=== PATIENT | female | born 1990 | race American Indian/Alaskan Native ===

== ENCOUNTER 2016-02-16 16:18 | Emergency (ER) | payer SELFPAY ==
[2016-02-16 16:56] VITALS: BP 182/120
== END 2016-02-16 17:13 | disposition left against medical advice (07) ==
LOC: ED 16:18
DX: R20.2 Paresthesia of skin (principal); Z53.21 Procedure and treatment not carried out due to patient leaving prior to being seen by health care provider
CPT/HCPCS: 82962; 93005; 93010

== ENCOUNTER 2016-06-28 22:43 | Inpatient (IN) | payer OTHER ==
[2016-06-29] MEDS ORDERED: ZESTRIL PO ONE (01:45)
[2016-06-29] MEDS ORDERED: NORVASC PO ONE (01:45)
--- NOTE | 2016-06-29 01:48 | Emergency Department Report ---
ED Headache HPI - General Chief Complaint: High BP Stated Complaint: HIGH BP Time Seen by Provider: 06/29/16 01:38 - History of Present Illness Initial Comments: Patient is a 26-year-old female with a history of hypertension and diabetes who presents to the ER with headache and dizziness. 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 Patient reports she usually feels this way when her blood pressure is elevated. Patient checked her blood pressure and found her BP to be 233/130. Patient reports she takes Norvasc 10 mg by mouth twice a day and lisinopril 40 mg by mouth twice a day. Patient was noncompliant with her medications tonight, last dose was taken this morning. Otherwise no fevers, chills, double vision, hearing changes, shortness of breath , chest pain, abdominal pain, diarrhea, sick contacts, or travel Allergies/Adverse Reactions: Allergies No Known Allergies Allergy (Verified 06/29/16 01:18) ED Review of Systems ROS: Stated complaint: HIGH BP Other details as noted in HPI Comment: All other systems reviewed and negative ED Past Medical Hx - Past Medical History Previous Medical History?: Yes Hx Hypertension: Yes Hx Diabetes: Yes Additional medical history: cholesterol - Surgical History Past Surgical History?: No - Social History Smoking Status: Never Smoker Substance Use Type: None ED Physical Exam - General Limitations: No Limitations General appearance: alert, in no apparent distress - Head Head exam: Present: atraumatic, normocephalic - Eye Eye exam: Present: normal appearance - ENT ENT exam: Present: mucous membranes moist - Neck Neck exam: Present: normal inspection - Respiratory Respiratory exam: Present: normal lung sounds bilaterally. Absent: respiratory distress, wheezes, rales, rhonchi, stridor - Cardiovascular Cardiovascular Exam: Present: regular rate, normal rhythm, normal heart sounds. Absent: irregular rhythm, systolic murmur, diastolic murmur, rubs, gallop - GI/Abdominal GI/Abdominal exam: Present: soft, normal bowel sounds. Absent: distended, tenderness, guarding, rebound, rigid - Extremities Exam Extremities exam: Present: normal inspection - Back Exam Back exam: Present: normal inspection - Neurological Exam Neurological exam: Present: alert, oriented X3, CN II-XII intact, normal gait, reflexes normal, other (Pt ambulating without neurological dysfunction). Absent : motor sensory deficit - Psychiatric Psychiatric exam: Present: normal affect, normal mood - Skin Skin exam: Present: warm, dry, intact, normal color. Absent: rash ED Course Vital Signs 06/29/16 06/29/16 06/29/16 01:18 01:45 01:58 Temperature 98.7 F Pulse Rate 104 H Respiratory 20 20 Rate Blood Pressure 226/154 179/115 O2 Sat by Pulse 100 99 Oximetry 06/29/16 06/29/16 06/29/16 02:00 02:10 02:21 Temperature Pulse Rate 97 H 98 H Respiratory 22 19 Rate Blood Pressure 179/115 176/125 181/125 O2 Sat by Pulse 100 100 Oximetry 06/29/16 06/29/16 06/29/16 02:31 02:41 02:51 Temperature Pulse Rate 90 105 H 105 H Respiratory 20 20 26 H Rate Blood Pressure 181/125 196/121 181/124 O2 Sat by Pulse 100 100 100 Oximetry 06/29/16 06/29/16 06/29/16 03:01 03:11 03:21 Temperature Pulse Rate 110 H 110 H 108 H Respiratory 22 23 18 Rate Blood Pressure 151/83 151/83 151/83 O2 Sat by Pulse 99 100 100 Oximetry 06/29/16 03:30 Temperature Pulse Rate 103 H Respiratory 18 Rate Blood Pressure 104/56 O2 Sat by Pulse 99 Oximetry - Reevaluation(s) Reevaluation #1: 06/29/16 02:50 called to bedside, patient now c/o chest pain. Ordered EKG Reevaluation #2: 06/29/16 03:21 Pt re-examined, patient reports some improvement. BP much improved BP: 151/83 HR: 107 Reevaluation #3: 06/29/16 03:30 BP: 104/56 HR: 72 ED Medical Decision Making - Lab Data Result diagrams: 06/29/16 01:36 06/29/16 01:36 - EKG Data -: EKG Interpreted by Me - EKG Data When compared to previous EKG there are: no significant change 06/29/16 03:00 Time 225, sinus rhythm at 94 bpm, QTC 402 ms, PVCs, normal axis, no LVH, no ST changes, no STEMI - Medical Decision Making Ordered insulin 10units IVP. K: 4.1 Glucose:>700 Ordered 2L NS IVF for HHNK Pt admitted to hospitalist Critical care attestation.: If time is entered above; I have spent that time in minutes in the direct care of this critically ill patient, excluding procedure time. ED Disposition Clinical Impression: HHNC (hyperglycemic hyperosmolar nonketotic coma), HTN (hypertension) Disposition: OP ADMITTED IP TO THIS HOSP Is pt being admited?: Yes Condition: Stable
[2016-06-29 02:15] LABS: Basophils % (Auto) 0.7 % (0.0-1.8); Calcium 9.1 mg/dL (8.4-10.2); Eosinophils % (Auto) 0.8 % (0.0-4.3); Hematocrit 42.7 % (30.3-42.9); Mean Corpuscular HGB Conc 33 % (30-34); Mean Corpuscular Hemoglobin 28 pg (28-32); Mean Corpuscular Volume 85 fl (79-97); Platelet Count 357 K/mm3 (140-440); Potassium 4.1 mmol/L (3.6-5.0); Red Blood Count 5.03 M/mm3 (3.65-5.03); Red Cell Distribution Width 13.7 % (13.2-15.2); White Blood Count 11.2 K/mm3 (4.5-11.0)
[2016-06-29 03:32] LABS: Bilirubin,Urine NEG (Negative); Blood,Urine NEG (Negative); Ketones,Urine NEG (Negative); Leukocyte Esterase,Urine NEG (Negative); Mucus,Urine FEW /HPF; Nitrite,Urine NEG (Negative); Urobilinogen,Urine < 2.0 mg/dL (<2.0)
[2016-06-29] MEDS ORDERED: NACL 0.9% 1000 ML 1,000 ML IV ONE ×2 (04:16)
--- NOTE | 2016-06-29 04:46 | XRay Report ---
FINAL REPORT PROCEDURE: XR CHEST ROUTINE 2V TECHNIQUE: PA and lateral chest radiographs were obtained. CPT 29345 HISTORY: chest pain COMPARISON: No prior studies are available for comparison. FINDINGS: Heart: Normal. Mediastinum/Vessels: Normal. Lungs/Pleural space: Normal. Bony thorax: No acute osseous abnormality. Other: IMPRESSION: Normal examination.
--- NOTE | 2016-06-29 06:00 | History and Physical Report ---
History of Present Illness Chief complaint: I have a bad headache and i feel sick History of present illness: 26 YO Female with HTN, DM, Metabolic Syndrome, HLD, presents to ED for evaluation. Pt states that she has experienced Headache, dizziness, nausea and vomiting for the past 2 days with worsening symptoms over the past 6 hours. Pt denies fever, chills, CP, Palpitations, trauma, syncope, blurred vision, syncope , seizure, vertigo, skin rash, recent ill contacts. Pt acknowledges medication noncompliance. Pt seen and evaluated in ED an found to have hyperglicemic hyperosmolar state, as well as systolic BP of 233. Past History Past Medical History: diabetes, hypertension Past Surgical History: No surgical history, Other (reviewed) Social history: single. denies: smoking, alcohol abuse, prescription drug abuse Family history: diabetes, hypertension Medications and Allergies Allergies Allergy/AdvReac Type Severity Reaction Status Date / Time No Known Allergies Allergy Verified 06/29/16 01:18 Review of Systems All systems: negative Ears, nose, mouth and throat: other (headache) Gastrointestinal: nausea, vomiting Exam - Constitutional Vitals: Temp Pulse Resp BP Pulse Ox 98.7 F 96 H 19 106/83 89 06/29/16 01:18 06/29/16 05:31 06/29/16 05:31 06/29/16 05:31 06/29/16 05:31 General appearance: Present: no acute distress, well-nourished - EENT Eyes: Present: PERRL ENT: hearing intact, clear oral mucosa - Neck Neck: Present: supple, normal ROM - Respiratory Respiratory effort: normal Respiratory: bilateral: CTA - Cardiovascular Heart Sounds: Present: S1 & S2. Absent: rub, click - Extremities Extremities: pulses symmetrical, No edema Peripheral Pulses: within normal limits - Abdominal General gastrointestinal: Present: soft, non-tender, non-distended, normal bowel sounds Female genitourinary: Present: normal - Integumentary Integumentary: Present: clear, warm, dry - Musculoskeletal Musculoskeletal: gait normal, strength equal bilaterally - Psychiatric Psychiatric: appropriate mood/affect, intact judgment & insight - Neurologic Neurologic: CNII-XII intact, moves all extremities Results - Labs CBC & Chem 7: 06/29/16 01:36 06/29/16 01:36 Labs: Abnormal lab results 06/29/16 06/29/1617 Range/Units 01:36 01:36 02:25 WBC 11.2 H (4.5-11.0) K/mm3 [place] % (Auto) 8.9 H (0.0-7.3) % [place] # 1.0 H (0.0-0.8) K/mm3 Seg Neutrophils % 72.5 H (40.0-70.0) % Seg Neutrophils # 8.1 H (1.8-7.7) K/mm3 Sodium 120 L (137-145) mmol/L Chloride 86.0 L (98-107) mmol/L Carbon Dioxide 19 L (22-30) mmol/L BUN 42 H (7-17) mg/dL Creatinine 1.5 H (0.7-1.2) mg/dL Glucose 772 H* (65-100) mg/dL POC Glucose > 500 H (70-105) Lactic Acid (0.7-2.0) mmol/L 06/29/16 06/29/16 06/29/16 Range/Units 02:44 03:28 05:23 WBC (4.5-11.0) K/mm3 [place] % (Auto) (0.0-7.3) % [place] # (0.0-0.8) K/mm3 Seg Neutrophils % (40.0-70.0) % Seg Neutrophils # (1.8-7.7) K/mm3 Sodium (137-145) mmol/L Chloride (98-107) mmol/L Carbon Dioxide (22-30) mmol/L BUN (7-17) mg/dL Creatinine (0.7-1.2) mg/dL Glucose (65-100) mg/dL POC Glucose 410 H 389 H (70-105) Lactic Acid 2.50 H* (0.7-2.0) mmol/L Assessment and Plan - Patient Problems (1) Sepsis Current Visit: Yes Status: Acute Qualifiers: Sepsis type: S Plan to address problem: Sepsis Protocol: IV abx, IVF, supportive care, serial lactate levels, monitor uop q shift, goal uop 30 cc hourly, blood cultures, (2) Hypertensive emergency Current Visit: Yes Status: Acute Plan to address problem: Monitor bp q shift, resume amlodipine, hydralazine prn. Systolic goal 165-180 overnight. (3) ARF (acute renal failure) Current Visit: Yes Status: Acute Qualifiers: Acute renal failure type: A Plan to address problem: IVF, monitor uop q shift, (4) HHNC (hyperglycemic hyperosmolar nonketotic coma) Current Visit: Yes Status: Acute Plan to address problem: DKA Protocol: Insulin drip, serial bmp, monitor anion gap, (5) DVT prophylaxis Current Visit: Yes Status: Acute
[2016-06-29] MEDS ORDERED: VANCOMYCIN VIAL 1,500 MG in NACL 0.9% 500 ML 500 ML IV ONE (06:05)
[2016-06-29] MEDS ORDERED: NACL 0.9% 1000 ML IV ONE (06:05)
[2016-06-29] MEDS ORDERED: D50W (25GM) IV PRN ×3 (06:05→10:54)
--- NOTE | 2016-06-29 06:47 | Cat Scan Report ---
FINAL REPORT PROCEDURE: CT HEAD/BRAIN WO CON TECHNIQUE: Computerized tomography of the head was performed without contrast material. HISTORY: headache COMPARISON: No prior studies are available for comparison. FINDINGS: Skull and scalp: Normal. Paranasal sinuses: Normal. Ventricles and subarachnoid spaces: Normal. Cerebrum: No evidence of hemorrhage, acute infarction or mass . Cerebellum and brainstem: No evidence of hemorrhage, acute infarction or mass. Vasculature: Normal. Comments: None. IMPRESSION: Normal Examination
[2016-06-29] MEDS ORDERED: APRESOLINE IV PRN (06:49)
[2016-06-29] MEDS ORDERED: NovoLIN R 100 UNITS in NACL 0.9% 99 ML IV SCH (07:00)
[2016-06-29] MEDS ORDERED: VANCOMYCIN PHARMACY TO DOSE IV SCH (07:00)
[2016-06-29 07:07] LABS: BUN/Creatinine Ratio 27.14; Calcium 8.2 mg/dL (8.4-10.2); Chloride 96.9 mmol/L (98-107); Potassium 4.2 mmol/L (3.6-5.0)
--- NOTE | 2016-06-29 07:13 | Admit Criteria Form ---
Admission Criteria Documentation: DIABETES Clinical Indications for Admission to Inpatient Care (Place 'X' for any and all applicable criteria): Admission is indicated by presence of ALL (if I & II) or ANY ONE (if III or IV) of the following (1)(2)(3)(4): [X]I. Diabetes is uncontrolled as indicated by ANY ONE of the following: [ ]a) Diabetic ketoacidosis as indicated by ALL of the following (8): [ ]i) Hyperglycemia (eg, plasma glucose greater than 200 mg/ dL (11.1 mmol/L)) [ ]ii) Acidosis (eg, arterial pH less than 7.30, serum bicarbonate level less than 15 mEq/L (mmol/L)) [ ]iii) Moderate ketonuria or ketonemia [X]b) Hyperglycemic hyperosmolar state as indicated by ALL of the following(9)(10): [ ]i) Neurologic dysfunction (eg, stupor, coma, hemiparesis , seizure)(13) [X]ii) Plasma glucose greater than 600 mg/dL (33.3 mmol/L) [ ]iii) Serum osmolality greater than 320 mOsm/kg (mmol/kg) [X]c) Severe signs or symptoms secondary to hyperglycemia indicated by ANY ONE of the following: [ ]i) Altered mental status(10) [X]ii) Significant hypovolemia or dehydration [ ]iii) Intractable nausea or vomiting [ ]iv) Unexplained fever or severe infection [X]v) Severe electrolyte abnormality (eg, hypokalemia, hyperkalemia, hypernatremia) [ ]II. Management at other levels of care (Also use Diabetes: Observation Care as appropriate) is not feasible because of ANY ONE of the following: [ ]a) Condition was not adequately corrected with treatment at other levels of care. [ ]b) Treatment at other levels of care is not appropriate because of condition severity (eg, hyperosmolar coma). [ ]III. Contraindications and/or Inappropriate clinical situations for Observational Care in patients with Diabetes, when ANY ONE of the following is required: [ ]a) Patient require specific diagnostic workup or therapeutic intervention 22 [ ]b) Patient with abnormal vital signs or altered mental status 23 [ ]IV. General contraindications and/or Inappropriate clinical situations for Observational Care in patients with Diabetes, when ANY ONE of the following is required: [ ]a) Prediction of prolongation of LOS based on ANY ONE of the following may be considered as a contraindication for observational care 2, 3, 4, 5, 6, 7, 8, 9, 10, 11 [ ]i) Age > 65 yrs. [ ]ii) Patient arriving by ambulance [ ]iii) Patient with high acuity [ ]iv) Patient requiring vital sign monitoring [ ]v) Patient on IV medication [ ]b) Systolic blood pressures 180mmHg 3,12 [ ]c) Patient with altered mental status including delirium and other alteration of consciousness, (3) [ ]d) Patient whose discharge disposition will be to a halfway home or rehabilitation home should not be managed in Emergency Department Observation Unit. CMS rule requires 3 days hospital stay before such placement.3,13 [ ]e) Patient with failure to thrive due to broad array of etiologies 3,16,17 [ ]f) Inability to ambulate 3,14 Extended stay beyond goal length of stay may be needed for(3)(20): [ ]a) Treatment of precipitating causes [ ]b) Development of hypoglycemia [ ]c) Complications of treatment [ ]d) Complications of decompensated diabetes (eg, acute gastric dilatation, persistent metabolic or neurologic derangement) [ ]e) Active Comorbidities [ ]f) Older patients( 65 years or older) The original [employer] content created by [employer] has been revised. The portions of the content which have been revised are identified through the use of italic text or in bold,and [facility] has neither reviewed nor approved the modified material. All other unmodified content is copyright [employer]. Please see references footnoted in the original [facility] 2016 Admission Criteria Met: Yes
[2016-06-29 07:16] LABS: Magnesium 2.1 mg/dL (1.7-2.3); Phosphorous 3.5 mg/dL (2.5-4.5)
[2016-06-29] MEDS ORDERED: LEVAQUIN 750MG/150ML 750 MG/150 ML BAG IV SCH ×2 (10:00)
[2016-06-29 10:34] LABS: Anion Gap 17 mmol/L; BUN/Creatinine Ratio 26.66; Blood Urea Nitrogen 32 mg/dL (7-17); Calcium 7.5 mg/dL (8.4-10.2); Carbon Dioxide 18 mmol/L (22-30); Chloride 103.2 mmol/L (98-107); Glucose 258 mg/dL (65-100); Potassium 3.6 mmol/L (3.6-5.0); Sodium 135 mmol/L (137-145)
[2016-06-29 10:41] LABS: Magnesium 1.9 mg/dL (1.7-2.3); Phosphorous 2.6 mg/dL (2.5-4.5)
[2016-06-29 10:43] LABS: Anion Gap 20 mmol/L; Blood Urea Nitrogen 33 mg/dL (7-17); Calcium 7.5 mg/dL (8.4-10.2); Carbon Dioxide 17 mmol/L (22-30); Glucose 255 mg/dL (65-100); Potassium 3.5 mmol/L (3.6-5.0); Sodium 136 mmol/L (137-145)
[2016-06-29] MEDS ORDERED: D5W/0.45% NACL/KCL 20 MEQ 20 MEQ/1,000 ML BAG IV SCH (11:00)
[2016-06-29] MEDS: NOVOLOG SUB-Q SCH ×5 (11:32→22:26)
[2016-06-29 14:15] LABS: Anion Gap 18 mmol/L; BUN/Creatinine Ratio 24.54; Blood Urea Nitrogen 27 mg/dL (7-17); Calcium 7.9 mg/dL (8.4-10.2); Carbon Dioxide 18 mmol/L (22-30); Chloride 104.3 mmol/L (98-107); Glucose 191 mg/dL (65-100); Potassium 3.9 mmol/L (3.6-5.0); Sodium 136 mmol/L (137-145)
[2016-06-29] MEDS: NEURONTIN PO SCH ×2 (15:08→22:27)
[2016-06-29] MEDS ORDERED: LEVEMIR SUB-Q SCH (22:00)
[2016-06-29] MEDS: PROCARDIA XL PO SCH (22:27)
[2016-06-30] MEDS: NEURONTIN PO SCH ×2 (05:07→14:54)
[2016-06-30] MEDS ORDERED: TYLENOL PO PRN (05:58)
[2016-06-30] MEDS: NOVOLOG SUB-Q SCH ×2 (07:30→12:52)
[2016-06-30 08:05] VITALS: BP 165/93
[2016-06-30] MEDS: PROCARDIA XL PO SCH (09:16)
--- NOTE | 2016-06-30 09:20 | Progress Note ---
Assessment and Plan Assessment and plan: 26 YO Female with HTN, DM, Metabolic Syndrome, HLD, presents to ED for evaluation. Pt states that she has experienced Headache, dizziness, nausea and vomiting for the past 2 days 1. Hyperglycemic hyperosmolar nonketotic states Continue insulin drip, as she improves we'll try to transition her to subcutaneous insulin to optimize the dose 2. Accelerated hypertension/hypertensive emergency Blood pressure medications also optimized 3. Sepsis was ruled out, patient had new evidence of sepsis, had abnormal vital signs with due to hyperglycemic hyperosmolar state and accelerated hypertension, chest x-ray and urinalysis were negative 4. Acute renal failure/vasomotor nephropathy Patient received IV fluids, and it resolves Critical care time 32 minutes History Interval history: Nausea is improved, she states that she is now having an appetite. Hospitalist Physical - Physical exam Narrative exam: General: Patient appears well in no distress HEENT: MMM, EOMI cardiac: S1-S2 heard lungs: clear to auscultation, abdomen: soft, nontender, nondistended bowel sounds positive extremities: no edema clubbing or cyanosis Skin: no rash or lesion Neuro: no focal deficit Psych: appropriate behavior and mood, cognition intact - Constitutional Vitals: Temp Pulse Resp BP Pulse Ox 97.1 F L 98 H 18 165/93 98 06/30/16 08:04 06/30/16 08:04 06/30/16 08:04 06/30/16 08:04 06/30/16 08:04 General appearance: Present: no acute distress, well-nourished Results - Labs CBC & Chem 7: 06/29/16 01:36 06/29/16 13:33 Labs: Laboratory Last Values WBC 11.2 K/mm3 (4.5-11.0) H 06/29/16 01:36 RBC 5.03 M/mm3 (3.65-5.03) 06/29/16 01:36 Hgb 14.0 gm/dl (10.1-14.3) 06/29/16 01:36 Hct 42.7 % (30.3-42.9) 06/29/16 01:36 MCV 85 fl (79-97) 06/29/16 01:36 MCH 28 pg (28-32) 06/29/16 01:36 MCHC 33 % (30-34) 06/29/16 01:36 RDW 13.7 % (13.2-15.2) 06/29/16 01:36 Plt Count 357 K/mm3 (140-440) 06/29/16 01:36 Lymph % (Auto) 17.1 % (13.4-35.0) 06/29/16 01:36 [place] % (Auto) 8.9 % (0.0-7.3) H 06/29/16 01:36 Eos % (Auto) 0.8 % (0.0-4.3) 06/29/16 01:36 Baso % (Auto) 0.7 % (0.0-1.8) 06/29/16 01:36 Lymph # 1.9 K/mm3 (1.2-5.4) 06/29/16 01:36 [place] # 1.0 K/mm3 (0.0-0.8) H 06/29/16 01:36 Eos # 0.1 K/mm3 (0.0-0.4) 06/29/16 01:36 Baso # 0.1 K/mm3 (0.0-0.1) 06/29/16 01:36 Seg Neutrophils % 72.5 % (40.0-70.0) H 06/29/16 01:36 Seg Neutrophils # 8.1 K/mm3 (1.8-7.7) H 06/29/16 01:36 VBG pO2 131.1 (25.0-47.0) H 06/29/16 06:00 Sodium 136 mmol/L (137-145) L 06/29/16 13:33 Potassium 3.9 mmol/L (3.6-5.0) 06/29/16 13:33 Chloride 104.3 mmol/L (98-107) 06/29/16 13:33 Carbon Dioxide 18 mmol/L (22-30) L 06/29/16 13:33 Anion Gap 18 mmol/L 06/29/16 13:33 BUN 27 mg/dL (7-17) H 06/29/16 13:33 Creatinine 1.1 mg/dL (0.7-1.2) 06/29/16 13:33 Estimated GFR > 60 ml/min 06/29/16 13:33 BUN/Creatinine Ratio 24.54 % 06/29/16 13:33 Glucose 191 mg/dL (65-100) H 06/29/16 13:33 POC Glucose 124 (70-105) H 06/30/16 05:45 Hemoglobin A1c 17.5 % (4-6) H 06/29/16 06:40 Lactic Acid 1.80 mmol/L (0.7-2.0) 06/29/16 09:41 Calcium 7.9 mg/dL (8.4-10.2) L 06/29/16 13:33 Phosphorus 2.60 mg/dL (2.5-4.5) D 06/29/16 09:41 Magnesium 1.90 mg/dL (1.7-2.3) 06/29/16 09:41 Urine Color Colorless (Yellow) 06/29/16 02:15 Urine Turbidity Clear (Clear) 06/29/16 02:15 Urine pH 6.0 (5.0-7.0) 06/29/16 02:15 Ur Specific [place] 1.014 (1.003-1.030) 06/29/16 02:15 Urine Protein 100 mg/dl mg/dL (Negative) 06/29/16 02:15 Urine Glucose (UA) >=500 mg/dL (Negative) 06/29/16 02:15 Urine Ketones Neg mg/dL (Negative) 06/29/16 02:15 Urine Blood Neg (Negative) 06/29/16 02:15 Urine Nitrite Neg (Negative) 06/29/16 02:15 Urine Bilirubin Neg (Negative) 06/29/16 02:15 Urine Urobilinogen < 2.0 mg/dL (<2.0) 06/29/16 02:15 Ur Leukocyte Esterase Neg (Negative) 06/29/16 02:15 Urine WBC (Auto) 1.0 /HPF (0.0-6.0) 06/29/16 02:15 Urine RBC (Auto) 3.0 /HPF (0.0-6.0) 06/29/16 02:15 U Epithel Cells (Auto) 1.0 /HPF (0-13.0) 06/29/16 02:15 Urine Mucus Few /HPF 06/29/16 02:15 Urine HCG, Qual Negative (Negative) 06/29/16 02:15
--- NOTE | 2016-06-30 09:30 | Discharge Summary ---
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 Pt states that she has experienced Headache, dizziness, nausea and vomiting for the past 2 days 1. Hyperglycemic hyperosmolar nonketotic states She was initially treated with insulin drip, she was then transitioned to subcutaneous insulin and the doses were optimized, advised on lifestyle modification. 2. Accelerated hypertension/hypertensive emergency Blood pressure medications also optimized 3. Sepsis was ruled out, patient had new evidence of sepsis, had abnormal vital signs with due to hyperglycemic hyperosmolar state and accelerated hypertension, chest x-ray and urinalysis were negative 4. Acute renal failure/vasomotor nephropathy Patient received IV fluids, and it resolved Disposition: DISCHARGED TO HOME OR SELFCARE Time spent for discharge: 35 minutes Core Measure Documentation - Palliative Care Palliative Care/ Comfort Measures: Not Applicable - Core Measures Any of the following diagnoses?: none Exam - Constitutional Vitals: Temp Pulse Resp BP Pulse Ox 97.1 F L 98 H 18 165/93 98 06/30/16 08:04 06/30/16 08:04 06/30/16 08:04 06/30/16 08:04 06/30/16 08:04 General appearance: Present: no acute distress, well-nourished - EENT Eyes: Present: PERRL ENT: hearing intact, clear oral mucosa - Neck Neck: Present: supple, normal ROM - Respiratory Respiratory effort: normal Respiratory: bilateral: CTA - Cardiovascular Heart Sounds: Present: S1 & S2. Absent: rub, click - Extremities Extremities: pulses symmetrical, No edema Peripheral Pulses: within normal limits - Abdominal General gastrointestinal: Present: soft, non-tender, non-distended, normal bowel sounds Female genitourinary: Present: normal - Integumentary Integumentary: Present: clear, warm, dry - Musculoskeletal Musculoskeletal: gait normal, strength equal bilaterally - Psychiatric Psychiatric: appropriate mood/affect, intact judgment & insight - Neurologic Neurologic: CNII-XII intact, moves all extremities Plan Follow up with: PRIMARY CARE, [Primary Care Provider] - 7 Days Forms: Work/School Release Form Prescriptions: amLODIPine [Norvasc] 10 mg PO DAILY #30 tablet Insulin NPH/Regular [NovoLIN 70/30] 25 unit SUB-Q BIDDIAB #1 vial Lisinopril [Zestril] 40 mg PO QDAY #30 tablet NIFEdipine XL [Procardia Xl] 30 mg PO Q12HR #60 tablet
[2016-06-30] MEDS ORDERED: THERAGRAN-M Tab PO SCH (10:00)
[2016-06-30] MEDS ORDERED: LUTEIN PO SCH (10:00)
[2016-06-30] MEDS ORDERED: FOLIC ACID PO SCH (10:00)
[2016-06-30] MEDS ORDERED: ZESTRIL PO SCH (10:00)
[2016-06-30] MEDS ORDERED: FEOSOL PO SCH (10:00)
[2016-06-30] MEDS ORDERED: NORVASC PO SCH (10:00)
[2016-06-30] MEDS ORDERED: IRON PO SCH (10:00)
[2016-06-30] MEDS ORDERED: MULTIVIT MIN PO SCH (10:00)
[2016-06-30] MEDS ORDERED: FLUARIX QUAD 2016-2017(36 MOS+) IM ONE (12:00)
[2016-06-30] MEDS ORDERED: PNEUMOVAX 23 IM ONE (12:00)
[2016-06-30] MEDS ORDERED: NOVOLOG SUB-Q ONE (14:47)
[2016-07-01] MEDS ORDERED: LEVAQUIN 500MG/100ML 500 MG/100 ML BAG IV SCH (10:00)
== END 2016-06-30 15:27 | disposition home or self-care (01) | DRG 637 ==
LOC: ED 22:43 → CC1 06-29 06:05 → 3A 06-29 11:22
PROVIDERS: ADMIT Internal Medicine; ATTEND Internal Medicine
DX: E11.01 Type 2 diabetes mellitus with hyperosmolarity with coma (principal); N17.0 Acute kidney failure with tubular necrosis; I16.1 Hypertensive emergency; I10 Essential (primary) hypertension; E88.81 Metabolic syndrome and other insulin resistance; E78.5 Hyperlipidemia, unspecified; Z82.49 Family history of ischemic heart disease and other diseases of the circulatory system; Z83.3 Family history of diabetes mellitus; Z91.19 Patient's noncompliance with other medical treatment and regimen
CPT/HCPCS: 36415; 70450; 71020; 80048; 81001; 81025; 82140; 82805; 82962; 83036; 83735; 84100; 85025; 90686; 90732; 93005; 93010; 96365; 96366; 96367; 96375; J1815; J1818; J1956; J3370; J7030; J7040

== ENCOUNTER 2017-01-26 13:49 | Emergency (ER) | payer OTHER ==
[2017-01-26 14:43] LABS: Bacteria,Urine 1+ /HPF (Negative); Bilirubin,Urine NEG (Negative); Blood,Urine SM (Negative); Ketones,Urine NEG (Negative); Leukocyte Esterase,Urine TR (Negative); Mucus,Urine FEW /HPF; Nitrite,Urine NEG (Negative); Urobilinogen,Urine < 2.0 mg/dL (<2.0)
[2017-01-26 14:55] LABS: Eosinophils % (Auto) 1.4 % (0.0-4.3); Hematocrit 38.6 % (30.3-42.9); Mean Corpuscular HGB Conc 34 % (30-34); Mean Corpuscular Hemoglobin 31 pg (28-32); Mean Corpuscular Volume 90 fl (79-97); Platelet Count 288 K/mm3 (140-440); Red Blood Count 4.27 M/mm3 (3.65-5.03); Red Cell Distribution Width 12.9 % (13.2-15.2); White Blood Count 8.7 K/mm3 (4.5-11.0)
[2017-01-26] MEDS ORDERED: APRESOLINE IV ONE ×2 (15:49→18:29)
[2017-01-26] MEDS ORDERED: SUBLIMAZE IV ONE (15:49)
[2017-01-26] MEDS ORDERED: NACL 0.9% 500 ML 500 ML IV ONE (15:49)
--- NOTE | 2017-01-26 15:51 | Emergency Department Report ---
ED General Adult HPI - General Chief complaint: Hyperglycemia Stated complaint: DIZZY Time Seen by Provider: 01/26/17 15:33 Source: patient, EMS (ems notes not available at time of chart dictation), RN notes reviewed, old records reviewed Mode of arrival: Stretcher Limitations: No Limitations - History of Present Illness Initial comments: This is a 27-year-old female, previously unknown to this provider. Past medical history includes hypertension, diabetes, metabolic syndrome, high cholesterol. Patient is brought to the hospital today by EMS with multiple complaints. To me, the patient's primary complaint is right lower quadrant and right flank pain. The pain is present for 1 day. It increases with palpation and decreases with rest. No vaginal discharge, no urinary symptoms, no recent sexual intercourse. Patient incidentally on review of systems also describes weakness, dizziness, reports chest pain and passing out yesterday. There is no leg pain, there is no leg swelling, the chest pain has been resolved for over 24 hours, patient denies DVT and pulmonary embolus. -: Gradual Location: chest, abdomen Severity scale (0 -10): 0 Quality: aching Consistency: intermittent Improves with: rest Worsens with: movement Associated Symptoms: chest pain, loss of appetite, nausea/vomiting (patient initially denied nausea, then admitted to nausea.), syncope, weakness - Related Data Home Medications Medication Instructions Recorded Confirmed Last Taken Gabapentin [Neurontin] 300 mg PO BID 06/29/16 01/26/17 01/26/17 Previous Rx's Medication Instructions Recorded Last Taken Type Insulin NPH/Regular [NovoLIN 70/30] 25 unit SUB-Q BIDDIAB #1 vial 06/30/1601/23 Rx Lisinopril [Zestril] 40 mg PO QDAY #30 tablet 06/30/16 01/26/17 Rx amLODIPine [Norvasc] 10 mg PO DAILY #30 tablet 06/30/16 01/26/17 Rx Allergies Allergy/AdvReac Type Severity Reaction Status Date / Time No Known Allergies Allergy Verified 06/29/16 01:18 ED Review of Systems ROS: Stated complaint: DIZZY Other details as noted in HPI Constitutional: malaise. denies: fever ENT: denies: dental pain, epistaxis Respiratory: denies: cough Cardiovascular: chest pain, syncope Gastrointestinal: abdominal pain, nausea Genitourinary: denies: dysuria Musculoskeletal: back pain Skin: denies: lesions Neurological: weakness Psychiatric: anxiety ED Past Medical Hx - Past Medical History Hx Hypertension: Yes Hx Diabetes: Yes Additional medical history: hyperlipidemia, Neuropathy - Surgical History Past Surgical History?: No - Social History Smoking Status: Never Smoker Substance Use Type: None - Medications Home Medications: Home Medications Medication Instructions Recorded Confirmed Last Taken Type Gabapentin [Neurontin] 300 mg PO BID 06/29/16 01/26/17 01/26/17 History Insulin NPH/Regular [NovoLIN 70/30] 25 unit SUB-Q BIDDIAB #1 vial 06/30/1601/2601/23/17 Rx Lisinopril [Zestril] 40 mg PO QDAY #30 tablet 06/30/16 01/26/17 01/26/17 Rx amLODIPine [Norvasc] 10 mg PO DAILY #30 tablet 06/30/16 01/26/17 01/26/17 Rx ED Physical Exam - General Limitations: No Limitations General appearance: alert, in no apparent distress - Head Head exam: Present: atraumatic, normocephalic - Eye Eye exam: Present: normal appearance, PERRL, EOMI, other (visual acuity intact to finger counting, color perception, reading at a close distance). Absent: nystagmus - ENT ENT exam: Present: normal exam, normal orophraynx, mucous membranes moist, normal external ear exam - Neck Neck exam: Present: normal inspection - Respiratory Respiratory exam: Present: normal lung sounds bilaterally. Absent: respiratory distress - Cardiovascular Cardiovascular Exam: Present: regular rate, normal rhythm, normal heart sounds. Absent: systolic murmur, diastolic murmur, rubs, gallop - GI/Abdominal GI/Abdominal exam: Present: soft, tenderness, normal bowel sounds. Absent: distended, guarding, rebound, rigid, pulsatile mass - Extremities Exam Extremities exam: Present: normal inspection, full ROM, normal capillary refill. Absent: pedal edema, joint swelling, calf tenderness - Back Exam Back exam: Present: normal inspection, full ROM. Absent: tenderness, CVA tenderness (R), paraspinal tenderness, vertebral tenderness - Neurological Exam Neurological exam: Present: alert, oriented X3, CN II-XII intact, normal gait, other (Extraocular movements intact. Tongue midline. No facial droop. Facial sensation intact to light touch in the V1, V2, V3 distribution bilaterally. 5 and 5 strength in 4 extremities.. Sensation is intact to light touch in 4 extremities.). Absent: motor sensory deficit - Psychiatric Psychiatric exam: Present: normal affect, normal mood - Skin Skin exam: Present: warm, dry, intact, normal color. Absent: rash ED Course Vital Signs 01/26/17 01/26/17 01/26/17 13:55 14:00 14:06 Temperature 98.7 F Pulse Rate 95 H 92 H 87 Respiratory 20 18 20 Rate Blood Pressure 199/128 197/130 O2 Sat by Pulse 98 Oximetry 01/26/17 01/26/17 01/26/17 14:31 15:05 17:26 Temperature Pulse Rate 90 97 H Respiratory 26 H 12 Rate Blood Pressure 199/128 199/128 180/120 O2 Sat by Pulse Oximetry 01/26/17 18:51 Temperature Pulse Rate 98 H Respiratory Rate Blood Pressure 142/75 O2 Sat by Pulse Oximetry ED Medical Decision Making - Lab Data Result diagrams: 01/26/17 14:27 01/26/17 14:27 Vital Signs 01/26/17 01/26/17 01/26/17 13:55 14:00 14:06 Temperature 98.7 F Pulse Rate 95 H 92 H 87 Respiratory 20 18 20 Rate Blood Pressure 199/128 197/130 O2 Sat by Pulse 98 Oximetry 01/26/17 01/26/17 01/26/17 14:31 15:05 17:26 Temperature Pulse Rate 90 97 H Respiratory 26 H 12 Rate Blood Pressure 199/128 199/128 180/120 O2 Sat by Pulse Oximetry Lab Results 01/26/17 01/26/17 01/26/17 Range/Units 14:14 14:14 14:14 WBC (4.5-11.0) K/mm3 RBC (3.65-5.03) M/mm3 Hgb (10.1-14.3) gm/dl Hct (30.3-42.9) % MCV (79-97) fl MCH (28-32) pg MCHC (30-34) % RDW (13.2-15.2) % Plt Count (140-440) K/mm3 Lymph % (Auto) (13.4-35.0) % [place] % (Auto) (0.0-7.3) % Eos % (Auto) (0.0-4.3) % Baso % (Auto) (0.0-1.8) % Lymph # (1.2-5.4) K/mm3 [place] # (0.0-0.8) K/mm3 Eos # (0.0-0.4) K/mm3 Baso # (0.0-0.1) K/mm3 Seg Neutrophils % (40.0-70.0) % Seg Neutrophils # (1.8-7.7) K/mm3 PT (12.2-14.9) Sec. INR (0.87-1.13) APTT (24.2-36.6) Sec. D-Dimer (0-234) ng/mlDDU VBG pH (7.320-7.420) Sodium (137-145) mmol/L Potassium (3.6-5.0) mmol/L Chloride (98-107) mmol/L Carbon Dioxide (22-30) mmol/L Anion Gap mmol/L BUN (7-17) mg/dL Creatinine (0.7-1.2) mg/dL Estimated GFR ml/min BUN/Creatinine Ratio % Glucose (65-100) mg/dL POC Glucose (70-105) Calcium (8.4-10.2) mg/dL Troponin T (0.00-0.029) ng/mL HCG, Quant (0-4) mIU/mL Urine Color Straw (Yellow) Urine Turbidity Clear (Clear) Urine pH 6.0 (5.0-7.0) Ur Specific [place] 1.014 (1.003-1.030) Urine Protein 100 mg/dl (Negative) mg/dL Urine Glucose (UA) >=500 (Negative) mg/dL Urine Ketones Neg (Negative) mg/dL Urine Blood Sm (Negative) Urine Nitrite Neg (Negative) Urine Bilirubin Neg (Negative) Urine Urobilinogen < 2.0 (<2.0) mg/dL Ur Leukocyte Esterase Tr (Negative) Urine WBC (Auto) 3.0 (0.0-6.0) /HPF Urine RBC (Auto) 4.0 (0.0-6.0) /HPF U Epithel Cells (Auto) 7.0 (0-13.0) /HPF Urine Bacteria (Auto) 1+ (Negative) /HPF Urine Mucus Few /HPF Urine HCG, Qual Negative (Negative) Urine Opiates Screen Presumptive negative Urine Methadone Screen Presumptive negative Ur Barbiturates Screen Presumptive negative Ur Phencyclidine Scrn Presumptive negative Ur Amphetamines Screen Presumptive negative U Benzodiazepines Scrn Presumptive negative Urine Cocaine Screen Presumptive negative U Marijuana (THC) Screen Presumptive negative Drugs of Abuse Note Disclamer 01/26/17 01/26/17 01/26/17 Range/Units 14:27 14:27 14:27 WBC 8.7 (4.5-11.0) K/mm3 RBC 4.27 (3.65-5.03) M/mm3 Hgb 13.0 (10.1-14.3) gm/dl Hct 38.6 (30.3-42.9) % MCV 90 (79-97) fl MCH 31 (28-32) pg MCHC 34 (30-34) % RDW 12.9 L (13.2-15.2) % Plt Count 288 (140-440) K/mm3 Lymph % (Auto) 18.0 (13.4-35.0) % [place] % (Auto) 8.8 H (0.0-7.3) % Eos % (Auto) 1.4 (0.0-4.3) % Baso % (Auto) 1.0 (0.0-1.8) % Lymph # 1.6 (1.2-5.4) K/mm3 [place] # 0.8 (0.0-0.8) K/mm3 Eos # 0.1 (0.0-0.4) K/mm3 Baso # 0.1 (0.0-0.1) K/mm3 Seg Neutrophils % 70.8 H (40.0-70.0) % Seg Neutrophils # 6.2 (1.8-7.7) K/mm3 PT (12.2-14.9) Sec. INR (0.87-1.13) APTT (24.2-36.6) Sec. D-Dimer (0-234) ng/mlDDU VBG pH 7.366 (7.320-7.420) Sodium 126 L (137-145) mmol/L Potassium 4.6 (3.6-5.0) mmol/L Chloride 85.7 L (98-107) mmol/L Carbon Dioxide 21 L (22-30) mmol/L Anion Gap 24 mmol/L BUN 21 H (7-17) mg/dL Creatinine 1.5 H (0.7-1.2) mg/dL Estimated GFR 50 ml/min BUN/Creatinine Ratio 14 % Glucose 727 H* (65-100) mg/dL POC Glucose (70-105) Calcium 9.1 (8.4-10.2) mg/dL Troponin T < 0.010 (0.00-0.029) ng/mL HCG, Quant (0-4) mIU/mL Urine Color (Yellow) Urine Turbidity (Clear) Urine pH (5.0-7.0) Ur Specific [place] (1.003-1.030) Urine Protein (Negative) mg/dL Urine Glucose (UA) (Negative) mg/dL Urine Ketones (Negative) mg/dL Urine Blood (Negative) Urine Nitrite (Negative) Urine Bilirubin (Negative) Urine Urobilinogen (<2.0) mg/dL Ur Leukocyte Esterase (Negative) Urine WBC (Auto) (0.0-6.0) /HPF Urine RBC (Auto) (0.0-6.0) /HPF U Epithel Cells (Auto) (0-13.0) /HPF Urine Bacteria (Auto) (Negative) /HPF Urine Mucus /HPF Urine HCG, Qual (Negative) Urine Opiates Screen Urine Methadone Screen Ur Barbiturates Screen Ur Phencyclidine Scrn Ur Amphetamines Screen U Benzodiazepines Scrn Urine Cocaine Screen U Marijuana (THC) Screen Drugs of Abuse Note 01/26/17 01/26/17 01/26/17 Range/Units 14:27 16:17 16:17 WBC (4.5-11.0) K/mm3 RBC (3.65-5.03) M/mm3 Hgb (10.1-14.3) gm/dl Hct (30.3-42.9) % MCV (79-97) fl MCH (28-32) pg MCHC (30-34) % RDW (13.2-15.2) % Plt Count (140-440) K/mm3 Lymph % (Auto) (13.4-35.0) % [place] % (Auto) (0.0-7.3) % Eos % (Auto) (0.0-4.3) % Baso % (Auto) (0.0-1.8) % Lymph # (1.2-5.4) K/mm3 [place] # (0.0-0.8) K/mm3 Eos # (0.0-0.4) K/mm3 Baso # (0.0-0.1) K/mm3 Seg Neutrophils % (40.0-70.0) % Seg Neutrophils # (1.8-7.7) K/mm3 PT 12.3 (12.2-14.9) Sec. INR 0.87 (0.87-1.13) APTT 31.0 (24.2-36.6) Sec. D-Dimer 205.3 (0-234) ng/mlDDU VBG pH (7.320-7.420) Sodium (137-145) mmol/L Potassium (3.6-5.0) mmol/L Chloride (98-107) mmol/L Carbon Dioxide (22-30) mmol/L Anion Gap mmol/L BUN (7-17) mg/dL Creatinine (0.7-1.2) mg/dL Estimated GFR ml/min BUN/Creatinine Ratio % Glucose (65-100) mg/dL POC Glucose (70-105) Calcium (8.4-10.2) mg/dL Troponin T (0.00-0.029) ng/mL HCG, Quant < 2 (0-4) mIU/mL Urine Color (Yellow) Urine Turbidity (Clear) Urine pH (5.0-7.0) Ur Specific [place] (1.003-1.030) Urine Protein (Negative) mg/dL Urine Glucose (UA) (Negative) mg/dL Urine Ketones (Negative) mg/dL Urine Blood (Negative) Urine Nitrite (Negative) Urine Bilirubin (Negative) Urine Urobilinogen (<2.0) mg/dL Ur Leukocyte Esterase (Negative) Urine WBC (Auto) (0.0-6.0) /HPF Urine RBC (Auto) (0.0-6.0) /HPF U Epithel Cells (Auto) (0-13.0) /HPF Urine Bacteria (Auto) (Negative) /HPF Urine Mucus /HPF Urine HCG, Qual (Negative) Urine Opiates Screen Urine Methadone Screen Ur Barbiturates Screen Ur Phencyclidine Scrn Ur Amphetamines Screen U Benzodiazepines Scrn Urine Cocaine Screen U Marijuana (THC) Screen Drugs of Abuse Note 01/26/17 01/26/17 Range/Units 17:14 18:17 WBC (4.5-11.0) K/mm3 RBC (3.65-5.03) M/mm3 Hgb (10.1-14.3) gm/dl Hct (30.3-42.9) % MCV (79-97) fl MCH (28-32) pg MCHC (30-34) % RDW (13.2-15.2) % Plt Count (140-440) K/mm3 Lymph % (Auto) (13.4-35.0) % [place] % (Auto) (0.0-7.3) % Eos % (Auto) (0.0-4.3) % Baso % (Auto) (0.0-1.8) % Lymph # (1.2-5.4) K/mm3 [place] # (0.0-0.8) K/mm3 Eos # (0.0-0.4) K/mm3 Baso # (0.0-0.1) K/mm3 Seg Neutrophils % (40.0-70.0) % Seg Neutrophils # (1.8-7.7) K/mm3 PT (12.2-14.9) Sec. INR (0.87-1.13) APTT (24.2-36.6) Sec. D-Dimer (0-234) ng/mlDDU VBG pH (7.320-7.420) Sodium (137-145) mmol/L Potassium (3.6-5.0) mmol/L Chloride (98-107) mmol/L Carbon Dioxide (22-30) mmol/L Anion Gap mmol/L BUN (7-17) mg/dL Creatinine (0.7-1.2) mg/dL Estimated GFR ml/min BUN/Creatinine Ratio % Glucose (65-100) mg/dL POC Glucose > 500 H (70-105) Calcium (8.4-10.2) mg/dL Troponin T < 0.010 (0.00-0.029) ng/mL HCG, Quant (0-4) mIU/mL Urine Color (Yellow) Urine Turbidity (Clear) Urine pH (5.0-7.0) Ur Specific [place] (1.003-1.030) Urine Protein (Negative) mg/dL Urine Glucose (UA) (Negative) mg/dL Urine Ketones (Negative) mg/dL Urine Blood (Negative) Urine Nitrite (Negative) Urine Bilirubin (Negative) Urine Urobilinogen (<2.0) mg/dL Ur Leukocyte Esterase (Negative) Urine WBC (Auto) (0.0-6.0) /HPF Urine RBC (Auto) (0.0-6.0) /HPF U Epithel Cells (Auto) (0-13.0) /HPF Urine Bacteria (Auto) (Negative) /HPF Urine Mucus /HPF Urine HCG, Qual (Negative) Urine Opiates Screen Urine Methadone Screen Ur Barbiturates Screen Ur Phencyclidine Scrn Ur Amphetamines Screen U Benzodiazepines Scrn Urine Cocaine Screen U Marijuana (THC) Screen Drugs of Abuse Note - EKG Data -: EKG Interpreted by Me - EKG Data 01/26/17 18:26 Sinus, 85 bpm, normal axis, QTC within normal limits, high left ventricular voltage, abnormal EKG, not morphologically consistent with ST elevation myocardial infarction - Radiology Data Radiology results: report reviewed, image reviewed interpreted by me: X-ray of the chest, interpreted by me: No acute disease. Noncontrast CT scan of the brain, interpreted by radiology, no acute disease Noncontrast CT scan of the abdomen and pelvis, interpreted by radiology: eport Referring Physician: AKANKSHA BOWEN Patient Name: STEPHANY ARREOLA Date of : 1990 Sex: Female Report Date: 2017-01-26 Report Status: [place] [address] Cat Scan Report Signed Patient: STEPHANY ARREOLA MR#: [id number] : 1990 Acct:[id number] Age/Sex: 27 / F ADM Date: 01/26/17 Loc: ED Attending Dr: Ordering Physician: AKANKSHA BOWEN MD Date of Service: 01/26/17 Procedure(s): CT abdomen pelvis wo con Accession Number(s): [id number] cc: AKANKSHA BOWEN MD FINAL REPORT EXAM: CT ABDOMEN PELVIS WO CON HISTORY: abd pain TECHNIQUE: CT examination of the ABDOMEN without IV contrast CT examination of the PELVIS without IV contrast PRIORS: None. FINDINGS: Nonspecific pneumatoceles in right lung base. These may reflect developmental variation. Slight linear scar versus atelectasis in left lung base posteriorly. No acute fracture. Normal-appearing gallbladder, adrenals, pancreas, and spleen. Normal caliber abdominal aorta and IVC. No renal calculus or hydronephrosis. No calculus or distention in the visible ureteral segments. Slight hepatomegaly with sagittal dimension of 18.5 cm. No focal liver lesion Very small fat containing umbilical hernia. No retroperitoneal adenopathy. No definite mesenteric mass. Normal-appearing stomach and duodenum. No small bowel distention in the abdomen and pelvis. No pelvic free fluid. Normal-appearing urinary bladder and rectum. Normal-appearing uterus and right adnexa. 2.9 cm nonspecific simple appearing cyst in left adnexa may be ovarian. Normal-appearing sigmoid colon. No gross ascites, free air, or colonic distention. Normal-appearing cecum and terminal ileum. Normal appendix. IMPRESSION: 2.9 cm simple appearing cyst in left adnexa may be ovarian. It may be a dominant follicle or early follicular cyst Slight hepatomegaly without focal liver lesion Transcribed By: BAL Dictated By: YANIRA STARKS MD Electronically Authenticated By: YANIRA STARKS MD Signed Date/Time: 01/26/17 7266 - Medical Decision Making Differential diagnosis, including but not limited to: Intracranial hemorrhage, diabetic ketoacidosis, hyperosmolar state, acute coronary syndrome, intra- abdominal infection, pulmonary embolus Assessment and plan: 27-year-old female with multiple complaints, including lower abdominal pain, and admission of chest pain and syncope yesterday. Afebrile with reassuring vital signs with the exception of hypertension, low risk by well's criteria, no from umbilicus fractures, d-dimer negative, perc negative. Troponin negative 1, pseudohyponatremia as noted, anion gap acidosis is noted, venous pH within normal limits, IV fluids ordered, hydralazine ordered, insulin ordered, noncontrast CT scan of the abdomen and pelvis is pending at this time. Also found to have renal insufficiency. Case presented to Hospital physician, Dr. Chakraborty, patient accepted to the medical service for hypertensive urgency, hyperosmolar state, renal insufficiency, chest pain and syncopal. Critical care attestation.: If time is entered above; I have spent that time in minutes in the direct care of this critically ill patient, excluding procedure time. ED Disposition Clinical Impression: Hypertensive emergency, ARF (acute renal failure), Hyperosmolar syndrome Disposition: DC-09 OP ADMIT IP TO THIS HOSP Is pt being admited?: Yes Does the pt Need Aspirin: Yes Condition: Stable Instructions: Hypertension (ED) Referrals: PRIMARY CARE, [Primary Care Provider] - 3-5 Days
[2017-01-26 15:59] LABS: Urine Drugs of Abuse Note Disclamer
[2017-01-26 16:59] LABS: INR 0.87 (0.87-1.13)
[2017-01-26 17:06] LABS: Anion Gap 24 mmol/L; BUN/Creatinine Ratio 14; Blood Urea Nitrogen 21 mg/dL (7-17); Calcium 9.1 mg/dL (8.4-10.2); Carbon Dioxide 21 mmol/L (22-30); Chloride 85.7 mmol/L (98-107); Potassium 4.6 mmol/L (3.6-5.0); Sodium 126 mmol/L (137-145)
[2017-01-26 17:12] LABS: Glucose 727 mg/dL (65-100)
[2017-01-26] MEDS ORDERED: NACL 0.9% 1000 ML 2,000 ML IV ONE (17:16)
--- NOTE | 2017-01-26 18:15 | Cat Scan Report ---
FINAL REPORT EXAM: CT HEAD/BRAIN WO CON HISTORY: htn syncope TECHNIQUE: CT examination of the head without IV contrast PRIORS: 06/29/2016 FINDINGS: No acute air-fluid level visualized in the included air-filled sinuses. Bone windows demonstrate no acute fracture. The brain is without mass, mass effect, hemorrhage, or acute infarct. There is no extra-axial intracranial bleed, brain bleed, or midline shift. The ventricles and sulci are age-appropriate. IMPRESSION: No acute CVA, intracranial bleed, or brain mass
--- NOTE | 2017-01-26 18:26 | History and Physical Report ---
History of Present Illness Chief complaint: I feel dizzy, and my blood sugar is high History of present illness: 27 YO Female with HTN, DM, Metabolic Syndrome, HLD, presents to ED for evaluation. Patient is brought to the hospital today by EMS with multiple complaints. To me, the patient's primary complaint is right lower quadrant and right flank pain. The pain is present for 1 day. It increases with palpation and decreases with rest. No vaginal discharge, no urinary symptoms, no recent sexual intercourse. Patient incidentally on review of systems also describes weakness, dizziness, reports chest pain and passing out yesterday. There is no leg pain, there is no leg swelling, the chest pain has been resolved for over 24 hours, patient denies DVT and pulmonary embolus. Pt seen and evaluated in ED and found to have hyperglycemia. Pt treated with insulin therapy with normalization of serum glucose. Pt medically optimized and back to usual state of health. Pt discharged home and instructed to f/u pcp 1wk, for f/u care. Past History Past Medical History: diabetes, hypertension, hyperlipidemia Past Surgical History: No surgical history, Other (reviewed) Social history: single Family history: diabetes, hypertension Medications and Allergies Allergies Allergy/AdvReac Type Severity Reaction Status Date / Time No Known Allergies Allergy Verified 06/29/16 01:18 Home Medications Medication Instructions Recorded Confirmed Last Taken Type Gabapentin [Neurontin] 300 mg PO BID 06/29/16 01/26/17 01/26/17 History amLODIPine [Norvasc] 10 mg PO DAILY #30 tablet 06/30/16 01/26/17 01/26/17 Rx Insulin NPH/Regular [NovoLIN 70/30] 25 unit SUB-Q BIDDIAB #1 vial 01/26/17 Unknown Rx Lisinopril [Zestril] 40 mg PO QDAY #30 tablet 01/26/17 Unknown Rx Review of Systems Constitutional: no weight loss, no weight gain, no fever, no chills Ears, nose, mouth and throat: no ear pain, no ear discharge, no tinnitis Breasts: no change in shape, no swelling, no mass Cardiovascular: no chest pain, no orthopnea, no palpitations Respiratory: no cough with sputum, no excessive sputum, no hemoptysis Gastrointestinal: no abdominal pain, no nausea, no vomiting, no diarrhea Genitourinary Female: no pelvic pain, no flank pain, no urinary frequency, no stress incontinence Rectal: no pain, no incontinence, no bleeding Musculoskeletal: no neck stiffness, no neck pain, no shooting arm pain Integumentary: no rash, no pruritis, no redness, no sores Neurological: no head injury, no transient paralysis, no paralysis, no weakness Psychiatric: no anxiety, no memory loss, no change in sleep habits, no sleep disturbances Endocrine: no cold intolerance, no heat intolerance, no polyphagia, no excessive thirst Hematologic/Lymphatic: no easy bruising, no easy bleeding Allergic/Immunologic: no urticaria, no allergic rhinitis, no wheezing Exam - Constitutional Vitals: Temp Pulse Resp BP Pulse Ox 98.7 F 97 H 12 180/120 98 01/26/17 14:06 01/26/17 17:26 01/26/17 15:05 01/26/17 17:26 01/26/17 14:06 General appearance: Present: no acute distress, well-nourished - EENT Eyes: Present: PERRL ENT: hearing intact, clear oral mucosa - Neck Neck: Present: supple, normal ROM - Respiratory Respiratory effort: normal Respiratory: bilateral: CTA - Cardiovascular Heart Sounds: Present: S1 & S2. Absent: rub, click - Extremities Extremities: pulses symmetrical, No edema Peripheral Pulses: within normal limits - Abdominal General gastrointestinal: Present: soft, non-tender, non-distended, normal bowel sounds Female genitourinary: Present: normal - Integumentary Integumentary: Present: clear, warm, dry - Musculoskeletal Musculoskeletal: gait normal, strength equal bilaterally - Psychiatric Psychiatric: appropriate mood/affect, intact judgment & insight - Neurologic Neurologic: CNII-XII intact, moves all extremities Results - Labs CBC & Chem 7: 01/26/17 14:27 01/26/17 19:29 Labs: Abnormal lab results 01/26/17 01/26/17 01/26/17 Range/Units 14:27 14:27 18:17 RDW 12.9 L (13.2-15.2) % [place] % (Auto) 8.8 H (0.0-7.3) % Seg Neutrophils % 70.8 H (40.0-70.0) % Sodium 126 L (137-145) mmol/L Chloride 85.7 L (98-107) mmol/L Carbon Dioxide 21 L (22-30) mmol/L BUN 21 H (7-17) mg/dL Creatinine 1.5 H (0.7-1.2) mg/dL Glucose 727 H* (65-100) mg/dL POC Glucose > 500 H (70-105) Assessment and Plan - Patient Problems (1) Diabetes Status: Acute Plan to address problem: Pt restarted on insulin therapy, Pt instructed to f/u pcp 1wk, with blood glucose log bid, low cabohydrate diet, (2) HTN (hypertension) Status: Acute Plan to address problem: Pt restarted on antihypertensive therapy, and instructed to f/u pcp with blood pressure log 3x daily as directed.
[2017-01-26] MEDS ORDERED: NOVOLOG SUB-Q ONE ×2 (18:27→19:30)
[2017-01-26] MEDS ORDERED: NACL 0.9% 1000 ML 1,000 ML IV ONE (18:27)
[2017-01-26] MEDS ORDERED: SODIUM BICARBONATE IV ONE ×2 (18:27→19:00)
[2017-01-26] MEDS ORDERED: BABY ASPIRIN PO ONE (18:29)
[2017-01-26] MEDS ORDERED: ZOFRAN IV ONE (18:33)
[2017-01-26] MEDS ORDERED: ZESTRIL PO ONE (18:45)
--- NOTE | 2017-01-26 18:48 | Cat Scan Report ---
FINAL REPORT EXAM: CT ABDOMEN PELVIS WO CON HISTORY: abd pain TECHNIQUE: CT examination of the ABDOMEN without IV contrast CT examination of the PELVIS without IV contrast PRIORS: None. FINDINGS: Nonspecific pneumatoceles in right lung base. These may reflect developmental variation. Slight linear scar versus atelectasis in left lung base posteriorly. No acute fracture. Normal-appearing gallbladder, adrenals, pancreas, and spleen. Normal caliber abdominal aorta and IVC. No renal calculus or hydronephrosis. No calculus or distention in the visible ureteral segments. Slight hepatomegaly with sagittal dimension of 18.5 cm. No focal liver lesion Very small fat containing umbilical hernia. No retroperitoneal adenopathy. No definite mesenteric mass. Normal-appearing stomach and duodenum. No small bowel distention in the abdomen and pelvis. No pelvic free fluid. Normal-appearing urinary bladder and rectum. Normal-appearing uterus and right adnexa. 2.9 cm nonspecific simple appearing cyst in left adnexa may be ovarian. Normal-appearing sigmoid colon. No gross ascites, free air, or colonic distention. Normal-appearing cecum and terminal ileum. Normal appendix. IMPRESSION: 2.9 cm simple appearing cyst in left adnexa may be ovarian. It may be a dominant follicle or early follicular cyst Slight hepatomegaly without focal liver lesion
--- NOTE | 2017-01-26 19:55 | XRay Report ---
FINAL REPORT PROCEDURE: XR CHEST 1V AP TECHNIQUE: Chest radiograph anteroposterior view. CPT 12463 HISTORY: cp COMPARISON: No prior studies are available for comparison. FINDINGS: Heart: Normal. Mediastinum/Vessels: Normal. Lungs/Pleural space: Shallow inspiration Bony thorax: No acute osseous abnormality. Life support devices: None. IMPRESSION: No acute cardiopulmonary abnormality for shallow inspiration study..
[2017-01-26 20:03] LABS: Albumin 3.1 g/dL (3.9-5); Albumin/Globulin Ratio 1.1 %; Bilirubin,Total 0.2 mg/dL (0.1-1.2); Calcium 8.7 mg/dL (8.4-10.2); Chloride 98.5 mmol/L (98-107); Potassium 3.3 mmol/L (3.6-5.0); Total Protein 5.9 g/dL (6.3-8.2)
[2017-01-26] MEDS ORDERED: NORVASC PO ONE (20:18)
[2017-01-26 22:06] VITALS: BP 166/99
== END 2017-01-26 22:32 | disposition admitted as inpatient to this hospital (09) ==
LOC: ED 13:49
DX: N17.9 Acute kidney failure, unspecified (principal); I16.1 Hypertensive emergency; E87.0 Hyperosmolality and hypernatremia; E11.9 Type 2 diabetes mellitus without complications
CPT/HCPCS: 36415; 70450; 71010; 74176; 80048; 80053; 80307; 81001; 81025; 82805; 82962; 84484; 84702; 85025; 85379; 85610; 85730; 93005; 93010; 96361; 96372; 96374; 96375; 99285; J0360; J2405; J3010; J7030; J7040; J1815

== ENCOUNTER 2017-05-07 18:02 | Emergency (ER) | payer OTHER ==
[2017-05-07 21:15] LABS: Basophils % (Auto) 0.6 % (0.0-1.8); Eosinophils # (Auto) 0.1 K/mm3 (0.0-0.4); Eosinophils % (Auto) 0.7 % (0.0-4.3); Hematocrit 43.2 % (30.3-42.9); Hemoglobin 14.2 gm/dl (10.1-14.3); Lymphocytes # (Auto) 1.5 K/mm3 (1.2-5.4); Lymphocytes % (Auto) 18.8 % (13.4-35.0); Mean Corpuscular HGB Conc 33 % (30-34); Mean Corpuscular Hemoglobin 30 pg (28-32); Mean Corpuscular Volume 90 fl (79-97); Monocytes # (Auto) 0.8 K/mm3 (0.0-0.8); Platelet Count 366 K/mm3 (140-440); Red Cell Distribution Width 13.2 % (13.2-15.2)
[2017-05-07 21:36] LABS: Calcium 9.4 mg/dL (8.4-10.2)
[2017-05-07 22:27] LABS: Bacteria,Urine 1+ /HPF (Negative); Bilirubin,Urine NEG (Negative); Blood,Urine LG (Negative); Color,Urine Yellow (Yellow); Mucus,Urine FEW /HPF; Urobilinogen,Urine < 2.0 mg/dL (<2.0)
[2017-05-08 01:45] LABS: HCG Qualitative,Urine Negative (Negative)
[2017-05-08] MEDS ORDERED: APRESOLINE PO ONE (01:50)
--- NOTE | 2017-05-08 05:21 | Cat Scan Report ---
FINAL REPORT EXAM: CT HEAD/BRAIN WO CON HISTORY: High BP and Headache TECHNIQUE: CT imaging acquired through the head without intravenous contrast. Transaxial reformations are provided. PRIORS: 01/26/2017 FINDINGS: The ventricles, cisterns and sulci are normal. No intraparenchymal or extra-axial mass, hemorrhage, or mass effect. Davila and white-matter differentiation is normal. Normal spherical shape of the globes. Imaged portions of the paranasal sinuses and mastoid air cells are without significant abnormality. No skull or facial fracture visualized. IMPRESSION: No acute intracranial abnormality.
[2017-05-08] MEDS ORDERED: HumuLIN R IV ONE ×2 (06:34→12:31)
[2017-05-08] MEDS ORDERED: NORMODYNE IV ONE ×2 (06:34→12:38)
--- NOTE | 2017-05-08 06:46 | Emergency Department Report ---
HPI - General Chief Complaint: High BP Time Seen by Provider: 05/08/17 06:13 - HPI HPI: 27-year-old female presents to the emergency department with complaint of some recent dizziness, nausea with vomiting, headache and lightheadedness. She also currently complains that her legs are cramping and/ or in pain. She has a history of insulin-dependent diabetes, hypertension and neuropathy and says she has been compliant with all of her medications. She takes Novolin 70/30 for her diabetes, Neurontin 300 mg by mouth 3 times a day for her neuropathy and is on Norvasc, lisinopril and carvedilol for her blood pressure. Her primary care physician is Dr. Casey Moss. Patient thought that it might be secondary to her diabetes and therefore checked her blood sugar at home and found it to be greater than 500. No recent travel or sick contacts at home. She denies any fever, chest pain, shortness of breath, dysuria, vaginal bleeding or discharge. Other than her normal home medications , she has not taken anything for her symptoms but presentation. ED Past Medical Hx - Past Medical History Hx Hypertension: Yes Hx Diabetes: Yes Additional medical history: hyperlipidemia, Neuropathy - Social History Smoking Status: Never Smoker Substance Use Type: None - Medications Home Medications: Home Medications Medication Instructions Recorded Confirmed Last Taken Type Gabapentin [Neurontin] 300 mg PO TID 06/29/16 05/08/17 01/26/17 History amLODIPine [Norvasc] 10 mg PO DAILY #30 tablet 06/30/16 05/08/17 01/26/17 Rx Insulin NPH/Regular [NovoLIN 70/30] 25 unit SUB-Q BIDDIAB #1 vial 01/26/1705/08 Unknown Rx Lisinopril [Zestril] 40 mg PO QDAY #30 tablet 01/26/17 05/08/17 Unknown Rx Carvedilol 12.5 mg PO DAILY 05/08/17 05/08/17 Unknown History ED Review of Systems ROS: Stated complaint: DM/HIGH BP/ABD/LEG PAIN Other details as noted in HPI Constitutional: denies: chills, fever Eyes: denies: eye pain, eye discharge, vision change ENT: denies: ear pain, throat pain Respiratory: denies: cough, shortness of breath, wheezing Cardiovascular: denies: chest pain, palpitations Gastrointestinal: nausea, vomiting Genitourinary: denies: urgency, dysuria, discharge Musculoskeletal: myalgia. denies: back pain, joint swelling Skin: denies: rash, lesions Neurological: headache, other (dizziness). denies: numbness Physical Exam - Physical Exam Vital Signs: Vital Signs 05/07/17 05/08/17 05/08/17 20:51 01:58 05:44 Temperature 98.5 F Pulse Rate 99 H 98 H 94 H Respiratory 18 18 Rate Blood Pressure 212/131 238/154 Blood Pressure 218/109 [Left] O2 Sat by Pulse 100 100 Oximetry Physical Exam: GENERAL: The patient is well-developed well-nourished. HENT: Normocephalic. Atraumatic. Patient has moist mucous membranes. EYES: Extraocular motions are intact. Pupils equal reactive to light bilaterally. No nystagmus. NECK: Supple. Trachea is midline. CHEST/LUNGS: Clear to auscultation. There is no respiratory distress noted. HEART/CARDIOVASCULAR: Regular. There is mild tachycardia. There is no murmur. ABDOMEN: Abdomen is soft, nontender. Patient has normal bowel sounds. There is no abdominal distention. SKIN: Skin is warm and dry. NEURO: The patient is awake, alert, and oriented. The patient is cooperative. The patient has no focal neurologic deficits. The patient has normal speech. Cranial nerves II through XII grossly intact. No gait abnormalities. MUSCULOSKELETAL: There is no tenderness or deformity. There is no limitation range of motion. There is no evidence of acute injury. ED Course Vital Signs 05/07/17 05/08/17 05/08/17 20:51 01:58 05:44 Temperature 98.5 F Pulse Rate 99 H 98 H 94 H Respiratory 18 18 Rate Blood Pressure 212/131 238/154 Blood Pressure 218/109 [Left] O2 Sat by Pulse 100 100 Oximetry ED Medical Decision Making - Lab Data Result diagrams: 05/07/17 20:59 05/08/17 11:48 - EKG Data -: EKG Interpreted by Me EKG shows normal: sinus rhythm (PVC), axis, intervals, QRS complexes, ST-T waves (T-wave inversions to the lateral leads) Rate: normal - EKG Data When compared to previous EKG there are: no significant change Interpretation: unchanged when compared t (01/26/17) - Radiology Data Radiology results: report reviewed, image reviewed interpreted by me: Chest x-ray does not show any acute process. There are no pleural effusions, obvious pneumonia and there is no pneumothorax. EXAM: CT HEAD/BRAIN WO CON HISTORY: High BP and Headache TECHNIQUE: CT imaging acquired through the head without intravenous contrast. Transaxial reformations are provided. PRIORS: 01/26/2017 FINDINGS: The ventricles, cisterns and sulci are normal. No intraparenchymal or extra-axial mass, hemorrhage, or mass effect. Davila and white-matter differentiation is normal. Normal spherical shape of the globes. Imaged portions of the paranasal sinuses and mastoid air cells are without significant abnormality. No skull or facial fracture visualized. IMPRESSION: No acute intracranial abnormality. Transcribed By: MB Dictated By: AKANKSHA ECHEVERRIA MD Electronically Authenticated By: AKANKSHA ECHEVERRIA MD Signed Date/Time: 05/08/17 0516 - Medical Decision Making Presented with a headache, nausea, vomiting and elevated blood sugar. She also presented with very elevated blood pressure. All this was happening despite a ledge compliance with her medications. CT scan of the head was done that did not show any bleed, shift, mass or any acute process. She does not have any focal, motor or sensory deficits in her cranial nerves are intact. The patient was given a few different doses of antihypertensive medications and eventually her blood pressure came down to a reasonable level. Because of the patient's hypertension, did not want to give too much IV fluid as that would be counterintuitive to treat her blood pressure. She was given some IV insulin and her blood sugar came down to about 280. It was closer to about 300 with the recheck of her serum metabolic panel and the patient has not had anything to eat in about 20 hours and therefore she was given another small dose of IV insulin and eventually was given some food to eat. The patient does not appear to be in diabetic ketoacidosis as there is no significant venous acidosis and her anion gap is down to 19. Once the blood sugar and blood pressure became better controlled, the patient felt improved. She has been seen ambulatory in the emergency department without any instability. She says that she has good follow-up with her primary care physician and will try to get in there in the next 1-2 days without fail. We discussed staying away from foods that are high in sugar, carbohydrates, starches, salt and caffeinated products. She will return to the emergency department immediately with any worsening of her symptoms or any acute distress. - Differential Diagnosis DKA, HHNK, Brain Bleed, migraine Critical Care Time: No Critical care attestation.: If time is entered above; I have spent that time in minutes in the direct care of this critically ill patient, excluding procedure time. ED Disposition Clinical Impression: Hypertensive urgency, Hyperglycemia due to type 1 diabetes mellitus, Neuropathy Disposition: DC- TO HOME OR SELFCARE Is pt being admited?: No Condition: Stable Instructions: Peripheral Neuropathy (ED), Hypertension (ED), Diabetic Hyperglycemia (ED) Additional Instructions: Please follow-up with your primary care physician in the next 1-2 days without fail to discuss your elevated blood sugar and hypertension. Continue with your blood pressure medications and your insulin regiment. Try and stay away from foods that are high in salt, caffeinated products to assist with your blood pressure. Try and stay away from foods and drinks that are high in sugar, carbohydrates and starches to help with your blood sugar. Keep both a blood sugar and blood pressure log to show your primary care physician. Return to the emergency department immediately with any worsening of your symptoms or any acute distress. Referrals: PRIMARY CARE, [Primary Care Provider] - [facility] Forms: Work/School Release Form(ED) Time of Disposition: 14:21
--- NOTE | 2017-05-08 07:35 | XRay Report ---
ROUTINE CHEST, TWO VIEWS: HISTORY: chest pain. The trachea, heart, mediastinal contour, lung escobedo and bony thorax are unremarkable. IMPRESSION: Unremarkable chest x-ray.
[2017-05-08] MEDS ORDERED: NEURONTIN PO ONE (07:44)
[2017-05-08] MEDS ORDERED: APRESOLINE IV ONE (08:48)
[2017-05-08] MEDS ORDERED: HumuLIN R IV NR (09:00)
[2017-05-08 11:33] LABS: Calcium 9.8 mg/dL (8.4-10.2)
[2017-05-08 12:30] LABS: Calcium 8.8 mg/dL (8.4-10.2)
[2017-05-08 16:50] VITALS: BP 132/74
== END 2017-05-08 16:50 | disposition home or self-care (01) ==
LOC: ED 18:02
DX: I16.0 Hypertensive urgency (principal); E10.65 Type 1 diabetes mellitus with hyperglycemia; I10 Essential (primary) hypertension; E78.5 Hyperlipidemia, unspecified; G62.9 Polyneuropathy, unspecified; Z79.4 Long term (current) use of insulin
CPT/HCPCS: 36415; 70450; 71046; 80048; 81001; 81025; 82805; 82962; 84484; 85025; 93005; 93010; 96374; 96375; 96376; J1815

== ENCOUNTER 2017-07-08 00:01 | Emergency (ER) | payer SELFPAY ==
[2017-07-08] MEDS ORDERED: CATAPRES ONE (00:33)
[2017-07-08] MEDS ORDERED: CATAPRES PO ONE ×2 (00:54→02:19)
--- NOTE | 2017-07-08 01:28 | Emergency Department Report ---
ED General Adult HPI - General Chief complaint: High BP Stated complaint: HEADACHE Time Seen by Provider: 07/08/17 01:20 Source: patient Mode of arrival: Ambulatory Limitations: No Limitations - History of Present Illness Initial comments: Patient complains of headache of 2-3 day duration. Patient is an insulin- dependent diabetic, with hypertension, and she has had several emergency department visits for similar complaints, including headache, dizziness, and chest pain. Multiple prior evaluations have included head CT scans, which have been normal, and patient has been previously hypertensive on visits, but successfully treated while in the emergency department with antihypertensives and pain medication. Patient is hypertensive at time of evaluation, but has no acute focal neurologic complaints. She also has no systemic complaints, no fever chills or diaphoresis, but she does have complaint of bilateral flank pain. She has been told before that she has had acute kidney damage, but has never followed up on it, and has no current history of dysuria. - Related Data Home Medications Medication Instructions Recorded Confirmed Last Taken Gabapentin [Neurontin] 300 mg PO TID 06/29/16 07/08/17 01/26/17 Carvedilol 12.5 mg PO DAILY 05/08/17 07/08/17 Unknown Previous Rx's Medication Instructions Recorded Last Taken Type amLODIPine [Norvasc] 10 mg PO DAILY #30 tablet 06/30/16 01/26/17 Rx Insulin NPH/Regular [NovoLIN 70/30] 25 unit SUB-Q BIDDIAB #1 vial 01/26/17 Unknown Rx Lisinopril [Zestril] 40 mg PO QDAY #30 tablet 01/26/17 Unknown Rx HYDROcodone/APAP 7.5-325 [Cuney 1 each PO Q6HR PRN #10 tablet 07/08/17 Unknown Rx 7.5/325] Allergies Allergy/AdvReac Type Severity Reaction Status Date / Time No Known Allergies Allergy Verified 06/29/16 01:18 ED Review of Systems ROS: Stated complaint: HEADACHE Other details as noted in HPI Constitutional: denies: chills, diaphoresis, fever, malaise Eyes: denies: eye pain, eye discharge, vision change ENT: denies: ear pain, throat pain Respiratory: denies: cough, shortness of breath, wheezing Cardiovascular: denies: chest pain, palpitations Endocrine: no symptoms reported Gastrointestinal: nausea Genitourinary: denies: urgency, dysuria, discharge Musculoskeletal: denies: back pain, joint swelling, arthralgia Skin: denies: rash, lesions Neurological: headache. denies: numbness, paresthesias, vertigo Psychiatric: denies: anxiety, depression Hematological/Lymphatic: denies: easy bleeding, easy bruising ED Past Medical Hx - Past Medical History Hx Hypertension: Yes Hx Diabetes: Yes Hx Renal Disease: Yes (Acute Renal Failure) Additional medical history: hyperlipidemia, Neuropathy - Surgical History Past Surgical History?: No - Social History Smoking Status: Never Smoker Substance Use Type: None - Medications Home Medications: Home Medications Medication Instructions Recorded Confirmed Last Taken Type Gabapentin [Neurontin] 300 mg PO TID 06/29/16 07/08/17 01/26/17 History amLODIPine [Norvasc] 10 mg PO DAILY #30 tablet 06/30/16 07/08/17 01/26/17 Rx Insulin NPH/Regular [NovoLIN 70/30] 25 unit SUB-Q BIDDIAB #1 vial 01/26/1707/08 Unknown Rx Lisinopril [Zestril] 40 mg PO QDAY #30 tablet 01/26/17 07/08/17 Unknown Rx Carvedilol 12.5 mg PO DAILY 05/08/17 07/08/17 Unknown History HYDROcodone/APAP 7.5-325 [Cuney 1 each PO Q6HR PRN #10 tablet 07/08/17 Unknown Rx 7.5/325] ED Physical Exam - General Limitations: No Limitations General appearance: in distress (moderate discomfort, but awake and oriented, cooperative) - Head Head exam: Present: atraumatic, normocephalic, other (moderate generalized soft tissue myofascial tenderness to scalp) - Eye Eye exam: Present: PERRL, EOMI - ENT ENT exam: Present: normal exam - Neck Neck exam: Present: normal inspection. Absent: tenderness - Respiratory Respiratory exam: Present: normal lung sounds bilaterally - Cardiovascular Cardiovascular Exam: Present: regular rate - GI/Abdominal GI/Abdominal exam: Present: soft, tenderness (bilateral flanks, mild, soft tissue extending posteriorly). Absent: guarding - Extremities Exam Extremities exam: Present: normal inspection - Back Exam Back exam: Present: CVA tenderness (R), CVA tenderness (L) ED Course Vital Signs 07/08/17 07/08/17 07/08/17 00:37 00:54 01:32 Temperature 98.8 F 98.6 F Pulse Rate 104 H 104 H 103 H Respiratory 18 20 Rate Blood Pressure 262/165 262/165 Blood Pressure 212/138 [Right] O2 Sat by Pulse 100 98 Oximetry 07/08/17 07/08/17 07/08/17 01:48 02:36 03:36 Temperature Pulse Rate 103 H Respiratory 20 20 20 Rate Blood Pressure 212/138 Blood Pressure [Right] O2 Sat by Pulse 98 Oximetry 07/08/17 07/08/17 03:42 05:15 Temperature Pulse Rate 88 81 Respiratory 20 20 Rate Blood Pressure Blood Pressure 167/106 143/101 [Right] O2 Sat by Pulse 97 99 Oximetry - Reevaluation(s) Reevaluation #1: 07/08/17 07:03 Patient is feeling improved after medication for headache with hydrocodone, she was rehydrated with normal saline, and recheck of glucose was 428, and blood pressure has decreased nicely to 168/106. ED Medical Decision Making - Lab Data Result diagrams: 07/08/17 01:10 07/08/17 01:10 - EKG Data -: EKG Interpreted by Sd EKG shows normal: sinus rhythm, axis, intervals (normal QRS interval, normal QT interval of 453 ms corrected.), QRS complexes (LVH by voltage criteria and anterior limb leads as well as precordial leads.), ST-T waves (typical repolarization changes associated with LVH.) Rate: tachycardia - Medical Decision Making Patient has poorly controlled diabetes mellitus, but she is not acidotic, and shows no signs of underlying infection that could be causing her poor control. She's had previous visits with poorly controlled diabetes, as well as poorly controlled hypertension, but improves with treatment for discomfort. She is stable for discharge home, will be recommended to follow with a primary care physician at local [facility], given that she does not have a physician in this community, and need for source of care. We will treat her discomfort with a short supply of analgesics, and she will be given work release and instructed to rest today. Critical Care Time: No Critical care attestation.: If time is entered above; I have spent that time in minutes in the direct care of this critically ill patient, excluding procedure time. 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 Because he do not have a doctor locally, we do not feel that you should change your insulin dosing at this time but she may decrease the amount of carbohydrates that usually eat normally, and this will decrease the burden of insulin, make it easier to control your blood glucose levels. Continue to drink plenty of fluids, and eat a healthy diet otherwise. We are prescribing hydrocodone for any residual headache that she may have, and have given a work excuse for today. We recommended to follow with [facility] to establish with a local primary care physician. Prescriptions: HYDROcodone/APAP 7.5-325 [Cuney 7.5/325] 1 each PO Q6HR PRN #10 tablet PRN Reason: Headache Forms: Work/School Release Form(ED) Time of Disposition: 07:08
[2017-07-08 01:44] LABS: Basophils # (Auto) 0.1 K/mm3 (0.0-0.1); Basophils % (Auto) 1.3 % (0.0-1.8); Eosinophils # (Auto) 0.1 K/mm3 (0.0-0.4); Eosinophils % (Auto) 1.1 % (0.0-4.3); Hemoglobin 14.5 gm/dl (10.1-14.3); Lymphocytes % (Auto) 17.6 % (13.4-35.0); Mean Corpuscular HGB Conc 35 % (30-34); Mean Corpuscular Hemoglobin 30 pg (28-32); Mean Corpuscular Volume 88 fl (79-97); Monocytes # (Auto) 0.9 K/mm3 (0.0-0.8); Monocytes % (Auto) 7.6 % (0.0-7.3); Platelet Count 377 K/mm3 (140-440); Red Blood Count 4.79 M/mm3 (3.65-5.03); Red Cell Distribution Width 13.1 % (13.2-15.2)
[2017-07-08 01:48] LABS: Bilirubin,Urine NEG (Negative); Blood,Urine NEG (Negative); Color,Urine Straw (Yellow); Urobilinogen,Urine < 2.0 mg/dL (<2.0); WBC,Urine < 1.0 /HPF (0.0-6.0)
[2017-07-08 01:52] LABS: Alanine Aminotransferase 10 units/L (7-56); Albumin 3.8 g/dL (3.9-5); BUN/Creatinine Ratio 16; Blood Urea Nitrogen 30 mg/dL (7-17); Calcium 9.4 mg/dL (8.4-10.2); Hemolysis Index 2
[2017-07-08] MEDS ORDERED: NORCO 10/325 PO ONE (02:19)
[2017-07-08] MEDS ORDERED: ZOFRAN ODT PO ONE (02:21)
[2017-07-08] MEDS ORDERED: NACL 0.9% 1000 ML 1,000 ML ONE (03:30)
[2017-07-08] MEDS ORDERED: NACL 0.9% 1000 ML 1,000 ML IV ONE (06:12)
[2017-07-08 10:16] VITALS: BP 186/126
--- NOTE | 2017-07-09 14:29 | Cat Scan Report ---
FINAL REPORT PROCEDURE: CT HEAD/BRAIN WO CON TECHNIQUE: Computerized tomography of the head was performed without contrast material. HISTORY: severe Headache COMPARISON: No prior studies are available for comparison. FINDINGS: Skull and scalp: Normal. Paranasal sinuses: Normal. Ventricles and subarachnoid spaces: Normal. Cerebrum: No evidence of hemorrhage, acute infarction or mass . Cerebellum and brainstem: No evidence of hemorrhage, acute infarction or mass. Vasculature: Normal. Comments: None. IMPRESSION: Normal Examination
== END 2017-07-08 07:50 | disposition home or self-care (01) ==
LOC: ED 00:01
DX: I10 Essential (primary) hypertension (principal); E11.65 Type 2 diabetes mellitus with hyperglycemia; R51 Headache; E78.5 Hyperlipidemia, unspecified; Z79.4 Long term (current) use of insulin
CPT/HCPCS: 36415; 70450; 80053; 81001; 82805; 82962; 84703; 85025; 93005; 93010; 96372; 99284; J7030; J1815; Q0162

== ENCOUNTER 2017-07-12 11:25 | Inpatient (IN) | payer OTHER ==
[2017-07-12] MEDS ORDERED: NORMODYNE IV ONE ×2 (13:18→16:51)
--- NOTE | 2017-07-12 13:46 | Emergency Department Report ---
ED General Adult HPI - General Chief complaint: High BP Stated complaint: BODY PAIN Time Seen by Provider: 07/12/17 13:17 Source: patient, EMS Mode of arrival: Stretcher Limitations: No Limitations - History of Present Illness Initial comments: This is a patient that was seen here on the third and now returns with persistent complaints. From her past emergency department record: Patient complains of headache of 2-3 day duration. Patient is an insulin- dependent diabetic, with hypertension, and she has had several emergency department visits for similar complaints, including headache, dizziness, and chest pain. Multiple prior evaluations have included head CT scans, which have been normal, and patient has been previously hypertensive on visits, but successfully treated while in the emergency department with antihypertensives and pain medication. Patient is hypertensive at time of evaluation, but has no acute focal neurologic complaints. She also has no systemic complaints, no fever chills or diaphoresis, but she does have complaint of bilateral flank pain. She has been told before that she has had acute kidney damage, but has never followed up on it, and has no current history of dysuria. I do note that the patient was discharged with severe hypertension that date. In addition in 2017 the patient was admitted for accelerated hypertension. From her discharge summary: 26 YO Female with HTN, DM, Metabolic Syndrome, HLD, presents to ED for evaluation. Pt states that she has experienced Headache, dizziness, nausea and vomiting for the past 2 days 1. Hyperglycemic hyperosmolar nonketotic states She was initially treated with insulin drip, she was then transitioned to subcutaneous insulin and the doses were optimized, advised on lifestyle modification. 2. Accelerated hypertension/hypertensive emergency Blood pressure medications also optimized 3. Sepsis was ruled out, patient had new evidence of sepsis, had abnormal vital signs with due to hyperglycemic hyperosmolar state and accelerated hypertension, chest x-ray and urinalysis were negative 4. Acute renal failure/vasomotor nephropathy Patient received IV fluids, and it resolved The patient tells me that she ran out of her carvedilol which is 12.5 mg twice a day. She still states that she is taking her lisinopril 40 mg a day. She did not mention her amlodipine. She states that she was not given an additional prescription on the third. In addition to uncontrolled hypertension and she has a history of chronic pain on gabapentin. She also has frequent headaches as above indicated. She presents today complaining of essentially allodynia. She mention tingling to bilateral upper extremities. She tells me that she has a neuropathy which causes pain of her extremities. She states that that's what she was complaining of when she arrived. In any case she presents again with severely uncontrolled hypertension and a blood pressure 189/ 130. She was treated with antihypertensive medication. -: days(s), week(s) Location: head, upper extremity, lower extremity Radiation: non-radiation Quality: aching Consistency: intermittent Associated Symptoms: denies other symptoms Treatments Prior to Arrival: none - Related Data Home Medications Medication Instructions Recorded Confirmed Last Taken Gabapentin [Neurontin] 300 mg PO TID 06/29/16 07/08/17 01/26/17 Carvedilol 12.5 mg PO DAILY 05/08/17 07/08/17 Unknown Previous Rx's Medication Instructions Recorded Last Taken Type amLODIPine [Norvasc] 10 mg PO DAILY #30 tablet 06/30/16 01/26/17 Rx Insulin NPH/Regular [NovoLIN 70/30] 25 unit SUB-Q BIDDIAB #1 vial 01/26/17 Unknown Rx Lisinopril [Zestril] 40 mg PO QDAY #30 tablet 01/26/17 Unknown Rx HYDROcodone/APAP 7.5-325 [[place] 1 each PO Q6HR PRN #10 tablet 07/08/17 Unknown Rx 7.5/325] Carvedilol [Coreg] 12.5 mg PO BID #60 tablet 07/12/17 Unknown Rx Losartan/Hydrochlorothiazide 1 each PO QDAY #30 tablet 07/12/17 Unknown Rx [Losartan-Hctz 100-25 mg Tab] amLODIPine [Norvasc] 10 mg PO DAILY #30 tab 07/12/17 Unknown Rx Allergies Allergy/AdvReac Type Severity Reaction Status Date / Time No Known Allergies Allergy Verified 06/29/16 01:18 ED Review of Systems ROS: Stated complaint: BODY PAIN Other details as noted in HPI Constitutional: denies: chills, fever Eyes: denies: eye pain, eye discharge, vision change ENT: denies: ear pain, throat pain Respiratory: denies: cough, shortness of breath, wheezing Cardiovascular: denies: chest pain, palpitations Endocrine: no symptoms reported Gastrointestinal: denies: abdominal pain, nausea, diarrhea Genitourinary: denies: urgency, dysuria, discharge Musculoskeletal: denies: back pain, joint swelling, arthralgia Skin: denies: rash, lesions Neurological: headache, paresthesias (chronic). denies: weakness, numbness, confusion, abnormal gait, vertigo Psychiatric: denies: anxiety, depression Hematological/Lymphatic: denies: easy bleeding, easy bruising ED Past Medical Hx - Past Medical History Hx Hypertension: Yes Hx Diabetes: Yes Hx Renal Disease: Yes (Acute Renal Failure) Additional medical history: hyperlipidemia, Neuropathy - Social History Smoking Status: Never Smoker Substance Use Type: None - Medications Home Medications: Home Medications Medication Instructions Recorded Confirmed Last Taken Type Gabapentin [Neurontin] 300 mg PO TID 06/29/16 07/08/17 01/26/17 History amLODIPine [Norvasc] 10 mg PO DAILY #30 tablet 06/30/16 07/08/17 01/26/17 Rx Insulin NPH/Regular [NovoLIN 70/30] 25 unit SUB-Q BIDDIAB #1 vial 01/26/1707/08 Unknown Rx Lisinopril [Zestril] 40 mg PO QDAY #30 tablet 01/26/17 07/08/17 Unknown Rx Carvedilol 12.5 mg PO DAILY 05/08/17 07/08/17 Unknown History HYDROcodone/APAP 7.5-325 [[place] 1 each PO Q6HR PRN #10 tablet 07/08/17 Unknown Rx 7.5/325] Carvedilol [Coreg] 12.5 mg PO BID #60 tablet 07/12/17 Unknown Rx Losartan/Hydrochlorothiazide 1 each PO QDAY #30 tablet 07/12/17 Unknown Rx [Losartan-Hctz 100-25 mg Tab] amLODIPine [Norvasc] 10 mg PO DAILY #30 tab 07/12/17 Unknown Rx ED Physical Exam - General Limitations: No Limitations General appearance: alert, in no apparent distress - Head Head exam: Present: atraumatic, normocephalic - Eye Eye exam: Present: normal appearance, PERRL, EOMI. Absent: scleral icterus - ENT ENT exam: Present: mucous membranes moist - Neck Neck exam: Present: normal inspection. Absent: tenderness, meningismus - Respiratory Respiratory exam: Present: normal lung sounds bilaterally. Absent: respiratory distress - Cardiovascular Cardiovascular Exam: Present: regular rate, normal rhythm. Absent: systolic murmur, diastolic murmur, rubs, gallop - GI/Abdominal GI/Abdominal exam: Present: soft, normal bowel sounds. Absent: distended, tenderness, guarding, rebound, rigid - Extremities Exam Extremities exam: Present: normal inspection - Back Exam Back exam: Present: normal inspection - Neurological Exam Neurological exam: Present: alert, oriented X3, CN II-XII intact, normal gait, other (cerebellar testing was normal). Absent: motor sensory deficit - Psychiatric Psychiatric exam: Present: normal mood, flat affect - Skin Skin exam: Present: warm, dry, intact, normal color. Absent: rash ED Course Vital Signs 07/12/17 07/12/17 07/12/17 11:35 12:31 13:38 Temperature 98.6 F Pulse Rate 103 H 92 H 87 Respiratory 18 18 Rate Blood Pressure 189/130 184/121 Blood Pressure 173/114 [Left] O2 Sat by Pulse 95 99 Oximetry 07/12/17 07/12/17 14:01 15:51 Temperature Pulse Rate 86 87 Respiratory 17 18 Rate Blood Pressure Blood Pressure 151/102 147/92 [Left] O2 Sat by Pulse 99 99 Oximetry - Reevaluation(s) Reevaluation #1: The patient was given antihypertensive medication. The patient has had multiple prior CTs. She has no evidence of acute intracranial of that. She is not a stroke syndrome. Her NIH stroke score is 0. I discussed reimaging with Dr. Blount. I will defer this to his discretion. To me re-CT imaging as very low yield. I have recommended the patient be admitted to the hospital for control of her hypertension. She has previously had acute renal injury from accelerated hypertension, etc. 07/12/17 16:14 ED Medical Decision Making - Lab Data Result diagrams: 07/12/17 14:11 07/12/17 14:11 Laboratory Results - last 24 hr 07/12/17 07/12/17 07/12/17 14:11 14:11 14:11 WBC 11.3 H RBC 4.43 Hgb 13.3 Hct 39.4 MCV 89 MCH 30 MCHC 34 RDW 13.4 Plt Count 358 Lymph % (Auto) 23.2 [place] % (Auto) 9.0 H Eos % (Auto) 1.4 Baso % (Auto) 0.7 Lymph # 2.6 [place] # 1.0 H Eos # 0.2 Baso # 0.1 Seg Neutrophils % 65.7 Seg Neutrophils # 7.4 PT 12.0 L INR 0.85 L APTT 33.2 Magnesium 1.80 Urine Color Urine Turbidity Urine pH Ur Specific [place] Urine Protein Urine Glucose (UA) Urine Ketones Urine Blood Urine Nitrite Urine Bilirubin Urine Urobilinogen Ur Leukocyte Esterase Urine WBC (Auto) Urine RBC (Auto) U Epithel Cells (Auto) Urine HCG, Qual Urine Opiates Screen Urine Methadone Screen Ur Barbiturates Screen Ur Phencyclidine Scrn Ur Amphetamines Screen U Benzodiazepines Scrn Urine Cocaine Screen U Marijuana (THC) Screen Drugs of Abuse Note 07/12/17 07/12/17 14:14 14:14 WBC RBC Hgb Hct MCV MCH MCHC RDW Plt Count Lymph % (Auto) [place] % (Auto) Eos % (Auto) Baso % (Auto) Lymph # [place] # Eos # Baso # Seg Neutrophils % Seg Neutrophils # PT INR APTT Magnesium Urine Color Yellow Urine Turbidity Clear Urine pH 5.0 Ur Specific [place] 1.008 Urine Protein 100 mg/dl Urine Glucose (UA) >=500 Urine Ketones Neg Urine Blood Sm Urine Nitrite Neg Urine Bilirubin Neg Urine Urobilinogen < 2.0 Ur Leukocyte Esterase Neg Urine WBC (Auto) 2.0 Urine RBC (Auto) 2.0 U Epithel Cells (Auto) 6.0 Urine HCG, Qual Negative Urine Opiates Screen Presumptive negative Urine Methadone Screen Presumptive negative Ur Barbiturates Screen Presumptive negative Ur Phencyclidine Scrn Presumptive negative Ur Amphetamines Screen Presumptive negative U Benzodiazepines Scrn Presumptive negative Urine Cocaine Screen Presumptive negative U Marijuana (THC) Screen Presumptive negative Drugs of Abuse Note Disclamer Critical care attestation.: If time is entered above; I have spent that time in minutes in the direct care of this critically ill patient, excluding procedure time. ED Disposition Clinical Impression: Accelerated hypertension Hyperglycemia due to type 2 diabetes mellitus Qualifiers: Diabetes mellitus manager long term care insulin use: with manager long term care use Qualified Code(s): E11.65 - Type 2 diabetes mellitus with hyperglycemia; Z79.4 - emt intermediate (current ) use of insulin Disposition: OP ADMIT IP TO THIS HOSP Is pt being admited?: Yes Does the pt Need Aspirin: Yes Condition: Stable Instructions: Hypertension (ED), Diabetes Mellitus Type 2 in Adults (ED) Prescriptions: amLODIPine [Norvasc] 10 mg PO DAILY #30 tab Carvedilol [Coreg] 12.5 mg PO BID #60 tablet Losartan/Hydrochlorothiazide [Losartan-Hctz 100-25 mg Tab] 1 each PO QDAY #30 tablet Referrals: PRIMARY CARE, [Primary Care Provider] - 3-5 Days Time of Disposition: 16:32
[2017-07-12 14:33] LABS: Basophils # (Auto) 0.1 K/mm3 (0.0-0.1); Basophils % (Auto) 0.7 % (0.0-1.8); Eosinophils # (Auto) 0.2 K/mm3 (0.0-0.4); Eosinophils % (Auto) 1.4 % (0.0-4.3); Hematocrit 39.4 % (30.3-42.9); Hemoglobin 13.3 gm/dl (10.1-14.3); Lymphocytes # (Auto) 2.6 K/mm3 (1.2-5.4); Lymphocytes % (Auto) 23.2 % (13.4-35.0); Mean Corpuscular HGB Conc 34 % (30-34); Mean Corpuscular Hemoglobin 30 pg (28-32); Mean Corpuscular Volume 89 fl (79-97); Platelet Count 358 K/mm3 (140-440); Red Blood Count 4.43 M/mm3 (3.65-5.03); Red Cell Distribution Width 13.4 % (13.2-15.2)
[2017-07-12 14:35] LABS: INR 0.85 (0.87-1.13)
[2017-07-12 14:36] LABS: Partial Thromboplastin Time 33.2 Sec. (24.2-36.6)
[2017-07-12 14:36] LABS: Bilirubin,Urine NEG (Negative); Blood,Urine SM (Negative); Color,Urine Yellow (Yellow); Urobilinogen,Urine < 2.0 mg/dL (<2.0)
[2017-07-12 14:42] LABS: HCG Qualitative,Urine Negative (Negative)
[2017-07-12 14:45] LABS: Amphetamine Screen,Urine PRESUMPTIVE NEGATIVE; Benzodiazepines Screen,Urine PRESUMPTIVE NEGATIVE; Cannabinoid Screen,Urine PRESUMPTIVE NEGATIVE; Cocaine Screen,Urine PRESUMPTIVE NEGATIVE; Methadone Screen,Urine PRESUMPTIVE NEGATIVE; Opiate Screen,Urine PRESUMPTIVE NEGATIVE
--- NOTE | 2017-07-12 15:02 | XRay Report ---
AP CHEST: HISTORY: Hypertension AP view of the chest demonstrates a normal mediastinal and cardiac contour with clear lungs and normal bony and soft tissue structures. IMPRESSION: Unremarkable AP chest.
[2017-07-12 15:46] LABS: Creatine Kinase MB 2.6 ng/mL (0.0-4.0)
[2017-07-12 15:48] LABS: Alanine Aminotransferase 10 units/L (7-56); Albumin 3.4 g/dL (3.9-5); BUN/Creatinine Ratio 19; Blood Urea Nitrogen 27 mg/dL (7-17); Calcium 9.2 mg/dL (8.4-10.2); Hemolysis Index 3
[2017-07-12 15:53] LABS: Bilirubin,Direct < 0.2 mg/dL (0-0.2)
[2017-07-12] MEDS ORDERED: TORADOL IV ONE (16:11)
--- NOTE | 2017-07-12 16:11 | Event Note ---
Date: 07/12/17
[2017-07-12] MEDS ORDERED: SODIUM CHLORIDE FLUSH SYRINGE 10 ML IV PRN ×2 (18:14→23:28)
[2017-07-12] MEDS ORDERED: TYLENOL PO PRN ×2 (18:14→23:28)
[2017-07-12] MEDS ORDERED: ZOFRAN IV PRN ×2 (18:14→23:28)
[2017-07-12] MEDS ORDERED: MORPHINE IV PRN (18:14)
[2017-07-12] MEDS ORDERED: HumaLOG SUB-Q ONE (18:16)
[2017-07-12] MEDS: COZAAR PO SCH (18:55)
[2017-07-12] MEDS: NORVASC PO SCH (18:57)
--- NOTE | 2017-07-12 23:12 | Event Note ---
Date: 07/12/17 Please see dictated history and physical in the reports.
[2017-07-12] MEDS: AMBIEN PO PRN (23:13)
[2017-07-12] MEDS: COREG PO SCH (23:13)
[2017-07-12] MEDS: SODIUM CHLORIDE FLUSH SYRINGE 10 ML IV SCH (23:13)
[2017-07-12] MEDS ORDERED: NORCO 7.5/325 PO PRN (23:25)
[2017-07-12] MEDS ORDERED: NACL 0.9% 1000 ML 1,000 ML IV SCH (23:45)
--- NOTE | 2017-07-12 23:49 | History and Physical Report ---
CHIEF COMPLAINT: Uncontrolled blood pressure. HISTORY OF PRESENT ILLNESS: A 27-year-old female with history of hypertension, insulin-dependent diabetes, noncompliance, who comes to the Emergency Room a couple of times. The patient had multiple evaluations including CAT scans, which have been normal. At the time of evaluation in the Emergency Room, the patient's blood pressure was very high in the range of 200/110. The first blood pressure was 189/130. The patient also has headache. No shortness of breath, no palpitations, no chest pain. The patient also has been having vomiting for the last 2 days. The patient is not taking carvedilol. PAST MEDICAL HISTORY: As mentioned, significant for diabetes, hypertension, chronic kidney disease, hyperlipidemia, peripheral neuropathy. SOCIAL HISTORY: Does not smoke. No alcohol, no recreational drugs. PAST SURGICAL HISTORY: None. FAMILY HISTORY: Significant for hypertension. CURRENT MEDICATIONS: Novolin 70/30, 25 units twice a day, Zestril 40 mg once a day, carvedilol 12.5 twice a day, gabapentin 300 mg 3 times a day. REVIEW OF SYSTEMS: Significant for high blood pressure, headache and some nausea present. No chest pain. No shortness of breath. No palpitations. PHYSICAL EXAMINATION: GENERAL: Young female, cooperative during examination. VITAL SIGNS: Blood pressure was 189/130. Temperature was 98.6, pulse is 103, respirations are 18. HEENT: Unremarkable. Pupils are equal and reactive. NECK: Supple, no lymphadenopathy, no thyromegaly. LUNGS: Clear to auscultation and percussion. CARDIOVASCULAR: S1, S2 heard. No gallop, no murmur, no rub. Apical impulse in the left fifth intercostal space and midclavicular line. ABDOMEN: Soft and benign. No hepatosplenomegaly. No guarding, no rigidity. Hernial orifices are normal. EXTREMITIES: Good pedal pulses. No pedal edema. CENTRAL NERVOUS SYSTEM: Alert and oriented x 4. Nonfocal. SKIN: Normal. LABORATORY DATA: Significant for ____ 11.3, H and H is 13.3 and 39.3, platelet count is 358,000. Protime is 12.0, INR is 0.85. Sodium is 139, potassium is 4.9, bicarbonate is 21. BUN and creatinine is 27 and 1.4. Glucose is 222, 309 and 384. Hemoglobin A1c is 11.3. AST is 52. BNP is 454. Drug screen is negative. EKG consistent with LVH. ASSESSMENT AND PLAN: 1. Hypertensive emergency. The patient was given multiple labetalol and IV hydralazine. The blood pressure was brought down to near 151/102. Cardene drip was not started. The patient to be admitted to telemetry. The patient initiated on losartan 100 mg/25 mg daily, carvedilol 12.5 q. 12 h. and amlodipine 10 mg daily. Also, hydralazine 10 mg every q. 2 hours p.r.n. Insulin-dependent diabetes, uncontrolled. We will adjust insulin to 40 units twice a day. 2. Peripheral neuropathy. Continue gabapentin. 3. Acute kidney injury. IV fluids for the time being. Reevaluate. DVT prophylaxis and GI prophylaxis. The patient on heparin 5000 q. 12 hours and famotidine 20 mg b.i.d. JOB# [id number] VSM/NTS
[2017-07-13 08:01] LABS: Basophils # (Auto) 0.1 K/mm3 (0.0-0.1); Basophils % (Auto) 0.6 % (0.0-1.8); Eosinophils # (Auto) 0.2 K/mm3 (0.0-0.4); Eosinophils % (Auto) 1.5 % (0.0-4.3); Hematocrit 36.7 % (30.3-42.9); Hemoglobin 11.9 gm/dl (10.1-14.3); Lymphocytes # (Auto) 2.7 K/mm3 (1.2-5.4); Lymphocytes % (Auto) 24.2 % (13.4-35.0); Mean Corpuscular HGB Conc 32 % (30-34); Mean Corpuscular Hemoglobin 29 pg (28-32); Mean Corpuscular Volume 89 fl (79-97); Monocytes # (Auto) 0.9 K/mm3 (0.0-0.8); Monocytes % (Auto) 8.1 % (0.0-7.3); Platelet Count 333 K/mm3 (140-440); Red Blood Count 4.12 M/mm3 (3.65-5.03); Red Cell Distribution Width 13.5 % (13.2-15.2)
[2017-07-13 08:56] LABS: Albumin 3.1 g/dL (3.9-5); Calcium 8.7 mg/dL (8.4-10.2)
[2017-07-13] MEDS: NORVASC PO SCH (09:19)
[2017-07-13] MEDS: NEURONTIN PO SCH ×3 (09:19→20:00)
[2017-07-13] MEDS: PEPCID PO SCH ×2 (09:19→21:55)
[2017-07-13] MEDS: COZAAR PO SCH (09:20)
[2017-07-13] MEDS: COREG PO SCH ×2 (09:20→21:54)
[2017-07-13] MEDS ORDERED: SODIUM CHLORIDE FLUSH SYRINGE 10 ML IV SCH (10:00)
--- NOTE | 2017-07-13 10:19 | Consultation ---
History of Present Illness Consult date: 07/13/17 Consult reason: hypertension History of present illness: This is a 27yr old woman with a history of hypertension, diabetes who is admitted for accelerated hypertension thought secondary to noncompliance with her medications. A cardiac consultation was requested for management of hypertension. Patient denies chest pain, shortness of breath and palpitations. She denies dizziness and headaches. She has a current blood pressure is 134/ 103. Laboratory studies shows a creatinine of 1.8 and uncontrolled diabetes with a glucose of 329. Medications and Allergies Allergies Allergy/AdvReac Type Severity Reaction Status Date / Time No Known Allergies Allergy Verified 06/29/16 01:18 Home Medications Medication Instructions Recorded Confirmed Last Taken Type Gabapentin [Neurontin] 300 mg PO TID 06/29/16 07/12/17 01/26/17 History Insulin NPH/Regular [NovoLIN 70/30] 25 unit SUB-Q BIDDIAB #1 vial 01/26/1707/12 Unknown Rx Carvedilol 12.5 mg PO BID 05/08/17 07/12/17 Unknown History HYDROcodone/APAP 7.5-325 [[place] 1 each PO Q6HR PRN #10 tablet 07/08/17 07/12/17 Unknown Rx 7.5/325] Carvedilol [Coreg] 12.5 mg PO BID #60 tablet 07/12/17 Unknown Rx Lisinopril [Zestril] 40 mg PO DAILY 07/12/17 07/12/17 Unknown History Losartan/Hydrochlorothiazide 1 each PO QDAY #30 tablet 07/12/17 Unknown Rx [Losartan-Hctz 100-25 mg Tab] amLODIPine [Norvasc] 10 mg PO DAILY #30 tab 07/12/17 Unknown Rx Active Meds: Active Medications Acetaminophen (Tylenol) 650 mg PO Q4H PRN PRN Reason: Pain MILD(1-3)/Fever >100.5/CORREIA Acetaminophen/Hydrocodone Bitart ([place] 7.5/325) 1 each PO Q6HR PRN PRN Reason: Headache Amlodipine Besylate (Norvasc) 10 mg PO QDAY [facility] Last Admin: 07/13/17 09:19 Dose: 10 mg Carvedilol (Coreg) 12.5 mg PO BID [place] Last Admin: 07/13/17 09:20 Dose: 12.5 mg Famotidine (Pepcid) 20 mg PO BID [facility] Last Admin: 07/13/17 09:19 Dose: 20 mg Gabapentin (Neurontin) 300 mg PO TID [facility] Last Admin: 07/13/17 09:19 Dose: 300 mg Insulin Human Isoph/Insulin Regular (Humulin 70/30) 40 unit SUB-Q BIDDIAB [facility] Last Admin: 07/13/17 09:15 Dose: 40 unit Losartan Potassium (Cozaar) 100 mg PO QDAY [facility] Last Admin: 07/13/17 09:20 Dose: 100 mg Morphine Sulfate (Morphine) 2 mg IV Q4H PRN PRN Reason: Pain, Moderate (4-6) Last Admin: 07/13/17 03:28 Dose: 2 mg Ondansetron HCl (Zofran) 4 mg IV Q8H PRN PRN Reason: Nausea And Vomiting Oxycodone/Acetaminophen (Percocet 5/325) 1 tab PO Q6H PRN PRN Reason: Pain, Moderate (4-6) Sodium Chloride (Sodium Chloride Flush Syringe 10 Ml) 10 ml IV BID [facility] Last Admin: 07/12/17 23:13 Dose: 10 ml Sodium Chloride (Sodium Chloride Flush Syringe 10 Ml) 10 ml IV PRN PRN PRN Reason: LINE FLUSH Zolpidem Tartrate (Ambien) 5 mg PO QHS PRN PRN Reason: Insomnia Last Admin: 07/12/17 23:13 Dose: 5 mg Physical Examination Vital Signs Temp Pulse Resp BP Pulse Ox 98.6 F 103 H 18 189/130 95 07/12/17 11:35 07/12/17 11:35 07/12/17 11:35 07/12/17 11:35 07/12/17 11:35 General appearance: no acute distress Neck: Positive: trachea midline Cardiac: Positive: Reg Rate and Rhythm Lungs: Positive: Decreased Breath Sounds Neuro: Positive: Grossly Intact Extremities: Absent: edema Results 07/13/17 07:13 07/13/17 07:13 Cardiac Enzymes 07/12/17 07/13/17 Range/Units 14:11 07:13 AST 52 H 108 H (5-40) units/L CK-MB (CK-2) 2.6 (0.0-4.0) ng/mL Coagulation 07/12/17 Range/Units 14:11 PT 12.0 L (12.2-14.9) Sec. INR 0.85 L (0.87-1.13) APTT 33.2 (24.2-36.6) Sec. CBC 07/12/17 07/13/17 Range/Units 14:11 07:13 WBC 11.3 H 11.0 (4.5-11.0) K/mm3 RBC 4.43 4.12 (3.65-5.03) M/mm3 Hgb 13.3 11.9 (10.1-14.3) gm/dl Hct 39.4 36.7 (30.3-42.9) % Plt Count 358 333 (140-440) K/mm3 Lymph # 2.6 2.7 (1.2-5.4) K/mm3 [place] # 1.0 H 0.9 H (0.0-0.8) K/mm3 Eos # 0.2 0.2 (0.0-0.4) K/mm3 Baso # 0.1 0.1 (0.0-0.1) K/mm3 Comprehensive Metabolic Panel 07/12/17 07/13/17 Range/Units 14:11 07:13 Sodium 139 136 L (137-145) mmol/L Potassium 4.1 4.7 (3.6-5.0) mmol/L Chloride 101.5 100.1 (98-107) mmol/L Carbon Dioxide 21 L 19 L (22-30) mmol/L BUN 27 H 27 H (7-17) mg/dL Creatinine 1.4 H 1.8 H (0.7-1.2) mg/dL Glucose 222 H 377 H (65-100) mg/dL Calcium 9.2 8.7 (8.4-10.2) mg/dL Direct Bilirubin < 0.2 (0-0.2) mg/dL Indirect Bilirubin 0.0 mg/dL AST 52 H 108 H (5-40) units/L ALT 10 8 (7-56) units/L Alkaline Phosphatase 118 98 (35-129) units/L Total Protein 7.0 6.0 L (6.3-8.2) g/dL Albumin 3.4 L 3.1 L (3.9-5) g/dL Assessment and Plan Accelerated Hypertension Diabetes -uncontrolled Acute renal failure
[2017-07-13] MEDS: SODIUM CHLORIDE FLUSH SYRINGE 10 ML IV SCH ×2 (14:39→21:57)
[2017-07-13] MEDS ORDERED: APRESOLINE IV PRN (17:58)
--- NOTE | 2017-07-13 19:13 | Progress Note ---
Assessment and Plan Assessment and plan: --Hypertensive urgency; peak blood pressure 190/130 upon admission Significantly improved to 134/103 Continue current antihypertensives and when necessary medications Cardiology evaluation noted and appreciated --Type 2 diabetes mellitus; uncontrolled Accu-Chek sliding scale coverage ADA diet and long-acting insulin A1c 11.3, diabetic education, nutrition consult Possible home health nurse for disease monitoring at discharge --Acute kidney injury; secondary to ATN Gentle hydration, closely monitor renal function, avoid nephrotoxins Nephrology evaluation if needed --Moderate malnutrition/hypoalbuminemia; supportive care Nutrition supplements --Diabetic neuropathy; continue gabapentin --Obesity; BMI 37.7; counseling done advised diet modification Exercise as tolerated and weight reduction when medically stable --DVT prophylaxis; Lovenox Closely monitor the patient and adjust management as needed History Interval history: Patient seen and examined medical records reviewed Admitted with hypertensive emergency and acute kidney injury Patient feels slightly better complaints of generalized weakness Vital signs reviewed Blood pressures are reasonable control 134/103 Alert awake Oriented 3 not in acute distress Hospitalist Physical - Constitutional Vitals: Temp Pulse Resp BP Pulse Ox 98.5 F 93 H 22 162/102 100 07/13/17 16:11 07/13/17 16:11 07/13/17 16:11 07/13/17 16:11 07/13/17 16:11 General appearance: Present: no acute distress, well-nourished, obese - EENT Eyes: Present: PERRL, EOM intact - Neck Neck: Present: supple, normal ROM - Respiratory Respiratory effort: normal Respiratory: bilateral: diminished, negative: rales, rhonchi, wheezing - Cardiovascular Rhythm: regular Heart Sounds: Present: S1 & S2 - Extremities Extremities: no ischemia, No edema - Abdominal General gastrointestinal: soft, non-tender, non-distended, normal bowel sounds - Integumentary Integumentary: Present: clear, warm - Psychiatric Psychiatric: appropriate mood/affect, cooperative - Neurologic Neurologic: CNII-XII intact, moves all extremities Results - Labs CBC & Chem 7: 07/13/17 07:13 07/13/17 07:13 Labs: Laboratory Last Values WBC 11.0 K/mm3 (4.5-11.0) 07/13/17 07:13 RBC 4.12 M/mm3 (3.65-5.03) 07/13/17 07:13 Hgb 11.9 gm/dl (10.1-14.3) 07/13/17 07:13 Hct 36.7 % (30.3-42.9) 07/13/17 07:13 MCV 89 fl (79-97) 07/13/17 07:13 MCH 29 pg (28-32) 07/13/17 07:13 MCHC 32 % (30-34) 07/13/17 07:13 RDW 13.5 % (13.2-15.2) 07/13/17 07:13 Plt Count 333 K/mm3 (140-440) 07/13/17 07:13 Lymph % (Auto) 24.2 % (13.4-35.0) 07/13/17 07:13 [place] % (Auto) 8.1 % (0.0-7.3) H 07/13/17 07:13 Eos % (Auto) 1.5 % (0.0-4.3) 07/13/17 07:13 Baso % (Auto) 0.6 % (0.0-1.8) 07/13/17 07:13 Lymph # 2.7 K/mm3 (1.2-5.4) 07/13/17 07:13 [place] # 0.9 K/mm3 (0.0-0.8) H 07/13/17 07:13 Eos # 0.2 K/mm3 (0.0-0.4) 07/13/17 07:13 Baso # 0.1 K/mm3 (0.0-0.1) 07/13/17 07:13 Seg Neutrophils % 65.6 % (40.0-70.0) 07/13/17 07:13 Seg Neutrophils # 7.2 K/mm3 (1.8-7.7) 07/13/17 07:13 PT 12.0 Sec. (12.2-14.9) L 07/12/17 14:11 INR 0.85 (0.87-1.13) L 07/12/17 14:11 APTT 33.2 Sec. (24.2-36.6) 07/12/17 14:11 Sodium 136 mmol/L (137-145) L 07/13/17 07:13 Potassium 4.7 mmol/L (3.6-5.0) 07/13/17 07:13 Chloride 100.1 mmol/L (98-107) 07/13/17 07:13 Carbon Dioxide 19 mmol/L (22-30) L 07/13/17 07:13 Anion Gap 22 mmol/L 07/13/17 07:13 BUN 27 mg/dL (7-17) H 07/13/17 07:13 Creatinine 1.8 mg/dL (0.7-1.2) H 07/13/17 07:13 Estimated GFR 41 ml/min 07/13/17 07:13 BUN/Creatinine Ratio 15 % 07/13/17 07:13 Glucose 377 mg/dL (65-100) H 07/13/17 07:13 POC Glucose 329 (70-105) H 07/13/17 06:12 Hemoglobin A1c 11.3 % (4-6) H 07/12/17 14:11 Calcium 8.7 mg/dL (8.4-10.2) 07/13/17 07:13 Magnesium 1.80 mg/dL (1.7-2.3) 07/12/17 14:11 Total Bilirubin 0.30 mg/dL (0.1-1.2) 07/13/17 07:13 Direct Bilirubin < 0.2 mg/dL (0-0.2) 07/12/17 14:11 Indirect Bilirubin 0.0 mg/dL 07/12/17 14:11 AST 108 units/L (5-40) H 07/13/17 07:13 ALT 8 units/L (7-56) 07/13/17 07:13 Alkaline Phosphatase 98 units/L (35-129) 07/13/17 07:13 Total Creatine Kinase 113 units/L (30-135) 07/12/17 14:11 CK-MB (CK-2) 2.6 ng/mL (0.0-4.0) 07/12/17 14:11 CK-MB (CK-2) Rel Index 2.3 (0-4) 07/12/17 14:11 Troponin T < 0.010 ng/mL (0.00-0.029) 07/12/17 14:11 NT-Pro-B Natriuret Pep 454.1 pg/mL (0-450) H 07/12/17 14:11 Total Protein 6.0 g/dL (6.3-8.2) L 07/13/17 07:13 Albumin 3.1 g/dL (3.9-5) L 07/13/17 07:13 Albumin/Globulin Ratio 1.1 % 07/13/17 07:13 HCG, Qual Negative (Negative) 07/12/17 14:11 Urine Color Yellow (Yellow) 07/12/17 14:14 Urine Turbidity Clear (Clear) 07/12/17 14:14 Urine pH 5.0 (5.0-7.0) 07/12/17 14:14 Ur Specific [place] 1.008 (1.003-1.030) 07/12/17 14:14 Urine Protein 100 mg/dl mg/dL (Negative) 07/12/17 14:14 Urine Glucose (UA) >=500 mg/dL (Negative) 07/12/17 14:14 Urine Ketones Neg mg/dL (Negative) 07/12/17 14:14 Urine Blood Sm (Negative) 07/12/17 14:14 Urine Nitrite Neg (Negative) 07/12/17 14:14 Urine Bilirubin Neg (Negative) 07/12/17 14:14 Urine Urobilinogen < 2.0 mg/dL (<2.0) 07/12/17 14:14 Ur Leukocyte Esterase Neg (Negative) 07/12/17 14:14 Urine WBC (Auto) 2.0 /HPF (0.0-6.0) 07/12/17 14:14 Urine RBC (Auto) 2.0 /HPF (0.0-6.0) 07/12/17 14:14 U Epithel Cells (Auto) 6.0 /HPF (0-13.0) 07/12/17 14:14 Urine HCG, Qual Negative (Negative) 07/12/17 14:14 Urine Opiates Screen Presumptive negative 07/12/17 14:14 Urine Methadone Screen Presumptive negative 07/12/17 14:14 Ur Barbiturates Screen Presumptive negative 07/12/17 14:14 Ur Phencyclidine Scrn Presumptive negative 07/12/17 14:14 Ur Amphetamines Screen Presumptive negative 07/12/17 14:14 U Benzodiazepines Scrn Presumptive negative 07/12/17 14:14 Urine Cocaine Screen Presumptive negative 07/12/17 14:14 U Marijuana (THC) Screen Presumptive negative 07/12/17 14:14 Drugs of Abuse Note Disclamer 07/12/17 14:14
[2017-07-13] MEDS: AMBIEN PO PRN (21:56)
[2017-07-14] MEDS: NEURONTIN PO SCH ×3 (08:46→21:10)
--- NOTE | 2017-07-14 10:13 | Progress Note ---
Assessment and Plan Systemic Hypertension - improving Type II DM - being managed by primary non-compliance Chronic renal failure Abnormal ECG - LVH Recommendations: Continue same HTN regiment Blood glucose control Echocardiogram to evaluate LVEF Further cardiac testing will depend on hospital course Subjective Date of service: 07/14/17 Principal diagnosis: no acute events overnight Objective Vital Signs Temp Pulse Resp BP Pulse Ox 07/14/17 07:57 98.9 F 94 H 20 142/80 97 07/14/17 03:43 98.7 F 94 H 18 147/99 97 07/13/17 23:40 99.1 F 110 H 18 150/91 96 07/13/17 21:54 93 H 162/102 07/13/17 19:47 98.9 F 104 H 18 137/81 97 07/13/17 16:11 98.5 F 93 H 22 162/102 100 07/13/17 11:43 98.5 F 96 H 20 136/88 97 - Physical Examination Neck: Positive: trachea midline Neuro: Positive: Grossly Intact Extremities: Absent: edema
[2017-07-14] MEDS: COZAAR PO SCH (11:11)
[2017-07-14] MEDS: COREG PO SCH ×2 (11:12→22:27)
[2017-07-14] MEDS: PEPCID PO SCH ×2 (11:12→22:27)
[2017-07-14] MEDS: NORVASC PO SCH (11:12)
[2017-07-14] MEDS: SODIUM CHLORIDE FLUSH SYRINGE 10 ML IV SCH ×2 (11:15→22:28)
--- NOTE | 2017-07-14 12:26 | Progress Note ---
Assessment and Plan Assessment and plan: --Acute kidney injury; secondary to ATN Gentle hydration, closely monitor renal function, avoid nephrotoxins Nephrology evaluation if needed --Hypertensive urgency; peak blood pressure 190/130 upon admission Significantly improved to 134/103 Continue current antihypertensives and when necessary medications Cardiology evaluation noted and appreciated --Type 2 diabetes mellitus; uncontrolled Accu-Chek sliding scale coverage ADA diet and long-acting insulin A1c 11.3, diabetic education, nutrition consult Possible home health nurse for disease monitoring at discharge --Moderate malnutrition/hypoalbuminemia; supportive care Nutrition supplements --Diabetic neuropathy; continue gabapentin --Obesity; BMI 37.7; counseling done advised diet modification Exercise as tolerated and weight reduction when medically stable --DVT prophylaxis; Lovenox Closely monitor the patient and adjust management as needed History Interval history: Patient seen and examined medical records reviewed Patient feels better no new complaints As chest pain or shortness of breath Hospitalist Physical - Constitutional Vitals: Temp Pulse Resp BP Pulse Ox 98.9 F 94 H 20 142/80 97 07/14/17 07:57 07/14/17 07:57 07/14/17 07:57 07/14/17 11:12 07/14/17 07:57 General appearance: Present: no acute distress, well-nourished, obese - EENT Eyes: Present: PERRL, EOM intact - Neck Neck: Present: supple, normal ROM - Respiratory Respiratory effort: normal Respiratory: bilateral: diminished, negative: rales, rhonchi, wheezing - Cardiovascular Rhythm: regular Heart Sounds: Present: S1 & S2 - Extremities Extremities: no ischemia, No edema - Abdominal General gastrointestinal: soft, non-tender, non-distended, normal bowel sounds - Integumentary Integumentary: Present: clear, warm - Psychiatric Psychiatric: appropriate mood/affect, cooperative - Neurologic Neurologic: CNII-XII intact, moves all extremities Results - Labs CBC & Chem 7: 07/15/17 08:31 07/15/17 08:31 Labs: Laboratory Last Values WBC 11.0 K/mm3 (4.5-11.0) 07/13/17 07:13 RBC 4.12 M/mm3 (3.65-5.03) 07/13/17 07:13 Hgb 11.9 gm/dl (10.1-14.3) 07/13/17 07:13 Hct 36.7 % (30.3-42.9) 07/13/17 07:13 MCV 89 fl (79-97) 07/13/17 07:13 MCH 29 pg (28-32) 07/13/17 07:13 MCHC 32 % (30-34) 07/13/17 07:13 RDW 13.5 % (13.2-15.2) 07/13/17 07:13 Plt Count 333 K/mm3 (140-440) 07/13/17 07:13 Lymph % (Auto) 24.2 % (13.4-35.0) 07/13/17 07:13 [place] % (Auto) 8.1 % (0.0-7.3) H 07/13/17 07:13 Eos % (Auto) 1.5 % (0.0-4.3) 07/13/17 07:13 Baso % (Auto) 0.6 % (0.0-1.8) 07/13/17 07:13 Lymph # 2.7 K/mm3 (1.2-5.4) 07/13/17 07:13 [place] # 0.9 K/mm3 (0.0-0.8) H 07/13/17 07:13 Eos # 0.2 K/mm3 (0.0-0.4) 07/13/17 07:13 Baso # 0.1 K/mm3 (0.0-0.1) 07/13/17 07:13 Seg Neutrophils % 65.6 % (40.0-70.0) 07/13/17 07:13 Seg Neutrophils # 7.2 K/mm3 (1.8-7.7) 07/13/17 07:13 PT 12.0 Sec. (12.2-14.9) L 07/12/17 14:11 INR 0.85 (0.87-1.13) L 07/12/17 14:11 APTT 33.2 Sec. (24.2-36.6) 07/12/17 14:11 Sodium 136 mmol/L (137-145) L 07/13/17 07:13 Potassium 4.7 mmol/L (3.6-5.0) 07/13/17 07:13 Chloride 100.1 mmol/L (98-107) 07/13/17 07:13 Carbon Dioxide 19 mmol/L (22-30) L 07/13/17 07:13 Anion Gap 22 mmol/L 07/13/17 07:13 BUN 27 mg/dL (7-17) H 07/13/17 07:13 Creatinine 1.8 mg/dL (0.7-1.2) H 07/13/17 07:13 Estimated GFR 41 ml/min 07/13/17 07:13 BUN/Creatinine Ratio 15 % 07/13/17 07:13 Glucose 377 mg/dL (65-100) H 07/13/17 07:13 POC Glucose 68 (70-105) L 07/14/17 11:37 Hemoglobin A1c 11.3 % (4-6) H 07/12/17 14:11 Calcium 8.7 mg/dL (8.4-10.2) 07/13/17 07:13 Magnesium 1.80 mg/dL (1.7-2.3) 07/12/17 14:11 Total Bilirubin 0.30 mg/dL (0.1-1.2) 07/13/17 07:13 Direct Bilirubin < 0.2 mg/dL (0-0.2) 07/12/17 14:11 Indirect Bilirubin 0.0 mg/dL 07/12/17 14:11 AST 108 units/L (5-40) H 07/13/17 07:13 ALT 8 units/L (7-56) 07/13/17 07:13 Alkaline Phosphatase 98 units/L (35-129) 07/13/17 07:13 Total Creatine Kinase 113 units/L (30-135) 07/12/17 14:11 CK-MB (CK-2) 2.6 ng/mL (0.0-4.0) 07/12/17 14:11 CK-MB (CK-2) Rel Index 2.3 (0-4) 07/12/17 14:11 Troponin T < 0.010 ng/mL (0.00-0.029) 07/12/17 14:11 NT-Pro-B Natriuret Pep 454.1 pg/mL (0-450) H 07/12/17 14:11 Total Protein 6.0 g/dL (6.3-8.2) L 07/13/17 07:13 Albumin 3.1 g/dL (3.9-5) L 07/13/17 07:13 Albumin/Globulin Ratio 1.1 % 07/13/17 07:13 HCG, Qual Negative (Negative) 07/12/17 14:11 Urine Color Yellow (Yellow) 07/12/17 14:14 Urine Turbidity Clear (Clear) 07/12/17 14:14 Urine pH 5.0 (5.0-7.0) 07/12/17 14:14 Ur Specific [place] 1.008 (1.003-1.030) 07/12/17 14:14 Urine Protein 100 mg/dl mg/dL (Negative) 07/12/17 14:14 Urine Glucose (UA) >=500 mg/dL (Negative) 07/12/17 14:14 Urine Ketones Neg mg/dL (Negative) 07/12/17 14:14 Urine Blood Sm (Negative) 07/12/17 14:14 Urine Nitrite Neg (Negative) 07/12/17 14:14 Urine Bilirubin Neg (Negative) 07/12/17 14:14 Urine Urobilinogen < 2.0 mg/dL (<2.0) 07/12/17 14:14 Ur Leukocyte Esterase Neg (Negative) 07/12/17 14:14 Urine WBC (Auto) 2.0 /HPF (0.0-6.0) 07/12/17 14:14 Urine RBC (Auto) 2.0 /HPF (0.0-6.0) 07/12/17 14:14 U Epithel Cells (Auto) 6.0 /HPF (0-13.0) 07/12/17 14:14 Urine HCG, Qual Negative (Negative) 07/12/17 14:14 Urine Opiates Screen Presumptive negative 07/12/17 14:14 Urine Methadone Screen Presumptive negative 07/12/17 14:14 Ur Barbiturates Screen Presumptive negative 07/12/17 14:14 Ur Phencyclidine Scrn Presumptive negative 07/12/17 14:14 Ur Amphetamines Screen Presumptive negative 07/12/17 14:14 U Benzodiazepines Scrn Presumptive negative 07/12/17 14:14 Urine Cocaine Screen Presumptive negative 07/12/17 14:14 U Marijuana (THC) Screen Presumptive negative 07/12/17 14:14 Drugs of Abuse Note Disclamer 07/12/17 14:14
[2017-07-14] MEDS: PERCOCET 5/325 PO PRN (15:33)
[2017-07-14] MEDS: NACL 0.9% 1000 ML 1,000 ML IV SCH (21:10)
[2017-07-15] MEDS: HumaLOG SUB-Q SCH ×4 (07:18→22:26)
[2017-07-15] MEDS: NEURONTIN PO SCH ×3 (08:22→20:41)
[2017-07-15 09:17] LABS: Basophils # (Auto) 0.1 K/mm3 (0.0-0.1); Eosinophils # (Auto) 0.1 K/mm3 (0.0-0.4); Eosinophils % (Auto) 1.2 % (0.0-4.3); Hematocrit 37.5 % (30.3-42.9); Hemoglobin 12.8 gm/dl (10.1-14.3); Lymphocytes # (Auto) 1.8 K/mm3 (1.2-5.4); Lymphocytes % (Auto) 20.2 % (13.4-35.0); Mean Corpuscular HGB Conc 34 % (30-34); Mean Corpuscular Hemoglobin 31 pg (28-32); Mean Corpuscular Volume 90 fl (79-97); Monocytes # (Auto) 0.9 K/mm3 (0.0-0.8); Monocytes % (Auto) 10.7 % (0.0-7.3); Platelet Count 344 K/mm3 (140-440); Red Blood Count 4.18 M/mm3 (3.65-5.03); Red Cell Distribution Width 13.6 % (13.2-15.2)
[2017-07-15] MEDS: PEPCID PO SCH ×2 (09:23→21:51)
[2017-07-15] MEDS: NORVASC PO SCH (09:24)
[2017-07-15] MEDS: COZAAR PO SCH (09:24)
[2017-07-15] MEDS: COREG PO SCH ×2 (09:24→21:51)
[2017-07-15] MEDS: SODIUM CHLORIDE FLUSH SYRINGE 10 ML IV SCH ×2 (09:25→21:53)
[2017-07-15] MEDS: NACL 0.9% 1000 ML 1,000 ML IV SCH ×2 (09:28→21:58)
[2017-07-15 09:40] LABS: Alanine Aminotransferase 10 units/L (7-56); Albumin 3.1 g/dL (3.9-5); BUN/Creatinine Ratio 26; Blood Urea Nitrogen 44 mg/dL (7-17); Calcium 8.9 mg/dL (8.4-10.2); Hemolysis Index 23
[2017-07-15 09:41] LABS: Bilirubin,Direct < 0.2 mg/dL (0-0.2)
--- NOTE | 2017-07-15 10:54 | Progress Note ---
Assessment and Plan Assessment and plan: --Type 2 diabetes mellitus; uncontrolled Accu-Chek sliding scale coverage ADA diet and long-acting insulin A1c 11.3, diabetic education, nutrition consult Possible home health nurse for disease monitoring at discharge --Acute kidney injury; secondary to ATN Gentle hydration, closely monitor renal function, avoid nephrotoxins Nephrology evaluation if needed --Hypertensive urgency; peak blood pressure 190/130 upon admission Significantly improved to 134/103 Continue current antihypertensives and when necessary medications Cardiology evaluation noted and appreciated --Moderate malnutrition/hypoalbuminemia; supportive care Nutrition supplements --Diabetic neuropathy; continue gabapentin --Obesity; BMI 37.7; counseling done advised diet modification Exercise as tolerated and weight reduction when medically stable --DVT prophylaxis; Lovenox Closely monitor the patient and adjust management as needed History Interval history: Patient seen and examined medical records reviewed Patient feels better no new complaints Blood sugars are uncontrolled Blood pressures reasonable level Denies headache dizziness Denies nausea or vomiting Vital signs reviewed Hospitalist Physical - Constitutional Vitals: Temp Pulse Resp BP Pulse Ox 98.2 F 87 20 134/81 96 07/15/17 08:22 07/15/17 09:24 07/15/17 08:22 07/15/17 09:24 07/15/17 08:22 General appearance: Present: no acute distress, well-nourished, obese - EENT Eyes: Present: PERRL, EOM intact - Respiratory Respiratory effort: normal Respiratory: bilateral: diminished, negative: rales, rhonchi, wheezing - Cardiovascular Rhythm: regular Heart Sounds: Present: S1 & S2 - Extremities Extremities: no ischemia, No edema - Abdominal General gastrointestinal: soft, non-tender, non-distended - Integumentary Integumentary: Present: clear, warm - Psychiatric Psychiatric: appropriate mood/affect, cooperative - Neurologic Neurologic: CNII-XII intact, moves all extremities Results - Labs CBC & Chem 7: 07/15/17 08:31 07/15/17 08:31 Labs: Laboratory Last Values WBC 8.8 K/mm3 (4.5-11.0) 07/15/17 08:31 RBC 4.18 M/mm3 (3.65-5.03) 07/15/17 08:31 Hgb 12.8 gm/dl (10.1-14.3) 07/15/17 08:31 Hct 37.5 % (30.3-42.9) 07/15/17 08:31 MCV 90 fl (79-97) 07/15/17 08:31 MCH 31 pg (28-32) 07/15/17 08:31 MCHC 34 % (30-34) 07/15/17 08:31 RDW 13.6 % (13.2-15.2) 07/15/17 08:31 Plt Count 344 K/mm3 (140-440) 07/15/17 08:31 Lymph % (Auto) 20.2 % (13.4-35.0) 07/15/17 08:31 [place] % (Auto) 10.7 % (0.0-7.3) H 07/15/17 08:31 Eos % (Auto) 1.2 % (0.0-4.3) 07/15/17 08:31 Baso % (Auto) 1.0 % (0.0-1.8) 07/15/17 08:31 Lymph # 1.8 K/mm3 (1.2-5.4) 07/15/17 08:31 [place] # 0.9 K/mm3 (0.0-0.8) H 07/15/17 08:31 Eos # 0.1 K/mm3 (0.0-0.4) 07/15/17 08:31 Baso # 0.1 K/mm3 (0.0-0.1) 07/15/17 08:31 Seg Neutrophils % 66.9 % (40.0-70.0) 07/15/17 08:31 Seg Neutrophils # 5.9 K/mm3 (1.8-7.7) 07/15/17 08:31 PT 12.0 Sec. (12.2-14.9) L 07/12/17 14:11 INR 0.85 (0.87-1.13) L 07/12/17 14:11 APTT 33.2 Sec. (24.2-36.6) 07/12/17 14:11 Sodium 136 mmol/L (137-145) L 07/15/17 08:31 Potassium 4.5 mmol/L (3.6-5.0) 07/15/17 08:31 Chloride 102.3 mmol/L (98-107) 07/15/17 08:31 Carbon Dioxide 19 mmol/L (22-30) L 07/15/17 08:31 Anion Gap 19 mmol/L 07/15/17 08:31 BUN 44 mg/dL (7-17) H 07/15/17 08:31 Creatinine 1.7 mg/dL (0.7-1.2) H 07/15/17 08:31 Estimated GFR 43 ml/min 07/15/17 08:31 BUN/Creatinine Ratio 26 % 07/15/17 08:31 Glucose 299 mg/dL (65-100) H 07/15/17 08:31 POC Glucose 325 (70-105) H 07/14/17 16:39 Hemoglobin A1c 11.3 % (4-6) H 07/12/17 14:11 Calcium 8.9 mg/dL (8.4-10.2) 07/15/17 08:31 Magnesium 2.10 mg/dL (1.7-2.3) 07/15/17 08:31 Total Bilirubin 0.20 mg/dL (0.1-1.2) 07/15/17 08:31 Direct Bilirubin < 0.2 mg/dL (0-0.2) 07/15/17 08:31 Indirect Bilirubin 0.0 mg/dL 07/15/17 08:31 AST 13 units/L (5-40) 07/15/17 08:31 ALT 10 units/L (7-56) 07/15/17 08:31 Alkaline Phosphatase 104 units/L (35-129) 07/15/17 08:31 Total Creatine Kinase 113 units/L (30-135) 07/12/17 14:11 CK-MB (CK-2) 2.6 ng/mL (0.0-4.0) 07/12/17 14:11 CK-MB (CK-2) Rel Index 2.3 (0-4) 07/12/17 14:11 Troponin T < 0.010 ng/mL (0.00-0.029) 07/12/17 14:11 NT-Pro-B Natriuret Pep 454.1 pg/mL (0-450) H 07/12/17 14:11 Total Protein 6.7 g/dL (6.3-8.2) 07/15/17 08:31 Albumin 3.1 g/dL (3.9-5) L 07/15/17 08:31 Albumin/Globulin Ratio 0.9 % 07/15/17 08:31 HCG, Qual Negative (Negative) 07/12/17 14:11 Urine Color Yellow (Yellow) 07/12/17 14:14 Urine Turbidity Clear (Clear) 07/12/17 14:14 Urine pH 5.0 (5.0-7.0) 07/12/17 14:14 Ur Specific [place] 1.008 (1.003-1.030) 07/12/17 14:14 Urine Protein 100 mg/dl mg/dL (Negative) 07/12/17 14:14 Urine Glucose (UA) >=500 mg/dL (Negative) 07/12/17 14:14 Urine Ketones Neg mg/dL (Negative) 07/12/17 14:14 Urine Blood Sm (Negative) 07/12/17 14:14 Urine Nitrite Neg (Negative) 07/12/17 14:14 Urine Bilirubin Neg (Negative) 07/12/17 14:14 Urine Urobilinogen < 2.0 mg/dL (<2.0) 07/12/17 14:14 Ur Leukocyte Esterase Neg (Negative) 07/12/17 14:14 Urine WBC (Auto) 2.0 /HPF (0.0-6.0) 07/12/17 14:14 Urine RBC (Auto) 2.0 /HPF (0.0-6.0) 07/12/17 14:14 U Epithel Cells (Auto) 6.0 /HPF (0-13.0) 07/12/17 14:14 Urine HCG, Qual Negative (Negative) 07/12/17 14:14 Urine Opiates Screen Presumptive negative 07/12/17 14:14 Urine Methadone Screen Presumptive negative 07/12/17 14:14 Ur Barbiturates Screen Presumptive negative 07/12/17 14:14 Ur Phencyclidine Scrn Presumptive negative 07/12/17 14:14 Ur Amphetamines Screen Presumptive negative 07/12/17 14:14 U Benzodiazepines Scrn Presumptive negative 07/12/17 14:14 Urine Cocaine Screen Presumptive negative 07/12/17 14:14 U Marijuana (THC) Screen Presumptive negative 07/12/17 14:14 Drugs of Abuse Note Disclamer 07/12/17 14:14
--- NOTE | 2017-07-15 11:23 | Progress Note ---
Assessment and Plan Systemic Hypertension - improving Type II DM - being managed by primary non-compliance Chronic renal failure Abnormal ECG - LVH Recommendations: Continue same HTN regiment Blood glucose control Echocardiogram to evaluate LVEF Further cardiac testing will depend on hospital course Subjective Date of service: 07/15/17 Principal diagnosis: no acute events overnight Interval history: No events overnight Objective Vital Signs Temp Pulse Resp BP BP Pulse Ox 07/15/17 09:24 87 134/81 07/15/17 08:22 98.2 F 87 20 134/81 96 07/15/17 07:49 98.2 F 87 20 134/81 96 07/15/17 01:07 98.5 F 94 H 134/77 98 07/14/17 22:27 101 H 130/80 07/14/17 21:13 98.0 F 93 H 18 146/95 97 07/14/17 19:25 99.1 F 101 H 18 130/80 98 07/14/17 16:28 98.2 F 100 H 20 140/79 98 07/14/17 12:21 97.9 F 95 H 20 115/70 97 - Physical Examination Narrative exam: Vitals reviewed GEN: No acute distress noted, moderately obese HEENT: Carotids 2+ NECK: Supple CVS: S1 and S2 heard no significant murmur or gallop noted LUNGS/CHEST: Normal auscultation ABD: Soft nontender Extremities: No edema noted normal color NEURO: Alert moves all all 4 extremities PSY: Stable Neck: Positive: trachea midline Neuro: Positive: Grossly Intact Extremities: Absent: edema - Labs and Meds Cardiac Enzymes 07/15/17 Range/Units 08:31 AST 13 (5-40) units/L CBC 07/15/17 Range/Units 08:31 WBC 8.8 (4.5-11.0) K/mm3 RBC 4.18 (3.65-5.03) M/mm3 Hgb 12.8 (10.1-14.3) gm/dl Hct 37.5 (30.3-42.9) % Plt Count 344 (140-440) K/mm3 Lymph # 1.8 (1.2-5.4) K/mm3 [place] # 0.9 H (0.0-0.8) K/mm3 Eos # 0.1 (0.0-0.4) K/mm3 Baso # 0.1 (0.0-0.1) K/mm3 Comprehensive Metabolic Panel 07/15/17 Range/Units 08:31 Sodium 136 L (137-145) mmol/L Potassium 4.5 (3.6-5.0) mmol/L Chloride 102.3 (98-107) mmol/L Carbon Dioxide 19 L (22-30) mmol/L BUN 44 H (7-17) mg/dL Creatinine 1.7 H (0.7-1.2) mg/dL Glucose 299 H (65-100) mg/dL Calcium 8.9 (8.4-10.2) mg/dL Direct Bilirubin < 0.2 (0-0.2) mg/dL Indirect Bilirubin 0.0 mg/dL AST 13 (5-40) units/L ALT 10 (7-56) units/L Alkaline Phosphatase 104 (35-129) units/L Total Protein 6.7 (6.3-8.2) g/dL Albumin 3.1 L (3.9-5) g/dL
[2017-07-15] MEDS: PERCOCET 5/325 PO PRN (18:01)
--- NOTE | 2017-07-16 09:22 | Progress Note ---
Assessment and Plan Accelerated Hypertension -improving Diabetes Acute on chronic renal failure Non-compliance with medical therapy as an outpatient Subjective Date of service: 07/16/17 Interval history: No cardiac complaints. Objective Vital Signs Temp Pulse Resp BP Pulse Ox 07/16/17 07:24 98.8 F 89 18 127/75 97 07/15/17 21:51 97 H 156/101 07/15/17 19:48 98.9 F 108 H 24 168/90 98 07/15/17 18:01 16 07/15/17 16:32 98.3 F 99 H 20 152/103 100 07/15/17 09:24 87 134/81 - Physical Examination General: No Apparent Distress Cardiac: Positive: Reg Rate and Rhythm Lungs: Positive: Decreased Breath Sounds Neuro: Positive: Grossly Intact Extremities: Absent: edema - Labs and Meds Cardiac Enzymes 07/15/17 Range/Units 08:31 AST 13 (5-40) units/L Comprehensive Metabolic Panel 07/15/17 Range/Units 08:31 Sodium 136 L (137-145) mmol/L Potassium 4.5 (3.6-5.0) mmol/L Chloride 102.3 (98-107) mmol/L Carbon Dioxide 19 L (22-30) mmol/L BUN 44 H (7-17) mg/dL Creatinine 1.7 H (0.7-1.2) mg/dL Glucose 299 H (65-100) mg/dL Calcium 8.9 (8.4-10.2) mg/dL Direct Bilirubin < 0.2 (0-0.2) mg/dL Indirect Bilirubin 0.0 mg/dL AST 13 (5-40) units/L ALT 10 (7-56) units/L Alkaline Phosphatase 104 (35-129) units/L Total Protein 6.7 (6.3-8.2) g/dL Albumin 3.1 L (3.9-5) g/dL
[2017-07-16] MEDS: NEURONTIN PO SCH (10:46)
[2017-07-16] MEDS: COZAAR PO SCH (11:45)
[2017-07-16] MEDS: PEPCID PO SCH (11:46)
[2017-07-16] MEDS: NORVASC PO SCH (11:46)
[2017-07-16] MEDS: COREG PO SCH (11:47)
[2017-07-16] MEDS: HumaLOG SUB-Q SCH ×2 (12:47→12:48)
[2017-07-16] MEDS: SODIUM CHLORIDE FLUSH SYRINGE 10 ML IV SCH (12:49)
--- NOTE | 2017-07-16 13:50 | Discharge Summary ---
Providers - Providers Date of Admission: 07/12/17 16:35 Date of discharge: 07/16/17 Attending physician: DESIRE BUTCHER 07/12/17 18:14 Consult to Physician [CONS] Routine Comment: Consulting Provider: LYDIA GARCES Physician Instructions: Reason For Exam: htn Primary care physician: ANTIQUE CLOCK REPAIRER Hospitalization Reason for admission: uncontrolled blood pressures and blood sugars Condition: Stable Pertinent studies: Chest x-ray; no acute abnormality Hospital course: History pleasant 27-year-old obese female patient with significant history of chronic kidney disease hypertension diabetes mellitus noncompliant with medications secondary to social issues was admitted through emergency room with uncontrolled blood pressures.The peak blood pressure in the emergency room was 200/110 with mild headache.,And also had uncontrolled diabetes mellitus and acute on chronic kidney disease with creatinine of 1.8 Patient was admitted to the hospital symptomatically managed. Underwent echocardiogram. Report is pending which will be reviewed by information security systems instructor upon follow-up visit, patient was managed with multiple antihypertensives with significant improvement of blood pressures Patient's insulin was increased to 40 units 7030 twice a day, with significant improvement. Sugars Patient's A1c is 11.3, Patient received diabetic education, counseling the importance of adhering to the treatment plan, patient was also advised to seek private chief hydroelectric station operator for better management of her diabetes Today she is comfortable in bed no new complaints, Vital signs are stable Blood pressures are well controlled, Denies chest pain or shortness of breath Physical examination prior to discharge is unremarkable Cardiology cleared for discharge and follow Him in the office in one week Also counseled diet modification and exercise as tolerated and weight reduction when medically stable Discharge diagnosis; Malignant hypertension Uncontrolled diabetes mellitus2 Diabetic neuropathy Acute on chronic kidney disease stage III Obesity with BMI 39.1 medical noncompliance Disposition: DC-01 TO HOME OR SELFCARE Time spent for discharge: 32 min Core Measure Documentation - Palliative Care Palliative Care/ Comfort Measures: Not Applicable - Core Measures Any of the following diagnoses?: none Exam - Constitutional Vitals: Temp Pulse Resp BP Pulse Ox 98.8 F 89 18 127/75 97 07/16/17 07:24 07/16/17 07:24 07/16/17 07:24 07/16/17 07:24 07/16/17 07:24 General appearance: Present: no acute distress, well-nourished - EENT Eyes: Present: PERRL, EOM intact - Neck Neck: Present: supple, normal ROM - Respiratory Respiratory effort: normal Respiratory: negative: rales, rhonchi, wheezing - Cardiovascular Rhythm: regular Heart Sounds: Present: S1 & S2 - Extremities Extremities: no ischemia, No edema - Abdominal General gastrointestinal: Present: soft, non-tender, non-distended, normal bowel sounds - Integumentary Integumentary: Present: clear, warm - Musculoskeletal Musculoskeletal: strength equal bilaterally - Psychiatric Psychiatric: appropriate mood/affect, cooperative - Neurologic Neurologic: CNII-XII intact, moves all extremities Plan Activity: no restrictions Diet: low salt, diabetic Additional Instructions: Strongly advised to comply with medications, diet and follow-up visits. Advised to check with cardiology to follow up visit, pending echo report Follow up with: PRIMARY CARE, [Primary Care Provider] - 3-5 Days LEXY DRAPER MD [Staff Physician] - 7 Days Prescriptions: amLODIPine [Norvasc] 10 mg PO DAILY #30 tab Carvedilol [Coreg] 12.5 mg PO BID #60 tablet Insulin NPH/Regular [NovoLIN 70/30] 40 unit SUB-Q BIDDIAB 30 Days units Losartan/Hydrochlorothiazide [Losartan-Hctz 100-25 mg Tab] 1 each PO QDAY #30 tablet
[2017-07-16 16:24] VITALS: BP 176/96
== END 2017-07-16 17:30 | disposition home or self-care (01) | DRG 682 ==
LOC: ED 11:25 → 3A 16:35
PROVIDERS: ADMIT Internal Medicine; ATTEND Internal Medicine
DX: I12.9 Hypertensive chronic kidney disease with stage 1 through stage 4 chronic kidney disease, or unspecified chronic kidney disease (principal); N17.0 Acute kidney failure with tubular necrosis; I16.1 Hypertensive emergency; E44.0 Moderate protein-calorie malnutrition; E11.40 Type 2 diabetes mellitus with diabetic neuropathy, unspecified; R51 Headache; E88.81 Metabolic syndrome and other insulin resistance; E78.5 Hyperlipidemia, unspecified; I16.0 Hypertensive urgency; E11.42 Type 2 diabetes mellitus with diabetic polyneuropathy; E11.65 Type 2 diabetes mellitus with hyperglycemia; N18.3 Chronic kidney disease, stage 3 (moderate); E11.22 Type 2 diabetes mellitus with diabetic chronic kidney disease; E66.9 Obesity, unspecified; Z68.39 Body mass index [BMI] 39.0-39.9, adult; Z79.4 Long term (current) use of insulin; Z91.19 Patient's noncompliance with other medical treatment and regimen; Z71.89 Other specified counseling
CPT/HCPCS: 36415; 71045; 80048; 80053; 80074; 80307; 81001; 81025; 82550; 82553; 82962; 83036; 83735; 83880; 84484; 84703; 85025; 85610; 85730; 93005; 93010; 93306; 96372; 96375; 96376; J0360; J1815; J1885; J2270; J7030

== ENCOUNTER 2018-06-18 12:18 | Emergency (ER) | payer SELFPAY ==
--- NOTE | 2018-06-18 12:39 | Emergency Department Report ---
Chief Complaint: Headache Stated Complaint: CHEST PAIN/HEADACHE/NAUSEA Time Seen by Provider: 06/18/18 12:33 - HPI History of Present Illness: This is a 28 y.o. female that presents to the ER with headache since yesterday. Patient taking cough and cold medication with no improvement of symptoms. Reports cough, headache, dizziness, n/v, SOB, and chest discomfort. PMH DM2, HTN Patient states she ran out of amlodipine, losartan-HCTZ, and cardevilol for 2-3 months. - Exam Vital Signs: Vital Signs 06/18/18 12:29 Temperature 98.9 F Pulse Rate 105 H Respiratory 20 Rate Blood Pressure 207/144 O2 Sat by Pulse 100 Oximetry MSE screening note: Focused history and physical exam performed. Due to findings the following was ordered: labs, ekg, and cxr acc for further evaluation. ED Disposition for MSE Condition: Stable
[2018-06-18 13:12] LABS: Hematocrit 37.5 % (30.3-42.9); Hemoglobin 12.4 gm/dl (10.1-14.3); Mean Corpuscular HGB Conc 33 % (30-34); Mean Corpuscular Volume 88 fl (79-97); Platelet Count 483 K/mm3 (140-440); Red Blood Count 4.25 M/mm3 (3.65-5.03); Red Cell Distribution Width 15.1 % (13.2-15.2)
[2018-06-18 13:25] LABS: Calcium 8.7 mg/dL (8.4-10.2)
--- NOTE | 2018-06-18 13:32 | XRay Report ---
XRAY CHEST TWO VIEWS: 06/18/18 12:18:00 CLINICAL: Cough and chest pain. COMPARISON: 07/12/17 FINDINGS: Normal heart and pulmonary vasculature. The lungs are normally expanded and clear.The bones and soft tissues are unremarkable. IMPRESSION: Normal chest.
[2018-06-18] MEDS ORDERED: HumuLIN R SUB-Q ONE (14:15)
[2018-06-18] MEDS ORDERED: CATAPRES PO ONE (14:15)
[2018-06-18] MEDS ORDERED: TYLENOL PO ONE (14:15)
--- NOTE | 2018-06-18 14:19 | Emergency Department Report ---
ED General Adult HPI - General Chief complaint: Headache Stated complaint: CHEST PAIN/HEADACHE/NAUSEA Time Seen by Provider: 06/18/18 12:33 Source: patient Mode of arrival: Ambulatory Limitations: No Limitations - History of Present Illness Initial comments: Patient is 28 years old female with history of hypertension and diabetes, noncompliant with her medication. Patient presented to the ER complaining of headache for the last 4 days associated with generalized body ache. Patient denied any chest pain, shortness of breath, fever or chills. No nausea or vomiting. - Related Data Home Medications Medication Instructions Recorded Confirmed Last Taken Gabapentin [Neurontin] 300 mg PO TID 06/29/16 07/12/17 01/26/17 Previous Rx's Medication Instructions Recorded Last Taken Type HYDROcodone/APAP 7.5-325 [[place] 1 each PO Q6HR PRN #10 tablet 07/08/17 Unknown Rx 7.5-325 mg TAB] Carvedilol [Coreg] 12.5 mg PO BID #60 tablet 07/12/17 Unknown Rx Losartan/Hydrochlorothiazide 1 each PO QDAY #30 tablet 07/12/17 Unknown Rx [Losartan-Hctz 100-25 mg Tab] amLODIPine [Norvasc] 10 mg PO DAILY #30 tab 07/12/17 Unknown Rx Insulin NPH/Regular [NovoLIN 70/30] 40 unit SUB-Q BIDDIAB 30 Days 07/16/17 Unknown Rx units Allergies Allergy/AdvReac Type Severity Reaction Status Date / Time No Known Allergies Allergy Verified 06/29/16 01:18 ED Review of Systems ROS: Stated complaint: CHEST PAIN/HEADACHE/NAUSEA Other details as noted in HPI Comment: All other systems reviewed and negative Constitutional: denies: chills, fever Respiratory: denies: cough Cardiovascular: denies: chest pain, palpitations Gastrointestinal: denies: abdominal pain, nausea, vomiting, diarrhea, constipation Musculoskeletal: denies: back pain ED Past Medical Hx - Past Medical History Previous Medical History?: Yes Hx Hypertension: Yes Hx Diabetes: Yes Hx Renal Disease: Yes Additional medical history: hyperlipidemia, Neuropathy - Surgical History Past Surgical History?: No - Social History Smoking Status: Never Smoker Substance Use Type: None - Medications Home Medications: Home Medications Medication Instructions Recorded Confirmed Last Taken Type Gabapentin [Neurontin] 300 mg PO TID 05/25/17 06/07/18 12/22/17 History HYDROcodone/APAP 7.5-325 [[place] 1 each PO Q6HR PRN #10 tablet 18 07/12/17 Unknown Rx 7.5-325 mg TAB] Carvedilol [Coreg] 12.5 mg PO BID #60 tablet 07/12/17 Unknown Rx Losartan/Hydrochlorothiazide 1 each PO QDAY #30 tablet 07/12/17 Unknown Rx [Losartan-Hctz 100-25 mg Tab] amLODIPine [Norvasc] 10 mg PO DAILY #30 tab 07/12/17 Unknown Rx Insulin NPH/Regular [NovoLIN 70/30] 40 unit SUB-Q BIDDIAB 30 Days 07/16/17 Unknown Rx units ED Physical Exam - General Limitations: No Limitations General appearance: alert, in no apparent distress - Head Head exam: Present: atraumatic, normocephalic, normal inspection - Eye Eye exam: Present: normal appearance, PERRL - ENT ENT exam: Present: normal exam, normal orophraynx, mucous membranes moist - Neck Neck exam: Present: normal inspection, full ROM. Absent: tenderness, meningismus, lymphadenopathy, thyromegaly - Respiratory Respiratory exam: Present: normal lung sounds bilaterally - Cardiovascular Cardiovascular Exam: Present: regular rate, normal rhythm, normal heart sounds - GI/Abdominal GI/Abdominal exam: Present: soft, normal bowel sounds. Absent: distended, tenderness, guarding, rebound, rigid, organomegaly, mass, bruit, pulsatile mass, hernia - Extremities Exam Extremities exam: Present: normal inspection, full ROM, normal capillary refill. Absent: tenderness, pedal edema, joint swelling, calf tenderness - Back Exam Back exam: Present: normal inspection, full ROM. Absent: tenderness, CVA tenderness (R), CVA tenderness (L), muscle spasm, paraspinal tenderness, leonardo tebral tenderness - Neurological Exam Neurological exam: Present: alert, oriented X3, CN II-XII intact, normal gait, reflexes normal - Psychiatric Psychiatric exam: Present: normal mood - Skin Skin exam: Present: warm, intact, normal color ED Course Vital Signs 06/18/18 06/18/18 12:29 16:29 Temperature 98.9 F Pulse Rate 105 H 100 H Respiratory 20 18 Rate Blood Pressure 207/144 Blood Pressure 146/83 [Left] O2 Sat by Pulse 100 99 Oximetry ED Medical Decision Making - Lab Data Result diagrams: 06/18/18 12:43 06/18/18 12:43 - Radiology Data Radiology results: report reviewed CT scan is negative for acute finding. - Medical Decision Making Patient is 28 years old female with history of hypertension and diabetes, noncompliant with her medication. Patient presented to the ER complaining of headache for the last 4 days associated with generalized body ache. Patient denied any chest pain, shortness of breath, fever or chills. No nausea or vomiting. Patient received clonidine 0.2 mg and Tylenol. Patient stated that she is feeling much better. Patient informed about her abnormal labs which include a creatinine of 2.2 which is increased from 1.7 from the last time she was here. Patient advised to follow-up with her primary care physician. I will refill her amlodipine and I will starts on hydrochlorothiazide. Critical care attestation.: If time is entered above; I have spent that time in minutes in the direct care of this critically ill patient, excluding procedure time. ED Disposition Clinical Impression: Headache, Malignant hypertension, Hyperglycemia due to type 2 diabetes mellitus Disposition: - TO HOME OR SELFCARE Is pt being admited?: No Condition: Stable Instructions: Chronic Kidney Disease (ED), Diabetes Mellitus Type 2 in Adults (ED), Hypertension (ED) Referrals: RA TORRES MD [Primary Care Provider] - 3-5 Days Forms: Work/School Release Form(ED)
--- NOTE | 2018-06-18 16:01 | Cat Scan Report ---
PROCEDURE: CT HEAD/BRAIN WO CON TECHNIQUE: Computerized tomography of the head was performed without contrast material. CT DOSE LENGTH PRODUCT: mGycm HISTORY: headache, elevated BP COMPARISONS: Prior CT scan of brain 07/08/2017 . FINDINGS: Brain: Brain density appears normal. No evidence of intracranial hemorrhage. No parenchymal hemorr radha, mass lesions or mass effect are seen. No abnormal extra-axial fluid collects or masses are see n. Ventricles: Ventricles are normal size and are midline. Bone Windows: No evidence of skull fracture. Paranasal sinuses: There is mild mucosal thickening visualized in the right left maxillary sinuses. V isualized portions of the paranasal sinuses otherwise appear clear. Mastoid air cells: There is stable opacification of a few of the mastoid air cells on the right infer iorly. Left mastoid air cells are clear. IMPRESSION: Negative unenhanced CT of the brain. Mild paranasal sinus disease as described. Stable mild mastoid air cell disease on the right inferiorly. . This document is electronically signed by Bj Kee MD., Jun 18 2018 03:58:55 PM ET
[2018-06-18 16:08] LABS: Bacteria,Urine 2+ /HPF (Negative); Bilirubin,Urine NEG (Negative); Blood,Urine MOD (Negative); Color,Urine Yellow (Yellow); Urobilinogen,Urine < 2.0 mg/dL (<2.0)
[2018-06-18 16:09] LABS: Protein,Urine >500 mg/dL (Negative)
[2018-06-18 16:30] VITALS: BP 146/83
== END 2018-06-18 17:32 | disposition home or self-care (01) ==
LOC: ED 12:18
DX: E11.65 Type 2 diabetes mellitus with hyperglycemia (principal); I10 Essential (primary) hypertension; Z79.899 Other long term (current) drug therapy
CPT/HCPCS: 36415; 70450; 71046; 80048; 81001; 82962; 84703; 85027; 93005; 93010; 96372; J1815

== ENCOUNTER 2018-08-23 00:28 | Inpatient (IN) | payer OTHER ==
[2018-08-23] MEDS ORDERED: SUBLIMAZE IV ONE (01:19)
[2018-08-23] MEDS ORDERED: ZOFRAN IV ONE (01:19)
[2018-08-23] MEDS ORDERED: NACL 0.9% 1000 ML 1,000 ML IV ONE ×3 (01:19→09:00)
[2018-08-23 01:22] LABS: Hematocrit 31.9 % (30.3-42.9); Hemoglobin 10.2 gm/dl (10.1-14.3); Mean Corpuscular HGB Conc 32 % (30-34); Mean Corpuscular Volume 88 fl (79-97); Platelet Count 329 K/mm3 (140-440); Red Blood Count 3.64 M/mm3 (3.65-5.03); Red Cell Distribution Width 15.1 % (13.2-15.2)
[2018-08-23] MEDS ORDERED: TYLENOL PO ONE (01:22)
--- NOTE | 2018-08-23 01:27 | Emergency Department Report ---
HPI - General Chief Complaint: Hyperglycemia Time Seen by Provider: 08/23/18 01:12 - HPI HPI: Room 24 The pt is a 28 yo F p/w a cc of dizziness. The pt states she's felt dizzy for the past 2-3 days and it is unrelated to body position. The pt states today while in the shower she again felt lightheaded and fell. Pt states she's uncertain if she lost conciousness. Pt c/o nausea s vomiting, and a frontal/L sided CORREIA. Pt denies fever but admits to chills. Pt states she has been compliant with her insulin. Pt denies dysuria or hematuria ED Past Medical Hx - Past Medical History Hx Hypertension: Yes Hx Diabetes: Yes Hx Renal Disease: Yes Additional medical history: hyperlipidemia, Neuropathy - Surgical History Past Surgical History?: No - Family History Family history: no significant - Social History Smoking Status: Never Smoker Substance Use Type: None - Medications Home Medications: Home Medications Medication Instructions Recorded Confirmed Last Taken Type Gabapentin [Neurontin] 300 mg PO TID 06/29/16 07/12/17 01/26/17 History HYDROcodone/APAP 7.5-325 [[place] 1 each PO Q6HR PRN #10 tablet 07/08/17 07/12/17 Unknown Rx 7.5-325 mg TAB] Carvedilol [Coreg] 12.5 mg PO BID #60 tablet 07/12/17 Unknown Rx Losartan/Hydrochlorothiazide 1 each PO QDAY #30 tablet 07/12/17 Unknown Rx [Losartan-Hctz 100-25 mg Tab] amLODIPine [Norvasc] 10 mg PO DAILY #30 tab 07/12/17 Unknown Rx Insulin NPH/Regular [NovoLIN 70/30] 40 unit SUB-Q BIDDIAB 30 Days 07/16/17 Unknown Rx units amLODIPine [Norvasc] 10 mg PO DAILY #30 tab 06/18/18 Unknown Rx hydroCHLOROthiazide [HCTZ] 25 mg PO QDAY #30 tablet 06/18/18 Unknown Rx ED Review of Systems ROS: Stated complaint: HIGH BLOOD SUGAR Other details as noted in HPI Constitutional: chills. denies: fever Eyes: denies: eye pain ENT: denies: throat pain Respiratory: no symptoms reported Cardiovascular: denies: chest pain Endocrine: no symptoms reported Gastrointestinal: nausea. denies: vomiting Genitourinary: denies: dysuria, hematuria Musculoskeletal: denies: back pain Neurological: headache Physical Exam - Physical Exam Vital Signs: Vital Signs 08/23/18 00:54 Temperature 100.8 F H Pulse Rate 102 H Respiratory 18 Rate Blood Pressure 150/89 O2 Sat by Pulse 95 Oximetry Physical Exam: GEN: WD WN F lying on stretcher with decreased energy HEENT: EOMI NECK: Trachea midline LUNGS: No resp Distress CV: tachycardia no m/r/g ABD: S/NT/ND SKIN: No Diaphoresis NEURO: CN 2-12 GI. GCS 15 MS: no evidence of acute injury ED Course Vital Signs 08/23/18 00:54 Temperature 100.8 F H Pulse Rate 102 H Respiratory 18 Rate Blood Pressure 150/89 O2 Sat by Pulse 95 Oximetry ED Medical Decision Making - Lab Data Result diagrams: 08/23/18 01:08 08/23/18 01:08 Laboratory Tests 08/23/18 08/23/18 08/23/18 01:08 01:08 01:30 WBC 29.2 H RBC 3.64 L Hgb 10.2 Hct 31.9 MCV 88 MCH 28 MCHC 32 RDW 15.1 Plt Count 329 Add Manual Diff Complete Total Counted 100 Seg Neuts % (Manual) 90.0 H Band Neutrophils % 0 Lymphocytes % (Manual) 2.0 L Reactive Lymphs % (Man) 0 Monocytes % (Manual) 8.0 H Eosinophils % (Manual) 0 Basophils % (Manual) 0 Metamyelocytes % 0 Myelocytes % 0 Promyelocytes % 0 Blast Cells % 0 Nucleated RBC % Not Reportable Seg Neutrophils # Man 26.3 H Band Neutrophils # 0.0 Lymphocytes # (Manual) 0.6 L Abs React Lymphs (Man) 0.0 Monocytes # (Manual) 2.3 H Eosinophils # (Manual) 0.0 Basophils # (Manual) 0.0 Metamyelocytes # 0.0 Myelocytes # 0.0 Promyelocytes # 0.0 Blast Cells # 0.0 WBC Morphology Not Reportable Hypersegmented Neuts Not Reportable Hyposegmented Neuts Not Reportable Hypogranular Neuts Not Reportable Smudge Cells Not Reportable Toxic Granulation Not Reportable Toxic Vacuolation Not Reportable Dohle Bodies Not Reportable Pelger-Huet Anomaly Not Reportable Pascual Rods Not Reportable Platelet Estimate Consistent w auto Clumped Platelets Not Reportable Plt Clumps, EDTA Not Reportable Large Platelets 1+ Giant Platelets Not Reportable Platelet Satelliting Not Reportable Plt Morphology Comment Not Reportable RBC Morphology Normal Dimorphic RBCs Not Reportable Polychromasia Not Reportable Hypochromasia Not Reportable Poikilocytosis Not Reportable Anisocytosis Not Reportable Microcytosis Not Reportable Macrocytosis Not Reportable Spherocytes Not Reportable Pappenheimer Bodies Not Reportable Sickle Cells Not Reportable Target Cells Not Reportable Tear Drop Cells Not Reportable Ovalocytes Not Reportable Helmet Cells Not Reportable Rowan-Stanford Bodies Not Reportable Isabella Rings Not Reportable [place] Cells Not Reportable Bite Cells Not Reportable Crenated Cell Not Reportable Elliptocytes Not Reportable Acanthocytes (Spur) Not Reportable Rouleaux Not Reportable Hemoglobin C Crystals Not Reportable Schistocytes Not Reportable Malaria parasites Not Reportable Reggie Bodies Not Reportable Hem Pathologist Commnt No VBG pH Sodium 125 L Potassium 5.0 Chloride 92.0 L Carbon Dioxide 19 L Anion Gap 19 BUN 28 H Creatinine 2.2 H Estimated GFR 32 BUN/Creatinine Ratio 13 Glucose 675 H* Lactic Acid Calcium 8.2 L Total Bilirubin 0.30 AST 26 ALT 10 Alkaline Phosphatase 127 Total Protein 6.9 Albumin 2.6 L Albumin/Globulin Ratio 0.6 Lipase 21 HCG, Qual Negative Urine Color Urine Turbidity Urine pH Ur Specific [place] Urine Protein Urine Glucose (UA) Urine Ketones Urine Blood Urine Nitrite Urine Bilirubin Urine Urobilinogen Ur Leukocyte Esterase Urine WBC (Auto) Urine RBC (Auto) U Epithel Cells (Auto) 08/23/18 08/23/18 08/23/18 01:30 02:27 02:53 WBC RBC Hgb Hct MCV MCH MCHC RDW Plt Count Add Manual Diff Total Counted Seg Neuts % (Manual) Band Neutrophils % Lymphocytes % (Manual) Reactive Lymphs % (Man) Monocytes % (Manual) Eosinophils % (Manual) Basophils % (Manual) Metamyelocytes % Myelocytes % Promyelocytes % Blast Cells % Nucleated RBC % Seg Neutrophils # Man Band Neutrophils # Lymphocytes # (Manual) Abs React Lymphs (Man) Monocytes # (Manual) Eosinophils # (Manual) Basophils # (Manual) Metamyelocytes # Myelocytes # Promyelocytes # Blast Cells # WBC Morphology Hypersegmented Neuts Hyposegmented Neuts Hypogranular Neuts Smudge Cells Toxic Granulation Toxic Vacuolation Dohle Bodies Pelger-Huet Anomaly Pascual Rods Platelet Estimate Clumped Platelets Plt Clumps, EDTA Large Platelets Giant Platelets Platelet Satelliting Plt Morphology Comment RBC Morphology Dimorphic RBCs Polychromasia Hypochromasia Poikilocytosis Anisocytosis Microcytosis Macrocytosis Spherocytes Pappenheimer Bodies Sickle Cells Target Cells Tear Drop Cells Ovalocytes Helmet Cells Rowan-Stanford Bodies Isabella Rings Daphney Cells Bite Cells Crenated Cell Elliptocytes Acanthocytes (Spur) Rouleaux Hemoglobin C Crystals Schistocytes Malaria parasites Reggei Bodies Hem Pathologist Commnt VBG pH 7.382 Sodium Potassium Chloride Carbon Dioxide Anion Gap BUN Creatinine Estimated GFR BUN/Creatinine Ratio Glucose Lactic Acid 1.10 Calcium Total Bilirubin AST ALT Alkaline Phosphatase Total Protein Albumin Albumin/Globulin Ratio Lipase HCG, Qual Urine Color Straw Urine Turbidity Slightly-cloudy Urine pH 6.0 Ur Specific [place] 1.012 Urine Protein 100 mg/dl Urine Glucose (UA) >=500 Urine Ketones Neg Urine Blood Neg Urine Nitrite Neg Urine Bilirubin Neg Urine Urobilinogen < 2.0 Ur Leukocyte Esterase Lg Urine WBC (Auto) 66.0 H Urine RBC (Auto) 23.0 U Epithel Cells (Auto) 9.0 - EKG Data -: EKG Interpreted by Me EKG shows normal: sinus rhythm Rate: tachycardia (101 bpm) - EKG Data When compared to previous EKG there are: previous EKG unavailable Interpretation: nonspecific ST-T wave asia (biphasic T waves in leads V5, V6) - Radiology Data Radiology results: report reviewed (chest x-ray, CT head), image reviewed (chest x-ray, CT head) interpreted by me: Chest x-ray-no focal infiltrates, no pneumothorax - Differential Diagnosis DKA, UTI, dehydration, ICH Critical care attestation.: If time is entered above; I have spent that time in minutes in the direct care of this critically ill patient, excluding procedure time. ED Disposition Clinical Impression: Diabetic hyperosmolar non-ketotic state, UTI (urinary tract infection), Leukocytosis, Fever Disposition: OP ADMIT IP TO THIS HOSP Is pt being admited?: Yes Does the pt Need Aspirin: No Condition: Fair Instructions: Diabetes Mellitus Type 2 in Adults (ED) Referrals: PRIMARY CARE, [Referring] - 3-5 Days Time of Disposition: 03:40 (hospitalist paged (Dr Grant))
[2018-08-23 01:43] LABS: Albumin 2.6 g/dL (3.9-5); Calcium 8.2 mg/dL (8.4-10.2)
[2018-08-23] MEDS ORDERED: ROCEPHIN/NS 2 GM/100 ML 2 GM/100 ML BAG IV ONE (01:46)
[2018-08-23 02:10] LABS: Basophils % (Manual) 0 % (0.0-1.8); Total Cells Counted 100
[2018-08-23 02:11] LABS: Eosinophils % (Manual) 0 % (0.0-4.3); Large Platelets 1+; Platelet Estimate Consistent w Auto; RBC Morphology Normal
[2018-08-23] MEDS ORDERED: ROCEPHIN IM ONE (02:19)
--- NOTE | 2018-08-23 02:54 | XRay Report ---
CHEST 1 VIEW INDICATION / CLINICAL INFORMATION: fever. COMPARISON: None available. FINDINGS: SUPPORT DEVICES: None. HEART / MEDIASTINUM: No significant abnormality. LUNGS / PLEURA: No significant pulmonary or pleural abnormality. No pneumothorax. ADDITIONAL FINDINGS: No significant additional findings. IMPRESSION: 1. No acute findings. Signer Name: Nehemiah Quintero MD Signed: 08/23/2018 2:49 AM Workstation Name: [id number]
--- NOTE | 2018-08-23 03:01 | Cat Scan Report ---
CT head/brain wo con INDICATION / CLINICAL INFORMATION: CORREIA after possible syncope. TECHNIQUE: All CT scans at this location are performed using CT dose reduction for ALARA by means of automated e xposure control. COMPARISON: 06/18/2018 FINDINGS: No intracranial hemorrhage or abnormal extra-axial Ventricular system with some mass effect. No acute paranasal sinus disease. Mild right mastoid air cell opacification is similar to the compari son study. No skeletal abnormality. IMPRESSION: 1. No acute intracranial abnormality or interval change. Signer Name: Nehemiah Quintero MD Signed: 08/23/2018 2:57 AM Workstation Name: [id number]
[2018-08-23 03:02] LABS: Bilirubin,Urine NEG (Negative); Blood,Urine NEG (Negative); Color,Urine Straw (Yellow); Urobilinogen,Urine < 2.0 mg/dL (<2.0)
[2018-08-23] MEDS ORDERED: HumuLIN R IV ONE (03:38)
[2018-08-23] MEDS ORDERED: D50W (25GM) Syringe IV PRN (04:30)
[2018-08-23] MEDS ORDERED: SODIUM CHLORIDE FLUSH SYRINGE 10 ML IV PRN (04:32)
--- NOTE | 2018-08-23 04:42 | Event Note ---
28-year-old woman with past medical history of type 2 diabetes and CkD stage II who presents to the hospital with 2 days of dizziness, states that she fell in her shower but does not think she passed out she is also complaining of chills. Patient reports nausea but no vomiting. CT head; no acute findings Chest x-ray; no acute findings Sepsis/UTI; sepsis protocol, IV antibiotics, follow-up urine cultures Hyper was smaller hyperglycemic nonketotic states; IV fluids, insulin drip X Critical care time 35 minutes
[2018-08-23] MEDS ORDERED: D5W/0.45% NACL/KCL 20 MEQ 20 MEQ/1,000 ML BAG IV SCH (05:00)
[2018-08-23] MEDS ORDERED: HumuLIN R 100 UNITS in NACL 0.9% 99 ML IV SCH (05:00)
--- NOTE | 2018-08-23 05:02 | History and Physical Report ---
History of Present Illness Date of examination: 08/23/18 Date of admission: 08/23/2018 Chief complaint: hyperglycemia History of present illness: 28-year-old -Turk[place] female with history of hypertension, uncontrolled diabetes, CKD2 sats [facility] with complaints of dizziness and lightheadedness. States that she has been feeling dizzy/lightheaded for the past 2-3 days, and that she fell in the shower earlier today. She is not certain if she loss consciousness. Additionally she complains of nausea, vomiting and frontal lobe headache. States that she has been compliant with monitoring her blood sugar and insulin usage. Admits: chills,n/v, ache, lightheadedness Denies: Fair, cough, visual disturbances, gait dysfunction, dysuria, or hematuria Past History Past Medical History: diabetes (dependent, neuropathy), hypertension (4 independent), hyperlipidemia, renal failure Past Surgical History: No surgical history Social history: no significant social history Family history: no significant family history Medications and Allergies Allergies Allergy/AdvReac Type Severity Reaction Status Date / Time No Known Allergies Allergy Verified 06/29/16 01:18 Home Medications Medication Instructions Recorded Confirmed Last Taken Type Gabapentin [Neurontin] 300 mg PO TID 06/29/16 08/23/18 01/26/17 History Carvedilol [Coreg] 12.5 mg PO BID #60 tablet 07/12/17 08/23/18 Unknown Rx amLODIPine [Norvasc] 10 mg PO DAILY #30 tab 06/18/18 08/23/18 Unknown Rx hydroCHLOROthiazide [HCTZ] 25 mg PO QDAY #30 tablet 06/18/18 08/23/18 Unknown Rx Insulin Detemir [Levemir VIAL] 10 unit SQ BID 08/23/18 08/23/18 08/22/18 21:00 History Active Meds: Active Medications Acetaminophen (Tylenol) 650 mg PO Q4H PRN PRN Reason: Pain MILD(1-3)/Fever >100.5/CORREIA Amlodipine Besylate (Norvasc) 10 mg PO DAILY [facility] Carvedilol (Coreg) 12.5 mg PO BID [facility] Dextrose (D50w (25gm) Syringe) 0 ml IV PRN PRN PRN Reason: Hypoglycemia Docusate Sodium (Colace) 100 mg PO BID [facility] Enoxaparin Sodium (Lovenox) 30 mg SUB-Q QDAY [facility] Gabapentin (Neurontin) 300 mg PO TID [facility] Insulin Human Regular 100 (units/ Sodium Chloride) 100 mls @ 1 mls/hr IV TITR [facility]; Protocol Sodium Chloride (Nacl 0.9% 1000 Ml) 1,000 mls @ 150 mls/hr IV BOLUS ONE Stop: 08/23/18 11:09 Potassium Chloride/Dextrose/Sod Cl (D5w/0.45% Nacl/Kcl 20 Meq) 20 meq in 1,000 mls @ 125 mls/hr IV DIRECT [facility] Ceftriaxone Sodium (Rocephin/Ns 1 Gm/50 Ml) 1 gm in 50 mls @ 100 mls/hr IV Q24HR [facility]; Protocol Ondansetron HCl (Zofran) 4 mg IV Q8H PRN PRN Reason: Nausea And Vomiting Sodium Chloride (Sodium Chloride Flush Syringe 10 Ml) 10 ml IV BID [facility] Sodium Chloride (Sodium Chloride Flush Syringe 10 Ml) 10 ml IV PRN PRN PRN Reason: LINE FLUSH Review of Systems All systems: negative (reviewed and no additional unremarkable complaints except as noted below) Constitutional: weakness, other (dizziness) Integumentary: sores (surgical right buttocks) Neurological: other (headedness,) Exam - Physical Exam Narrative exam: Physical exam General appearance: Present: No acute distress, alert and oriented 3, well- developed, -Turkmen adult female - EENT Eyes: Present: PERRL, EOM intact ENT: hearing intact, normal dentition - Neck Neck: Present: supple, normal ROM - Respiratory Respiratory effort: Non-labored Respiratory: Clear throughout - Cardiovascular Heart rate: 102 (bpm) Rhythm: regular Heart Sounds: Present: S1 & S2. Absent: rub, click - Extremities Extremities: no ischemia, pulses intact, abnormal () - Peripheral Assessment Peripheral Pulses: within normal limits - Abdominal General gastrointestinal: soft, non-tender, normal bowel sounds - Integumentary Integumentary: Present: warm, dry, 1cm wound/sore to right buttock with large area of warmth erythema - Musculoskeletal Musculoskeletal: generalized weakness -Neurological Neurological: CN II-XII intact - Psychiatric Psychiatric: cooperative - Constitutional Vitals: Temp Pulse Resp BP Pulse Ox 100.8 F H 99 H 22 142/70 93 08/23/18 00:54 08/23/18 03:00 08/23/18 03:00 08/23/18 03:00 08/23/18 03:00 Results - Labs CBC & Chem 7: 08/23/18 01:08 08/23/18 04:48 Labs: Laboratory Last Values WBC 29.2 K/mm3 (4.5-11.0) H 08/23/18 01:08 RBC 3.64 M/mm3 (3.65-5.03) L 08/23/18 01:08 Hgb 10.2 gm/dl (10.1-14.3) 08/23/18 01:08 Hct 31.9 % (30.3-42.9) 08/23/18 01:08 MCV 88 fl (79-97) 08/23/18 01:08 MCH 28 pg (28-32) 08/23/18 01:08 MCHC 32 % (30-34) 08/23/18 01:08 RDW 15.1 % (13.2-15.2) 08/23/18 01:08 Plt Count 329 K/mm3 (140-440) 08/23/18 01:08 Add Manual Diff Complete 08/23/18 01:08 Total Counted 100 08/23/18 01:08 Seg Neuts % (Manual) 90.0 % (40.0-70.0) H 08/23/18 01:08 0 % 08/23/18 01:08 2.0 % (13.4-35.0) L 08/23/18 01:08 Reactive Lymphs % (Man) 0 % 08/23/18 01:08 8.0 % (0.0-7.3) H 08/23/18 01:08 0 % (0.0-4.3) 08/23/18 01:08 0 % (0.0-1.8) 08/23/18 01:08 0 % 08/23/18 01:08 0 % 08/23/18 01:08 0 % 08/23/18 01:08 0 % 08/23/18 01:08 Nucleated RBC % Not Reportable 08/23/18 01:08 Seg Neutrophils # Man 26.3 K/mm3 (1.8-7.7) H 08/23/18 01:08 Band Neutrophils # 0.0 K/mm3 08/23/18 01:08 0.6 K/mm3 (1.2-5.4) L 08/23/18 01:08 Abs React Lymphs (Man) 0.0 K/mm3 08/23/18 01:08 2.3 K/mm3 (0.0-0.8) H 08/23/18 01:08 0.0 K/mm3 (0.0-0.4) 08/23/18 01:08 0.0 K/mm3 (0.0-0.1) 08/23/18 01:08 0.0 K/mm3 08/23/18 01:08 0.0 K/mm3 08/23/18 01:08 0.0 K/mm3 08/23/18 01:08 Blast Cells # 0.0 K/mm3 08/23/18 01:08 WBC Morphology Not Reportable 08/23/18 01:08 Hypersegmented Neuts Not Reportable 08/23/18 01:08 Hyposegmented Neuts Not Reportable 08/23/18 01:08 Hypogranular Neuts Not Reportable 08/23/18 01:08 Not Reportable 08/23/18 01:08 Not Reportable 08/23/18 01:08 Not Reportable 08/23/18 01:08 Not Reportable 08/23/18 01:08 Not Reportable 08/23/18 01:08 Not Reportable 08/23/18 01:08 Consistent w auto 08/23/18 01:08 Not Reportable 08/23/18 01:08 Plt Clumps, EDTA Not Reportable 08/23/18 01:08 1+ 08/23/18 01:08 Not Reportable 08/23/18 01:08 Not Reportable 08/23/18 01:08 Plt Morphology Comment Not Reportable 08/23/18 01:08 RBC Morphology Normal 08/23/18 01:08 Dimorphic RBCs Not Reportable 08/23/18 01:08 Not Reportable 08/23/18 01:08 Not Reportable 08/23/18 01:08 Not Reportable 08/23/18 01:08 Not Reportable 08/23/18 01:08 Not Reportable 08/23/18 01:08 Not Reportable 08/23/18 01:08 Not Reportable 08/23/18 01:08 Not Reportable 08/23/18 01:08 Not Reportable 08/23/18 01:08 Not Reportable 08/23/18 01:08 Not Reportable 08/23/18 01:08 Not Reportable 08/23/18 01:08 Not Reportable 08/23/18 01:08 Not Reportable 08/23/18 01:08 Not Reportable 08/23/18 01:08 Not Reportable 08/23/18 01:08 Not Reportable 08/23/18 01:08 Not Reportable 08/23/18 01:08 Not Reportable 08/23/18 01:08 Acanthocytes (Spur) Not Reportable 08/23/18 01:08 Rouleaux Not Reportable 08/23/18 01:08 Not Reportable 08/23/18 01:08 Not Reportable 08/23/18 01:08 Not Reportable 08/23/18 01:08 Not Reportable 08/23/18 01:08 Hem Pathologist Commnt No 08/23/18 01:08 VBG pH 7.382 (7.320-7.420) 08/23/18 01:30 Sodium 125 mmol/L (137-145) L 08/23/18 01:08 Potassium 5.0 mmol/L (3.6-5.0) 08/23/18 01:08 Chloride 92.0 mmol/L (98-107) L 08/23/18 01:08 Carbon Dioxide 19 mmol/L (22-30) L 08/23/18 01:08 19 mmol/L 08/23/18 01:08 BUN 28 mg/dL (7-17) H 08/23/18 01:08 2.2 mg/dL (0.7-1.2) H 08/23/18 01:08 Estimated GFR 32 ml/min 08/23/18 01:08 13 % 08/23/18 01:08 Glucose 675 mg/dL (65-100) H* 08/23/18 01:08 POC Glucose > 500 (70-105) H 08/23/18 04:35 Lactic Acid 1.10 mmol/L (0.7-2.0) 08/23/18 02:53 Calcium 8.2 mg/dL (8.4-10.2) L 08/23/18 01:08 0.30 mg/dL (0.1-1.2) 08/23/18 01:08 AST 26 units/L (5-40) 08/23/18 01:08 ALT 10 units/L (7-56) 08/23/18 01:08 127 units/L (35-129) 08/23/18 01:08 6.9 g/dL (6.3-8.2) 08/23/18 01:08 2.6 g/dL (3.9-5) L 08/23/18 01:08 0.6 % 08/23/18 01:08 21 units/L (13-60) 08/23/18 01:08 HCG, Qual Negative (Negative) 08/23/18 01:30 Straw (Yellow) 08/23/18 02:27 Slightly-cloudy (Clear) 08/23/18 02:27 6.0 (5.0-7.0) 08/23/18 02:27 Ur Specific [place] 1.012 (1.003-1.030) 08/23/18 02:27 100 mg/dl mg/dL (Negative) 08/23/18 02:27 >=500 mg/dL (Negative) 08/23/18 02:27 Neg mg/dL (Negative) 08/23/18 02:27 Neg (Negative) 08/23/18 02:27 Neg (Negative) 08/23/18 02:27 Neg (Negative) 08/23/18 02:27 < 2.0 mg/dL (<2.0) 08/23/18 02:27 Ur Leukocyte Esterase Lg (Negative) 08/23/18 02:27 66.0 /HPF (0.0-6.0) H 08/23/18 02:27 23.0 /HPF (0.0-6.0) 08/23/18 02:27 U Epithel Cells (Auto) 9.0 /HPF (0-13.0) 08/23/18 02:27 - Imaging and Cardiology Chest x-ray: report reviewed (LUNGS / PLEURA: No significant pulmonary or pl eural abnormality. No pneumothorax. ), image reviewed Imaging and Cardiology: CT Head: FINDINGS: No intracranial hemorrhage or abnormal extra-axial Ventricular system with some mass effect. No acute paranasal sinus disease. Mild right mastoid a ir cell opacification is similar to the comparison study. No skeletal abnormality. IMPRESSION: 1. No acute intracranial abnormality or interval change. Assessment and Plan Assessment and plan: 28-year-old -Turkmen female with history of hypertension, uncontrolled diabetes, CKD2 sats [facility] with complaints of dizziness and lightheadedness for the past 2-[address] head did not show any acute cranial abnormalities. She was found to be significantly hyperglycemic with blood sugar of 675, urine was negative for ketones. On examination rt buttock sore noted with large harden erythemic area warm to touch. Will admit to ICU. Sepsis UTI [facility] Hyponatremia Dehydration Cellulitis- Right buttocks HTN DM with neuropathy- uncontrolled [place] CKD2 Moderate to severe severe malnutrition Plan: Continue supportive care Initiate [facility]NK protocol Start insulin gtt Monitor electrolytes Na 125; Slowly correct sodium and hydrate with NS @150ml.hr Urine WBC 66 Blood and Urine cultures pending Start Rocephin 1g q 24hr for UTI and Cellulitis Monitor BP Amlodipine 10 mg daily, Coreg 12.5 mg twice a day Continue Gabapentin 300 mg 3 times a day Monitor renal function; nephrotoxic agents Cr this admission 2.2; baseline Cr 1.4 Nephrology consult pending General Surgery consulted for rt buttock cellulitis Wound care consult pending Dietitian consult pending DVT PPX on Lovenox Advance Directives: No VTE prophylaxis?: Chemical Plan of care discussed with patient/family: Yes
[2018-08-23 05:21] LABS: Calcium 7.7 mg/dL (8.4-10.2)
[2018-08-23] MEDS ORDERED: DIFLUCAN PO ONE (05:52)
[2018-08-23] MEDS ORDERED: KCL 30 MEQ in NACL 0.9% 1000 ML 1,000 ML IV SCH (06:30)
[2018-08-23] MEDS: UNASYN/NS 1.5 GM/50 ML 1.5 GM/50 ML BAG IV SCH ×3 (08:03→17:39)
[2018-08-23 08:04] LABS: Calcium 8.6 mg/dL (8.4-10.2)
[2018-08-23] MEDS: NEURONTIN PO SCH ×3 (08:12→23:12)
[2018-08-23] MEDS: TYLENOL PO PRN (08:12)
--- NOTE | 2018-08-23 08:12 | Progress Note ---
Assessment and Plan Assessment and plan: --Hyperosmolar nonketotic hyperglycemia; On insulin drip, blood sugars reasonable level, Start ADA diet, resume Lantus 15 units every 12 hours Change Accu-Cheks to before meals and at bedtime Sliding scale coverage, hemoglobin A1c 17.4 Diabetic education, nutrition consult Home health nurse that at discharge for disease monitoring and education --Sepsis; cellulitis buttocks Fever, leukocytosis, Empiric antibiotics, cultures Follow surgery evaluation and recommendations --Acute kidney injury; due to vasomotor nephropathy Acute on chronic kidney disease Gentle hydration, avoid nephrotoxins, monitor renal function, Nephrology following --Chronic kidney disease stage III --Hypertension; moderate control Continue current antihypertensives and when necessary medications --Diabetic neuropathy; pleasant on admission Continue gabapentin, supportive cares --Severe malnutrition/hypoalbuminemia albumin 2.6 Secondary to underlying disease process Nutrition supplements, nutrition consult --DVT prophylaxis; Lovenox --Obesity; BMI 37.5 Advised diet modification, lifestyle changes, weight reduction when medically stable Preventive counseling done, spent 10 minutes Monitor closely and adjust management as needed Closely monitor blood sugars, and if patient is clinically stable Consults and recommendations noted and appreciated Transferred out of ICU to medical floor this afternoon The high probability of a clinically significant, sudden or life threatening deterioration of the [renal, metabolic,infecction,musculoskeletal]] system(s) required my full and direct attention, intervention and personal management. The aggregate critical care time was [32] minutes. This time is in addition to time spent performing reported procedures but includes the following: [x] Data Review and interpretation [x] Patient assessment and monitoring of vital signs [x] Documentation [x] Medication orders and management History Interval history: Patient seen and examined medical records reviewed Admitted with hyperosmolar nonketotic state with hyperglycemia On insulin drip, blood sugars reasonably well Patient complaints of generalized weakness Vital signs noted Hospitalist Physical - Constitutional Vitals: Temp Pulse Resp BP Pulse Ox 100.8 F H 87 20 133/67 96 08/23/18 00:54 08/23/18 06:30 08/23/18 06:30 08/23/18 06:30 08/23/18 06:30 General appearance: Present: no acute distress, well-nourished, obese - EENT Eyes: Present: PERRL, EOM intact - Neck Neck: Present: supple, normal ROM - Respiratory Respiratory effort: normal Respiratory: bilateral: diminished, negative: rales, rhonchi, wheezing - Cardiovascular Rhythm: regular Heart Sounds: Present: S1 & S2 - Extremities Extremities: no ischemia, No edema, abnormal (swelling and cellulitis buttocks) - Abdominal General gastrointestinal: soft, non-tender, non-distended, normal bowel sounds - Integumentary Integumentary: Present: clear, warm - Psychiatric Psychiatric: appropriate mood/affect, cooperative - Neurologic Neurologic: CNII-XII intact, moves all extremities Results - Labs CBC & Chem 7: 08/23/18 01:08 08/23/18 13:21 Labs: Laboratory Last Values WBC 29.2 K/mm3 (4.5-11.0) H 08/23/18 01:08 RBC 3.64 M/mm3 (3.65-5.03) L 08/23/18 01:08 Hgb 10.2 gm/dl (10.1-14.3) 08/23/18 01:08 Hct 31.9 % (30.3-42.9) 08/23/18 01:08 MCV 88 fl (79-97) 08/23/18 01:08 MCH 28 pg (28-32) 08/23/18 01:08 MCHC 32 % (30-34) 08/23/18 01:08 RDW 15.1 % (13.2-15.2) 08/23/18 01:08 Plt Count 329 K/mm3 (140-440) 08/23/18 01:08 Add Manual Diff Complete 08/23/18 01:08 Total Counted 100 08/23/18 01:08 Seg Neuts % (Manual) 90.0 % (40.0-70.0) H 08/23/18 01:08 0 % 08/23/18 01:08 2.0 % (13.4-35.0) L 08/23/18 01:08 Reactive Lymphs % (Man) 0 % 08/23/18 01:08 8.0 % (0.0-7.3) H 08/23/18 01:08 0 % (0.0-4.3) 08/23/18 01:08 0 % (0.0-1.8) 08/23/18 01:08 0 % 08/23/18 01:08 0 % 08/23/18 01:08 0 % 08/23/18 01:08 0 % 08/23/18 01:08 Nucleated RBC % Not Reportable 08/23/18 01:08 Seg Neutrophils # Man 26.3 K/mm3 (1.8-7.7) H 08/23/18 01:08 Band Neutrophils # 0.0 K/mm3 08/23/18 01:08 0.6 K/mm3 (1.2-5.4) L 08/23/18 01:08 Abs React Lymphs (Man) 0.0 K/mm3 08/23/18 01:08 2.3 K/mm3 (0.0-0.8) H 08/23/18 01:08 0.0 K/mm3 (0.0-0.4) 08/23/18 01:08 0.0 K/mm3 (0.0-0.1) 08/23/18 01:08 0.0 K/mm3 08/23/18 01:08 0.0 K/mm3 08/23/18 01:08 0.0 K/mm3 08/23/18 01:08 Blast Cells # 0.0 K/mm3 08/23/18 01:08 WBC Morphology Not Reportable 08/23/18 01:08 Hypersegmented Neuts Not Reportable 08/23/18 01:08 Hyposegmented Neuts Not Reportable 08/23/18 01:08 Hypogranular Neuts Not Reportable 08/23/18 01:08 Not Reportable 08/23/18 01:08 Not Reportable 08/23/18 01:08 Not Reportable 08/23/18 01:08 Not Reportable 08/23/18 01:08 Not Reportable 08/23/18 01:08 Not Reportable 08/23/18 01:08 Consistent w auto 08/23/18 01:08 Not Reportable 08/23/18 01:08 Plt Clumps, EDTA Not Reportable 08/23/18 01:08 1+ 08/23/18 01:08 Not Reportable 08/23/18 01:08 Not Reportable 08/23/18 01:08 Plt Morphology Comment Not Reportable 08/23/18 01:08 RBC Morphology Normal 08/23/18 01:08 Dimorphic RBCs Not Reportable 08/23/18 01:08 Not Reportable 08/23/18 01:08 Not Reportable 08/23/18 01:08 Not Reportable 08/23/18 01:08 Not Reportable 08/23/18 01:08 Not Reportable 08/23/18 01:08 Not Reportable 08/23/18 01:08 Not Reportable 08/23/18 01:08 Not Reportable 08/23/18 01:08 Not Reportable 08/23/18 01:08 Not Reportable 08/23/18 01:08 Not Reportable 08/23/18 01:08 Not Reportable 08/23/18 01:08 Not Reportable 08/23/18 01:08 Not Reportable 08/23/18 01:08 Not Reportable 08/23/18 01:08 Not Reportable 08/23/18 01:08 Not Reportable 08/23/18 01:08 Not Reportable 08/23/18 01:08 Not Reportable 08/23/18 01:08 Acanthocytes (Spur) Not Reportable 08/23/18 01:08 Rouleaux Not Reportable 08/23/18 01:08 Not Reportable 08/23/18 01:08 Not Reportable 08/23/18 01:08 Not Reportable 08/23/18 01:08 Not Reportable 08/23/18 01:08 Hem Pathologist Commnt No 08/23/18 01:08 VBG pH 7.382 (7.320-7.420) 08/23/18 01:30 Sodium 134 mmol/L (137-145) L 08/23/18 07:18 Potassium 3.3 mmol/L (3.6-5.0) L 08/23/18 07:18 Chloride 100.6 mmol/L (98-107) 08/23/18 07:18 Carbon Dioxide 22 mmol/L (22-30) 08/23/18 07:18 15 mmol/L 08/23/18 07:18 BUN 26 mg/dL (7-17) H 08/23/18 07:18 2.2 mg/dL (0.7-1.2) H 08/23/18 07:18 Estimated GFR 32 ml/min 08/23/18 07:18 12 % 08/23/18 07:18 Glucose 246 mg/dL (65-100) H 08/23/18 07:18 POC Glucose 277 (70-105) H 08/23/18 06:58 17.4 % (4-6) H 08/23/18 04:48 Lactic Acid 1.10 mmol/L (0.7-2.0) 08/23/18 02:53 Calcium 8.6 mg/dL (8.4-10.2) 08/23/18 07:18 0.30 mg/dL (0.1-1.2) 08/23/18 01:08 AST 26 units/L (5-40) 08/23/18 01:08 ALT 10 units/L (7-56) 08/23/18 01:08 127 units/L (35-129) 08/23/18 01:08 6.9 g/dL (6.3-8.2) 08/23/18 01:08 2.6 g/dL (3.9-5) L 08/23/18 01:08 0.6 % 08/23/18 01:08 21 units/L (13-60) 08/23/18 01:08 HCG, Qual Negative (Negative) 08/23/18 01:30 Straw (Yellow) 08/23/18 02:27 Slightly-cloudy (Clear) 08/23/18 02:27 6.0 (5.0-7.0) 08/23/18 02:27 Ur Specific [place] 1.012 (1.003-1.030) 08/23/18 02:27 100 mg/dl mg/dL (Negative) 08/23/18 02:27 >=500 mg/dL (Negative) 08/23/18 02:27 Neg mg/dL (Negative) 08/23/18 02:27 Neg (Negative) 08/23/18 02:27 Neg (Negative) 08/23/18 02:27 Neg (Negative) 08/23/18 02:27 < 2.0 mg/dL (<2.0) 08/23/18 02:27 Ur Leukocyte Esterase Lg (Negative) 08/23/18 02:27 66.0 /HPF (0.0-6.0) H 08/23/18 02:27 23.0 /HPF (0.0-6.0) 08/23/18 02:27 U Epithel Cells (Auto) 9.0 /HPF (0-13.0) 08/23/18 02:27 Active Medications - Current Medications Current Medications: Generic Name Dose Route Start Last Admin Trade Name Freq PRN Reason Stop Dose Admin Acetaminophen 650 mg 08/23/18 04:32 Tylenol PO Q4H PRN Pain MILD(1-3)/Fever >100.5/CORREIA Amlodipine Besylate 10 mg 08/23/18 10:00 Norvasc PO DAILY [facility] Carvedilol 12.5 mg 08/23/18 10:00 Coreg PO BID [facility] Dextrose 0 ml 08/23/18 04:30 D50w (25gm) Syringe IV PRN PRN Hypoglycemia Docusate Sodium 100 mg 08/23/18 10:00 Colace PO BID [facility] Enoxaparin Sodium 30 mg 08/23/18 10:00 Lovenox SUB-Q QDAY [facility] Gabapentin 300 mg 08/23/18 08:00 Neurontin PO TID [facility] Insulin Human Regular 100 100 mls @ 1 mls/hr 08/23/18 05:00 08/23/18 08:05 units/ Sodium Chloride IV 4 units/hr TITR [facility] 4 mls/hr Titration Protocol 1 UNITS/HR Ampicillin Sodium/Sulbactam Sodium 1.5 gm in 50 mls @ 100 mls/hr 08/23/18 06:00 08/23/18 08:03 Unasyn/Ns 1.5 Gm/50 Ml IV 100 mls/hr Q6HR [facility] Administration Protocol Potassium Chloride 30 meq/ 1,015 mls @ 150 mls/hr 08/23/18 06:30 08/23/18 07:02 Sodium Chloride IV 150 mls/hr DIRECT [facility] Administration Sodium Chloride 1,000 mls @ 999 mls/hr 08/23/18 08:10 Nacl 0.9% 1000 Ml IV 08/23/18 09:10 BOLUS ONE Sodium Chloride 1,000 mls @ 100 mls/hr 08/23/18 09:00 Nacl 0.9% 1000 Ml IV DIRECT [facility] Insulin Glargine 15 units 08/23/18 10:00 Lantus SUB-Q BID [facility] Insulin Human Lispro 0 unit 08/23/18 11:30 Humalog SUB-Q ACHS [facility] Protocol Ondansetron HCl 4 mg 08/23/18 04:32 Zofran IV Q8H PRN Nausea And Vomiting Sodium Chloride 10 ml 08/23/18 10:00 Sodium Chloride Flush Syringe 10 Ml IV BID [facility] Sodium Chloride 10 ml 08/23/18 04:32 Sodium Chloride Flush Syringe 10 Ml IV PRN PRN LINE FLUSH
[2018-08-23] MEDS: COREG PO SCH ×2 (09:42→23:13)
[2018-08-23] MEDS: COLACE PO SCH ×2 (09:42→23:12)
[2018-08-23] MEDS: LOVENOX SUB-Q SCH (09:42)
[2018-08-23] MEDS: NORVASC PO SCH (09:42)
[2018-08-23] MEDS: SODIUM CHLORIDE FLUSH SYRINGE 10 ML IV SCH (09:43)
--- NOTE | 2018-08-23 09:51 | Consultation ---
History of Present Illness - Reason for Consult Consult date: 08/23/18 acute renal failure, chronic renal failure Requesting physician: SUKHI WARREN - History of Present Illness 28-year-old lady with a history of diabetes mellitus, hypertension and chronic kidney disease presents on account of dizziness of 2-3 days duration and a fall in shower with possible loss of consciousness. Patient has been having chills and has pain and swelling over her left buttock. BUN and creatinine are elevated at 28/2.2 mg/dL. In July 2017, creatinine was 1.6 mg/dL. Patient says in June of this year, at her primary care physician's office, creatinine was 2.7 mg/dL. She has not been seeing a carcass splitter. She admits to frequency and itching when she passes urine. No dysuria, hematuria, hesitancy or starting or stopping. No history of kidney stones or recurrent infections. No recent exposure to radiocontrast. Urinalysis showed >500 milligram per deciliter glycosuria and more than 100 mg/dL proteinuria. Hemoglobin A1c was quite high at 17.4%. Past History Past Medical History: diabetes (insulin dependent, neuropathy diagnosed in 2011. Was on metformin for about a year and has been on insulin since then), hypertension (4 independent), hyperlipidemia, renal failure, other (diabetic neuropathy,) Past Surgical History: No surgical history Social history: no significant social history, lives with family (parents and her brother's). denies: smoking, alcohol abuse, prescription drug abuse, IV drug use Family history: diabetes (both parents. Father had end-stage renal disease and with MRSA infection), hypertension (Both parents), other (2 brothers have bipolar disorder) Medications and Allergies Allergies Allergy/AdvReac Type Severity Reaction Status Date / Time No Known Allergies Allergy Verified 06/29/16 01:18 Home Medications Medication Instructions Recorded Confirmed Last Taken Type Gabapentin [Neurontin] 300 mg PO TID 06/29/16 08/23/18 01/26/17 History Carvedilol [Coreg] 12.5 mg PO BID #60 tablet 07/12/17 08/23/18 Unknown Rx amLODIPine [Norvasc] 10 mg PO DAILY #30 tab 06/18/18 08/23/18 Unknown Rx hydroCHLOROthiazide [HCTZ] 25 mg PO QDAY #30 tablet 06/18/18 08/23/18 Unknown Rx Insulin Detemir [Levemir VIAL] 10 unit SQ BID 08/23/18 08/23/18 08/22/18 21:00 History Active Meds: Active Medications Acetaminophen (Tylenol) 650 mg PO Q4H PRN PRN Reason: Pain MILD(1-3)/Fever >100.5/CORREIA Last Admin: 08/23/18 08:12 Dose: 650 mg Documented by: Amlodipine Besylate (Norvasc) 10 mg PO DAILY [facility] Last Admin: 08/23/18 09:42 Dose: 10 mg Documented by: Carvedilol (Coreg) 12.5 mg PO BID [facility] Last Admin: 08/23/18 09:42 Dose: 12.5 mg Documented by: Dextrose (D50w (25gm) Syringe) 0 ml IV PRN PRN PRN Reason: Hypoglycemia Docusate Sodium (Colace) 100 mg PO BID [facility] Last Admin: 08/23/18 09:42 Dose: 100 mg Documented by: Enoxaparin Sodium (Lovenox) 30 mg SUB-Q QDAY [facility] Last Admin: 08/23/18 09:42 Dose: 30 mg Documented by: Gabapentin (Neurontin) 300 mg PO TID [facility] Last Admin: 08/23/18 08:12 Dose: 300 mg Documented by: Insulin Human Regular 100 (units/ Sodium Chloride) 100 mls @ 1 mls/hr IV TITR [facility]; Protocol Stop: 08/23/18 12:00 Last Titration: 08/23/18 09:10 Dose: 2 units/hr, 2 mls/hr Documented by: Ampicillin Sodium/Sulbactam Sodium (Unasyn/Ns 1.5 Gm/50 Ml) 1.5 gm in 50 mls @ 100 mls/hr IV Q6HR [facility]; Protocol Last Admin: 08/23/18 08:03 Dose: 100 mls/hr Documented by: Sodium Chloride (Nacl 0.9% 1000 Ml) 1,000 mls @ 999 mls/hr IV BOLUS ONE Stop: 08/23/18 10:00 Last Admin: 08/23/18 09:12 Dose: 999 mls/hr Documented by: Sodium Chloride (Nacl 0.9% 1000 Ml) 1,000 mls @ 100 mls/hr IV DIRECT [facility] Insulin Glargine (Lantus) 15 units SUB-Q BID [facility] Last Admin: 08/23/18 09:39 Dose: 15 units Documented by: Insulin Human Lispro (Humalog) 0 unit SUB-Q ACHS [facility]; Protocol Ondansetron HCl (Zofran) 4 mg IV Q8H PRN PRN Reason: Nausea And Vomiting Sodium Chloride (Sodium Chloride Flush Syringe 10 Ml) 10 ml IV BID [facility] Last Admin: 08/23/18 09:43 Dose: 10 ml Documented by: Sodium Chloride (Sodium Chloride Flush Syringe 10 Ml) 10 ml IV PRN PRN PRN Reason: LINE FLUSH Review of Systems All systems: negative (Constitutional: no fever admits to chills and appetite has been poor. No weight loss. HEENT: No sore throat or sinus drainage no hearing or vision impairment . Cardiovascular: Admits to chest pain in the midsternal area which is sometimes burning and sometimes sharp. No Shortness of breath, palpitations, lower extremity swelling or dizziness. Respiratory: Admits to cough which is nonproductive. No shortness of breath, hemoptysis admits to wheezing. Gastrointestinal: Admits to nausea. No vomiting, diarrhea, had some abdominal discomforts and admits to constipation. No hematemesis or melena. Genitourinary: See history of present illness hematologic: No abnormal bleeding or bruising. Integumentary: Admits to itching. No Rash. Neurological: Admits to headache and left-sided weakness has numbness and tingling in hands and fingers and feet. No syncope or seizures. Musculoskeletal: Admits to joint pains and stiffness percent in his legs Psychiatry: Admits to both anxiety and depression) Exam - Vital Signs Vital signs: Vital Signs Pulse Resp Pulse Ox 102 H 20 96 08/23/18 00:41 08/23/18 00:41 08/23/18 00:41 - Physical Exam Narrative exam: Young, comfortably lying in bed in no acute distress HEENT: NCAT, pink oral mucous membrane Neck: Supple, no venous distention CVS: S1S2 RRR with no murmur, rub or gallop Chest: Clear to auscultation Abdomen: Protuberant, soft, tenderness in the periumbilical area and suprapubic area no organomegaly, bowel sounds are present Extremities: No edema No clubbing Genitourinary deferred Neuro: Awake, alert no focal deficits Results - Lab Results 08/23/18 01:08 08/23/18 07:18 Most recent lab results Calcium 8.6 mg/dL (8.4-10.2) 08/23/18 07:18 Assessment and Plan - Patient Problems (1) Acute kidney injury Current Visit: Yes Status: Acute Plan to address problem: Prerenal azotemia secondary to volume depletion secondary to osmotic diuresis from hyperglycemia. Continue volume repletion. 1-[address] of the abdomen and Pelvis especially given the abdominal pain/tenderness. Avoid potential nephrotoxins. Follow-up electrolytes and renal function. (2) HHNC (hyperglycemic hyperosmolar nonketotic coma) Current Visit: No Status: Acute Plan to address problem: Blood sugar management by primary attending. (3) Chronic kidney disease, stage 3 (moderate) Current Visit: Yes Status: Acute Plan to address problem: Chronic kidney disease presumably secondary to diabetic nephropathy/hypertensive nephrosclerosis. I emphasized the importance of good blood sugar and blood pressure control as an outpatient to delay progression to End stage renal disease. (4) Hyponatremia Current Visit: Yes Status: Acute Plan to address problem: Factitous secondary to hyperglycemia superimposed on hypovolemic hyponatremia. Continue volume repletion with isotonic saline. Follow-up sodium (5) Hypokalemia Current Visit: Yes Status: Acute Plan to address problem: Supplement potassium and follow-up level (6) Type 2 diabetes mellitus with diabetic nephropathy Current Visit: Yes Status: Acute Plan to address problem: Blood sugar control by primary attending. (7) Hypertensive chronic kidney disease with stage 1 through stage 4 chronic kidney disease, or unspecified chronic kidney disease Current Visit: Yes Status: Acute Plan to address problem: Follow blood pressure on current medications (8) Neuropathy due to type 2 diabetes mellitus Current Visit: Yes Status: Acute Plan to address problem: Continue gabapentin (9) Cellulitis of buttock, left Current Visit: Yes Status: Acute Plan to address problem: Continue antibiotics. Gen. surgery consult for possible incision and drainage (10) Sepsis due to urinary tract infection Current Visit: Yes Status: Acute
[2018-08-23] MEDS ORDERED: ROCEPHIN/NS 1 GM/50 ML 1 GM/50 ML BAG IV SCH (10:00)
[2018-08-23] MEDS ORDERED: LANTUS SUB-Q SCH ×2 (10:00→14:37)
[2018-08-23 10:52] LABS: Calcium 8.1 mg/dL (8.4-10.2)
[2018-08-23] MEDS: NACL 0.9% 1000 ML 1,000 ML IV SCH (10:55)
[2018-08-23] MEDS ORDERED: K-DUR PO ONE (11:00)
--- NOTE | 2018-08-23 11:28 | Consultation ---
History of Present Illness Consult date: 08/23/18 Chief complaint: wound - History of present illness History of present illness: 28 yo F with uncontrolled DM, HTN presented to ER with 1 day of weakness s/p fall in shower. Patient also notes a boil to her left buttock area for the last 3 days. She is unsure if she had any trauma, insect bite, etc. She is not sure if the area drained but states it is flat now. She does c/o pain in the area. No f/c. No cp, sob. No abdominal pain. She has never had wounds like this before. Past History Past Medical History: diabetes (insulin dependent, neuropathy diagnosed in 2011. Was on metformin for about a year and has been on insulin since then), hypertension (4 independent), hyperlipidemia, renal failure, other (diabetic neuropathy,) Past Surgical History: No surgical history Social history: no significant social history, lives with family (parents and her brother's). denies: smoking, alcohol abuse, prescription drug abuse, IV drug use Family history: diabetes (both parents. Father had end-stage renal disease and with MRSA infection), hypertension (Both parents), other (2 brothers have bipolar disorder) Medications and Allergies Allergies Allergy/AdvReac Type Severity Reaction Status Date / Time No Known Allergies Allergy Verified 06/29/16 01:18 Home Medications Medication Instructions Recorded Confirmed Last Taken Type Gabapentin [Neurontin] 300 mg PO TID 06/29/16 08/23/18 01/26/17 History Carvedilol [Coreg] 12.5 mg PO BID #60 tablet 07/12/17 08/23/18 Unknown Rx amLODIPine [Norvasc] 10 mg PO DAILY #30 tab 06/18/18 08/23/18 Unknown Rx hydroCHLOROthiazide [HCTZ] 25 mg PO QDAY #30 tablet 06/18/18 08/23/18 Unknown Rx Insulin Detemir [Levemir VIAL] 10 unit SQ BID 08/23/18 08/23/18 08/22/18 21:00 History Active Meds: Active Medications Acetaminophen (Tylenol) 650 mg PO Q4H PRN PRN Reason: Pain MILD(1-3)/Fever >100.5/CORREIA Last Admin: 08/23/18 08:12 Dose: 650 mg Documented by: Amlodipine Besylate (Norvasc) 10 mg PO DAILY [facility] Last Admin: 08/23/18 09:42 Dose: 10 mg Documented by: Carvedilol (Coreg) 12.5 mg PO BID [facility] Last Admin: 08/23/18 09:42 Dose: 12.5 mg Documented by: Dextrose (D50w (25gm) Syringe) 0 ml IV PRN PRN PRN Reason: Hypoglycemia Docusate Sodium (Colace) 100 mg PO BID [facility] Last Admin: 08/23/18 09:42 Dose: 100 mg Documented by: Enoxaparin Sodium (Lovenox) 30 mg SUB-Q QDAY [facility] Last Admin: 08/23/18 09:42 Dose: 30 mg Documented by: Gabapentin (Neurontin) 300 mg PO TID [facility] Last Admin: 08/23/18 08:12 Dose: 300 mg Documented by: Insulin Human Regular 100 (units/ Sodium Chloride) 100 mls @ 1 mls/hr IV TITR [facility]; Protocol Stop: 08/23/18 12:00 Last Titration: 08/23/18 09:47 Dose: 0 units/hr, 0 mls/hr Documented by: Ampicillin Sodium/Sulbactam Sodium (Unasyn/Ns 1.5 Gm/50 Ml) 1.5 gm in 50 mls @ 100 mls/hr IV Q6HR [facility]; Protocol Last Admin: 08/23/18 08:03 Dose: 100 mls/hr Documented by: Sodium Chloride (Nacl 0.9% 1000 Ml) 1,000 mls @ 100 mls/hr IV DIRECT [facility] Last Admin: 08/23/18 10:55 Dose: 100 mls/hr Documented by: Insulin Glargine (Lantus) 15 units SUB-Q BID [facility] Last Admin: 08/23/18 09:39 Dose: 15 units Documented by: Insulin Human Lispro (Humalog) 0 unit SUB-Q ACHS [facility]; Protocol Ondansetron HCl (Zofran) 4 mg IV Q8H PRN PRN Reason: Nausea And Vomiting Sodium Chloride (Sodium Chloride Flush Syringe 10 Ml) 10 ml IV BID [facility] Last Admin: 08/23/18 09:43 Dose: 10 ml Documented by: Sodium Chloride (Sodium Chloride Flush Syringe 10 Ml) 10 ml IV PRN PRN PRN Reason: LINE FLUSH Review of Systems All systems: negative (10 pt ROS performed and negative except for that listed in HPI) Exam Vital Signs Pulse Resp Pulse Ox 102 H 20 96 08/23/18 00:41 08/23/18 00:41 08/23/18 00:41 Narrative exam: Exam performed with nursing present Gen: AAOx3. NAD ENT: No scleral icterus or conjunctival pallor CV: S1, S2+ Resp: even and unlabored Ext: no c/c/e Buttock: L lower buttock with 1 cm skin ulceration and surrounding erythema, induration of approximately 5 cm diameter. Moderate TTP. No drainage or fluctuance. No crepitus. Results - Labs 08/23/18 01:08 08/23/18 09:54 Abnormal lab results 08/23/18 08/23/18 08/23/18 Range/Units 01:08 01:08 02:27 WBC 29.2 H (4.5-11.0) K/mm3 RBC 3.64 L (3.65-5.03) M/mm3 Seg Neuts % (Manual) 90.0 H (40.0-70.0) % Lymphocytes % (Manual) 2.0 L (13.4-35.0) % Monocytes % (Manual) 8.0 H (0.0-7.3) % Seg Neutrophils # Man 26.3 H (1.8-7.7) K/mm3 Lymphocytes # (Manual) 0.6 L (1.2-5.4) K/mm3 Monocytes # (Manual) 2.3 H (0.0-0.8) K/mm3 Sodium 125 L (137-145) mmol/L Potassium (3.6-5.0) mmol/L Chloride 92.0 L (98-107) mmol/L Carbon Dioxide 19 L (22-30) mmol/L BUN 28 H (7-17) mg/dL Creatinine 2.2 H (0.7-1.2) mg/dL Glucose 675 H* (65-100) mg/dL POC Glucose (70-105) Hemoglobin A1c (4-6) % Calcium 8.2 L (8.4-10.2) mg/dL Albumin 2.6 L (3.9-5) g/dL Urine WBC (Auto) 66.0 H (0.0-6.0) /HPF 08/23/18 08/23/18 08/23/18 Range/Units 04:35 04:48 04:48 WBC (4.5-11.0) K/mm3 RBC (3.65-5.03) M/mm3 Seg Neuts % (Manual) (40.0-70.0) % Lymphocytes % (Manual) (13.4-35.0) % Monocytes % (Manual) (0.0-7.3) % Seg Neutrophils # Man (1.8-7.7) K/mm3 Lymphocytes # (Manual) (1.2-5.4) K/mm3 Monocytes # (Manual) (0.0-0.8) K/mm3 Sodium 131 L (137-145) mmol/L Potassium 3.2 L D (3.6-5.0) mmol/L Chloride (98-107) mmol/L Carbon Dioxide 20 L (22-30) mmol/L BUN 26 H (7-17) mg/dL Creatinine 2.2 H (0.7-1.2) mg/dL Glucose 556 H* (65-100) mg/dL POC Glucose > 500 H (70-105) Hemoglobin A1c 17.4 H (4-6) % Calcium 7.7 L (8.4-10.2) mg/dL Albumin (3.9-5) g/dL Urine WBC (Auto) (0.0-6.0) /HPF 08/23/18 08/23/18 08/23/18 Range/Units 06:58 07:18 08:10 WBC (4.5-11.0) K/mm3 RBC (3.65-5.03) M/mm3 Seg Neuts % (Manual) (40.0-70.0) % Lymphocytes % (Manual) (13.4-35.0) % Monocytes % (Manual) (0.0-7.3) % Seg Neutrophils # Man (1.8-7.7) K/mm3 Lymphocytes # (Manual) (1.2-5.4) K/mm3 Monocytes # (Manual) (0.0-0.8) K/mm3 Sodium 134 L (137-145) mmol/L Potassium 3.3 L (3.6-5.0) mmol/L Chloride (98-107) mmol/L Carbon Dioxide (22-30) mmol/L BUN 26 H (7-17) mg/dL Creatinine 2.2 H (0.7-1.2) mg/dL Glucose 246 H (65-100) mg/dL POC Glucose 277 H 212 H (70-105) Hemoglobin A1c (4-6) % Calcium (8.4-10.2) mg/dL Albumin (3.9-5) g/dL Urine WBC (Auto) (0.0-6.0) /HPF 08/23/18 08/23/18 Range/Units 09:54 10:16 WBC (4.5-11.0) K/mm3 RBC (3.65-5.03) M/mm3 Seg Neuts % (Manual) (40.0-70.0) % Lymphocytes % (Manual) (13.4-35.0) % Monocytes % (Manual) (0.0-7.3) % Seg Neutrophils # Man (1.8-7.7) K/mm3 Lymphocytes # (Manual) (1.2-5.4) K/mm3 Monocytes # (Manual) (0.0-0.8) K/mm3 Sodium (137-145) mmol/L Potassium 3.4 L (3.6-5.0) mmol/L Chloride (98-107) mmol/L Carbon Dioxide (22-30) mmol/L BUN 24 H (7-17) mg/dL Creatinine 2.1 H (0.7-1.2) mg/dL Glucose 122 H (65-100) mg/dL POC Glucose 142 H (70-105) Hemoglobin A1c (4-6) % Calcium 8.1 L (8.4-10.2) mg/dL Albumin (3.9-5) g/dL Urine WBC (Auto) (0.0-6.0) /[facility] Diabetes panel 08/23/18 08/23/18 08/23/18 Range/Units 01:08 04:48 04:48 Sodium 125 L 131 L (137-145) mmol/L Potassium 5.0 3.2 L D (3.6-5.0) mmol/L Chloride 92.0 L 98.4 (98-107) mmol/L Carbon Dioxide 19 L 20 L (22-30) mmol/L BUN 28 H 26 H (7-17) mg/dL Creatinine 2.2 H 2.2 H (0.7-1.2) mg/dL Glucose 675 H* 556 H* (65-100) mg/dL Hemoglobin A1c 17.4 H (4-6) % Calcium 8.2 L 7.7 L (8.4-10.2) mg/dL AST 26 (5-40) units/L ALT 10 (7-56) units/L Alkaline Phosphatase 127 (35-129) units/L Total Protein 6.9 (6.3-8.2) g/dL Albumin 2.6 L (3.9-5) g/dL 08/23/18 08/23/18 Range/Units 07:18 09:54 Sodium 134 L 139 (137-145) mmol/L Potassium 3.3 L 3.4 L (3.6-5.0) mmol/L Chloride 100.6 105.7 (98-107) mmol/L Carbon Dioxide 22 22 (22-30) mmol/L BUN 26 H 24 H (7-17) mg/dL Creatinine 2.2 H 2.1 H (0.7-1.2) mg/dL Glucose 246 H 122 H (65-100) mg/dL Hemoglobin A1c (4-6) % Calcium 8.6 8.1 L (8.4-10.2) mg/dL AST (5-40) units/L ALT (7-56) units/L Alkaline Phosphatase (35-129) units/L Total Protein (6.3-8.2) g/dL Albumin (3.9-5) g/dL Calcium panel 08/23/18 08/23/18 08/23/18 Range/Units 01:08 04:48 07:18 Calcium 8.2 L 7.7 L 8.6 (8.4-10.2) mg/dL Albumin 2.6 L (3.9-5) g/dL 08/23/18 Range/Units 09:54 Calcium 8.1 L (8.4-10.2) mg/dL Albumin (3.9-5) g/dL Pituitary panel 08/23/18 08/23/18 08/23/18 Range/Units 01:08 04:48 07:18 Sodium 125 L 131 L 134 L (137-145) mmol/L Potassium 5.0 3.2 L D 3.3 L (3.6-5.0) mmol/L Chloride 92.0 L 98.4 100.6 (98-107) mmol/L Carbon Dioxide 19 L 20 L 22 (22-30) mmol/L BUN 28 H 26 H 26 H (7-17) mg/dL Creatinine 2.2 H 2.2 H 2.2 H (0.7-1.2) mg/dL Glucose 675 H* 556 H* 246 H (65-100) mg/dL Calcium 8.2 L 7.7 L 8.6 (8.4-10.2) mg/dL 08/23/18 Range/Units 09:54 Sodium 139 (137-145) mmol/L Potassium 3.4 L (3.6-5.0) mmol/L Chloride 105.7 (98-107) mmol/L Carbon Dioxide 22 (22-30) mmol/L BUN 24 H (7-17) mg/dL Creatinine 2.1 H (0.7-1.2) mg/dL Glucose 122 H (65-100) mg/dL Calcium 8.1 L (8.4-10.2) mg/dL Adrenal panel 08/23/18 08/23/18 08/23/18 Range/Units 01:08 04:48 07:18 Sodium 125 L 131 L 134 L (137-145) mmol/L Potassium 5.0 3.2 L D 3.3 L (3.6-5.0) mmol/L Chloride 92.0 L 98.4 100.6 (98-107) mmol/L Carbon Dioxide 19 L 20 L 22 (22-30) mmol/L BUN 28 H 26 H 26 H (7-17) mg/dL Creatinine 2.2 H 2.2 H 2.2 H (0.7-1.2) mg/dL Glucose 675 H* 556 H* 246 H (65-100) mg/dL Calcium 8.2 L 7.7 L 8.6 (8.4-10.2) mg/dL Total Bilirubin 0.30 (0.1-1.2) mg/dL AST 26 (5-40) units/L ALT 10 (7-56) units/L Alkaline Phosphatase 127 (35-129) units/L Total Protein 6.9 (6.3-8.2) g/dL Albumin 2.6 L (3.9-5) g/dL 08/23/18 Range/Units 09:54 Sodium 139 (137-145) mmol/L Potassium 3.4 L (3.6-5.0) mmol/L Chloride 105.7 (98-107) mmol/L Carbon Dioxide 22 (22-30) mmol/L BUN 24 H (7-17) mg/dL Creatinine 2.1 H (0.7-1.2) mg/dL Glucose 122 H (65-100) mg/dL Calcium 8.1 L (8.4-10.2) mg/dL Total Bilirubin (0.1-1.2) mg/dL AST (5-40) units/L ALT (7-56) units/L Alkaline Phosphatase (35-129) units/L Total Protein (6.3-8.2) g/dL Albumin (3.9-5) g/dL - Imaging CT scan - abdomen: report reviewed, image reviewed CT scan - pelvis: report reviewed, image reviewed Assessment and Plan 28 yo F with 1. left buttock wound and cellulitis 2. uncontrolled DM 3. HTN CT scan A/P - unremarkable. Plan: 1. At this point the patient has a superficial skin ulceration with surrounding cellulitis. There is no crepitus, drainage to suggest necrotizing fasciitis. CT scan also unremarkable. Will check the area daily to ensure it is improving and not getting worse. 2. continue abx 3. IVF 4. strict glucose control 5. repeat CBC in am - WBC likely elevated due to multiple factors including dehydration, celluliltis 6. wound care - alginate to ulceration every other day, covered with dry dressing Continue medical management, no urgent need for surgical intervention. Will follow. Thank you, please call with questions.
[2018-08-23] MEDS: ZOFRAN IV PRN (12:00)
--- NOTE | 2018-08-23 12:51 | Cat Scan Report ---
CT ABDOMEN AND PELVIS WITHOUT CONTRAST INDICATION / CLINICAL INFORMATION: abdominal pain, acute kidney injury. History of hypertension and diabetes mellitus. TECHNIQUE: Axial CT images were obtained through the abdomen and pelvis without IV contrast. All CT scans at [facility] location are performed using CT dose reduction for ALARA by means of automated exposure control. COMPARISON: CT dated 01/26/17 FINDINGS: LOWER CHEST: No significant abnormality. LIVER: No significant abnormality. GALLBLADDER: No significant abnormality. BILE DUCTS: No significant abnormality. PANCREAS: No significant abnormality. SPLEEN: No significant abnormality. ADRENALS: No significant abnormality. RIGHT KIDNEY and URETER: No significant abnormality. LEFT KIDNEY and URETER: No significant abnormality. STOMACH and SMALL BOWEL: No significant abnormality. COLON: No significant abnormality. APPENDIX: No significant abnormality. PERITONEUM: No free fluid. No free air. No fluid collection. LYMPH NODES: Shotty retroperitoneal nodes are unchanged. No significant adenopathy. AORTA and ARTERIES: No significant abnormality. IVC and VEINS: No significant abnormality. URINARY BLADDER: Urinary bladder is moderately distended. REPRODUCTIVE ORGANS: No significant abnormality. ADDITIONAL FINDINGS: None. SKELETAL SYSTEM: No significant abnormality. IMPRESSION: 1. No inflammatory process or bowel obstruction. 2. No ureteral stones or hydronephrosis. Signer Name: Hetal Bowen MD Signed: 08/23/2018 12:47 PM Workstation Name: [id number]
[2018-08-23] MEDS: HumaLOG SUB-Q SCH ×3 (13:15→23:14)
--- NOTE | 2018-08-23 13:24 | Consultation ---
History of Present Illness - Reason for Consult Consult date: 08/23/18 DKA Requesting physician: DESIRE BUTCHER - History of Present Illness 28 yo female with known IDDM admitted with DKA. Multifactorial in nature as patient is noncompliant with outpatient therapy but also suffers from wounds and poor socioeconomic status. Had some abdominal pain nausea and vomiting. Off insulin drip now. Started Long acting insulin. Past History Past Medical History: diabetes (insulin dependent, neuropathy diagnosed in 2011. Was on metformin for about a year and has been on insulin since then), hypertension (4 independent), hyperlipidemia, renal failure, other (diabetic neuropathy,) Past Surgical History: No surgical history Social history: no significant social history, lives with family (parents and her brother's). denies: smoking, alcohol abuse, prescription drug abuse, IV drug use Family history: diabetes (both parents. Father had end-stage renal disease and with MRSA infection), hypertension (Both parents), other (2 brothers have bipolar disorder) Medications and Allergies Allergies Allergy/AdvReac Type Severity Reaction Status Date / Time No Known Allergies Allergy Verified 06/29/16 01:18 Home Medications Medication Instructions Recorded Confirmed Last Taken Type Gabapentin [Neurontin] 300 mg PO TID 06/29/16 08/23/18 01/26/17 History Carvedilol [Coreg] 12.5 mg PO BID #60 tablet 07/12/17 08/23/18 Unknown Rx amLODIPine [Norvasc] 10 mg PO DAILY #30 tab 06/18/18 08/23/18 Unknown Rx hydroCHLOROthiazide [HCTZ] 25 mg PO QDAY #30 tablet 06/18/18 08/23/18 Unknown Rx Insulin Detemir [Levemir VIAL] 10 unit SQ BID 08/23/18 08/23/18 08/22/18 21:00 History Active Meds: Active Medications Acetaminophen (Tylenol) 650 mg PO Q4H PRN PRN Reason: Pain MILD(1-3)/Fever >100.5/CORREIA Last Admin: 08/23/18 08:12 Dose: 650 mg Documented by: Amlodipine Besylate (Norvasc) 10 mg PO DAILY [facility] Last Admin: 08/23/18 09:42 Dose: 10 mg Documented by: Carvedilol (Coreg) 12.5 mg PO BID [facility] Last Admin: 08/23/18 09:42 Dose: 12.5 mg Documented by: Dextrose (D50w (25gm) Syringe) 0 ml IV PRN PRN PRN Reason: Hypoglycemia Docusate Sodium (Colace) 100 mg PO BID [facility] Last Admin: 08/23/18 09:42 Dose: 100 mg Documented by: Enoxaparin Sodium (Lovenox) 30 mg SUB-Q QDAY [facility] Last Admin: 08/23/18 09:42 Dose: 30 mg Documented by: Gabapentin (Neurontin) 300 mg PO TID [facility] Last Admin: 08/23/18 08:12 Dose: 300 mg Documented by: Ampicillin Sodium/Sulbactam Sodium (Unasyn/Ns 1.5 Gm/50 Ml) 1.5 gm in 50 mls @ 100 mls/hr IV Q6HR [facility]; Protocol Last Admin: 08/23/18 12:03 Dose: 100 mls/hr Documented by: Sodium Chloride (Nacl 0.9% 1000 Ml) 1,000 mls @ 100 mls/hr IV DIRECT [facility] Last Admin: 08/23/18 10:55 Dose: 100 mls/hr Documented by: Insulin Glargine (Lantus) 15 units SUB-Q BID [facility] Last Admin: 08/23/18 09:39 Dose: 15 units Documented by: Insulin Human Lispro (Humalog) 0 unit SUB-Q ACHS [facility]; Protocol Last Admin: 08/23/18 13:15 Dose: 8 unit Documented by: Ondansetron HCl (Zofran) 4 mg IV Q8H PRN PRN Reason: Nausea And Vomiting Last Admin: 08/23/18 12:00 Dose: 4 mg Documented by: Sodium Chloride (Sodium Chloride Flush Syringe 10 Ml) 10 ml IV BID [facility] Last Admin: 08/23/18 09:43 Dose: 10 ml Documented by: Sodium Chloride (Sodium Chloride Flush Syringe 10 Ml) 10 ml IV PRN PRN PRN Reason: LINE FLUSH Review of Systems All systems: negative Exam - Constitutional Vitals: Temp Pulse Resp BP Pulse Ox 98.7 F 93 H 17 139/67 97 08/23/18 12:02 08/23/18 13:00 08/23/18 13:00 08/23/18 13:00 08/23/18 13:00 General appearance: Present: no acute distress, obese - EENT Eyes: Present: PERRL, EOM intact ENT: hearing intact - Neck Neck: Present: supple - Respiratory Respiratory effort: normal Respiratory: bilateral: CTA - Cardiovascular Rhythm: regular Heart Sounds: Present: S1 & S2 - Abdominal General gastrointestinal: Present: soft Female genitourinary: Present: deferred - Rectal Rectal Exam: deferred Results - Labs CBC & Chem 7: 08/23/18 01:08 08/23/18 09:54 Labs: Abnormal lab results 08/23/18 08/23/18 08/23/18 Range/Units 01:08 01:08 02:27 WBC 29.2 H (4.5-11.0) K/mm3 RBC 3.64 L (3.65-5.03) M/mm3 Seg Neuts % (Manual) 90.0 H (40.0-70.0) % Lymphocytes % (Manual) 2.0 L (13.4-35.0) % Monocytes % (Manual) 8.0 H (0.0-7.3) % Seg Neutrophils # Man 26.3 H (1.8-7.7) K/mm3 Lymphocytes # (Manual) 0.6 L (1.2-5.4) K/mm3 Monocytes # (Manual) 2.3 H (0.0-0.8) K/mm3 Sodium 125 L (137-145) mmol/L Potassium (3.6-5.0) mmol/L Chloride 92.0 L (98-107) mmol/L Carbon Dioxide 19 L (22-30) mmol/L BUN 28 H (7-17) mg/dL Creatinine 2.2 H (0.7-1.2) mg/dL Glucose 675 H* (65-100) mg/dL POC Glucose (70-105) Hemoglobin A1c (4-6) % Calcium 8.2 L (8.4-10.2) mg/dL Albumin 2.6 L (3.9-5) g/dL Urine WBC (Auto) 66.0 H (0.0-6.0) /HPF 08/23/18 08/23/18 08/23/18 Range/Units 04:35 04:48 04:48 WBC (4.5-11.0) K/mm3 RBC (3.65-5.03) M/mm3 Seg Neuts % (Manual) (40.0-70.0) % Lymphocytes % (Manual) (13.4-35.0) % Monocytes % (Manual) (0.0-7.3) % Seg Neutrophils # Man (1.8-7.7) K/mm3 Lymphocytes # (Manual) (1.2-5.4) K/mm3 Monocytes # (Manual) (0.0-0.8) K/mm3 Sodium 131 L (137-145) mmol/L Potassium 3.2 L D (3.6-5.0) mmol/L Chloride (98-107) mmol/L Carbon Dioxide 20 L (22-30) mmol/L BUN 26 H (7-17) mg/dL Creatinine 2.2 H (0.7-1.2) mg/dL Glucose 556 H* (65-100) mg/dL POC Glucose > 500 H (70-105) Hemoglobin A1c 17.4 H (4-6) % Calcium 7.7 L (8.4-10.2) mg/dL Albumin (3.9-5) g/dL Urine WBC (Auto) (0.0-6.0) /HPF 08/23/18 08/23/18 08/23/18 Range/Units 06:58 07:18 08:10 WBC (4.5-11.0) K/mm3 RBC (3.65-5.03) M/mm3 Seg Neuts % (Manual) (40.0-70.0) % Lymphocytes % (Manual) (13.4-35.0) % Monocytes % (Manual) (0.0-7.3) % Seg Neutrophils # Man (1.8-7.7) K/mm3 Lymphocytes # (Manual) (1.2-5.4) K/mm3 Monocytes # (Manual) (0.0-0.8) K/mm3 Sodium 134 L (137-145) mmol/L Potassium 3.3 L (3.6-5.0) mmol/L Chloride (98-107) mmol/L Carbon Dioxide (22-30) mmol/L BUN 26 H (7-17) mg/dL Creatinine 2.2 H (0.7-1.2) mg/dL Glucose 246 H (65-100) mg/dL POC Glucose 277 H 212 H (70-105) Hemoglobin A1c (4-6) % Calcium (8.4-10.2) mg/dL Albumin (3.9-5) g/dL Urine WBC (Auto) (0.0-6.0) /HPF 08/23/18 08/23/18 08/23/18 Range/Units 08:57 09:54 10:16 WBC (4.5-11.0) K/mm3 RBC (3.65-5.03) M/mm3 Seg Neuts % (Manual) (40.0-70.0) % Lymphocytes % (Manual) (13.4-35.0) % Monocytes % (Manual) (0.0-7.3) % Seg Neutrophils # Man (1.8-7.7) K/mm3 Lymphocytes # (Manual) (1.2-5.4) K/mm3 Monocytes # (Manual) (0.0-0.8) K/mm3 Sodium (137-145) mmol/L Potassium 3.4 L (3.6-5.0) mmol/L Chloride (98-107) mmol/L Carbon Dioxide (22-30) mmol/L BUN 24 H (7-17) mg/dL Creatinine 2.1 H (0.7-1.2) mg/dL Glucose 122 H (65-100) mg/dL POC Glucose 150 H 142 H (70-105) Hemoglobin A1c (4-6) % Calcium 8.1 L (8.4-10.2) mg/dL Albumin (3.9-5) g/dL Urine WBC (Auto) (0.0-6.0) /HPF 08/23/18 Range/Units 11:48 WBC (4.5-11.0) K/mm3 RBC (3.65-5.03) M/mm3 Seg Neuts % (Manual) (40.0-70.0) % Lymphocytes % (Manual) (13.4-35.0) % Monocytes % (Manual) (0.0-7.3) % Seg Neutrophils # Man (1.8-7.7) K/mm3 Lymphocytes # (Manual) (1.2-5.4) K/mm3 Monocytes # (Manual) (0.0-0.8) K/mm3 Sodium (137-145) mmol/L Potassium (3.6-5.0) mmol/L Chloride (98-107) mmol/L Carbon Dioxide (22-30) mmol/L BUN (7-17) mg/dL Creatinine (0.7-1.2) mg/dL Glucose (65-100) mg/dL POC Glucose 313 H (70-105) Hemoglobin A1c (4-6) % Calcium (8.4-10.2) mg/dL Albumin (3.9-5) g/dL Urine WBC (Auto) (0.0-6.0) /HPF - Imaging and Cardiology CT scan - abdomen: report reviewed CT Scan - head: report reviewed Assessment and Plan 28 y/o female, obese, admitted with DKA 1. Stopped insulin drip 2. Started long acting insulin 3. Needs DM education 4. Weight loss 5. stable for transfer out of ICU
[2018-08-23 13:32] LABS: Creatinine,Urine 68.3 mg/dL (0.1-20.0)
[2018-08-24] MEDS: TYLENOL PO PRN ×5 (00:56→23:33)
[2018-08-24] MEDS: UNASYN/NS 1.5 GM/50 ML 1.5 GM/50 ML BAG IV SCH ×4 (00:56→21:37)
[2018-08-24] MEDS: SODIUM CHLORIDE FLUSH SYRINGE 10 ML IV SCH ×3 (03:21→21:11)
[2018-08-24 06:33] LABS: Calcium 8.4 mg/dL (8.4-10.2)
--- NOTE | 2018-08-24 07:58 | Progress Note ---
Assessment and Plan Assessment and plan: --Sepsis; due to cellulitis Lt.buttocks Fever, leukocytosis,Empiric antibiotics, cultures Surgery following --Sepsis secondary to urinary tract infection add Vanco and cont Unasyn --Hyperosmolar nonketotic hyperglycemia; s/p insulin drip, blood sugars uncontrolled --Tyle1 DM :uncontrolled Increase Lantus to 25 units bid Accu-Cheks Sliding scale coverage, hemoglobin A1c 17.4 Diabetic education, nutrition consult Home health nurse that at discharge for disease monitoring and education --Acute kidney injury; due to vasomotor nephropathy Acute on chronic kidney disease Gentle hydration, avoid nephrotoxins, monitor renal function, Nephrology following --Chronic kidney disease stage III --Hypertension; moderate control Continue current antihypertensives and when necessary medications --Diabetic neuropathy; pleasant on admission Continue gabapentin, supportive cares --Severe malnutrition/hypoalbuminemia albumin 2.6 Secondary to underlying disease process Nutrition supplements, nutrition consult --DVT prophylaxis; Lovenox --Obesity; BMI 37.5 Advised diet modification, lifestyle changes, weight reduction when medically stable Preventive counseling done, spent 10 minutes Monitor closely and adjust the management as needed Consults and recommendations noted Plan of care reviewed with the patient and her nurse History Interval history: Patient seen and examined medical records reviewed Patient remains febrile MAXIMUM TEMPERATURE 101 and height Secondary to cellulitis buttocks as well as UTI On IV antibiotics Patient complains of chills and generalized body pains Vital signs reviewed Hospitalist Physical - Constitutional Vitals: Temp Pulse Resp BP Pulse Ox 100.2 F H 97 H 24 154/73 92 08/24/18 05:37 08/24/18 00:42 08/24/18 05:16 08/24/18 05:16 08/24/18 05:37 General appearance: Present: no acute distress, well-nourished, obese - EENT Eyes: Present: PERRL, EOM intact - Neck Neck: Present: supple, normal ROM - Respiratory Respiratory effort: normal Respiratory: bilateral: diminished, negative: rales, rhonchi, wheezing - Cardiovascular Rhythm: regular Heart Sounds: Present: S1 & S2 - Extremities Extremities: no ischemia, No edema - Abdominal General gastrointestinal: soft, non-tender, non-distended, normal bowel sounds - Integumentary Integumentary: Present: clear, warm, pale (cellulitis lt buttock) - Psychiatric Psychiatric: appropriate mood/affect, cooperative - Neurologic Neurologic: CNII-XII intact, moves all extremities Results - Labs CBC & Chem 7: 08/24/18 09:30 08/24/18 05:16 Labs: Laboratory Last Values WBC 29.2 K/mm3 (4.5-11.0) H 08/23/18 01:08 RBC 3.64 M/mm3 (3.65-5.03) L 08/23/18 01:08 Hgb 10.2 gm/dl (10.1-14.3) 08/23/18 01:08 Hct 31.9 % (30.3-42.9) 08/23/18 01:08 MCV 88 fl (79-97) 08/23/18 01:08 MCH 28 pg (28-32) 08/23/18 01:08 MCHC 32 % (30-34) 08/23/18 01:08 RDW 15.1 % (13.2-15.2) 08/23/18 01:08 Plt Count 329 K/mm3 (140-440) 08/23/18 01:08 Add Manual Diff Complete 08/23/18 01:08 Total Counted 100 08/23/18 01:08 Seg Neuts % (Manual) 90.0 % (40.0-70.0) H 08/23/18 01:08 0 % 08/23/18 01:08 2.0 % (13.4-35.0) L 08/23/18 01:08 Reactive Lymphs % (Man) 0 % 08/23/18 01:08 8.0 % (0.0-7.3) H 08/23/18 01:08 0 % (0.0-4.3) 08/23/18 01:08 0 % (0.0-1.8) 08/23/18 01:08 0 % 08/23/18 01:08 0 % 08/23/18 01:08 0 % 08/23/18 01:08 0 % 08/23/18 01:08 Nucleated RBC % Not Reportable 08/23/18 01:08 Seg Neutrophils # Man 26.3 K/mm3 (1.8-7.7) H 08/23/18 01:08 Band Neutrophils # 0.0 K/mm3 08/23/18 01:08 0.6 K/mm3 (1.2-5.4) L 08/23/18 01:08 Abs React Lymphs (Man) 0.0 K/mm3 08/23/18 01:08 2.3 K/mm3 (0.0-0.8) H 08/23/18 01:08 0.0 K/mm3 (0.0-0.4) 08/23/18 01:08 0.0 K/mm3 (0.0-0.1) 08/23/18 01:08 0.0 K/mm3 08/23/18 01:08 0.0 K/mm3 08/23/18 01:08 0.0 K/mm3 08/23/18 01:08 Blast Cells # 0.0 K/mm3 08/23/18 01:08 WBC Morphology Not Reportable 08/23/18 01:08 Hypersegmented Neuts Not Reportable 08/23/18 01:08 Hyposegmented Neuts Not Reportable 08/23/18 01:08 Hypogranular Neuts Not Reportable 08/23/18 01:08 Not Reportable 08/23/18 01:08 Not Reportable 08/23/18 01:08 Not Reportable 08/23/18 01:08 Not Reportable 08/23/18 01:08 Not Reportable 08/23/18 01:08 Not Reportable 08/23/18 01:08 Consistent w auto 08/23/18 01:08 Not Reportable 08/23/18 01:08 Plt Clumps, EDTA Not Reportable 08/23/18 01:08 1+ 08/23/18 01:08 Not Reportable 08/23/18 01:08 Not Reportable 08/23/18 01:08 Plt Morphology Comment Not Reportable 08/23/18 01:08 RBC Morphology Normal 08/23/18 01:08 Dimorphic RBCs Not Reportable 08/23/18 01:08 Not Reportable 08/23/18 01:08 Not Reportable 08/23/18 01:08 Not Reportable 08/23/18 01:08 Not Reportable 08/23/18 01:08 Not Reportable 08/23/18 01:08 Not Reportable 08/23/18 01:08 Not Reportable 08/23/18 01:08 Not Reportable 08/23/18 01:08 Not Reportable 08/23/18 01:08 Not Reportable 08/23/18 01:08 Not Reportable 08/23/18 01:08 Not Reportable 08/23/18 01:08 Not Reportable 08/23/18 01:08 Not Reportable 08/23/18 01:08 Not Reportable 08/23/18 01:08 Not Reportable 08/23/18 01:08 Not Reportable 08/23/18 01:08 Not Reportable 08/23/18 01:08 Not Reportable 08/23/18 01:08 Acanthocytes (Spur) Not Reportable 08/23/18 01:08 Rouleaux Not Reportable 08/23/18 01:08 Not Reportable 08/23/18 01:08 Not Reportable 08/23/18 01:08 Not Reportable 08/23/18 01:08 Not Reportable 08/23/18 01:08 Hem Pathologist Commnt No 08/23/18 01:08 VBG pH 7.382 (7.320-7.420) 08/23/18 01:30 Sodium 136 mmol/L (137-145) L 08/24/18 05:16 Potassium 3.9 mmol/L (3.6-5.0) 08/24/18 05:16 Chloride 105.9 mmol/L (98-107) 08/24/18 05:16 Carbon Dioxide 19 mmol/L (22-30) L 08/24/18 05:16 15 mmol/L 08/24/18 05:16 BUN 19 mg/dL (7-17) H 08/24/18 05:16 2.2 mg/dL (0.7-1.2) H 08/24/18 05:16 Estimated GFR 32 ml/min 08/24/18 05:16 9 % 08/24/18 05:16 Glucose 229 mg/dL (65-100) H 08/24/18 05:16 POC Glucose 326 (70-105) H 08/23/18 21:24 17.4 % (4-6) H 08/23/18 04:48 Lactic Acid 1.10 mmol/L (0.7-2.0) 08/23/18 02:53 Calcium 8.4 mg/dL (8.4-10.2) 08/24/18 05:16 0.30 mg/dL (0.1-1.2) 08/23/18 01:08 AST 26 units/L (5-40) 08/23/18 01:08 ALT 10 units/L (7-56) 08/23/18 01:08 127 units/L (35-129) 08/23/18 01:08 6.9 g/dL (6.3-8.2) 08/23/18 01:08 2.6 g/dL (3.9-5) L 08/23/18 01:08 0.6 % 08/23/18 01:08 21 units/L (13-60) 08/23/18 01:08 HCG, Qual Negative (Negative) 08/23/18 01:30 Straw (Yellow) 08/23/18 02:27 Slightly-cloudy (Clear) 08/23/18 02:27 6.0 (5.0-7.0) 08/23/18 02:27 Ur Specific [place] 1.012 (1.003-1.030) 08/23/18 02:27 100 mg/dl mg/dL (Negative) 08/23/18 02:27 >=500 mg/dL (Negative) 08/23/18 02:27 Neg mg/dL (Negative) 08/23/18 02:27 Neg (Negative) 08/23/18 02:27 Neg (Negative) 08/23/18 02:27 Neg (Negative) 08/23/18 02:27 < 2.0 mg/dL (<2.0) 08/23/18 02:27 Ur Leukocyte Esterase Lg (Negative) 08/23/18 02:27 66.0 /HPF (0.0-6.0) H 08/23/18 02:27 23.0 /HPF (0.0-6.0) 08/23/18 02:27 U Epithel Cells (Auto) 9.0 /HPF (0-13.0) 08/23/18 02:27 68.3 mg/dL (0.1-20.0) H 08/23/18 13:06 282 mg/dL (5-11.8) H 08/23/18 13:06 Hep Bs Antigen Non-reactive (Negative) 08/24/18 05:16 Non-reactive (NonReactive) 08/24/18 05:16 Active Medications - Current Medications Current Medications: Generic Name Dose Route Start Last Admin Trade Name Freq PRN Reason Stop Dose Admin Acetaminophen 650 mg 08/23/18 04:32 08/24/18 05:28 Tylenol PO 650 mg Q4H PRN Administration Pain MILD(1-3)/Fever >100.5/CORREIA Amlodipine Besylate 10 mg 08/23/18 10:00 08/23/18 09:42 Norvasc PO 10 mg DAILY [facility] Administration Carvedilol 12.5 mg 08/23/18 10:00 08/23/18 23:13 Coreg PO 12.5 mg BID [facility] Administration Dextrose 0 ml 08/23/18 04:30 D50w (25gm) Syringe IV PRN PRN Hypoglycemia Docusate Sodium 100 mg 08/23/18 10:00 08/23/18 23:12 Colace PO 100 mg BID [facility] Administration Enoxaparin Sodium 30 mg 08/23/18 10:00 08/23/18 09:42 Lovenox SUB-Q 30 mg QDAY [facility] Administration Gabapentin 300 mg 08/23/18 08:00 08/23/18 23:12 Neurontin PO 300 mg TID [facility] Administration Ampicillin Sodium/Sulbactam Sodium 1.5 gm in 50 mls @ 100 mls/hr 08/23/18 06:00 08/24/18 05:27 Unasyn/Ns 1.5 Gm/50 Ml IV 100 mls/hr Q6HR [facility] Administration Protocol Sodium Chloride 1,000 mls @ 100 mls/hr 08/23/18 09:00 08/23/18 10:55 Nacl 0.9% 1000 Ml IV 100 mls/hr DIRECT [facility] Administration Insulin Glargine 25 units 08/24/18 10:00 Lantus SUB-Q BID [facility] Insulin Human Lispro 0 unit 08/23/18 11:30 08/23/18 23:14 Humalog SUB-Q 8 unit ACHS [facility] Administration Protocol Ondansetron HCl 4 mg 08/23/18 04:32 08/23/18 12:00 Zofran IV 4 mg Q8H PRN Administration Nausea And Vomiting Sodium Chloride 10 ml 08/23/18 10:00 08/24/18 03:21 Sodium Chloride Flush Syringe 10 Ml IV 10 ml BID [facility] Administration Sodium Chloride 10 ml 08/23/18 04:32 Sodium Chloride Flush Syringe 10 Ml IV PRN PRN LINE FLUSH Nutrition/Malnutrition Assess - Dietary Evaluation Nutrition/Malnutrition Findings: Nutrition Notes Start: 08/23/18 20:09 Freq: Status: Active Protocol: Document 08/23/18 20:09 RM (Rec: 08/23/18 20:22 RM [id number]) Nutrition Notes Need for Assessment generated from: MD Order Initial or Follow up Assessment Current Diagnosis Acute Kidney Injury,Diabetes, Sepsis Other Pertinent Diagnosis L & R buttocks wounds, UTI, Dehydration, CKD stage II Current Diet Cardiac/Consistent CHO Labs/Tests A1c 17.4 Pertinent Medications Reviewed Height 4 ft 9 in Weight 78.7 kg [place] Body Weight (kg) 38.63 BMI 37.5 Subjective/Other Information Consulted for nutrition recommendations and diet education. Pt briefly on NPO for possible wound debridement but procedure was cancelled. Prior to NPO pt was on Consistent CHO diet and after NPO Cardiac /Consistent CHO was ordered. Pt stated that she ate 1/3 of her breakfast and lunch. Admitted to constipation. Pt stated that he had been previously educated but that it was not very well explained so she did not understand it. Reviewed DM diet education. Gave handout. Percent of energy/protein needs met: 52%/42% Burn Absent Trauma Absent #2 Nutrition Diagnosis Food and nutrition-related knowledge deficit Etiology inadequate previous education As Evidenced by Signs and Symptoms pt desire for education #1 Nutrition Diagnosis Inadequate oral intake Etiology decreased appetite As Evidenced by Signs and Symptoms pt statement that she ate 1/3 of her breakfast and lunch Is patient on ventilator? No Is Patient Ambulatory and/or Out of Bed Yes REE-([facility]-ambulatory/OOB) [ 1801.644 [id number]] Kcal/Kg value to use for calculation 17 Approximate Energy Requirements Using 1338 kcal/Kg Calculation Used for Recommendations Kcal/kg Additional Notes Protein Needs: 71-83g (1.2-1. 4g/kg 59 kg adjBW) Fluid Needs: 1 ml/kcal Nutrition Intervention Change Diet Order: Continue current Add Supplement/Snack (indicate name/kcal Glucerna 1 daily /protein ) Provides kCal: 220 Provides Protein (gm) 10 Teaching Recipient Patient Learning Readiness Good Teaching Methods Discussion,Handout Response to Teaching Verbalize understanding Education Handouts Provided Carbohydrate counting for people with diabetes Barriers to Learning No Barriers RD phone number provided Yes Patient aware of follow up options Yes Goal #1 Meet at least 75% of calorie and protein needs via PO and ONS intakes Goal #2 Utilize carbohydrate counting Anticipated Discharge Needs: Cardiac/Consistent CHO diet Follow-Up By: 08/26/18 Additional Comments Follow for PO and ONS intakes
[2018-08-24] MEDS: HumaLOG SUB-Q SCH ×4 (08:56→22:45)
[2018-08-24] MEDS ORDERED: LANTUS SUB-Q SCH (10:00)
[2018-08-24] MEDS: NEURONTIN PO SCH ×3 (10:02→21:10)
[2018-08-24] MEDS: COREG PO SCH ×2 (10:03→21:10)
[2018-08-24] MEDS: NORVASC PO SCH (10:03)
[2018-08-24] MEDS: COLACE PO SCH ×2 (10:03→21:10)
[2018-08-24] MEDS: LOVENOX SUB-Q SCH (10:03)
[2018-08-24 10:06] LABS: Hematocrit 29.5 % (30.3-42.9); Hemoglobin 9.6 gm/dl (10.1-14.3); Mean Corpuscular HGB Conc 33 % (30-34); Mean Corpuscular Volume 87 fl (79-97); Platelet Count 338 K/mm3 (140-440); Red Blood Count 3.38 M/mm3 (3.65-5.03); Red Cell Distribution Width 15.2 % (13.2-15.2)
--- NOTE | 2018-08-24 10:29 | Progress Note ---
Assessment and Plan - Patient Problems (1) Acute kidney injury Current Visit: Yes Status: Acute Plan to address problem: CHACORTA likely due to Prerenal azotemia secondary to volume depletion in the setting of osmotic diuresis from hyperglycemia. Continue volume repletion. 1-[address] of the abdomen and Pelvis uinremarkable. Avoid potential nep hrotoxins. Follow-up electrolytes and renal function. (2) Cellulitis of buttock, left Current Visit: Yes Status: Acute Plan to address problem: Continue antibiotics. Gen. surgery consult for possible incision and drainage (3) Hyperglycemia due to type 2 diabetes mellitus Current Visit: No Status: Acute Plan to address problem: Blood sugar management by primary attending. (4) Chronic kidney disease, stage 3 (moderate) Current Visit: Yes Status: Acute Plan to address problem: Chronic kidney disease presumably secondary to diabetic nephropathy/hypertensive nephrosclerosis. reinforced good blood sugar and blood pressure control as an outpatient to delay progression to End stage renal disease. (5) Hyponatremia Current Visit: Yes Status: Acute Plan to address problem: Factitous secondary to hyperglycemia superimposed on hypovolemic hyponatremia. Continue volume repletion with isotonic saline. Na normalized (6) Hypokalemia Current Visit: Yes Status: Acute Plan to address problem: K replete (7) Hypertensive chronic kidney disease with stage 1 through stage 4 chronic kidney disease, or unspecified chronic kidney disease Current Visit: Yes Status: Acute Plan to address problem: Follow blood pressure on current medications (8) Neuropathy due to type 2 diabetes mellitus Current Visit: Yes Status: Acute Plan to address problem: Continue gabapentin Subjective Date of service: 08/24/18 Principal diagnosis: CHACORTA Interval history: Pt awake, alert, denies fever, chills, n/v/d Objective - Vital Signs Vital signs: Vital Signs - 12hr 08/24/18 08/24/18 08/24/18 00:42 05:16 05:37 Temperature 101.0 F H 100.2 F H 100.2 F H Pulse Rate 97 H Respiratory 19 24 Rate Blood Pressure 114/65 154/73 O2 Sat by Pulse 85 92 Oximetry 08/24/18 10:03 Temperature Pulse Rate 98 H Respiratory Rate Blood Pressure 139/67 O2 Sat by Pulse Oximetry - General Appearance General appearance: well-developed, well-nourished, appears stated age EENT: ATNC, PERRL, mucous membranes moist Neck: no JVD Respiratory: Present: Clear to Ascultation Cardiology: regular, S1S2 Gastrointestinal: normoactive bowel sounds Integumentary: no rash, other (no edema ) Neurologic: no focal deficit, alert and oriented x3, strength 5/5, CN 3-12 intact Psychiatric: mood/affect appropriate, cooperative - Lab 08/23/18 01:08 08/24/18 05:16 Most recent lab results Calcium 8.4 mg/dL (8.4-10.2) 08/24/18 05:16 Phosphorus 2.80 mg/dL (2.5-4.5) 08/24/18 05:16 Magnesium 1.90 mg/dL (1.7-2.3) 08/24/18 05:16 68.3 mg/dL (0.1-20.0) H 08/23/18 13:06 282 mg/dL (5-11.8) H 08/23/18 13:06 Medications & Allergies - Medications Allergies/Adverse Reactions: Allergies No Known Allergies Allergy (Verified 06/29/16 01:18) Home Medications: Home Medications Medication Instructions Recorded Confirmed Last Taken Type Gabapentin [Neurontin] 300 mg PO TID 06/29/16 08/23/18 01/26/17 History Carvedilol [Coreg] 12.5 mg PO BID #60 tablet 07/12/17 08/23/18 Unknown Rx amLODIPine [Norvasc] 10 mg PO DAILY #30 tab 06/18/18 08/23/18 Unknown Rx hydroCHLOROthiazide [HCTZ] 25 mg PO QDAY #30 tablet 06/18/18 08/23/18 Unknown Rx Insulin Detemir [Levemir VIAL] 10 unit SQ BID 08/23/18 08/23/18 08/22/18 21:00 History Active Medications: Generic Name Dose Route Start Last Admin Trade Name Freq PRN Reason Stop Dose Admin Acetaminophen 650 mg 08/23/18 04:32 08/24/18 05:28 Tylenol PO 650 mg Q4H PRN Administration Pain MILD(1-3)/Fever >100.5/CORREIA Amlodipine Besylate 10 mg 08/23/18 10:00 08/24/18 10:03 Norvasc PO 10 mg DAILY BURTNO Administration Carvedilol 12.5 mg 08/23/18 10:00 08/24/18 10:03 Coreg PO 12.5 mg BID BURTON Administration Dextrose 0 ml 08/23/18 04:30 D50w (25gm) Syringe IV PRN PRN Hypoglycemia Docusate Sodium 100 mg 08/23/18 10:00 08/24/18 10:03 Colace PO 100 mg BID BURTON Administration Enoxaparin Sodium 30 mg 08/23/18 10:00 08/24/18 10:03 Lovenox SUB-Q 30 mg QDAY BURTON Administration Gabapentin 300 mg 08/23/18 08:00 08/24/18 10:02 Neurontin PO 300 mg TID BURTON Administration Ampicillin Sodium/Sulbactam Sodium 1.5 gm in 50 mls @ 100 mls/hr 08/23/18 06:00 08/24/18 05:27 Unasyn/Ns 1.5 Gm/50 Ml IV 100 mls/hr Q6HR BURTON Administration Protocol Sodium Chloride 1,000 mls @ 100 mls/hr 08/23/18 09:00 08/23/18 10:55 Nacl 0.9% 1000 Ml IV 100 mls/hr DIRECT BURTON Administration Insulin Glargine 25 units 08/24/18 10:00 08/24/18 10:03 Lantus SUB-Q 25 units BID BURTON Administration Insulin Human Lispro 0 unit 08/23/18 11:30 08/24/18 08:56 Humalog SUB-Q 6 unit ACHS BURTON Administration Protocol Ondansetron HCl 4 mg 08/23/18 04:32 08/23/18 12:00 Zofran IV 4 mg Q8H PRN Administration Nausea And Vomiting Sodium Chloride 10 ml 08/23/18 10:00 08/24/18 10:04 Sodium Chloride Flush Syringe 10 Ml IV 10 ml BID BURTON Administration Sodium Chloride 10 ml 08/23/18 04:32 Sodium Chloride Flush Syringe 10 Ml IV PRN PRN LINE FLUSH
--- NOTE | 2018-08-24 10:52 | Progress Note ---
Assessment and Plan 28 y/o female, obese, admitted with DKA 1. No acute pulm issues. Will sign off. Call if questions. Subjective Date of service: 08/24/18 Principal diagnosis: CHACORTA Interval history: No acute events. Successful transfer to floor. IMS managing diabetes. Objective - Constitutional Vitals: Vital Signs - 12hr 08/24/18 08/24/18 08/24/18 00:42 05:16 05:37 Temperature 101.0 F H 100.2 F H 100.2 F H Pulse Rate 97 H Respiratory 19 24 Rate Blood Pressure 114/65 154/73 O2 Sat by Pulse 85 92 Oximetry 08/24/18 10:03 Temperature Pulse Rate 98 H Respiratory Rate Blood Pressure 139/67 O2 Sat by Pulse Oximetry General appearance: Present: no acute distress, obese - EENT Eyes: PERRL, EOM intact ENT: hearing intact - Neck Neck: supple, normal ROM - Respiratory Respiratory effort: normal Respiratory: bilateral: CTA - Breasts Breasts: deferred - Cardiovascular Rhythm: regular Heart Sounds: Present: S1 & S2 Extremities: pulses intact - Gastrointestinal General gastrointestinal: Present: soft, non-tender Rectal Exam: deferred - Genitourinary Female genitourinary: deferred - Labs CBC & Chem 7: 08/24/18 09:30 08/24/18 05:16 Labs: Abnormal lab results 08/23/18 08/23/18 08/23/18 Range/Units 08:57 09:54 11:48 WBC (4.5-11.0) K/mm3 RBC (3.65-5.03) M/mm3 Hgb (10.1-14.3) gm/dl Hct (30.3-42.9) % Sodium (137-145) mmol/L Potassium 3.4 L (3.6-5.0) mmol/L Carbon Dioxide (22-30) mmol/L BUN 24 H (7-17) mg/dL Creatinine 2.1 H (0.7-1.2) mg/dL Glucose 122 H (65-100) mg/dL POC Glucose 150 H 313 H (70-105) Calcium 8.1 L (8.4-10.2) mg/dL Urine Creatinine (0.1-20.0) mg/dL Urine Total Protein (5-11.8) mg/dL 0708/23/18 08/23/18 Range/Units 13:06 13:21 15:45 WBC (4.5-11.0) K/mm3 RBC (3.65-5.03) M/mm3 Hgb (10.1-14.3) gm/dl Hct (30.3-42.9) % Sodium 133 L (137-145) mmol/L Potassium (3.6-5.0) mmol/L Carbon Dioxide 19 L (22-30) mmol/L BUN 25 H (7-17) mg/dL Creatinine 2.0 H (0.7-1.2) mg/dL Glucose 397 H (65-100) mg/dL POC Glucose 309 H (70-105) Calcium 8.0 L (8.4-10.2) mg/dL Urine Creatinine 68.3 H (0.1-20.0) mg/dL Urine Total Protein 282 H (5-11.8) mg/dL 08/23/18 08/23/18 08/24/18 Range/Units 20:04 21:24 05:16 WBC (4.5-11.0) K/mm3 RBC (3.65-5.03) M/mm3 Hgb (10.1-14.3) gm/dl Hct (30.3-42.9) % Sodium 133 L 136 L (137-145) mmol/L Potassium (3.6-5.0) mmol/L Carbon Dioxide 20 L 19 L (22-30) mmol/L BUN 22 H 19 H (7-17) mg/dL Creatinine 2.1 H 2.2 H (0.7-1.2) mg/dL Glucose 324 H 229 H (65-100) mg/dL POC Glucose 326 H (70-105) Calcium 8.0 L (8.4-10.2) mg/dL Urine Creatinine (0.1-20.0) mg/dL Urine Total Protein (5-11.8) mg/dL 08/24/18 08/24/18 Range/Units 07:51 09:30 WBC 22.0 H (4.5-11.0) K/mm3 RBC 3.38 L (3.65-5.03) M/mm3 Hgb 9.6 L (10.1-14.3) gm/dl Hct 29.5 L (30.3-42.9) % Sodium (137-145) mmol/L Potassium (3.6-5.0) mmol/L Carbon Dioxide (22-30) mmol/L BUN (7-17) mg/dL Creatinine (0.7-1.2) mg/dL Glucose (65-100) mg/dL POC Glucose 269 H (70-105) Calcium (8.4-10.2) mg/dL Urine Creatinine (0.1-20.0) mg/dL Urine Total Protein (5-11.8) mg/dL Medications & Allergies - Medications Allergies/Adverse Reactions: Allergies No Known Allergies Allergy (Verified 06/29/16 01:18) Home Medications: Home Medications Medication Instructions Recorded Confirmed Last Taken Type Gabapentin [Neurontin] 300 mg PO TID 06/29/16 08/23/18 01/26/17 History Carvedilol [Coreg] 12.5 mg PO BID #60 tablet 07/12/17 08/23/18 Unknown Rx amLODIPine [Norvasc] 10 mg PO DAILY #30 tab 06/18/18 08/23/18 Unknown Rx hydroCHLOROthiazide [HCTZ] 25 mg PO QDAY #30 tablet 06/18/18 08/23/18 Unknown Rx Insulin Detemir [Levemir VIAL] 10 unit SQ BID 08/23/18 08/23/18 08/22/18 21:00 History Active Medications: Generic Name Dose Route Start Last Admin Trade Name Freq PRN Reason Stop Dose Admin Acetaminophen 650 mg 08/23/18 04:32 08/24/18 05:28 Tylenol PO 650 mg Q4H PRN Administration Pain MILD(1-3)/Fever >100.5/CORREIA Amlodipine Besylate 10 mg 08/23/18 10:00 08/24/18 10:03 Norvasc PO 10 mg DAILY BURTON Administration Carvedilol 12.5 mg 08/23/18 10:00 08/24/18 10:03 Coreg PO 12.5 mg BID BURTON Administration Dextrose 0 ml 08/23/18 04:30 D50w (25gm) Syringe IV PRN PRN Hypoglycemia Docusate Sodium 100 mg 08/23/18 10:00 08/24/18 10:03 Colace PO 100 mg BID BURTON Administration Enoxaparin Sodium 30 mg 08/23/18 10:00 08/24/18 10:03 Lovenox SUB-Q 30 mg QDAY BURTON Administration Gabapentin 300 mg 08/23/18 08:00 08/24/18 10:02 Neurontin PO 300 mg TID BURTON Administration Ampicillin Sodium/Sulbactam Sodium 1.5 gm in 50 mls @ 100 mls/hr 08/23/18 06:00 08/24/18 05:27 Unasyn/Ns 1.5 Gm/50 Ml IV 100 mls/hr Q6HR BURTON Administration Protocol Sodium Chloride 1,000 mls @ 100 mls/hr 08/23/18 09:00 08/23/18 10:55 Nacl 0.9% 1000 Ml IV 100 mls/hr DIRECT BURTON Administration Insulin Glargine 25 units 08/24/18 10:00 08/24/18 10:03 Lantus SUB-Q 25 units BID BURTON Administration Insulin Human Lispro 0 unit 08/23/18 11:30 08/24/18 08:56 Humalog SUB-Q 6 unit ACHS BURTON Administration Protocol Ondansetron HCl 4 mg 08/23/18 04:32 08/23/18 12:00 Zofran IV 4 mg Q8H PRN Administration Nausea And Vomiting Sodium Chloride 10 ml 08/23/18 10:00 08/24/18 10:04 Sodium Chloride Flush Syringe 10 Ml IV 10 ml BID BURTON Administration Sodium Chloride 10 ml 08/23/18 04:32 Sodium Chloride Flush Syringe 10 Ml IV PRN PRN LINE FLUSH
[2018-08-24 11:19] LABS: Basophils % (Manual) 0 % (0.0-1.8); Eosinophils % (Manual) 0 % (0.0-4.3); Total Cells Counted 100
[2018-08-24 11:21] LABS: Giant Platelets 1+; Platelet Estimate Consistent w Auto; RBC Morphology Normal
--- NOTE | 2018-08-24 11:29 | Progress Note ---
Assessment and Plan 28 yo F with 1. left buttock wound and cellulitis 2. uncontrolled DM 3. HTN 4. UTI CT scan A/P - unremarkable. Plan: 1. At this point the patient has a superficial skin ulceration with surrounding cellulitis. There is no crepitus, drainage to suggest necrotizing fasciitis. CT scan also unremarkable. Area is stable and not worsening. Will continue to monitor 2. continue abx - recommend broadening abx as patient still having fevers 3. IVF 4. strict glucose control 5. monitor CBC daily - trending down 6. wound care - alginate to ulceration every other day, covered with dry dressing Thank you, please call with questions. D/W Dr. Tristan Subjective Date of service: 08/24/18 Narrative: Pt seen and examined. No acute complaints. + fever overnight. She states she has pain in the buttock region but it is unchanged. Objective Vital Signs - 12hr 08/24/18 08/24/18 08/24/18 00:42 05:16 05:37 Temperature 101.0 F H 100.2 F H 100.2 F H Pulse Rate 97 H Respiratory 19 24 Rate Blood Pressure 114/65 154/73 O2 Sat by Pulse 85 92 Oximetry 08/24/18 10:03 Temperature Pulse Rate 98 H Respiratory Rate Blood Pressure 139/67 O2 Sat by Pulse Oximetry - General physical appearance Narrative Exam: Gen: AAOx3. NAD CV: S1, S2+ Resp: even and unlabored Ext: no c/c/e Buttock: L lower buttock with 1 cm skin ulceration. Erythema improved, still with induration of approximately 5 cm diameter. Moderate TTP. No drainage or fluctuance. No crepitus. - Labs 08/24/18 09:30 08/24/18 05:16 Diabetes panel 08/23/18 08/23/18 08/24/18 Range/Units 13:21 20:04 05:16 Sodium 133 L 133 L 136 L (137-145) mmol/L Potassium 4.2 D 3.7 3.9 (3.6-5.0) mmol/L Chloride 101.0 102.1 105.9 (98-107) mmol/L Carbon Dioxide 19 L 20 L 19 L (22-30) mmol/L BUN 25 H 22 H 19 H (7-17) mg/dL Creatinine 2.0 H 2.1 H 2.2 H (0.7-1.2) mg/dL Glucose 397 H 324 H 229 H (65-100) mg/dL Calcium 8.0 L 8.0 L 8.4 (8.4-10.2) mg/dL Calcium panel 08/23/18 08/23/18 08/24/18 Range/Units 13:21 20:04 05:16 Calcium 8.0 L 8.0 L 8.4 (8.4-10.2) mg/dL Phosphorus (2.5-4.5) mg/dL 08/24/18 Range/Units 05:16 Calcium (8.4-10.2) mg/dL Phosphorus 2.80 (2.5-4.5) mg/dL Pituitary panel 08/23/18 08/23/18 08/24/18 Range/Units 13:21 20:04 05:16 Sodium 133 L 133 L 136 L (137-145) mmol/L Potassium 4.2 D 3.7 3.9 (3.6-5.0) mmol/L Chloride 101.0 102.1 105.9 (98-107) mmol/L Carbon Dioxide 19 L 20 L 19 L (22-30) mmol/L BUN 25 H 22 H 19 H (7-17) mg/dL Creatinine 2.0 H 2.1 H 2.2 H (0.7-1.2) mg/dL Glucose 397 H 324 H 229 H (65-100) mg/dL Calcium 8.0 L 8.0 L 8.4 (8.4-10.2) mg/dL Adrenal panel 08/23/18 08/23/18 08/24/18 Range/Units 13:21 20:04 05:16 Sodium 133 L 133 L 136 L (137-145) mmol/L Potassium 4.2 D 3.7 3.9 (3.6-5.0) mmol/L Chloride 101.0 102.1 105.9 (98-107) mmol/L Carbon Dioxide 19 L 20 L 19 L (22-30) mmol/L BUN 25 H 22 H 19 H (7-17) mg/dL Creatinine 2.0 H 2.1 H 2.2 H (0.7-1.2) mg/dL Glucose 397 H 324 H 229 H (65-100) mg/dL Calcium 8.0 L 8.0 L 8.4 (8.4-10.2) mg/dL
[2018-08-24] MEDS: NACL 0.9% 1000 ML 1,000 ML IV SCH (11:31)
[2018-08-24] MEDS ORDERED: VANCOMYCIN 1,500 MG in NACL 0.9% 500 ML 500 ML IV ONE (12:00)
[2018-08-24] MEDS ORDERED: VANCOMYCIN PHARMACY TO DOSE IV SCH (12:00)
[2018-08-25] MEDS: UNASYN/NS 1.5 GM/50 ML 1.5 GM/50 ML BAG IV SCH ×4 (01:23→19:27)
[2018-08-25 05:12] LABS: Hematocrit 27.5 % (30.3-42.9); Hemoglobin 8.7 gm/dl (10.1-14.3); Mean Corpuscular HGB Conc 32 % (30-34); Mean Corpuscular Volume 89 fl (79-97); Platelet Count 425 K/mm3 (140-440); Red Blood Count 3.08 M/mm3 (3.65-5.03); Red Cell Distribution Width 15.3 % (13.2-15.2)
[2018-08-25] MEDS: TYLENOL PO PRN ×3 (05:25→23:50)
[2018-08-25 05:35] LABS: Calcium 8.1 mg/dL (8.4-10.2)
[2018-08-25] MEDS: HumaLOG SUB-Q SCH ×5 (07:40→23:53)
[2018-08-25 08:22] LABS: Total Cells Counted 100
[2018-08-25 08:23] LABS: Basophils % (Manual) 0 % (0.0-1.8)
[2018-08-25 08:24] LABS: Hypochromasia Few; Large Platelets Few; Platelet Estimate Consistent w Auto; Schistocytes Few
--- NOTE | 2018-08-25 08:59 | Progress Note ---
Assessment and Plan - Patient Problems (1) Acute kidney injury Current Visit: Yes Status: Acute Plan to address problem: CHACORTA likely due to Prerenal azotemia secondary to volume depletion in the setting of osmotic diuresis from hyperglycemia. renal function unchanged, given chest tightness will d/c IVF to avoid fluid overload. CT of the abdomen and P sandra uinremarkable. Avoid potential nephrotoxins. Follow-up electrolytes and renal function. (2) Cellulitis of buttock, left Current Visit: Yes Status: Acute Plan to address problem: Continue antibiotics. Gen. surgery consult for possible incision and drainage (3) Hyperglycemia due to type 2 diabetes mellitus Current Visit: No Status: Acute Plan to address problem: Blood sugar management by primary attending. (4) Chronic kidney disease, stage 3 (moderate) Current Visit: Yes Status: Acute Plan to address problem: Chronic kidney disease presumably secondary to diabetic nephropathy/hypertensive nephrosclerosis. reinforced good blood sugar and blood pressure control as an outpatient to delay progression to End stage renal disease. (5) Hyponatremia Current Visit: Yes Status: Acute Plan to address problem: Factitous secondary to hyperglycemia superimposed on hypovolemic hyponatremia. improved with glucose control (6) Hypokalemia Current Visit: Yes Status: Acute Plan to address problem: K replete (7) Hypertensive chronic kidney disease with stage 1 through stage 4 chronic kidney disease, or unspecified chronic kidney disease Current Visit: Yes Status: Acute Plan to address problem: Follow blood pressure on current medications (8) Neuropathy due to type 2 diabetes mellitus Current Visit: Yes Status: Acute Plan to address problem: Continue gabapentin Subjective Date of service: 08/25/18 Principal diagnosis: CHACORTA Interval history: Pt awake, alert, denies fever, chills, n/v/d, however reports some chest tightness Objective - Vital Signs Vital signs: Vital Signs - 12hr 08/24/18 08/24/18 08/24/18 21:09 21:16 22:00 Temperature 99.7 F H Pulse Rate 101 H Respiratory 18 18 Rate Respiratory 18 Rate [Head] Blood Pressure 150/91 O2 Sat by Pulse 95 Oximetry 08/24/18 08/24/18 08/25/18 23:28 23:33 05:17 Temperature 100.1 F H 100.9 F H Pulse Rate 98 H 95 H Respiratory 20 18 20 Rate Respiratory Rate [Head] Blood Pressure 147/87 142/94 O2 Sat by Pulse 89 91 Oximetry 08/25/18 08/25/18 06:25 08:09 Temperature Pulse Rate Respiratory 18 16 Rate Respiratory Rate [Head] Blood Pressure O2 Sat by Pulse Oximetry - General Appearance General appearance: well-developed, well-nourished, appears stated age EENT: ATNC, PERRL, mucous membranes moist Neck: no JVD Respiratory: Present: Clear to Ascultation Cardiology: regular, S1S2 Gastrointestinal: normoactive bowel sounds, obese Integumentary: no rash Neurologic: no focal deficit, alert and oriented x3, strength 5/5, CN 3-12 intact Psychiatric: mood/affect appropriate, cooperative - Lab 08/25/18 04:54 08/25/18 04:54 Most recent lab results Calcium 8.1 mg/dL (8.4-10.2) L 08/25/18 04:54 Phosphorus 2.80 mg/dL (2.5-4.5) 08/24/18 05:16 Magnesium 1.90 mg/dL (1.7-2.3) 08/25/18 04:54 68.3 mg/dL (0.1-20.0) H 08/23/18 13:06 282 mg/dL (5-11.8) H 08/23/18 13:06 Medications & Allergies - Medications Allergies/Adverse Reactions: Allergies No Known Allergies Allergy (Verified 06/29/16 01:18) Home Medications: Home Medications Medication Instructions Recorded Confirmed Last Taken Type Gabapentin [Neurontin] 300 mg PO TID 06/29/16 08/23/18 01/26/17 History Carvedilol [Coreg] 12.5 mg PO BID #60 tablet 07/12/17 08/23/18 Unknown Rx amLODIPine [Norvasc] 10 mg PO DAILY #30 tab 06/18/18 08/23/18 Unknown Rx hydroCHLOROthiazide [HCTZ] 25 mg PO QDAY #30 tablet 06/18/18 08/23/18 Unknown Rx Insulin Detemir [Levemir VIAL] 10 unit SQ BID 08/23/18 08/23/18 08/22/18 21:00 History Active Medications: Generic Name Dose Route Start Last Admin Trade Name Freq PRN Reason Stop Dose Admin Acetaminophen 650 mg 08/23/18 04:32 08/25/18 05:25 Tylenol PO 650 mg Q4H PRN Administration Pain MILD(1-3)/Fever >100.5/CORREIA Amlodipine Besylate 10 mg 08/23/18 10:00 08/24/18 10:03 Norvasc PO 10 mg DAILY BURTON Administration Carvedilol 12.5 mg 08/23/18 10:00 08/24/18 21:10 Coreg PO 12.5 mg BID BURTON Administration Dextrose 0 ml 08/23/18 04:30 D50w (25gm) Syringe IV PRN PRN Hypoglycemia Docusate Sodium 100 mg 08/23/18 10:00 08/24/18 21:10 Colace PO 100 mg BID BURTON Administration Enoxaparin Sodium 30 mg 08/23/18 10:00 08/24/18 10:03 Lovenox SUB-Q 30 mg QDAY BURTON Administration Gabapentin 300 mg 08/23/18 08:00 08/24/18 21:10 Neurontin PO 300 mg TID BURTON Administration Ampicillin Sodium/Sulbactam Sodium 1.5 gm in 50 mls @ 100 mls/hr 08/23/18 06:00 08/25/18 05:26 Unasyn/Ns 1.5 Gm/50 Ml IV 100 mls/hr Q6HR BURTON Administration Protocol Vancomycin HCl 1 gm in 250 mls @ 166.667 mls/hr 08/25/18 12:00 Vancomycin/Ns 1 Gm/250 Ml IV Q24H BURTON Protocol Insulin Human Isoph/Insulin Regular 25 unit 08/24/18 17:00 08/24/18 18:21 Humulin 70/30 SUB-Q 25 unit BIDDIAB BURTON Administration Insulin Human Lispro 0 unit 08/23/18 11:30 08/25/18 07:40 Humalog SUB-Q Not Given ACHS BURTON Protocol Ondansetron HCl 4 mg 08/23/18 04:32 08/23/18 12:00 Zofran IV 4 mg Q8H PRN Administration Nausea And Vomiting Sodium Chloride 10 ml 08/23/18 10:00 08/24/18 21:11 Sodium Chloride Flush Syringe 10 Ml IV 10 ml BID BURTON Administration Sodium Chloride 10 ml 08/23/18 04:32 Sodium Chloride Flush Syringe 10 Ml IV PRN PRN LINE FLUSH
[2018-08-25] MEDS: NEURONTIN PO SCH ×4 (09:28→23:47)
[2018-08-25] MEDS: COLACE PO SCH ×2 (09:28→23:46)
[2018-08-25] MEDS: NORVASC PO SCH ×2 (09:29→09:51)
[2018-08-25] MEDS: COREG PO SCH ×3 (09:29→23:51)
[2018-08-25] MEDS: LOVENOX SUB-Q SCH (09:29)
[2018-08-25] MEDS: SODIUM CHLORIDE FLUSH SYRINGE 10 ML IV SCH ×2 (09:53→23:55)
[2018-08-25] MEDS ORDERED: APRESOLINE IV ONE (10:00)
[2018-08-25] MEDS ORDERED: D5NS 1,000 ML IV SCH (10:00)
[2018-08-25] MEDS ORDERED: DILAUDID IV PRN (10:01)
[2018-08-25] MEDS ORDERED: PROVENTIL IH ONE (10:01)
--- NOTE | 2018-08-25 10:04 | Anesthesia Consultation ---
Anesthesia Consult and Med Hx Date of service: 08/25/18 - Airway Anesthetic Teeth Evaluation: Poor (multiple loose teeth lower incisors) ROM Head & Neck: Adequate Mental/Hyoid Distance: Adequate Mallampati Class: Class III Intubation Access Assessment: Possibly Difficult - Pulmonary Exam CTA: No (diffuse wheezing) - Cardiac Exam Cardiac Exam: RRR - Pre-Operative Health Status ASA Pre-Surgery Classification: ASA3, Emergency Proposed Anesthetic Plan: General, MAC - Pre-Anesthesia Comment Pre-Anesthesia Comments: GA vs MAC pending discussed with surgeon regarding extent of intended procedure. - Pulmonary Hx Smoking: No Hx Respiratory Symptoms: Yes (bronchitis; last inhaler use just prior to admission) COPD: No Home Oxygen Therapy: No - Cardiovascular System Hx Hypertension: Yes Hx Heart Attack/AMI: No Hx Percutaneous Transluminal Coronary Angioplasty (PTCA): No Hx Cardia Arrhythmia: No - Central Nervous System Hx Seizures: No CVA: No - Gastrointestinal Hx Gastroesophageal Reflux Disease: No - Endocrine Hx Renal Disease: Yes (CKD) Hx Liver Disease: No Hx Insulin Dependent Diabetes: Yes (A1c 8 this amission) Hx Thyroid Disease: No - Hematic Hx Anemia: Yes - Other Systems Hx Obesity: Yes (BMI 37) - Additional Comments Anesthesia Medical History Comments: No prior GA. No FHx anesthetic complications. HD stable. wheezing noted on exam. Albuterol neb ordered to be given prior to procedure.
--- NOTE | 2018-08-25 10:05 | Anesthesia Day of Surgery ---
Anesthesia Day of Surgery - Day of Surgery Patient Examined: Yes Patient H&P Reviewed: Yes Patient is NPO: Yes
[2018-08-25] MEDS ORDERED: DIPRIVAN 10 MG/ML IV ONE (10:13)
[2018-08-25] MEDS ORDERED: XYLOCAINE MPF 2% ONE (10:13)
[2018-08-25] MEDS ORDERED: SUBLIMAZE ONE (10:15)
--- NOTE | 2018-08-25 10:38 | Event Note ---
Date: 08/25/18 Pt with continued fevers and elevated WBC despite being on broad spectrum antibiotics. I had discussed the possibility of debridement and exploration of the left gluteal wound with the patient especially if her fevers and labs did not improve. She was agreeable. I feel that she may have a deep infection. Will take her to OR today for I&D, debridement of left gluteal wound. Consent obtained.
[2018-08-25] MEDS ORDERED: LACTATED RINGERS 1,000 ML IV SCH (11:00)
[2018-08-25] MEDS ORDERED: XYLOCAINE 1% 20 mL ONE (11:18)
[2018-08-25] MEDS ORDERED: MARCAINE 0.5% INFILTRATI ONE ×2 (11:19→11:21)
[2018-08-25] MEDS ORDERED: VERSED ONE (11:21)
[2018-08-25] MEDS ORDERED: XYLOCAINE 1% 20 mL INFILTRATI ONE (11:21)
--- NOTE | 2018-08-25 11:40 | Post Operative Note ---
Date of procedure: 08/25/18 Pre-op diagnosis: abscess and wound of left buttock Post-op diagnosis: same Findings: Large abscess cavity measuring approximately 8 cm x 4 cm with abscess tracking towards ischial bone and laterally. Underlying subcutaneous tissue appeared healthy Procedure: incision and drainage of left gluteal abscess with debridement of wound Anesthesia: MAC, local Surgeon: FER BERMAN Estimated blood loss: minimal Pathology: list (deep wound cultures) Specimen disposition: to lab Condition: stable Disposition: PACU
[2018-08-25] MEDS ORDERED: SUBLIMAZE IV PRN (11:51)
[2018-08-25] MEDS ORDERED: VANCOMYCIN/NS 1 GM/250 ML 1 GM/250 ML BAG IV SCH (12:00)
--- NOTE | 2018-08-25 12:29 | Post Anesthesia Evaluation ---
- Post Anesthesia Evaluation Patient Participated: Yes Airway Patent: Yes Stable Respiratory Function: Yes (see below) Nausea/Vomiting: No Temp > 96.8F: Yes Pain Manageable: Yes Adequeate Hydration: Yes Anesthesia Complications: No Other Comments: SpO2 mid-90s on 3L NC. Baseline mid-80s-low 90s on room air while inpatient. Lungs clear, no additional albuterol needed. Incentive spirometer taught/encouraged prior to transfer back to floor.
[2018-08-25] MEDS ORDERED: NORMODYNE IV ONE ×3 (13:03→13:34)
--- NOTE | 2018-08-25 13:32 | Progress Note ---
Assessment and Plan Assessment and plan: --Abscess left buttock; status post surgical incision and drainage this morning Surgery following, continue current antibiotics, wound care --Sepsis; due to abscess.Lt.buttocks Fever, leukocytosis,Empiric antibiotics, cultures s/p I & D --Sepsis secondary to urinary tract infection add Vanco and cont Unasyn --Hyperosmolar nonketotic hyperglycemia; s/p insulin drip, blood sugars uncontrolled --Tyle1 DM :uncontrolled Increase Lantus to 25 units bid Accu-Cheks Sliding scale coverage, hemoglobin A1c 17.4 Diabetic education, nutrition consult Home health nurse that at discharge for disease monitoring and education --Acute kidney injury; due to vasomotor nephropathy Acute on chronic kidney disease Gentle hydration, avoid nephrotoxins, monitor renal function, Nephrology following --Chronic kidney disease stage III --Hypertension; moderate control Continue current antihypertensives and when necessary medications --Diabetic neuropathy; pleasant on admission Continue gabapentin, supportive cares --Severe malnutrition/hypoalbuminemia albumin 2.6 Secondary to underlying disease process Nutrition supplements, nutrition consult --DVT prophylaxis; Lovenox --Obesity; BMI 37.5 Advised diet modification, lifestyle changes, weight reduction when medically stable Preventive counseling done, spent 10 minutes Monitor closely and adjust the management as needed Consults and recommendations noted Plan of care reviewed with the patient and her nurse History Interval history: Patient seen and examined medical records reviewed s/p surgical incision and drainage of gluteal abscess Patient complains of some pain Vital signs noted Hospitalist Physical - Constitutional Vitals: Temp Pulse Resp BP Pulse Ox 97.1 F L 93 H 22 165/94 96 08/25/18 11:46 08/25/18 13:15 08/25/18 13:15 08/25/18 13:15 08/25/18 13:15 General appearance: Present: no acute distress, well-nourished, obese - EENT Eyes: Present: PERRL, EOM intact - Neck Neck: Present: supple, normal ROM - Respiratory Respiratory effort: normal Respiratory: bilateral: diminished, negative: rales, rhonchi, wheezing - Cardiovascular Rhythm: regular Heart Sounds: Present: S1 & S2 - Extremities Extremities: no ischemia, No edema - Abdominal General gastrointestinal: soft, non-tender, non-distended, normal bowel sounds - Integumentary Integumentary: Present: clear, warm - Psychiatric Psychiatric: appropriate mood/affect, cooperative - Neurologic Neurologic: CNII-XII intact, moves all extremities Results - Labs CBC & Chem 7: 08/25/18 04:54 08/25/18 04:54 Labs: Laboratory Last Values WBC 23.6 K/mm3 (4.5-11.0) H 08/25/18 04:54 RBC 3.08 M/mm3 (3.65-5.03) L 08/25/18 04:54 Hgb 8.7 gm/dl (10.1-14.3) L 08/25/18 04:54 Hct 27.5 % (30.3-42.9) L 08/25/18 04:54 MCV 89 fl (79-97) 08/25/18 04:54 MCH 28 pg (28-32) 08/25/18 04:54 MCHC 32 % (30-34) 08/25/18 04:54 RDW 15.3 % (13.2-15.2) H 08/25/18 04:54 Plt Count 425 K/mm3 (140-440) 08/25/18 04:54 Add Manual Diff Complete 08/25/18 04:54 Total Counted 100 08/25/18 04:54 Seg Neuts % (Manual) 83.0 % (40.0-70.0) H 08/25/18 04:54 0 % 08/25/18 04:54 7.0 % (13.4-35.0) L 08/25/18 04:54 Reactive Lymphs % (Man) 0 % 08/25/18 04:54 9.0 % (0.0-7.3) H 08/25/18 04:54 1.0 % (0.0-4.3) 08/25/18 04:54 0 % (0.0-1.8) 08/25/18 04:54 0 % 08/25/18 04:54 0 % 08/25/18 04:54 0 % 08/25/18 04:54 0 % 08/25/18 04:54 Nucleated RBC % Not Reportable 08/25/18 04:54 Seg Neutrophils # Man 19.6 K/mm3 (1.8-7.7) H 08/25/18 04:54 Band Neutrophils # 0.0 K/mm3 08/25/18 04:54 1.7 K/mm3 (1.2-5.4) 08/25/18 04:54 Abs React Lymphs (Man) 0.0 K/mm3 08/25/18 04:54 2.1 K/mm3 (0.0-0.8) H 08/25/18 04:54 0.2 K/mm3 (0.0-0.4) 08/25/18 04:54 0.0 K/mm3 (0.0-0.1) 08/25/18 04:54 0.0 K/mm3 08/25/18 04:54 0.0 K/mm3 08/25/18 04:54 0.0 K/mm3 08/25/18 04:54 Blast Cells # 0.0 K/mm3 08/25/18 04:54 WBC Morphology Not Reportable 08/25/18 04:54 Hypersegmented Neuts Not Reportable 08/25/18 04:54 Hyposegmented Neuts Not Reportable 08/25/18 04:54 Hypogranular Neuts Not Reportable 08/25/18 04:54 Not Reportable 08/25/18 04:54 Not Reportable 08/25/18 04:54 Not Reportable 08/25/18 04:54 Not Reportable 08/25/18 04:54 Not Reportable 08/25/18 04:54 Not Reportable 08/25/18 04:54 Consistent w auto 08/25/18 04:54 Not Reportable 08/25/18 04:54 Plt Clumps, EDTA Not Reportable 08/25/18 04:54 Few 08/25/18 04:54 Not Reportable 08/25/18 04:54 Not Reportable 08/25/18 04:54 Plt Morphology Comment Not Reportable 08/25/18 04:54 RBC Morphology Not Reportable 08/25/18 04:54 Dimorphic RBCs Not Reportable 08/25/18 04:54 Not Reportable 08/25/18 04:54 Few 08/25/18 04:54 Not Reportable 08/25/18 04:54 Not Reportable 08/25/18 04:54 Not Reportable 08/25/18 04:54 Not Reportable 08/25/18 04:54 Not Reportable 08/25/18 04:54 Not Reportable 08/25/18 04:54 Not Reportable 08/25/18 04:54 Not Reportable 08/25/18 04:54 Not Reportable 08/25/18 04:54 Not Reportable 08/25/18 04:54 Not Reportable 08/25/18 04:54 Not Reportable 08/25/18 04:54 Not Reportable 08/25/18 04:54 Not Reportable 08/25/18 04:54 Not Reportable 08/25/18 04:54 Not Reportable 08/25/18 04:54 Not Reportable 08/25/18 04:54 Acanthocytes (Spur) Not Reportable 08/25/18 04:54 Rouleaux Not Reportable 08/25/18 04:54 Not Reportable 08/25/18 04:54 Few 08/25/18 04:54 Not Reportable 08/25/18 04:54 Not Reportable 08/25/18 04:54 Hem Pathologist Commnt No 08/25/18 04:54 VBG pH 7.382 (7.320-7.420) 08/23/18 01:30 Sodium 134 mmol/L (137-145) L 08/25/18 04:54 Potassium 4.8 mmol/L (3.6-5.0) D 08/25/18 04:54 Chloride 106.4 mmol/L (98-107) 08/25/18 04:54 Carbon Dioxide 17 mmol/L (22-30) L 08/25/18 04:54 15 mmol/L 08/25/18 04:54 BUN 19 mg/dL (7-17) H 08/25/18 04:54 2.1 mg/dL (0.7-1.2) H 08/25/18 04:54 Estimated GFR 34 ml/min 08/25/18 04:54 9 % 08/25/18 04:54 Glucose 90 mg/dL (65-100) 08/25/18 04:54 POC Glucose 108 (70-105) H 08/25/18 07:26 17.4 % (4-6) H 08/23/18 04:48 Lactic Acid 1.10 mmol/L (0.7-2.0) 08/23/18 02:53 Calcium 8.1 mg/dL (8.4-10.2) L 08/25/18 04:54 Phosphorus 2.80 mg/dL (2.5-4.5) 08/24/18 05:16 Magnesium 1.90 mg/dL (1.7-2.3) 08/25/18 04:54 0.30 mg/dL (0.1-1.2) 08/23/18 01:08 AST 26 units/L (5-40) 08/23/18 01:08 ALT 10 units/L (7-56) 08/23/18 01:08 127 units/L (35-129) 08/23/18 01:08 6.9 g/dL (6.3-8.2) 08/23/18 01:08 2.6 g/dL (3.9-5) L 08/23/18 01:08 0.6 % 08/23/18 01:08 21 units/L (13-60) 08/23/18 01:08 HCG, Qual Negative (Negative) 08/23/18 01:30 Straw (Yellow) 08/23/18 02:27 Slightly-cloudy (Clear) 08/23/18 02:27 6.0 (5.0-7.0) 08/23/18 02:27 Ur Specific [place] 1.012 (1.003-1.030) 08/23/18 02:27 100 mg/dl mg/dL (Negative) 08/23/18 02:27 >=500 mg/dL (Negative) 08/23/18 02:27 Neg mg/dL (Negative) 08/23/18 02:27 Neg (Negative) 08/23/18 02:27 Neg (Negative) 08/23/18 02:27 Neg (Negative) 08/23/18 02:27 < 2.0 mg/dL (<2.0) 08/23/18 02:27 Ur Leukocyte Esterase Lg (Negative) 08/23/18 02:27 66.0 /HPF (0.0-6.0) H 08/23/18 02:27 23.0 /HPF (0.0-6.0) 08/23/18 02:27 U Epithel Cells (Auto) 9.0 /HPF (0-13.0) 08/23/18 02:27 68.3 mg/dL (0.1-20.0) H 08/23/18 13:06 282 mg/dL (5-11.8) H 08/23/18 13:06 Hep Bs Antigen Non-reactive (Negative) 08/24/18 05:16 Non-reactive (NonReactive) 08/24/18 05:16 Active Medications - Current Medications Current Medications: Generic Name Dose Route Start Last Admin Trade Name Freq PRN Reason Stop Dose Admin Acetaminophen 650 mg 08/23/18 04:32 08/25/18 05:25 Tylenol PO 650 mg Q4H PRN Administration Pain MILD(1-3)/Fever >100.5/CORREIA Amlodipine Besylate 10 mg 08/23/18 10:00 08/25/18 09:51 Norvasc PO 10 mg DAILY BURTON Administration Carvedilol 12.5 mg 08/23/18 10:00 08/25/18 09:52 Coreg PO 12.5 mg BID BURTON Administration Dextrose 0 ml 08/23/18 04:30 D50w (25gm) Syringe IV PRN PRN Hypoglycemia Docusate Sodium 100 mg 08/23/18 10:00 08/25/18 09:28 Colace PO Not Given BID BURTON Enoxaparin Sodium 30 mg 08/23/18 10:00 08/25/18 09:29 Lovenox SUB-Q Not Given QDAY BURTON Fentanyl 50 mcg 08/25/18 11:51 Sublimaze IV Q5MIN PRN Pain , Severe (7-10) Gabapentin 300 mg 08/23/18 08:00 08/25/18 09:51 Neurontin PO 300 mg TID BURTON Administration Ampicillin Sodium/Sulbactam Sodium 1.5 gm in 50 mls @ 100 mls/hr 08/23/18 06:00 08/25/18 05:26 Unasyn/Ns 1.5 Gm/50 Ml IV 100 mls/hr Q6HR BURTON Administration Protocol Vancomycin HCl 1 gm in 250 mls @ 166.667 mls/hr 08/25/18 12:00 Vancomycin/Ns 1 Gm/250 Ml IV Q24H BURTON Protocol Dextrose/Sodium Chloride 1,000 mls @ 100 mls/hr 08/25/18 10:00 08/25/18 09:53 D5ns IV 100 mls/hr DIRECT BURTON Administration Lactated Ringer's 1,000 mls @ 100 mls/hr 08/25/18 11:00 Lactated Ringers IV DIRECT BURTON Insulin Human Isoph/Insulin Regular 25 unit 08/24/18 17:00 08/25/18 09:28 Humulin 70/30 SUB-Q Not Given BIDDIAB [facility] Insulin Human Lispro 0 unit 08/23/18 11:30 08/25/18 07:40 Humalog SUB-Q Not Given ACHS [facility] Protocol Ondansetron HCl 4 mg 08/23/18 04:32 08/23/18 12:00 Zofran IV 4 mg Q8H PRN Administration Nausea And Vomiting Sodium Chloride 10 ml 08/23/18 10:00 08/25/18 09:53 Sodium Chloride Flush Syringe 10 Ml IV 10 ml BID BURTON Administration Sodium Chloride 10 ml 08/23/18 04:32 Sodium Chloride Flush Syringe 10 Ml IV PRN PRN LINE FLUSH Tramadol HCl 25 mg 08/25/18 11:41 Ultram PO Q4H PRN Pain, Moderate (4-6) Nutrition/Malnutrition Assess - Dietary Evaluation Nutrition/Malnutrition Findings: Nutrition Notes Start: 08/23/18 20:09 Freq: Status: Active Protocol: Document 08/23/18 20:09 RM (Rec: 08/23/18 20:22 RM [id number]) Nutrition Notes Need for Assessment generated from: MD Order Initial or Follow up Assessment Current Diagnosis Acute Kidney Injury,Diabetes, Sepsis Other Pertinent Diagnosis L & R buttocks wounds, UTI, Dehydration, CKD stage II Current Diet Cardiac/Consistent CHO Labs/Tests A1c 17.4 Pertinent Medications Reviewed Height 4 ft 9 in Weight 78.7 kg [place] Body Weight (kg) 38.63 BMI 37.5 Subjective/Other Information Consulted for nutrition recommendations and diet education. Pt briefly on NPO for possible wound debridement but procedure was cancelled. Prior to NPO pt was on Consistent CHO diet and after NPO Cardiac /Consistent CHO was ordered. Pt stated that she ate 1/3 of her breakfast and lunch. Admitted to constipation. Pt stated that he had been previously educated but that it was not very well explained so she did not understand it. Reviewed DM diet education. Gave handout. Percent of energy/protein needs met: 52%/42% Burn Absent Trauma Absent #2 Nutrition Diagnosis Food and nutrition-related knowledge deficit Etiology inadequate previous education As Evidenced by Signs and Symptoms pt desire for education #1 Nutrition Diagnosis Inadequate oral intake Etiology decreased appetite As Evidenced by Signs and Symptoms pt statement that she ate 1/3 of her breakfast and lunch Is patient on ventilator? No Is Patient Ambulatory and/or Out of Bed Yes REE-([place]-St. Jeor-ambulatory/OOB) [ 1801.644 NUTR.[id number]] Kcal/Kg value to use for calculation 17 Approximate Energy Requirements Using 1338 kcal/Kg Calculation Used for Recommendations Kcal/kg Additional Notes Protein Needs: 71-83g (1.2-1. 4g/kg 59 kg adjBW) Fluid Needs: 1 ml/kcal Nutrition Intervention Change Diet Order: Continue current Add Supplement/Snack (indicate name/kcal Glucerna 1 daily /protein ) Provides kCal: 220 Provides Protein (gm) 10 Teaching Recipient Patient Learning Readiness Good Teaching Methods Discussion,Handout Response to Teaching Verbalize understanding Education Handouts Provided Carbohydrate counting for people with diabetes Barriers to Learning No Barriers RD phone number provided Yes Patient aware of follow up options Yes Goal #1 Meet at least 75% of calorie and protein needs via PO and ONS intakes Goal #2 Utilize carbohydrate counting Anticipated Discharge Needs: Cardiac/Consistent CHO diet Follow-Up By: 08/26/18 Additional Comments Follow for PO and ONS intakes
--- NOTE | 2018-08-25 14:14 | Operative Report ---
PREOPERATIVE DIAGNOSIS: Abscess and wound of the left buttock. POSTOPERATIVE DIAGNOSIS: Abscess and wound of the left buttock. FINDINGS: Large abscess cavity measuring approximately 8 cm x 4 cm abscess tracking towards the ischial bone as well as laterally. Underlying subcutaneous tissue appeared healthy. PROCEDURE: Incision and drainage of left gluteal abscess with debridement of wound. ANESTHESIA: MAC and local. SURGEON: Gemma Durant DO ESTIMATED BLOOD LOSS: Minimal. PATHOLOGY: Deep wound culture. SPECIMEN DISPOSITION: To lab. CONDITION AND DISPOSITION: The patient is stable to PACU. HISTORY OF PRESENT ILLNESS AND INDICATION: The patient is a 28-year-old female with uncontrolled diabetes, hemoglobin A1c of 17, who presented to the hospital in [facility]. She was also noted to have a urinary tract infection and cellulitis of the left buttock. The patient stated that she had a wound on the left buttock or boil on the left buttock that must have burst and formed a wound. She was tender in that area; however, she did not demonstrate the signs and symptoms of necrotizing infection. CT scan of this area was performed, which showed cellulitis and no abscess. Therefore, the patient was kept on broad-spectrum antibiotics and observed for 48 hours. Unfortunately, the patient's white blood cell count and fevers did not improve. She was very tender in this area and the induration and cellulitis continued to worsen. Therefore, it was decided to take her to the operating room for debridement, incision and drainage of that area. The patient could not tolerate bedside debridement. She was very tender. All risks, benefits, alternatives of surgery were discussed with the patient. Consent obtained. DESCRIPTION OF PROCEDURE IN DETAIL: The patient was identified in the preoperative area, taken back to the operating room and placed on the operating table in right lateral decubitus position. Anesthesia was induced and the left buttock was prepped and draped in the usual sterile fashion. Timeout was performed. The patient had a 1 cm ulceration at the center of the area of induration and cellulitis. After timeout was performed, local anesthetic was infiltrated into the skin and subcutaneous tissue surrounding this area. Using an 11 blade, the wound was excised and from the underlying subcutaneous tissue using electrocautery. After excision of the wound, there was immediate drainage of purulent fluid. The wound was probed with a hemostat and multiple abscess tracts were found and loculations broken up bluntly. The wound was extended by approximately 2 cm laterally and 2 cm medially in order to facilitate better exploration and drainage of the abscess. Using a gloved finger, the wound was probed and all loculations broken up bluntly. All purulent material was expressed. Abscess cultures were obtained. The wound was irrigated with saline and hemostasis ensured. The wound was then packed with saline moistened Kerlix x one piece. It was covered with 4 x 4 gauze, ABD pad, and tape and mesh underwear was applied. The patient was then awoken from anesthesia, transferred back to a stretcher and brought to PACU in stable condition. All instrument, sharp and sponge counts were correct at the end of the case. The wound measured approximately 8 cm x 4 cm at the end of the case. JOB# [id number] DWIGHT/LEI
[2018-08-26] MEDS ORDERED: PROVENTIL IH PRN (00:23)
[2018-08-26] MEDS: UNASYN/NS 1.5 GM/50 ML 1.5 GM/50 ML BAG IV SCH ×4 (01:57→18:00)
[2018-08-26] MEDS: PROVENTIL IH SCH ×3 (07:11→19:54)
[2018-08-26] MEDS: HumaLOG SUB-Q SCH ×4 (07:30→22:30)
[2018-08-26 08:43] LABS: Hematocrit 24.7 % (30.3-42.9); Hemoglobin 7.8 gm/dl (10.1-14.3); Mean Corpuscular HGB Conc 32 % (30-34); Mean Corpuscular Volume 89 fl (79-97); Red Blood Count 2.79 M/mm3 (3.65-5.03); Red Cell Distribution Width 15.3 % (13.2-15.2)
[2018-08-26 08:57] LABS: Calcium 8.4 mg/dL (8.4-10.2)
[2018-08-26 09:36] LABS: Basophils % (Manual) 0 % (0.0-1.8); Total Cells Counted 100
[2018-08-26 09:43] LABS: Large Platelets Few; Platelet Estimate Consistent w Auto; RBC Morphology Normal
[2018-08-26 09:48] LABS: Platelet Count 359 K/mm3 (140-440)
--- NOTE | 2018-08-26 09:57 | Progress Note ---
Assessment and Plan - Patient Problems (1) Acute kidney injury Current Visit: Yes Status: Acute Plan to address problem: CHACORTA likely due to Prerenal azotemia secondary to volume depletion in the setting of osmotic diuresis from hyperglycemia. renal function unchanged, suspect underlying CKD, recommend to hold maintenance IVF. Avoid potential nephrotoxins. Follow-up electrolytes and renal function. (2) Cellulitis of buttock, left Current Visit: Yes Status: Acute Plan to address problem: Continue antibiotics. s/p incision and drainage (3) Hyperglycemia due to type 2 diabetes mellitus Current Visit: No Status: Acute Plan to address problem: Blood sugar management by primary attending. (4) Chronic kidney disease, stage 3 (moderate) Current Visit: Yes Status: Acute Plan to address problem: Chronic kidney disease presumably secondary to diabetic nep hropathy/hypertensive nephrosclerosis. reinforced good blood sugar and blood pressure control as an outpatient to delay progression to End stage renal disease. (5) Hyponatremia Current Visit: Yes Status: Acute Plan to address problem: Factitous secondary to hyperglycemia superimposed on hypovolemic hyponatremia. improved with glucose control (6) Hypokalemia Current Visit: Yes Status: Acute Plan to address problem: K replete (7) Hypertensive chronic kidney disease with stage 1 through stage 4 chronic kidney disease, or unspecified chronic kidney disease Current Visit: Yes Status: Acute Plan to address problem: Follow blood pressure on current medications (8) Neuropathy due to type 2 diabetes mellitus Current Visit: Yes Status: Acute Plan to address problem: Continue gabapentin Subjective Date of service: 08/26/18 Principal diagnosis: CHACORTA Interval history: Pt awake, alert, denies fever, chills, n/v/d Objective - Vital Signs Vital signs: Vital Signs - 12hr 08/25/18 08/25/18 08/25/18 22:00 23:50 23:51 Temperature 100.0 F H Pulse Rate 109 H Pulse Rate [ Bilateral Throughout] Respiratory 20 20 26 H Rate Respiratory Rate [Bilateral Throughout] Blood Pressure 154/89 O2 Sat by Pulse 90 Oximetry 08/26/18 08/26/18 08/26/18 00:50 02:07 02:24 Temperature Pulse Rate Pulse Rate [ 90 Bilateral Throughout] Respiratory 18 Rate Respiratory 20 Rate [Bilateral Throughout] Blood Pressure O2 Sat by Pulse 87 Oximetry 08/26/18 08/26/18 05:09 07:11 Temperature 97.4 F L Pulse Rate 91 H Pulse Rate [ 91 H Bilateral Throughout] Respiratory 22 Rate Respiratory 20 Rate [Bilateral Throughout] Blood Pressure 124/74 O2 Sat by Pulse 94 96 Oximetry - General Appearance General appearance: well-developed, well-nourished, appears stated age EENT: ATNC, PERRL, mucous membranes moist Neck: no JVD Respiratory: Present: Clear to Ascultation Cardiology: regular, S1S2 Gastrointestinal: normoactive bowel sounds Integumentary: no rash, other (no edema ) Neurologic: no focal deficit, alert and oriented x3, strength 5/5, CN 3-12 intact Psychiatric: mood/affect appropriate, cooperative - Lab 08/26/18 07:56 08/26/18 07:56 Most recent lab results Calcium 8.4 mg/dL (8.4-10.2) 08/26/18 07:56 Phosphorus 2.80 mg/dL (2.5-4.5) 08/24/18 05:16 Magnesium 1.90 mg/dL (1.7-2.3) 08/25/18 04:54 68.3 mg/dL (0.1-20.0) H 08/23/18 13:06 282 mg/dL (5-11.8) H 08/23/18 13:06 Medications & Allergies - Medications Allergies/Adverse Reactions: Allergies No Known Allergies Allergy (Verified 06/29/16 01:18) Home Medications: Home Medications Medication Instructions Recorded Confirmed Last Taken Type Gabapentin [Neurontin] 300 mg PO TID 06/29/16 08/23/18 01/26/17 History Carvedilol [Coreg] 12.5 mg PO BID #60 tablet 07/12/17 08/23/18 Unknown Rx amLODIPine [Norvasc] 10 mg PO DAILY #30 tab 06/18/18 08/23/18 Unknown Rx hydroCHLOROthiazide [HCTZ] 25 mg PO QDAY #30 tablet 06/18/18 08/23/18 Unknown Rx Insulin Detemir [Levemir VIAL] 10 unit SQ BID 08/23/18 08/23/18 08/22/18 21:00 History Active Medications: Generic Name Dose Route Start Last Admin Trade Name Freq PRN Reason Stop Dose Admin Acetaminophen 650 mg 08/23/18 04:32 08/25/18 23:50 Tylenol PO 650 mg Q4H PRN Administration Pain MILD(1-3)/Fever >100.5/CORREIA Albuterol 2.5 mg 08/26/18 00:23 08/26/18 02:04 Proventil IH 2.5 mg Q4HRT PRN Administration Shortness Of Breath Albuterol 2.5 mg 08/26/18 08:00 08/26/18 07:11 Proventil IH 2.5 mg TIDRT BURTON Administration Amlodipine Besylate 10 mg 08/23/18 10:00 08/25/18 09:51 Norvasc PO 10 mg DAILY BURTON Administration Carvedilol 12.5 mg 08/23/18 10:00 08/25/18 23:51 Coreg PO 12.5 mg BID BURTON Administration Dextrose 0 ml 08/23/18 04:30 D50w (25gm) Syringe IV PRN PRN Hypoglycemia Docusate Sodium 100 mg 08/23/18 10:00 08/25/18 23:46 Colace PO 100 mg BID BURTON Administration Enoxaparin Sodium 30 mg 08/23/18 10:00 08/25/18 09:29 Lovenox SUB-Q Not Given QDAY BURTON Fentanyl 50 mcg 08/25/18 11:51 Sublimaze IV Q5MIN PRN Pain , Severe (7-10) Gabapentin 300 mg 08/23/18 08:00 08/25/18 23:47 Neurontin PO 300 mg TID BURTON Administration Ampicillin Sodium/Sulbactam Sodium 1.5 gm in 50 mls @ 100 mls/hr 08/23/18 06:00 08/26/18 06:23 Unasyn/Ns 1.5 Gm/50 Ml IV 100 mls/hr Q6HR BURTON Administration Protocol Vancomycin HCl 1 gm in 250 mls @ 166.667 mls/hr 08/25/18 12:00 08/25/18 15:26 Vancomycin/Ns 1 Gm/250 Ml IV 166.667 mls/hr Q24H BURTON Administration Protocol Lactated Ringer's 1,000 mls @ 100 mls/hr 08/25/18 11:00 08/25/18 14:52 Lactated Ringers IV 100 mls/hr DIRECT BURTON Administration Insulin Human Isoph/Insulin Regular 25 unit 08/24/18 17:00 08/26/18 08:00 Humulin 70/30 SUB-Q 25 unit BIDDIAB BURTON Administration Insulin Human Lispro 0 unit 08/23/18 11:30 08/26/18 07:30 Humalog SUB-Q 4 unit ACHS BURTON Administration Protocol Ondansetron HCl 4 mg 08/23/18 04:32 08/23/18 12:00 Zofran IV 4 mg Q8H PRN Administration Nausea And Vomiting Sodium Chloride 10 ml 08/23/18 10:00 08/25/18 23:55 Sodium Chloride Flush Syringe 10 Ml IV 10 ml BID BURTON Administration Sodium Chloride 10 ml 08/23/18 04:32 Sodium Chloride Flush Syringe 10 Ml IV PRN PRN LINE FLUSH Tramadol HCl 25 mg 08/25/18 11:41 Ultram PO Q4H PRN Pain, Moderate (4-6)
[2018-08-26] MEDS: NEURONTIN PO SCH ×3 (10:52→21:58)
[2018-08-26] MEDS: COREG PO SCH ×2 (10:52→21:58)
[2018-08-26] MEDS: NORVASC PO SCH (10:52)
[2018-08-26] MEDS: COLACE PO SCH ×2 (10:52→21:58)
[2018-08-26] MEDS: SODIUM CHLORIDE FLUSH SYRINGE 10 ML IV SCH ×2 (10:53→22:02)
[2018-08-26] MEDS: LOVENOX SUB-Q SCH (10:53)
--- NOTE | 2018-08-26 11:26 | Progress Note ---
Assessment and Plan 28 yo F s/p incision and drainage of left buttock abscess with debridement of wound, POD 1 1. left buttock wound and abscess 2. uncontrolled DM 3. HTN 4. UTI CT scan A/P - unremarkable. Plan: 1. packing change today and will evaluate for wound vac placement per can line operator 2. c/w abx 3. f/u OR cultures 4. strict glucose control 5. monitor CBC daily Upon discharge, patient will need home care and wound care clinic follow up. Shilpa scussed with pillowcase cleaner Thank you, please call with questions. Subjective Date of service: 08/26/18 Narrative: Pt seen and examined. No acute complaints. Soreness in left buttock region. Objective Vital Signs - 12hr 08/25/18 08/25/18 08/26/18 23:50 23:51 00:50 Temperature 100.0 F H Pulse Rate 109 H Pulse Rate [ Bilateral Throughout] Respiratory 20 26 H 18 Rate Respiratory Rate [Bilateral Throughout] Blood Pressure 154/89 O2 Sat by Pulse 90 Oximetry 08/26/18 08/26/18 08/26/18 02:07 02:24 05:09 Temperature 97.4 F L Pulse Rate 91 H Pulse Rate [ 90 Bilateral Throughout] Respiratory 22 Rate Respiratory 20 Rate [Bilateral Throughout] Blood Pressure 124/74 O2 Sat by Pulse 87 94 Oximetry 08/26/18 08/26/18 07:11 10:52 Temperature Pulse Rate 91 H Pulse Rate [ 91 H Bilateral Throughout] Respiratory Rate Respiratory 20 Rate [Bilateral Throughout] Blood Pressure 124/74 O2 Sat by Pulse 96 Oximetry - General physical appearance Narrative Exam: Gen: AAOx3. NAD CV: s1, S2+ resp: even and unlabored Ext: no c/c/e Buttock: L buttock dressing removed and one piece of gauze packing removed. Wound bed clean without drainage. Induration but improving. Covered with dry gauze - Labs 08/26/18 07:56 08/26/18 07:56 Diabetes panel 08/26/18 Range/Units 07:56 Sodium 137 (137-145) mmol/L Potassium 4.3 (3.6-5.0) mmol/L Chloride 108.7 H (98-107) mmol/L Carbon Dioxide 17 L (22-30) mmol/L BUN 17 (7-17) mg/dL Creatinine 2.1 H (0.7-1.2) mg/dL Glucose 205 H (65-100) mg/dL Calcium 8.4 (8.4-10.2) mg/dL Calcium panel 08/26/18 Range/Units 07:56 Calcium 8.4 (8.4-10.2) mg/dL Pituitary panel 08/26/18 Range/Units 07:56 Sodium 137 (137-145) mmol/L Potassium 4.3 (3.6-5.0) mmol/L Chloride 108.7 H (98-107) mmol/L Carbon Dioxide 17 L (22-30) mmol/L BUN 17 (7-17) mg/dL Creatinine 2.1 H (0.7-1.2) mg/dL Glucose 205 H (65-100) mg/dL Calcium 8.4 (8.4-10.2) mg/dL Adrenal panel 08/26/18 Range/Units 07:56 Sodium 137 (137-145) mmol/L Potassium 4.3 (3.6-5.0) mmol/L Chloride 108.7 H (98-107) mmol/L Carbon Dioxide 17 L (22-30) mmol/L BUN 17 (7-17) mg/dL Creatinine 2.1 H (0.7-1.2) mg/dL Glucose 205 H (65-100) mg/dL Calcium 8.4 (8.4-10.2) mg/dL
[2018-08-26] MEDS ORDERED: MORPHINE IV ONE (11:56)
[2018-08-26] MEDS: ULTRAM PO PRN (12:48)
[2018-08-26] MEDS ORDERED: TESSALON PERLES PO PRN (16:50)
[2018-08-26] MEDS: ZOFRAN IV PRN ×2 (16:56→16:57)
[2018-08-26] MEDS: VANCOMYCIN 1,250 MG in NACL 0.9% 250ML 250 ML IV SCH (17:18)
--- NOTE | 2018-08-26 17:40 | Progress Note ---
Assessment and Plan Assessment and plan: 28-year-old woman with past medical history of type 2 diabetes and CkD stage II was admitted with hyperosmolar nonketotic hyperglycemia and left buttock Abscess, status post incision and drainage, on antibiotics, wound cultures staph aureus, contact isolation --Abscess left buttock; status post surgical incision and drainage this morning Surgery following, continue current antibiotics, wound care --Sepsis; due to abscess.Lt.buttocks Fever, leukocytosis,Empiric antibiotics, cultures s/p I & D --Sepsis secondary to urinary tract infection add Vanco and cont Unasyn --Hyperosmolar nonketotic hyperglycemia; s/p insulin drip, blood sugars uncontrolled --Tyle1 DM :uncontrolled Increase Lantus to 25 units bid Accu-Cheks Sliding scale coverage, hemoglobin A1c 17.4 Diabetic education, nutrition consult Home health nurse that at discharge for disease monitoring and education --Acute kidney injury; due to vasomotor nephropathy Acute on chronic kidney disease Gentle hydration, avoid nephrotoxins, monitor renal function, Nephrology following --Chronic kidney disease stage III --Hypertension; moderate control Continue current antihypertensives and when necessary medications --Diabetic neuropathy; pleasant on admission Continue gabapentin, supportive cares --Severe malnutrition/hypoalbuminemia albumin 2.6 Secondary to underlying disease process Nutrition supplements, nutrition consult --DVT prophylaxis; Lovenox --Obesity; BMI 37.5 Advised diet modification, lifestyle changes, weight reduction when medically stable Preventive counseling done, spent 10 minutes Continue current management Disposition; follow cultures, ID evaluation and recommendations Discharge when stable History Interval history: Patient seen and examined medical records reviewed Wound cultures positive for staph aureus, contact isolation On Vanco and cefepime Patient complains of some pain at the surgical site Vital signs noted Hospitalist Physical - Constitutional Vitals: Temp Pulse Resp BP Pulse Ox 97.4 F L 89 20 124/74 96 08/26/18 05:09 08/26/18 15:00 08/26/18 15:00 08/26/18 10:52 08/26/18 07:11 General appearance: Present: no acute distress, well-nourished, obese - EENT Eyes: Present: PERRL, EOM intact - Neck Neck: Present: supple, normal ROM - Respiratory Respiratory effort: normal Respiratory: negative: rales, rhonchi, wheezing - Cardiovascular Rhythm: regular Heart Sounds: Present: S1 & S2 - Extremities Extremities: no ischemia, No edema - Abdominal General gastrointestinal: soft, non-tender, non-distended, normal bowel sounds - Integumentary Integumentary: Present: clear, warm - Psychiatric Psychiatric: appropriate mood/affect, cooperative - Neurologic Neurologic: moves all extremities Results - Labs CBC & Chem 7: 08/26/18 07:56 08/26/18 07:56 Labs: Laboratory Last Values WBC 25.8 K/mm3 (4.5-11.0) H 08/26/18 07:56 RBC 2.79 M/mm3 (3.65-5.03) L 08/26/18 07:56 Hgb 7.8 gm/dl (10.1-14.3) L 08/26/18 07:56 Hct 24.7 % (30.3-42.9) L 08/26/18 07:56 MCV 89 fl (79-97) 08/26/18 07:56 MCH 28 pg (28-32) 08/26/18 07:56 MCHC 32 % (30-34) 08/26/18 07:56 RDW 15.3 % (13.2-15.2) H 08/26/18 07:56 Plt Count 359 K/mm3 (140-440) 08/26/18 07:56 [place] % (Auto) Transitional Living Specialist 08/26/18 07:56 Add Manual Diff Complete 08/26/18 07:56 Total Counted 100 08/26/18 07:56 Seg Neuts % (Manual) 77.0 % (40.0-70.0) H 08/26/18 07:56 0 % 08/26/18 07:56 13.0 % (13.4-35.0) L 08/26/18 07:56 Reactive Lymphs % (Man) 0 % 08/26/18 07:56 8.0 % (0.0-7.3) H 08/26/18 07:56 1.0 % (0.0-4.3) 08/26/18 07:56 0 % (0.0-1.8) 08/26/18 07:56 1.0 % 08/26/18 07:56 0 % 08/26/18 07:56 0 % 08/26/18 07:56 0 % 08/26/18 07:56 Nucleated RBC % Not Reportable 08/26/18 07:56 Seg Neutrophils # Man 19.9 K/mm3 (1.8-7.7) H 08/26/18 07:56 Band Neutrophils # 0.0 K/mm3 08/26/18 07:56 3.4 K/mm3 (1.2-5.4) 08/26/18 07:56 Abs React Lymphs (Man) 0.0 K/mm3 08/26/18 07:56 2.1 K/mm3 (0.0-0.8) H 08/26/18 07:56 0.3 K/mm3 (0.0-0.4) 08/26/18 07:56 0.0 K/mm3 (0.0-0.1) 08/26/18 07:56 0.3 K/mm3 08/26/18 07:56 0.0 K/mm3 08/26/18 07:56 0.0 K/mm3 08/26/18 07:56 Blast Cells # 0.0 K/mm3 08/26/18 07:56 WBC Morphology Not Reportable 08/26/18 07:56 Hypersegmented Neuts Not Reportable 08/26/18 07:56 Hyposegmented Neuts Not Reportable 08/26/18 07:56 Hypogranular Neuts Not Reportable 08/26/18 07:56 Not Reportable 08/26/18 07:56 Not Reportable 08/26/18 07:56 Not Reportable 08/26/18 07:56 Not Reportable 08/26/18 07:56 Not Reportable 08/26/18 07:56 Not Reportable 08/26/18 07:56 Consistent w auto 08/26/18 07:56 Not Reportable 08/26/18 07:56 Plt Clumps, EDTA Not Reportable 08/26/18 07:56 Few 08/26/18 07:56 Not Reportable 08/26/18 07:56 Not Reportable 08/26/18 07:56 Plt Morphology Comment Not Reportable 08/26/18 07:56 RBC Morphology Normal 08/26/18 07:56 Dimorphic RBCs Not Reportable 08/26/18 07:56 Not Reportable 08/26/18 07:56 Not Reportable 08/26/18 07:56 Not Reportable 08/26/18 07:56 Not Reportable 08/26/18 07:56 Not Reportable 08/26/18 07:56 Not Reportable 08/26/18 07:56 Not Reportable 08/26/18 07:56 Not Reportable 08/26/18 07:56 Not Reportable 08/26/18 07:56 Not Reportable 08/26/18 07:56 Not Reportable 08/26/18 07:56 Not Reportable 08/26/18 07:56 Not Reportable 08/26/18 07:56 Not Reportable 08/26/18 07:56 Not Reportable 08/26/18 07:56 Not Reportable 08/26/18 07:56 Not Reportable 08/26/18 07:56 Not Reportable 08/26/18 07:56 Not Reportable 08/26/18 07:56 Acanthocytes (Spur) Not Reportable 08/26/18 07:56 Rouleaux Not Reportable 08/26/18 07:56 Not Reportable 08/26/18 07:56 Not Reportable 08/26/18 07:56 Not Reportable 08/26/18 07:56 Not Reportable 08/26/18 07:56 Hem Pathologist Commnt No 08/26/18 07:56 VBG pH 7.382 (7.320-7.420) 08/23/18 01:30 Sodium 137 mmol/L (137-145) 08/26/18 07:56 Potassium 4.3 mmol/L (3.6-5.0) 08/26/18 07:56 Chloride 108.7 mmol/L (98-107) H 08/26/18 07:56 Carbon Dioxide 17 mmol/L (22-30) L 08/26/18 07:56 16 mmol/L 08/26/18 07:56 BUN 17 mg/dL (7-17) 08/26/18 07:56 2.1 mg/dL (0.7-1.2) H 08/26/18 07:56 Estimated GFR 34 ml/min 08/26/18 07:56 8 % 08/26/18 07:56 Glucose 205 mg/dL (65-100) H 08/26/18 07:56 POC Glucose 261 (70-105) H 08/26/18 12:10 17.4 % (4-6) H 08/23/18 04:48 Lactic Acid 1.10 mmol/L (0.7-2.0) 08/23/18 02:53 Calcium 8.4 mg/dL (8.4-10.2) 08/26/18 07:56 Phosphorus 2.80 mg/dL (2.5-4.5) 08/24/18 05:16 Magnesium 1.90 mg/dL (1.7-2.3) 08/25/18 04:54 0.30 mg/dL (0.1-1.2) 08/23/18 01:08 AST 26 units/L (5-40) 08/23/18 01:08 ALT 10 units/L (7-56) 08/23/18 01:08 127 units/L (35-129) 08/23/18 01:08 6.9 g/dL (6.3-8.2) 08/23/18 01:08 2.6 g/dL (3.9-5) L 08/23/18 01:08 0.6 % 08/23/18 01:08 21 units/L (13-60) 08/23/18 01:08 HCG, Qual Negative (Negative) 08/23/18 01:30 Straw (Yellow) 08/23/18 02:27 Slightly-cloudy (Clear) 08/23/18 02:27 6.0 (5.0-7.0) 08/23/18 02:27 Ur Specific [place] 1.012 (1.003-1.030) 08/23/18 02:27 100 mg/dl mg/dL (Negative) 08/23/18 02:27 >=500 mg/dL (Negative) 08/23/18 02:27 Neg mg/dL (Negative) 08/23/18 02:27 Neg (Negative) 08/23/18 02:27 Neg (Negative) 08/23/18 02:27 Neg (Negative) 08/23/18 02:27 < 2.0 mg/dL (<2.0) 08/23/18 02:27 Ur Leukocyte Esterase Lg (Negative) 08/23/18 02:27 66.0 /HPF (0.0-6.0) H 08/23/18 02:27 23.0 /HPF (0.0-6.0) 08/23/18 02:27 U Epithel Cells (Auto) 9.0 /HPF (0-13.0) 08/23/18 02:27 68.3 mg/dL (0.1-20.0) H 08/23/18 13:06 282 mg/dL (5-11.8) H 08/23/18 13:06 Vancomycin Trough 19.5 ug/mL (5.0-20.0) 08/26/18 12:45 Hep Bs Antigen Non-reactive (Negative) 08/24/18 05:16 Non-reactive (NonReactive) 08/24/18 05:16 Active Medications - Current Medications Current Medications: Generic Name Dose Route Start Last Admin Trade Name Freq PRN Reason Stop Dose Admin Acetaminophen 650 mg 08/23/18 04:32 08/25/18 23:50 Tylenol PO 650 mg Q4H PRN Administration Pain MILD(1-3)/Fever >100.5/CORREIA Albuterol 2.5 mg 08/26/18 00:23 08/26/18 02:04 Proventil IH 2.5 mg Q4HRT PRN Administration Shortness Of Breath Albuterol 2.5 mg 08/26/18 08:00 08/26/18 15:00 Proventil IH 2.5 mg TIDRT BURTON Administration Amlodipine Besylate 10 mg 08/23/18 10:00 08/26/18 10:52 Norvasc PO 10 mg DAILY BURTON Administration Benzonatate 100 mg 08/26/18 16:50 08/26/18 17:01 Tessalon Perles PO 100 mg Q8HR PRN Administration Cough Carvedilol 12.5 mg 08/23/18 10:00 08/26/18 10:52 Coreg PO 12.5 mg BID BURTON Administration Dextrose 0 ml 08/23/18 04:30 D50w (25gm) Syringe IV PRN PRN Hypoglycemia Docusate Sodium 100 mg 08/23/18 10:00 08/26/18 10:52 Colace PO 100 mg BID BURTON Administration Enoxaparin Sodium 30 mg 08/23/18 10:00 08/26/18 10:53 Lovenox SUB-Q 30 mg QDAY BURTON Administration Fentanyl 50 mcg 08/25/18 11:51 Sublimaze IV Q5MIN PRN Pain , Severe (7-10) Gabapentin 300 mg 08/23/18 08:00 08/26/18 15:07 Neurontin PO 300 mg TID BURTON Administration Ampicillin Sodium/Sulbactam Sodium 1.5 gm in 50 mls @ 100 mls/hr 08/23/18 06:00 08/26/18 12:49 Unasyn/Ns 1.5 Gm/50 Ml IV 100 mls/hr Q6HR BURTON Administration Protocol Vancomycin HCl 1,250 mg/ 275 mls @ 166.667 mls/hr 08/26/18 18:00 08/26/18 17:18 Sodium Chloride IV 166.667 mls/hr Q36H BURTON Administration Insulin Human Isoph/Insulin Regular 25 unit 08/24/18 17:00 08/26/18 08:00 Humulin 70/30 SUB-Q 25 unit BIDDIAB BURTON Administration Insulin Human Lispro 0 unit 08/23/18 11:30 08/26/18 11:30 Humalog SUB-Q 6 unit ACHS BURTON Administration Protocol Ondansetron HCl 4 mg 08/23/18 04:32 08/26/18 16:57 Zofran IV 4 mg Q8H PRN Administration Nausea And Vomiting Sodium Chloride 10 ml 08/23/18 10:00 08/26/18 10:53 Sodium Chloride Flush Syringe 10 Ml IV 10 ml BID BURTON Administration Sodium Chloride 10 ml 08/23/18 04:32 Sodium Chloride Flush Syringe 10 Ml IV PRN PRN LINE FLUSH Tramadol HCl 25 mg 08/25/18 11:41 08/26/18 12:48 Ultram PO 25 mg Q4H PRN Administration Pain, Moderate (4-6) Nutrition/Malnutrition Assess - Dietary Evaluation Nutrition/Malnutrition Findings: Nutrition Notes Start: 08/23/18 20:09 Freq: Status: Active Protocol: Document 08/26/18 17:25 RM (Rec: 08/26/18 17:30 RM [id number]) Nutrition Notes Initial or Follow up Reassessment Current Diagnosis Acute Kidney Injury,Diabetes, Sepsis Other Pertinent Diagnosis L & R buttocks wounds, UTI, Dehydration, CKD stage II Current Diet Cardiac/Consistent CHO Labs/Tests Reviewed Pertinent Medications Zofran Height 4 ft 9 in Weight 79.3 kg [place] Body Weight (kg) 38.63 BMI 37.8 Subjective/Other Information Glucerna was removed between visits during NPO status. Pt stated that she eats most of her meals and drinks the Glucerna. Percent of energy/protein needs met: 100%/100% Burn Absent Trauma Absent #3 Nutrition Diagnosis Increased nutrient needs ( specify in comment below) Comments: glutamine, argnine Etiology wound healing As Evidenced by Signs and Symptoms L and R buttocks wounds #2 Nutrition Diagnosis Food and nutrition-related knowledge deficit As Evidenced by Signs and Symptoms pt received diet education Diagnosis Progress(for reassessment Resolved documentation) #1 Nutrition Diagnosis Inadequate oral intake As Evidenced by Signs and Symptoms pt meeting 100% of calorie and protein needs Diagnosis Progress(for reassessment Resolved documentation) Is patient on ventilator? No Is Patient Ambulatory and/or Out of Bed Yes REE-([facility] [place]-ambulatory/OOB) [ 1809.444 [id number]] Kcal/Kg value to use for calculation 17 Approximate Energy Requirements Using 1348 kcal/Kg Calculation Used for Recommendations Kcal/kg Additional Notes Protein Needs: 71-83g (1.2-1. 4g/kg 59 kg adjBW) Fluid Needs: 1 ml/kcal Nutrition Intervention Change Diet Order: Continue current Add Supplement/Snack (indicate name/kcal D/C Glucerna 1 daily. Add /protein ) Vito BID Provides kCal: 190 Provides Protein (gm) 5 Goal #1 Continue to meet at least 75% of calorie and protein needs via PO and ONS intakes Goal #2 Utilize carbohydrate counting Anticipated Discharge Needs: Cardiac/Consistent CHO diet Follow-Up By: 08/29/18 Additional Comments Follow for PO and Vito intakes
[2018-08-26] MEDS: MAXIPIME/NS 1 GM/100 ML 1 GM/100 ML BAG IV SCH (22:02)
[2018-08-27] MEDS ORDERED: MAXIPIME/NS 1 GM/100 ML 1 GM/100 ML BAG IV SCH
[2018-08-27] MEDS: ULTRAM PO PRN ×2 (01:02→21:56)
[2018-08-27] MEDS: TYLENOL PO PRN (06:11)
[2018-08-27 06:17] LABS: Hematocrit 25.5 % (30.3-42.9); Hemoglobin 8.1 gm/dl (10.1-14.3); Mean Corpuscular HGB Conc 32 % (30-34); Mean Corpuscular Volume 89 fl (79-97); Platelet Count 455 K/mm3 (140-440); Red Blood Count 2.86 M/mm3 (3.65-5.03); Red Cell Distribution Width 15.3 % (13.2-15.2)
[2018-08-27 06:18] LABS: Calcium 8.3 mg/dL (8.4-10.2)
[2018-08-27 08:51] LABS: Anisocytosis Few; Band Neutrophils # (Manual) 0.5 K/mm3; Basophils % (Manual) 0 % (0.0-1.8); Macrocytosis Few; Platelet Estimate Consistent w Auto; Total Cells Counted 100
[2018-08-27] MEDS: PROVENTIL IH SCH ×3 (08:52→20:14)
[2018-08-27] MEDS: HumaLOG SUB-Q SCH ×4 (09:27→22:50)
[2018-08-27] MEDS: SODIUM CHLORIDE FLUSH SYRINGE 10 ML IV SCH ×2 (09:28→22:50)
[2018-08-27] MEDS: NEURONTIN PO SCH ×3 (09:28→21:56)
[2018-08-27] MEDS: MAXIPIME/NS 1 GM/100 ML 1 GM/100 ML BAG IV SCH (10:00)
[2018-08-27] MEDS ORDERED: LASIX IV ONE (11:00)
--- NOTE | 2018-08-27 11:00 | Progress Note ---
Assessment and Plan - Patient Problems (1) Acute kidney injury Current Visit: Yes Status: Acute Plan to address problem: CHACORTA likely due to Prerenal azotemia secondary to volume depletion in the setting of osmotic diuresis from hyperglycemia. renal function unchanged, suspect underlying CKD, recommend to hold maintenance IVF. Avoid potential nephrotoxins. stable for discharge from renal stand point with outpatient CKD f/u in 2 weeks (2) Cellulitis of buttock, left Current Visit: Yes Status: Acute Plan to address problem: Continue antibiotics. s/p incision and drainage (3) Hyperglycemia due to type 2 diabetes mellitus Current Visit: No Status: Acute Plan to address problem: Blood sugar management by primary attending. (4) Chronic kidney disease, stage 3 (moderate) Current Visit: Yes Status: Acute Plan to address problem: Chronic kidney disease presumably secondary to diabetic nephropathy/hypertensive nephrosclerosis. reinforced good blood sugar and blood pressure control as an outpatient to delay progression to End stage renal disease. (5) Hyponatremia Current Visit: Yes Status: Acute Plan to address problem: Factitous secondary to hyperglycemia superimposed on hypovolemic hyponatremia. improved with glucose control (6) Hypokalemia Current Visit: Yes Status: Acute Plan to address problem: K replete (7) Hypertensive chronic kidney disease with stage 1 through stage 4 chronic kidney disease, or unspecified chronic kidney disease Current Visit: Yes Status: Acute Plan to address problem: Follow blood pressure on current medications (8) Neuropathy due to type 2 diabetes mellitus Current Visit: Yes Status: Acute Plan to address problem: Continue gabapentin Subjective Date of service: 08/27/18 Principal diagnosis: CHACORTA Interval history: Pt awake, alert, denies fever, chills, n/v/d Objective - Vital Signs Vital signs: Vital Signs - 12hr 08/27/18 08/27/18 08/27/18 01:08 05:47 08:52 Temperature 99.2 F 100.2 F H Pulse Rate 98 H 93 H Pulse Rate [ 89 Bilateral Throughout] Respiratory 24 24 Rate Respiratory 22 Rate [Bilateral Throughout] Blood Pressure 124/68 117/61 O2 Sat by Pulse 90 91 91 Oximetry - General Appearance General appearance: well-developed, well-nourished, appears stated age EENT: ATNC, PERRL, mucous membranes moist Neck: no JVD Respiratory: Present: Clear to Ascultation Cardiology: regular, S1S2 Gastrointestinal: normoactive bowel sounds, obese Integumentary: no rash, other (no edema ) Neurologic: no focal deficit, alert and oriented x3, strength 5/5, CN 3-12 intact Psychiatric: mood/affect appropriate, cooperative - Lab 08/27/18 05:06 08/27/18 05:06 Most recent lab results Calcium 8.3 mg/dL (8.4-10.2) L 08/27/18 05:06 Phosphorus 2.80 mg/dL (2.5-4.5) 08/24/18 05:16 Magnesium 1.90 mg/dL (1.7-2.3) 08/25/18 04:54 68.3 mg/dL (0.1-20.0) H 08/23/18 13:06 282 mg/dL (5-11.8) H 08/23/18 13:06 Medications & Allergies - Medications Allergies/Adverse Reactions: Allergies No Known Allergies Allergy (Verified 06/29/16 01:18) Home Medications: Home Medications Medication Instructions Recorded Confirmed Last Taken Type Gabapentin [Neurontin] 300 mg PO TID 06/29/16 08/23/18 01/26/17 History Carvedilol [Coreg] 12.5 mg PO BID #60 tablet 07/12/17 08/23/18 Unknown Rx amLODIPine [Norvasc] 10 mg PO DAILY #30 tab 06/18/18 08/23/18 Unknown Rx hydroCHLOROthiazide [HCTZ] 25 mg PO QDAY #30 tablet 06/18/18 08/23/18 Unknown Rx Insulin Detemir [Levemir VIAL] 10 unit SQ BID 08/23/18 08/23/18 08/22/18 21:00 History Active Medications: Generic Name Dose Route Start Last Admin Trade Name Freq PRN Reason Stop Dose Admin Acetaminophen 650 mg 08/23/18 04:32 08/27/18 06:11 Tylenol PO 650 mg Q4H PRN Administration Pain MILD(1-3)/Fever >100.5/CORREIA Albuterol 2.5 mg 08/26/18 00:23 08/26/18 02:04 Proventil IH 2.5 mg Q4HRT PRN Administration Shortness Of Breath Albuterol 2.5 mg 08/26/18 08:00 08/27/18 08:52 Proventil IH 2.5 mg TIDRT BURTON Administration Amlodipine Besylate 10 mg 08/23/18 10:00 08/26/18 10:52 Norvasc PO 10 mg DAILY BURTON Administration Benzonatate 100 mg 08/26/18 16:50 08/26/18 17:01 Tessalon Perles PO 100 mg Q8HR PRN Administration Cough Carvedilol 12.5 mg 08/23/18 10:00 08/26/18 21:58 Coreg PO 12.5 mg BID BURTON Administration Dextrose 0 ml 08/23/18 04:30 D50w (25gm) Syringe IV PRN PRN Hypoglycemia Docusate Sodium 100 mg 08/23/18 10:00 08/26/18 21:58 Colace PO 100 mg BID BURTON Administration Enoxaparin Sodium 30 mg 08/23/18 10:00 08/26/18 10:53 Lovenox SUB-Q 30 mg QDAY BURTON Administration Fentanyl 50 mcg 08/25/18 11:51 Sublimaze IV Q5MIN PRN Pain , Severe (7-10) Furosemide 40 mg 08/27/18 11:00 Lasix IV 08/27/18 11:01 ONCE ONE Gabapentin 300 mg 08/23/18 08:00 08/27/18 09:28 Neurontin PO 300 mg TID BURTON Administration Vancomycin HCl 1,250 mg/ 275 mls @ 166.667 mls/hr 08/26/18 18:00 08/26/18 17:18 Sodium Chloride IV 166.667 mls/hr Q36H BURTON Administration Cefepime HCl 1 gm in 100 mls @ 200 mls/hr 08/26/18 22:00 08/26/18 22:02 Maxipime/Ns 1 Gm/100 Ml IV 200 mls/hr Q12HR BURTON Administration Protocol Insulin Human Isoph/Insulin Regular 25 unit 08/24/18 17:00 08/27/18 07:30 Humulin 70/30 SUB-Q 25 unit BIDDIAB BURTON Administration Insulin Human Lispro 0 unit 08/23/18 11:30 08/27/18 09:27 Humalog SUB-Q 3 unit ACHS BURTON Administration Protocol Ondansetron HCl 4 mg 08/23/18 04:32 08/26/18 16:57 Zofran IV 4 mg Q8H PRN Administration Nausea And Vomiting Sodium Chloride 10 ml 08/23/18 10:00 08/27/18 09:28 Sodium Chloride Flush Syringe 10 Ml IV 10 ml BID BURTON Administration Sodium Chloride 10 ml 08/23/18 04:32 Sodium Chloride Flush Syringe 10 Ml IV PRN PRN LINE FLUSH Tramadol HCl 25 mg 08/25/18 11:41 08/27/18 01:02 Ultram PO 25 mg Q4H PRN Administration Pain, Moderate (4-6)
--- NOTE | 2018-08-27 11:26 | Consultation ---
History of Present Illness - Reason for Consult Consult date: 08/27/18 Sepsis, Staph in wound Requesting physician: DESIRE BUTCHER - History of Present Illness 28 y/o female with history of obesity, hypertension, uncontrolled diabetes, CKD admitted on due to 3-day history of dizziness, lightheadedness, nausea, vomiting and headache. She also noted a boil to her left buttock area which became very painful, she was not able to sit well. She fell in the shower the day of admission. She did not lose consciousness. In the ED, temp 100.8, HR 102, R 20, BP 150/89 . WBC 29. Hg 10.2. Plat 329. Creat 2.2.Glucose 675. A1C 17. UA wbc 66, LE large. Blood culture 08/23/2018 no growth today. Patient was taken to the OR for left buttocks abscess, found to have a large abscess cavity measuring approximately 8 cm x 4 cm with abscess tracking towards ischial bone and laterally. Underlying subcutaneous tissue appeared healthy. OR Wound culture 08/25/2018 MRSA. Review of Systems: General: + fever, +malaise, + chills, +generalized weakness Cutaneous: no rash, pruritus Head: no headaches or injury Eyes: no changes in vision, eye pain, double vision Ears: no ear pain, ear discharge, ringing or hearing loss Nose: no nose bleeding, stuffiness Mouth & throat: no bleeding gums, no horseness, no dental problems, or swollen glands Neck: no pain, node enlargement/lumps, tyroid enlargement or tenderness Respiratory: no SOB, no cough, no BROWN, wheezing, sputum, hemoptysis, pleuritic chest pain Cardiovascular: no chest pain, leg edema, cyanosis, BROWN, orthopnea Musculoskeletal: +left buttocks edema, tenderness Gastrointestinal: no nausea, no vomiting, no hematemesis, diarrhea, constipation, melena, bright red blood in stools, fecal incontinence, jaundice Genitourinary/Reproductive: no frequent urination, dysuria, hematuria, incontinence Neurogical: no seizures, no headaches, no weakness, no paresthesias, no loss of speech or vision; no memory loss, no vertigo, no tremors, no numbness Psychiatric: stable mood; no excessive anxiety, sadness or moodiness Past History Past Medical History: diabetes (insulin dependent, neuropathy diagnosed in 2011. Was on metformin for about a year and has been on insulin since then), hypertension (4 independent), hyperlipidemia, renal failure, other (diabetic neuropathy,) Past Surgical History: No surgical history Social history: no significant social history, lives with family (parents and her brother's). denies: smoking, alcohol abuse, prescription drug abuse, IV drug use Family history: diabetes (both parents. Father had end-stage renal disease and with MRSA infection), hypertension (Both parents), other (2 brothers have bipolar disorder) Medications and Allergies Allergies Allergy/AdvReac Type Severity Reaction Status Date / Time No Known Allergies Allergy Verified 06/29/16 01:18 Home Medications Medication Instructions Recorded Confirmed Last Taken Type Gabapentin [Neurontin] 300 mg PO TID 06/29/16 08/23/18 01/26/17 History Carvedilol [Coreg] 12.5 mg PO BID #60 tablet 07/12/17 08/23/18 Unknown Rx amLODIPine [Norvasc] 10 mg PO DAILY #30 tab 06/18/18 08/23/18 Unknown Rx hydroCHLOROthiazide [HCTZ] 25 mg PO QDAY #30 tablet 06/18/18 08/23/18 Unknown Rx Insulin Detemir [Levemir VIAL] 10 unit SQ BID 08/23/18 08/23/18 08/22/18 21:00 History Active Meds: Active Medications Acetaminophen (Tylenol) 650 mg PO Q4H PRN PRN Reason: Pain MILD(1-3)/Fever >100.5/CORREIA Last Admin: 08/27/18 06:11 Dose: 650 mg Documented by: Albuterol (Proventil) 2.5 mg IH Q4HRT PRN PRN Reason: Shortness Of Breath Last Admin: 08/26/18 02:04 Dose: 2.5 mg Documented by: Albuterol (Proventil) 2.5 mg IH TIDRT [facility] Last Admin: 08/27/18 08:52 Dose: 2.5 mg Documented by: Amlodipine Besylate (Norvasc) 10 mg PO DAILY [facility] Last Admin: 08/26/18 10:52 Dose: 10 mg Documented by: Benzonatate (Tessalon Perles) 100 mg PO Q8HR PRN PRN Reason: Cough Last Admin: 08/26/18 17:01 Dose: 100 mg Documented by: Carvedilol (Coreg) 12.5 mg PO BID [facility] Last Admin: 08/26/18 21:58 Dose: 12.5 mg Documented by: Dextrose (D50w (25gm) Syringe) 0 ml IV PRN PRN PRN Reason: Hypoglycemia Docusate Sodium (Colace) 100 mg PO BID [facility] Last Admin: 08/26/18 21:58 Dose: 100 mg Documented by: Enoxaparin Sodium (Lovenox) 40 mg SUB-Q QDAY@1000 [facility] Fentanyl (Sublimaze) 50 mcg IV Q5MIN PRN PRN Reason: Pain , Severe (7-10) Gabapentin (Neurontin) 300 mg PO TID [facility] Last Admin: 08/27/18 09:28 Dose: 300 mg Documented by: Vancomycin HCl 1,250 mg/ (Sodium Chloride) 275 mls @ 166.667 mls/hr IV Q36H [facility] Last Admin: 08/26/18 17:18 Dose: 166.667 mls/hr Documented by: Cefepime HCl (Maxipime/Ns 1 Gm/100 Ml) 1 gm in 100 mls @ 200 mls/hr IV Q12HR [facility]; Protocol Last Admin: 08/26/18 22:02 Dose: 200 mls/hr Documented by: Insulin Human Isoph/Insulin Regular (Humulin 70/30) 25 unit SUB-Q BIDDIAB [facility] Last Admin: 08/27/18 07:30 Dose: 25 unit Documented by: Insulin Human Lispro (Humalog) 0 unit SUB-Q ACHS [facility]; Protocol Last Admin: 08/27/18 09:27 Dose: 3 unit Documented by: Ondansetron HCl (Zofran) 4 mg IV Q8H PRN PRN Reason: Nausea And Vomiting Last Admin: 08/26/18 16:57 Dose: 4 mg Documented by: Sodium Chloride (Sodium Chloride Flush Syringe 10 Ml) 10 ml IV BID [facility] Last Admin: 08/27/18 09:28 Dose: 10 ml Documented by: Sodium Chloride (Sodium Chloride Flush Syringe 10 Ml) 10 ml IV PRN PRN PRN Reason: LINE FLUSH Tramadol HCl (Ultram) 25 mg PO Q4H PRN PRN Reason: Pain, Moderate (4-6) Last Admin: 08/27/18 01:02 Dose: 25 mg Documented by: Physical Examination - Physical Exam Narrative exam: General appearance: Alert in NAD Eyes: anicteric sclerae, moist conjunctivae; no lid-lag; PERRLA HENT: Atraumatic; oropharynx clear with moist mucous membranes and no mucosal ulcerations/no oral thrush; normal hard and soft palate. Lungs: CTA, with normal respiratory effort and no intercostal retractions CV: RRR no murmur Abdomen: Soft, non-tender; no masses or hepatosplenomegaly Extremities: no edema, no cyanosis Skin: left buttocks with surg wound packed marked induration Psych: Appropriate affect, alert and oriented to person, place and time. Neuro: alert and oriented x 3. Moving all extermities - Constitutional Vitals: Vital Signs Temp Pulse Resp BP Pulse Ox 100.2 F H 89 22 117/61 91 08/27/18 05:47 08/27/18 08:52 08/27/18 08:52 08/27/18 05:47 08/27/18 08:52 Temperature -Last 24 Hours Temperature 100.2 F Temperature 99.2 F Temperature 98.6 F Temperature 98.7 F Results - Labs CBC & Chem 7: 08/27/18 05:06 08/27/18 05:06 Labs: Abnormal lab results 08/26/18 08/26/18 08/26/18 Range/Units 12:10 17:51 21:35 WBC (4.5-11.0) K/mm3 RBC (3.65-5.03) M/mm3 Hgb (10.1-14.3) gm/dl Hct (30.3-42.9) % RDW (13.2-15.2) % Plt Count (140-440) K/mm3 Monocytes % (Manual) (0.0-7.3) % Seg Neutrophils # Man (1.8-7.7) K/mm3 Monocytes # (Manual) (0.0-0.8) K/mm3 Sodium (137-145) mmol/L Carbon Dioxide (22-30) mmol/L Creatinine (0.7-1.2) mg/dL Glucose (65-100) mg/dL POC Glucose 261 H 190 H 298 H (70-105) Calcium (8.4-10.2) mg/dL 08/27/18 08/27/18 Range/Units 05:06 05:06 WBC 24.3 H (4.5-11.0) K/mm3 RBC 2.86 L (3.65-5.03) M/mm3 Hgb 8.1 L (10.1-14.3) gm/dl Hct 25.5 L (30.3-42.9) % RDW 15.3 H (13.2-15.2) % Plt Count 455 H (140-440) K/mm3 Monocytes % (Manual) 18.0 H (0.0-7.3) % Seg Neutrophils # Man 15.6 H (1.8-7.7) K/mm3 Monocytes # (Manual) 4.4 H (0.0-0.8) K/mm3 Sodium 136 L (137-145) mmol/L Carbon Dioxide 17 L (22-30) mmol/L Creatinine 2.2 H (0.7-1.2) mg/dL Glucose 114 H (65-100) mg/dL POC Glucose (70-105) Calcium 8.3 L (8.4-10.2) mg/dL Assessment and Plan Cultures/ID related labs: Blood culture 08/23/2018 no growth today OR Wound culture 08/25/2018 MRSA. Assessment: 28 y/o female with history of obesity, hypertension, uncontrolled diabetes, CKD admitted on due to 3-day history of dizziness, lightheadedness, nausea, vomiting and headache. She also noted a boil to her left buttock area which became very painful, she was not able to sit well. She fell in the shower the day of admission. She did not lose consciousness. 1) Sepsis: present on admission with fever, tachycardia; source left buttocks abscess and UTI. 2) Left buttocks abscess: secondary to MRSA. S/p OR for left buttocks abscess I+D, found to have a large abscess cavity measuring approximately 8 cm x 4 cm with abscess tracking towards ischial bone and laterally. Underlying subcut aneous tissue appeared healthy. OR Wound culture 08/25/2018 MRSA. 3) UTI: UA wbc 66, LE large. 4) Diabetes with DKA 5) CHACORTA Recommendations: continue vancomycin with PK consult stop cefepime start ceftriaxone 1 gm IV q day for UTI at discharge will do oral abx for 10 days contact isolation Will follow. Sarai Card MD Infectious Diseases [facility] M [phone] O [phone]
[2018-08-27] MEDS: COLACE PO SCH ×2 (12:15→21:56)
[2018-08-27] MEDS: COREG PO SCH ×2 (12:19→21:56)
[2018-08-27] MEDS: NORVASC PO SCH (12:20)
[2018-08-27] MEDS ORDERED: ROCEPHIN/NS 1 GM/50 ML 1 GM/50 ML BAG IV SCH (14:00)
[2018-08-27] MEDS: ROCEPHIN/NS 1 GM/50 ML 1 GM/50 ML BAG IV SCH (15:00)
--- NOTE | 2018-08-27 16:14 | Progress Note ---
Assessment and Plan Assessment and plan: 28-year-old woman with past medical history of type 2 diabetes and CkD stage II was admitted with hyperosmolar nonketotic hyperglycemia and left buttock Abscess, status post incision and drainage, on antibiotics, wound cultures staph aureus, MRSA ,contact isolation, ID evaluated --Abscess left buttock; status post surgical incision and drainage Surgery following, on vancomycin --MRSA Sepsis; due to abscess.Lt.buttocks Vancomycin, ID following --Sepsis secondary to urinary tract infection, Rocephin --Hyperosmolar nonketotic hyperglycemia; s/p insulin drip, blood sugars moderate control --Tyle1 DM :uncontrolled, moderate control Accu-Chek sliding scale coverage and ADA diet hemoglobin A1c 17.4, Novolin 70/30, adjust as needed Diabetic education, nutrition consult, home health nurse upon discharge --Acute kidney injury; due to vasomotor nephropathy Acute on chronic kidney disease Gentle hydration, avoid nephrotoxins, monitor renal function, Nephrology following --Chronic kidney disease stage III --Hypertension; moderate control Continue current antihypertensives and when necessary medications --Diabetic neuropathy; pleasant on admission Continue gabapentin, supportive cares --Severe malnutrition/hypoalbuminemia albumin 2.6 Nutrition supplements, nutrition consult --DVT prophylaxis; Lovenox --Obesity; BMI 37.5 Advised diet modification, lifestyle changes, weight reduction when medically stable Preventive counseling done, spent 10 minutes Continue current management Disposition; discharged when clinically stable Plan of care discussed with the patient and her nurse History Interval history: Patient seen and examined and examined medical records reviewed MRSA wound infection, contact isolation Started on Vanco for MRSA, Rocephin for UTI Afebrile vital signs stable Hospitalist Physical - Constitutional Vitals: Temp Pulse Resp BP Pulse Ox 98.6 F 95 H 20 170/91 94 08/27/18 12:16 08/27/18 13:01 08/27/18 13:01 08/27/18 12:20 08/27/18 12:16 General appearance: Present: no acute distress, well-nourished, obese - EENT Eyes: Present: PERRL, EOM intact - Neck Neck: Present: supple, normal ROM - Respiratory Respiratory effort: normal Respiratory: bilateral: diminished, negative: rales, rhonchi, wheezing - Cardiovascular Rhythm: regular Heart Sounds: Present: S1 & S2 - Extremities Extremities: no ischemia, No edema - Abdominal General gastrointestinal: soft, non-tender, non-distended, normal bowel sounds - Integumentary Integumentary: Present: clear, warm - Psychiatric Psychiatric: appropriate mood/affect, cooperative - Neurologic Neurologic: CNII-XII intact, other - Allied Health Allied health notes reviewed: nursing, case management Results - Labs CBC & Chem 7: 08/27/18 05:06 08/27/18 05:06 Labs: Laboratory Last Values WBC 24.3 K/mm3 (4.5-11.0) H 08/27/18 05:06 RBC 2.86 M/mm3 (3.65-5.03) L 08/27/18 05:06 Hgb 8.1 gm/dl (10.1-14.3) L 08/27/18 05:06 Hct 25.5 % (30.3-42.9) L 08/27/18 05:06 MCV 89 fl (79-97) 08/27/18 05:06 MCH 29 pg (28-32) 08/27/18 05:06 MCHC 32 % (30-34) 08/27/18 05:06 RDW 15.3 % (13.2-15.2) H 08/27/18 05:06 Plt Count 455 K/mm3 (140-440) H 08/27/18 05:06 Lymph % (Auto) Storage Battery Tester 08/27/18 05:06 [place]eson % (Auto) Storage Battery Tester 08/27/18 05:06 Eos % (Auto) Storage Battery Tester 08/27/18 05:06 Baso % (Auto) Storage Battery Tester 08/27/18 05:06 Lymph # Storage Battery Tester 08/27/18 05:06 Rob[place] # Storage Battery Tester 08/27/18 05:06 Eos # Storage Battery Tester 08/27/18 05:06 Baso # Storage Battery Tester 08/27/18 05:06 Add Manual Diff Complete 08/27/18 05:06 Total Counted 100 08/27/18 05:06 Seg Neutrophils % Storage Battery Tester 08/27/18 05:06 Seg Neuts % (Manual) 64.0 % (40.0-70.0) 08/27/18 05:06 2.0 % 08/27/18 05:06 15.0 % (13.4-35.0) 08/27/18 05:06 Reactive Lymphs % (Man) 0 % 08/27/18 05:06 18.0 % (0.0-7.3) H 08/27/18 05:06 1.0 % (0.0-4.3) 08/27/18 05:06 0 % (0.0-1.8) 08/27/18 05:06 0 % 08/27/18 05:06 0 % 08/27/18 05:06 0 % 08/27/18 05:06 0 % 08/27/18 05:06 Nucleated RBC % Not Reportable 08/27/18 05:06 Seg Neutrophils # Storage Battery Tester 08/27/18 05:06 Seg Neutrophils # Man 15.6 K/mm3 (1.8-7.7) H 08/27/18 05:06 Band Neutrophils # 0.5 K/mm3 08/27/18 05:06 3.6 K/mm3 (1.2-5.4) 08/27/18 05:06 Abs React Lymphs (Man) 0.0 K/mm3 08/27/18 05:06 4.4 K/mm3 (0.0-0.8) H 08/27/18 05:06 0.2 K/mm3 (0.0-0.4) 08/27/18 05:06 0.0 K/mm3 (0.0-0.1) 08/27/18 05:06 0.0 K/mm3 08/27/18 05:06 0.0 K/mm3 08/27/18 05:06 0.0 K/mm3 08/27/18 05:06 Blast Cells # 0.0 K/mm3 08/27/18 05:06 WBC Morphology Not Reportable 08/27/18 05:06 Hypersegmented Neuts Not Reportable 08/27/18 05:06 Hyposegmented Neuts Not Reportable 08/27/18 05:06 Hypogranular Neuts Not Reportable 08/27/18 05:06 Not Reportable 08/27/18 05:06 Not Reportable 08/27/18 05:06 Not Reportable 08/27/18 05:06 Not Reportable 08/27/18 05:06 Not Reportable 08/27/18 05:06 Not Reportable 08/27/18 05:06 Consistent w auto 08/27/18 05:06 Not Reportable 08/27/18 05:06 Plt Clumps, EDTA Not Reportable 08/27/18 05:06 Not Reportable 08/27/18 05:06 Not Reportable 08/27/18 05:06 Not Reportable 08/27/18 05:06 Plt Morphology Comment Not Reportable 08/27/18 05:06 RBC Morphology Not Reportable 08/27/18 05:06 Dimorphic RBCs Not Reportable 08/27/18 05:06 Few 08/27/18 05:06 Not Reportable 08/27/18 05:06 Not Reportable 08/27/18 05:06 Few 08/27/18 05:06 Not Reportable 08/27/18 05:06 Few 08/27/18 05:06 Not Reportable 08/27/18 05:06 Not Reportable 08/27/18 05:06 Not Reportable 08/27/18 05:06 Not Reportable 08/27/18 05:06 Not Reportable 08/27/18 05:06 Not Reportable 08/27/18 05:06 Not Reportable 08/27/18 05:06 Not Reportable 08/27/18 05:06 Not Reportable 08/27/18 05:06 Not Reportable 08/27/18 05:06 Not Reportable 08/27/18 05:06 Not Reportable 08/27/18 05:06 Not Reportable 08/27/18 05:06 Acanthocytes (Spur) Not Reportable 08/27/18 05:06 Rouleaux Not Reportable 08/27/18 05:06 Not Reportable 08/27/18 05:06 Not Reportable 08/27/18 05:06 Not Reportable 08/27/18 05:06 Not Reportable 08/27/18 05:06 Hem Pathologist Commnt No 08/27/18 05:06 VBG pH 7.382 (7.320-7.420) 08/23/18 01:30 Sodium 136 mmol/L (137-145) L 08/27/18 05:06 Potassium 4.2 mmol/L (3.6-5.0) 08/27/18 05:06 Chloride 106.8 mmol/L (98-107) 08/27/18 05:06 Carbon Dioxide 17 mmol/L (22-30) L 08/27/18 05:06 16 mmol/L 08/27/18 05:06 BUN 17 mg/dL (7-17) 08/27/18 05:06 2.2 mg/dL (0.7-1.2) H 08/27/18 05:06 Estimated GFR 32 ml/min 08/27/18 05:06 8 % 08/27/18 05:06 Glucose 114 mg/dL (65-100) H 08/27/18 05:06 POC Glucose 182 (70-105) H 08/27/18 13:19 17.4 % (4-6) H 08/23/18 04:48 Lactic Acid 1.10 mmol/L (0.7-2.0) 08/23/18 02:53 Calcium 8.3 mg/dL (8.4-10.2) L 08/27/18 05:06 Phosphorus 2.80 mg/dL (2.5-4.5) 08/24/18 05:16 Magnesium 1.90 mg/dL (1.7-2.3) 08/25/18 04:54 0.30 mg/dL (0.1-1.2) 08/23/18 01:08 AST 26 units/L (5-40) 08/23/18 01:08 ALT 10 units/L (7-56) 08/23/18 01:08 127 units/L (35-129) 08/23/18 01:08 6.9 g/dL (6.3-8.2) 08/23/18 01:08 2.6 g/dL (3.9-5) L 08/23/18 01:08 0.6 % 08/23/18 01:08 21 units/L (13-60) 08/23/18 01:08 HCG, Qual Negative (Negative) 08/23/18 01:30 Straw (Yellow) 08/23/18 02:27 Slightly-cloudy (Clear) 08/23/18 02:27 6.0 (5.0-7.0) 08/23/18 02:27 Ur Specific [place] 1.012 (1.003-1.030) 08/23/18 02:27 100 mg/dl mg/dL (Negative) 08/23/18 02:27 >=500 mg/dL (Negative) 08/23/18 02:27 Neg mg/dL (Negative) 08/23/18 02:27 Neg (Negative) 08/23/18 02:27 Neg (Negative) 08/23/18 02:27 Neg (Negative) 08/23/18 02:27 < 2.0 mg/dL (<2.0) 08/23/18 02:27 Ur Leukocyte Esterase Lg (Negative) 08/23/18 02:27 66.0 /HPF (0.0-6.0) H 08/23/18 02:27 23.0 /HPF (0.0-6.0) 08/23/18 02:27 U Epithel Cells (Auto) 9.0 /HPF (0-13.0) 08/23/18 02:27 68.3 mg/dL (0.1-20.0) H 08/23/18 13:06 282 mg/dL (5-11.8) H 08/23/18 13:06 Vancomycin Trough 19.5 ug/mL (5.0-20.0) 08/26/18 12:45 Hep Bs Antigen Non-reactive (Negative) 08/24/18 05:16 Non-reactive (NonReactive) 08/24/18 05:16 Active Medications - Current Medications Current Medications: Generic Name Dose Route Start Last Admin Trade Name Freq PRN Reason Stop Dose Admin Acetaminophen 650 mg 08/23/18 04:32 08/27/18 06:11 Tylenol PO 650 mg Q4H PRN Administration Pain MILD(1-3)/Fever >100.5/CORREIA Albuterol 2.5 mg 08/26/18 00:23 08/26/18 02:04 Proventil IH 2.5 mg Q4HRT PRN Administration Shortness Of Breath Albuterol 2.5 mg 08/26/18 08:00 08/27/18 13:01 Proventil IH 2.5 mg TIDRT [facility] Administration Amlodipine Besylate 10 mg 08/23/18 10:00 08/27/18 12:20 Norvasc PO 10 mg DAILY [facility] Administration Benzonatate 100 mg 08/26/18 16:50 08/26/18 17:01 Tessalon Perles PO 100 mg Q8HR PRN Administration Cough Carvedilol 12.5 mg 08/23/18 10:00 08/27/18 12:19 Coreg PO 12.5 mg BID [facility] Administration Dextrose 0 ml 08/23/18 04:30 D50w (25gm) Syringe IV PRN PRN Hypoglycemia Docusate Sodium 100 mg 08/23/18 10:00 08/27/18 12:15 Colace PO Not Given BID [facility] Enoxaparin Sodium 40 mg 08/28/18 10:00 Lovenox SUB-Q QDAY@1000 [facility] Fentanyl 50 mcg 08/25/18 11:51 Sublimaze IV Q5MIN PRN Pain , Severe (7-10) Gabapentin 300 mg 08/23/18 08:00 08/27/18 13:48 Neurontin PO 300 mg TID [facility] Administration Vancomycin HCl 1,250 mg/ 275 mls @ 166.667 mls/hr 08/26/18 18:00 08/26/18 17:18 Sodium Chloride IV 166.667 mls/hr Q36H [facility] Administration Ceftriaxone Sodium 1 gm in 50 mls @ 100 mls/hr 08/27/18 15:00 Rocephin/Ns 1 Gm/50 Ml IV Q24HR [facility] Insulin Human Isoph/Insulin Regular 25 unit 08/24/18 17:00 08/27/18 07:30 Humulin 70/30 SUB-Q 25 unit BIDDIAB [facility] Administration Insulin Human Lispro 0 unit 08/23/18 11:30 08/27/18 13:49 Humalog SUB-Q 4 unit ACHS [facility] Administration Protocol Ondansetron HCl 4 mg 08/23/18 04:32 08/26/18 16:57 Zofran IV 4 mg Q8H PRN Administration Nausea And Vomiting Sodium Chloride 10 ml 08/23/18 10:00 08/27/18 09:28 Sodium Chloride Flush Syringe 10 Ml IV 10 ml BID [facility] Administration Sodium Chloride 10 ml 08/23/18 04:32 Sodium Chloride Flush Syringe 10 Ml IV PRN PRN LINE FLUSH Tramadol HCl 25 mg 08/25/18 11:41 08/27/18 01:02 Ultram PO 25 mg Q4H PRN Administration Pain, Moderate (4-6) Nutrition/Malnutrition Assess - Dietary Evaluation Nutrition/Malnutrition Findings: Nutrition Notes Start: 08/23/18 20:09 Freq: Status: Active Protocol: Document 08/26/18 17:25 RM (Rec: 08/26/18 17:30 RM [id number]) Nutrition Notes Initial or Follow up Reassessment Current Diagnosis Acute Kidney Injury,Diabetes, Sepsis Other Pertinent Diagnosis L & R buttocks wounds, UTI, Dehydration, CKD stage II Current Diet Cardiac/Consistent CHO Labs/Tests Reviewed Pertinent Medications Anoop Height 4 ft 9 in Weight 79.3 kg [place] Body Weight (kg) 38.63 BMI 37.8 Subjective/Other Information Glucerna was removed between visits during NPO status. Pt stated that she eats most of her meals and drinks the Glucerna. Percent of energy/protein needs met: 100%/100% Burn Absent Trauma Absent #3 Nutrition Diagnosis Increased nutrient needs ( specify in comment below) Comments: glutamine, argnine Etiology wound healing As Evidenced by Signs and Symptoms L and R buttocks wounds #2 Nutrition Diagnosis Food and nutrition-related knowledge deficit As Evidenced by Signs and Symptoms pt received diet education Diagnosis Progress(for reassessment Resolved documentation) #1 Nutrition Diagnosis Inadequate oral intake As Evidenced by Signs and Symptoms pt meeting 100% of calorie and protein needs Diagnosis Progress(for reassessment Resolved documentation) Is patient on ventilator? No Is Patient Ambulatory and/or Out of Bed Yes REE-([place]-ambulatory/OOB) [ 1809.444 [id number]] Kcal/Kg value to use for calculation 17 Approximate Energy Requirements Using 1348 kcal/Kg Calculation Used for Recommendations Kcal/kg Additional Notes Protein Needs: 71-83g (1.2-1. 4g/kg 59 kg adjBW) Fluid Needs: 1 ml/kcal Nutrition Intervention Change Diet Order: Continue current Add Supplement/Snack (indicate name/kcal D/C Glucerna 1 daily. Add /protein ) Vito BID Provides kCal: 190 Provides Protein (gm) 5 Goal #1 Continue to meet at least 75% of calorie and protein needs via PO and ONS intakes Goal #2 Utilize carbohydrate counting Anticipated Discharge Needs: Cardiac/Consistent CHO diet Follow-Up By: 08/29/18 Additional Comments Follow for PO and Vito intakes
--- NOTE | 2018-08-27 17:07 | Progress Note ---
Assessment and Plan 28 yo F s/p incision and drainage of left buttock abscess with debridement of wound, POD 2 1. left buttock wound and abscess 2. uncontrolled DM 3. HTN 4. UTI CT scan A/P - unremarkable. Plan: 1. continue wound care per orders 2. c/w abx, ID consulted 3. OR cultures - MRSA, patient on contact precautions 4. strict glucose control 5. trend CBC 6. home care Patient will follow up in wound care clinic when medically cleared for discharge Thank you, please call with questions. Subjective Date of service: 08/27/18 Narrative: Pt seen and examined. No acute complaints. Tm 100.2. Dressing to buttock changed by nursing today. Objective Vital Signs - 12hr 08/27/18 08/27/18 08/27/18 05:47 08:52 12:16 Temperature 100.2 F H 98.6 F Pulse Rate 93 H 109 H Pulse Rate [ 89 Bilateral Throughout] Respiratory 24 20 Rate Respiratory 22 Rate [Bilateral Throughout] Blood Pressure 117/61 Blood Pressure 170/91 [Left] O2 Sat by Pulse 91 91 94 Oximetry 08/27/18 08/27/18 08/27/18 12:19 12:20 13:01 Temperature Pulse Rate 109 H Pulse Rate [ 95 H Bilateral Throughout] Respiratory Rate Respiratory 20 Rate [Bilateral Throughout] Blood Pressure 170/91 170/91 Blood Pressure [Left] O2 Sat by Pulse Oximetry - General physical appearance Narrative Exam: Gen: AAOx3. NAD CV; s1, S2+ resp; even and unlabored L buttock: dressing in place with serosang drainage. Induration improving. No TTP. - Labs 08/27/18 05:06 08/27/18 05:06 Diabetes panel 08/27/18 Range/Units 05:06 Sodium 136 L (137-145) mmol/L Potassium 4.2 (3.6-5.0) mmol/L Chloride 106.8 (98-107) mmol/L Carbon Dioxide 17 L (22-30) mmol/L BUN 17 (7-17) mg/dL Creatinine 2.2 H (0.7-1.2) mg/dL Glucose 114 H (65-100) mg/dL Calcium 8.3 L (8.4-10.2) mg/dL Calcium panel 08/27/18 Range/Units 05:06 Calcium 8.3 L (8.4-10.2) mg/dL Pituitary panel 08/27/18 Range/Units 05:06 Sodium 136 L (137-145) mmol/L Potassium 4.2 (3.6-5.0) mmol/L Chloride 106.8 (98-107) mmol/L Carbon Dioxide 17 L (22-30) mmol/L BUN 17 (7-17) mg/dL Creatinine 2.2 H (0.7-1.2) mg/dL Glucose 114 H (65-100) mg/dL Calcium 8.3 L (8.4-10.2) mg/dL Adrenal panel 08/27/18 Range/Units 05:06 Sodium 136 L (137-145) mmol/L Potassium 4.2 (3.6-5.0) mmol/L Chloride 106.8 (98-107) mmol/L Carbon Dioxide 17 L (22-30) mmol/L BUN 17 (7-17) mg/dL Creatinine 2.2 H (0.7-1.2) mg/dL Glucose 114 H (65-100) mg/dL Calcium 8.3 L (8.4-10.2) mg/dL
[2018-08-28] MEDS: VANCOMYCIN 1,250 MG in NACL 0.9% 250ML 250 ML IV SCH (06:03)
[2018-08-28 06:28] LABS: Hematocrit 22.2 % (30.3-42.9); Hemoglobin 7.2 gm/dl (10.1-14.3); Mean Corpuscular HGB Conc 32 % (30-34); Mean Corpuscular Volume 90 fl (79-97); Platelet Count 496 K/mm3 (140-440); Red Blood Count 2.47 M/mm3 (3.65-5.03); Red Cell Distribution Width 15.5 % (13.2-15.2)
[2018-08-28 06:43] LABS: Calcium 8.8 mg/dL (8.4-10.2)
[2018-08-28] MEDS: HumaLOG SUB-Q SCH ×3 (07:30→16:30)
[2018-08-28] MEDS: NEURONTIN PO SCH ×3 (08:00→21:42)
[2018-08-28 09:35] LABS: Basophils % (Manual) 0 % (0.0-1.8); Eosinophils % (Manual) 0 % (0.0-4.3); Total Cells Counted 100
[2018-08-28 09:46] LABS: Anisocytosis Few; Macrocytosis Rare; Platelet Estimate Consistent w Auto
--- NOTE | 2018-08-28 09:55 | Progress Note ---
Assessment and Plan - Patient Problems (1) Acute kidney injury Current Visit: Yes Status: Acute Plan to address problem: CHACORTA likely due to Prerenal azotemia secondary to volume depletion in the setting of osmotic diuresis from hyperglycemia. renal function unchanged, suspect underlying CKD, recommend to hold maintenance IVF. Avoid potential nephrotoxins. stable for discharge from renal stand point with outpatient CKD f/u in 2 weeks (2) Cellulitis of buttock, left Current Visit: Yes Status: Acute Plan to address problem: Continue antibiotics. s/p incision and drainage (3) Hyperglycemia due to type 2 diabetes mellitus Current Visit: No Status: Acute Plan to address problem: Blood sugar management by primary attending. (4) Chronic kidney disease, stage 3 (moderate) Current Visit: Yes Status: Acute Plan to address problem: Chronic kidney disease presumably secondary to diabetic nephropathy/hypertensive nephrosclerosis. reinforced good blood sugar and blood pressure control as an outpatient to delay progression to End stage renal disease. (5) Hyponatremia Current Visit: Yes Status: Acute Plan to address problem: Factitous secondary to hyperglycemia superimposed on hypovolemic hyponatremia. improved with glucose control (6) Hypokalemia Current Visit: Yes Status: Acute Plan to address problem: K replete (7) Hypertensive chronic kidney disease with stage 1 through stage 4 chronic kidney disease, or unspecified chronic kidney disease Current Visit: Yes Status: Acute Plan to address problem: Follow blood pressure on current medications (8) Neuropathy due to type 2 diabetes mellitus Current Visit: Yes Status: Acute Plan to address problem: Continue gabapentin Subjective Date of service: 08/28/18 Principal diagnosis: CHACORTA Interval history: Pt awake, alert, denies fever, chills, n/v/d Objective - Vital Signs Vital signs: Vital Signs - 12hr 08/27/18 08/28/18 08/28/18 23:09 05:28 05:45 Temperature 99.6 F 98.8 F 98.4 F Pulse Rate 95 H 89 94 H Respiratory 20 21 24 Rate Blood Pressure 124/62 130/64 151/85 O2 Sat by Pulse 87 89 93 Oximetry - General Appearance General appearance: well-developed, well-nourished, appears stated age EENT: ATNC, PERRL, mucous membranes moist Neck: no JVD Respiratory: Present: Clear to Ascultation Cardiology: regular, S1S2 Gastrointestinal: normoactive bowel sounds Integumentary: no rash, other (no edema ) Neurologic: no focal deficit, alert and oriented x3, strength 5/5, CN 3-12 intact Psychiatric: mood/affect appropriate, cooperative - Lab 08/28/18 06:10 08/28/18 06:10 Most recent lab results Calcium 8.8 mg/dL (8.4-10.2) 08/28/18 06:10 Phosphorus 2.80 mg/dL (2.5-4.5) 08/24/18 05:16 Magnesium 1.90 mg/dL (1.7-2.3) 08/25/18 04:54 68.3 mg/dL (0.1-20.0) H 08/23/18 13:06 282 mg/dL (5-11.8) H 08/23/18 13:06 Medications & Allergies - Medications Allergies/Adverse Reactions: Allergies No Known Allergies Allergy (Verified 06/29/16 01:18) Home Medications: Home Medications Medication Instructions Recorded Confirmed Last Taken Type Gabapentin [Neurontin] 300 mg PO TID 06/29/16 08/23/18 01/26/17 History Carvedilol [Coreg] 12.5 mg PO BID #60 tablet 07/12/17 08/23/18 Unknown Rx amLODIPine [Norvasc] 10 mg PO DAILY #30 tab 06/18/18 08/23/18 Unknown Rx hydroCHLOROthiazide [HCTZ] 25 mg PO QDAY #30 tablet 06/18/18 08/23/18 Unknown Rx Insulin Detemir [Levemir VIAL] 10 unit SQ BID 08/23/18 08/23/18 08/22/18 21:00 History Active Medications: Generic Name Dose Route Start Last Admin Trade Name Freq PRN Reason Stop Dose Admin Acetaminophen 650 mg 08/23/18 04:32 08/27/18 06:11 Tylenol PO 650 mg Q4H PRN Administration Pain MILD(1-3)/Fever >100.5/CORREIA Albuterol 2.5 mg 08/26/18 00:23 08/26/18 02:04 Proventil IH 2.5 mg Q4HRT PRN Administration Shortness Of Breath Albuterol 2.5 mg 08/26/18 08:00 08/27/18 20:14 Proventil IH 2.5 mg TIDRT BURTON Administration Amlodipine Besylate 10 mg 08/23/18 10:00 08/27/18 12:20 Norvasc PO 10 mg DAILY BURTON Administration Benzonatate 100 mg 08/26/18 16:50 08/26/18 17:01 Tessalon Perles PO 100 mg Q8HR PRN Administration Cough Carvedilol 12.5 mg 08/23/18 10:00 08/27/18 21:56 Coreg PO 12.5 mg BID BURTON Administration Dextrose 0 ml 08/23/18 04:30 D50w (25gm) Syringe IV PRN PRN Hypoglycemia Docusate Sodium 100 mg 08/23/18 10:00 08/27/18 21:56 Colace PO 100 mg BID BURTON Administration Enoxaparin Sodium 40 mg 08/28/18 10:00 Lovenox SUB-Q QDAY@1000 BURTON Fentanyl 50 mcg 08/25/18 11:51 Sublimaze IV Q5MIN PRN Pain , Severe (7-10) Gabapentin 300 mg 08/23/18 08:00 08/27/18 21:56 Neurontin PO 300 mg TID BURTON Administration Vancomycin HCl 1,250 mg/ 275 mls @ 166.667 mls/hr 08/26/18 18:00 08/28/18 06:03 Sodium Chloride IV 166.667 mls/hr Q36H BURTON Administration Ceftriaxone Sodium 1 gm in 50 mls @ 100 mls/hr 08/27/18 15:00 08/27/18 15:00 Rocephin/Ns 1 Gm/50 Ml IV 100 mls/hr Q24HR BURTON Administration Insulin Human Isoph/Insulin Regular 25 unit 08/24/18 17:00 08/28/18 08:14 Humulin 70/30 SUB-Q 25 unit BIDDIAB BURTON Administration Insulin Human Lispro 0 unit 08/23/18 11:30 08/28/18 07:30 Humalog SUB-Q 3 unit ACHS BURTON Administration Protocol Ondansetron HCl 4 mg 08/23/18 04:32 08/26/18 16:57 Zofran IV 4 mg Q8H PRN Administration Nausea And Vomiting Sodium Chloride 10 ml 08/23/18 10:00 08/27/18 22:50 Sodium Chloride Flush Syringe 10 Ml IV 10 ml BID BURTON Administration Sodium Chloride 10 ml 08/23/18 04:32 Sodium Chloride Flush Syringe 10 Ml IV PRN PRN LINE FLUSH Tramadol HCl 25 mg 08/25/18 11:41 08/27/18 21:56 Ultram PO 25 mg Q4H PRN Administration Pain, Moderate (4-6)
[2018-08-28] MEDS: PROVENTIL IH SCH ×3 (10:10→19:37)
[2018-08-28] MEDS: COLACE PO SCH ×2 (10:57→21:42)
[2018-08-28] MEDS: COREG PO SCH ×2 (10:57→21:42)
[2018-08-28] MEDS: LOVENOX SUB-Q SCH (10:57)
[2018-08-28] MEDS: SODIUM CHLORIDE FLUSH SYRINGE 10 ML IV SCH (10:58)
[2018-08-28] MEDS: NORVASC PO SCH (10:58)
[2018-08-28] MEDS: ROCEPHIN/NS 1 GM/50 ML 1 GM/50 ML BAG IV SCH (10:58)
--- NOTE | 2018-08-28 11:17 | Progress Note ---
Assessment and Plan Cultures/ID related labs: Blood culture 08/23/2018 no growth today OR Wound culture 08/25/2018 MRSA. Assessment: 28 y/o female with history of obesity, hypertension, uncontrolled diabetes, CKD admitted on due to 3-day history of dizziness, lightheadedness, nausea, vomiting and headache. She also noted a boil to her left buttock area which became very painful, she was not able to sit well. She fell in the shower the day of admission. She did not lose consciousness. 1) Sepsis: improved. no fever in >24 hours, source left buttocks abscess and UTI. 2) Left buttocks abscess: secondary to MRSA. S/p OR for left buttocks abscess I+D, found to have a large abscess cavity measuring approximately 8 cm x 4 cm with abscess tracking towards ischial bone and laterally. Underlying subcutaneous tissue appeared healthy. OR Wound culture 08/25/2018 MRSA. 3) UTI: UA wbc 66, LE large. 4) Diabetes with DKA 5) CHACORTA Recommendations: continue vancomycin with PK consult continue ceftriaxone 1 gm IV q day for UTI - last dose today at discharge will do Zyxox 600mg PO BID total 14 days ending 09-07-18 contact isolation follow-up ID clinic in 2 weeks (sent to software sales representative) Inés Chatman NP [facility] M: [phone] O:[phone] Subjective Date of service: 08/28/18 Principal diagnosis: CHACORTA Interval history: Patient seen and examined. Sitting up in bed, reports no acute distress or generalized weakness. no fever. Objective - Exam Narrative Exam: General appearance: Awake. Alert. No acute distress Eyes: anicteric sclerae, moist conjunctivae; no lid-lag; PERRLA HENT: Atraumatic; oropharynx clear with moist mucous membranes and no mucosal ulcerations/no oral thrush; normal hard and soft palate. Lungs: CTA, with normal respiratory effort and no intercostal retractions CV: RRR no murmur Abdomen: Soft, non-tender; no masses or hepatosplenomegaly Extremities: no edema, no cyanosis Skin: left buttocks with surg wound packed marked induration Psych: Appropriate affect, alert and oriented to person, place and time. Neuro: alert and oriented x 3. Moving all extermities - Constitutional Vitals: Vital Signs Temp Pulse Resp BP Pulse Ox 98.4 F 82 18 151/85 95 08/28/18 05:45 08/28/18 08:00 08/28/18 08:00 08/28/18 05:45 08/28/18 10:00 Temperature -Last 24 Hours Temperature 98.4 F Temperature 98.8 F Temperature 99.6 F Temperature 98.6 F Temperature 98.6 F - Labs CBC & Chem 7: 08/28/18 06:10 08/28/18 06:10 Labs: Abnormal lab results 08/27/18 08/27/18 08/27/18 Range/Units 13:19 18:52 21:37 WBC (4.5-11.0) K/mm3 RBC (3.65-5.03) M/mm3 Hgb (10.1-14.3) gm/dl Hct (30.3-42.9) % RDW (13.2-15.2) % Plt Count (140-440) K/mm3 Monocytes % (Manual) (0.0-7.3) % Seg Neutrophils # Man (1.8-7.7) K/mm3 Monocytes # (Manual) (0.0-0.8) K/mm3 Sodium (137-145) mmol/L Carbon Dioxide (22-30) mmol/L BUN (7-17) mg/dL Creatinine (0.7-1.2) mg/dL Glucose (65-100) mg/dL POC Glucose 182 H 317 H 259 H (70-105) 08/28/18 08/28/18 08/28/18 Range/Units 06:10 06:10 08:16 WBC 23.3 H (4.5-11.0) K/mm3 RBC 2.47 L (3.65-5.03) M/mm3 Hgb 7.2 L (10.1-14.3) gm/dl Hct 22.2 L (30.3-42.9) % RDW 15.5 H (13.2-15.2) % Plt Count 496 H (140-440) K/mm3 Monocytes % (Manual) 14.0 H (0.0-7.3) % Seg Neutrophils # Man 15.6 H (1.8-7.7) K/mm3 Monocytes # (Manual) 3.3 H (0.0-0.8) K/mm3 Sodium 134 L (137-145) mmol/L Carbon Dioxide 18 L (22-30) mmol/L BUN 25 H (7-17) mg/dL Creatinine 2.3 H (0.7-1.2) mg/dL Glucose 144 H (65-100) mg/dL POC Glucose 172 H (70-105) // Range/Units 11:16 WBC (4.5-11.0) K/mm3 RBC (3.65-5.03) M/mm3 Hgb (10.1-14.3) gm/dl Hct (30.3-42.9) % RDW (13.2-15.2) % Plt Count (140-440) K/mm3 Monocytes % (Manual) (0.0-7.3) % Seg Neutrophils # Man (1.8-7.7) K/mm3 Monocytes # (Manual) (0.0-0.8) K/mm3 Sodium (137-145) mmol/L Carbon Dioxide (22-30) mmol/L BUN (7-17) mg/dL Creatinine (0.7-1.2) mg/dL Glucose (65-100) mg/dL POC Glucose 220 H (70-105)
[2018-08-28] MEDS: ULTRAM PO PRN (16:05)
--- NOTE | 2018-08-28 16:38 | Progress Note ---
Assessment and Plan Assessment and plan: 28-year-old woman with past medical history of type 2 diabetes and CkD stage II was admitted with hyperosmolar nonketotic hyperglycemia and left buttock Abscess, status post incision and drainage, wound cultures staph aureus, MRSA ,contact isolation, ID evaluated,on IV antibiotics --Abscess left buttock; status post surgical incision and drainage Surgery following, on antibiotics --MRSA Sepsis; due to abscess.Lt.buttocks,contact isolation on Vancomycin, ID following --Sepsis secondary to urinary tract infection, on Rocephin --Hyperosmolar nonketotic hyperglycemia; s/p insulin drip, blood sugars moderate control --Tyle1 DM :uncontrolled, moderate control Accu-Chek sliding scale coverage and ADA diet hemoglobin A1c 17.4, Novolin 70/30, adjust as needed Diabetic education, nutrition consult, home health nurse upon discharge --Acute kidney injury; due to vasomotor nephropathy Acute on chronic kidney disease Gentle hydration, avoid nephrotoxins, monitor renal function, Nephrology following --Chronic kidney disease stage III --Hypertension; moderate control Continue current antihypertensives and when necessary medications --Diabetic neuropathy; pleasant on admission Continue gabapentin, supportive cares --Severe malnutrition/hypoalbuminemia albumin 2.6 Nutrition supplements, nutrition consult --DVT prophylaxis; Lovenox --Obesity; BMI 37.5 Advised diet modification, lifestyle changes, weight reduction when medically stable Preventive counseling done, spent 10 minutes Continue current management Disposition; discharge on oral Abx when clinically stable Plan of care discussed with the patient and her nurse History Interval history: Patient seen and examined. Last night events noted.Patient fell on the floor,no injuris Feels slightly better,Vitals reviewed Hospitalist Physical - Constitutional Vitals: Temp Pulse Resp BP Pulse Ox 98.3 F 84 18 118/71 89 08/28/18 12:25 08/28/18 14:00 08/28/18 14:00 08/28/18 12:25 08/28/18 12:25 General appearance: Present: no acute distress, well-nourished, obese (morbidly) - EENT Eyes: Present: PERRL, EOM intact - Neck Neck: Present: supple, normal ROM - Respiratory Respiratory effort: normal Respiratory: bilateral: diminished, negative: rales, rhonchi, wheezing - Cardiovascular Rhythm: regular Heart Sounds: Present: S1 & S2 - Extremities Extremities: no ischemia Extremity abnormal: edema - Abdominal General gastrointestinal: soft, non-tender, non-distended, normal bowel sounds - Integumentary Integumentary: Present: clear, warm, erythema (Gluteal dressing in place) - Psychiatric Psychiatric: appropriate mood/affect, cooperative - Neurologic Neurologic: moves all extremities Results - Labs CBC & Chem 7: 08/28/18 06:10 08/28/18 06:10 Labs: Laboratory Last Values WBC 23.3 K/mm3 (4.5-11.0) H 08/28/18 06:10 RBC 2.47 M/mm3 (3.65-5.03) L 08/28/18 06:10 Hgb 7.2 gm/dl (10.1-14.3) L 08/28/18 06:10 Hct 22.2 % (30.3-42.9) L 08/28/18 06:10 MCV 90 fl (79-97) 08/28/18 06:10 MCH 29 pg (28-32) 08/28/18 06:10 MCHC 32 % (30-34) 08/28/18 06:10 RDW 15.5 % (13.2-15.2) H 08/28/18 06:10 Plt Count 496 K/mm3 (140-440) H 08/28/18 06:10 Lymph % (Auto) Reservation Manager 08/27/18 05:06 Merrick % (Auto) Reservation Manager 08/27/18 05:06 Eos % (Auto) Reservation Manager 08/27/18 05:06 Baso % (Auto) Reservation Manager 08/27/18 05:06 Lymph # Reservation Manager 08/27/18 05:06 Merrick # Reservation Manager 08/27/18 05:06 Eos # Reservation Manager 08/27/18 05:06 Baso # Reservation Manager 08/27/18 05:06 Add Manual Diff Complete 08/28/18 06:10 Total Counted 100 08/28/18 06:10 Seg Neutrophils % Reservation Manager 08/27/18 05:06 Seg Neuts % (Manual) 67.0 % (40.0-70.0) 08/28/18 06:10 0 % 08/28/18 06:10 19.0 % (13.4-35.0) 08/28/18 06:10 Reactive Lymphs % (Man) 0 % 08/28/18 06:10 14.0 % (0.0-7.3) H 08/28/18 06:10 0 % (0.0-4.3) 08/28/18 06:10 0 % (0.0-1.8) 08/28/18 06:10 0 % 08/28/18 06:10 0 % 08/28/18 06:10 0 % 08/28/18 06:10 0 % 08/28/18 06:10 Nucleated RBC % Not Reportable 08/28/18 06:10 Seg Neutrophils # Reservation Manager 08/27/18 05:06 Seg Neutrophils # Man 15.6 K/mm3 (1.8-7.7) H 08/28/18 06:10 Band Neutrophils # 0.0 K/mm3 08/28/18 06:10 4.4 K/mm3 (1.2-5.4) 08/28/18 06:10 Abs React Lymphs (Man) 0.0 K/mm3 08/28/18 06:10 3.3 K/mm3 (0.0-0.8) H 08/28/18 06:10 0.0 K/mm3 (0.0-0.4) 08/28/18 06:10 0.0 K/mm3 (0.0-0.1) 08/28/18 06:10 0.0 K/mm3 08/28/18 06:10 0.0 K/mm3 08/28/18 06:10 0.0 K/mm3 08/28/18 06:10 Blast Cells # 0.0 K/mm3 08/28/18 06:10 WBC Morphology Not Reportable 08/28/18 06:10 Hypersegmented Neuts Not Reportable 08/28/18 06:10 Hyposegmented Neuts Not Reportable 08/28/18 06:10 Hypogranular Neuts Not Reportable 08/28/18 06:10 Not Reportable 08/28/18 06:10 Not Reportable 08/28/18 06:10 Not Reportable 08/28/18 06:10 Not Reportable 08/28/18 06:10 Not Reportable 08/28/18 06:10 Not Reportable 08/28/18 06:10 Consistent w auto 08/28/18 06:10 Not Reportable 08/28/18 06:10 Plt Clumps, EDTA Not Reportable 08/28/18 06:10 Not Reportable 08/28/18 06:10 Not Reportable 08/28/18 06:10 Not Reportable 08/28/18 06:10 Plt Morphology Comment Not Reportable 08/28/18 06:10 RBC Morphology Not Reportable 08/28/18 06:10 Dimorphic RBCs Not Reportable 08/28/18 06:10 Few 08/28/18 06:10 Not Reportable 08/28/18 06:10 Not Reportable 08/28/18 06:10 Few 08/28/18 06:10 Not Reportable 08/28/18 06:10 Rare 08/28/18 06:10 Not Reportable 08/28/18 06:10 Not Reportable 08/28/18 06:10 Not Reportable 08/28/18 06:10 Not Reportable 08/28/18 06:10 Not Reportable 08/28/18 06:10 Not Reportable 08/28/18 06:10 Not Reportable 08/28/18 06:10 Not Reportable 08/28/18 06:10 Not Reportable 08/28/18 06:10 Not Reportable 08/28/18 06:10 Not Reportable 08/28/18 06:10 Not Reportable 08/28/18 06:10 Not Reportable 08/28/18 06:10 Acanthocytes (Spur) Not Reportable 08/28/18 06:10 Rouleaux Not Reportable 08/28/18 06:10 Not Reportable 08/28/18 06:10 Not Reportable 08/28/18 06:10 Not Reportable 08/28/18 06:10 Not Reportable 08/28/18 06:10 Hem Pathologist Commnt No 08/28/18 06:10 VBG pH 7.382 (7.320-7.420) 08/23/18 01:30 Sodium 134 mmol/L (137-145) L 08/28/18 06:10 Potassium 4.2 mmol/L (3.6-5.0) 08/28/18 06:10 Chloride 103.7 mmol/L (98-107) 08/28/18 06:10 Carbon Dioxide 18 mmol/L (22-30) L 08/28/18 06:10 17 mmol/L 08/28/18 06:10 BUN 25 mg/dL (7-17) H 08/28/18 06:10 2.3 mg/dL (0.7-1.2) H 08/28/18 06:10 Estimated GFR 30 ml/min 08/28/18 06:10 11 % 08/28/18 06:10 Glucose 144 mg/dL (65-100) H 08/28/18 06:10 POC Glucose 220 (70-105) H 08/28/18 11:16 17.4 % (4-6) H 08/23/18 04:48 Lactic Acid 1.10 mmol/L (0.7-2.0) 08/23/18 02:53 Calcium 8.8 mg/dL (8.4-10.2) 08/28/18 06:10 Phosphorus 2.80 mg/dL (2.5-4.5) 08/24/18 05:16 Magnesium 1.90 mg/dL (1.7-2.3) 08/25/18 04:54 0.30 mg/dL (0.1-1.2) 08/23/18 01:08 AST 26 units/L (5-40) 08/23/18 01:08 ALT 10 units/L (7-56) 08/23/18 01:08 127 units/L (35-129) 08/23/18 01:08 6.9 g/dL (6.3-8.2) 08/23/18 01:08 2.6 g/dL (3.9-5) L 08/23/18 01:08 0.6 % 08/23/18 01:08 21 units/L (13-60) 08/23/18 01:08 HCG, Qual Negative (Negative) 08/23/18 01:30 Straw (Yellow) 08/23/18 02:27 Slightly-cloudy (Clear) 08/23/18 02:27 6.0 (5.0-7.0) 08/23/18 02:27 Ur Specific [place] 1.012 (1.003-1.030) 08/23/18 02:27 100 mg/dl mg/dL (Negative) 08/23/18 02:27 >=500 mg/dL (Negative) 08/23/18 02:27 Neg mg/dL (Negative) 08/23/18 02:27 Neg (Negative) 08/23/18 02:27 Neg (Negative) 08/23/18 02:27 Neg (Negative) 08/23/18 02:27 < 2.0 mg/dL (<2.0) 08/23/18 02:27 Ur Leukocyte Esterase Lg (Negative) 08/23/18 02:27 66.0 /HPF (0.0-6.0) H 08/23/18 02:27 23.0 /HPF (0.0-6.0) 08/23/18 02:27 U Epithel Cells (Auto) 9.0 /HPF (0-13.0) 08/23/18 02:27 68.3 mg/dL (0.1-20.0) H 08/23/18 13:06 282 mg/dL (5-11.8) H 08/23/18 13:06 Vancomycin Trough 19.5 ug/mL (5.0-20.0) 08/26/18 12:45 Random Vancomycin 11.4 ug/mL (0-40.0) 08/28/18 06:10 Hep Bs Antigen Non-reactive (Negative) 08/24/18 05:16 Non-reactive (NonReactive) 08/24/18 05:16 Active Medications - Current Medications Current Medications: Generic Name Dose Route Start Last Admin Trade Name Niltonq PRN Reason Stop Dose Admin Acetaminophen 650 mg 08/23/18 04:32 08/27/18 06:11 Tylenol PO 650 mg Q4H PRN Administration Pain MILD(1-3)/Fever >100.5/CORREIA Albuterol 2.5 mg 08/26/18 00:23 08/26/18 02:04 Proventil IH 2.5 mg Q4HRT PRN Administration Shortness Of Breath Albuterol 2.5 mg 08/26/18 08:00 08/28/18 14:03 Proventil IH 2.5 mg TIDRT BURTON Administration Amlodipine Besylate 10 mg 08/23/18 10:00 08/28/18 10:58 Norvasc PO 10 mg DAILY BURTON Administration Benzonatate 100 mg 08/26/18 16:50 08/26/18 17:01 Tessalon Perles PO 100 mg Q8HR PRN Administration Cough Carvedilol 12.5 mg 08/23/18 10:00 08/28/18 10:57 Coreg PO 12.5 mg BID BURTON Administration Dextrose 0 ml 08/23/18 04:30 D50w (25gm) Syringe IV PRN PRN Hypoglycemia Docusate Sodium 100 mg 08/23/18 10:00 08/28/18 10:57 Colace PO 100 mg BID BURTON Administration Enoxaparin Sodium 40 mg 08/28/18 10:00 08/28/18 10:57 Lovenox SUB-Q 40 mg QDAY@1000 BURTON Administration Fentanyl 50 mcg 08/25/18 11:51 Sublimaze IV Q5MIN PRN Pain , Severe (7-10) Gabapentin 300 mg 08/23/18 08:00 08/28/18 14:03 Neurontin PO 300 mg TID BURTON Administration Vancomycin HCl 1,250 mg/ 275 mls @ 166.667 mls/hr 08/26/18 18:00 08/28/18 06:03 Sodium Chloride IV 166.667 mls/hr Q36H BURTON Administration Ceftriaxone Sodium 1 gm in 50 mls @ 100 mls/hr 08/27/18 15:00 08/28/18 10:58 Rocephin/Ns 1 Gm/50 Ml IV 100 mls/hr Q24HR BURTON Administration Insulin Human Isoph/Insulin Regular 25 unit 08/24/18 17:00 08/28/18 08:14 Humulin 70/30 SUB-Q 25 unit BIDDIAB BURTON Administration Insulin Human Lispro 0 unit 08/23/18 11:30 08/28/18 11:30 Humalog SUB-Q 4 unit ACHS BURTON Administration Protocol Ondansetron HCl 4 mg 08/23/18 04:32 08/26/18 16:57 Zofran IV 4 mg Q8H PRN Administration Nausea And Vomiting Sodium Chloride 10 ml 08/23/18 10:00 08/28/18 10:58 Sodium Chloride Flush Syringe 10 Ml IV 10 ml BID BURTON Administration Sodium Chloride 10 ml 08/23/18 04:32 Sodium Chloride Flush Syringe 10 Ml IV PRN PRN LINE FLUSH Tramadol HCl 25 mg 08/25/18 11:41 08/28/18 16:05 Ultram PO 25 mg Q4H PRN Administration Pain, Moderate (4-6) Nutrition/Malnutrition Assess - Dietary Evaluation Nutrition/Malnutrition Findings: Nutrition Notes Start: 08/23/18 20:09 Freq: Status: Active Protocol: Document 08/26/18 17:25 RM (Rec: 08/26/18 17:30 RM [id number]) Nutrition Notes Initial or Follow up Reassessment Current Diagnosis Acute Kidney Injury,Diabetes, Sepsis Other Pertinent Diagnosis L & R buttocks wounds, UTI, Dehydration, CKD stage II Current Diet Cardiac/Consistent CHO Labs/Tests Reviewed Pertinent Medications Zofran Height 4 ft 9 in Weight 79.3 kg [place] Body Weight (kg) 38.63 BMI 37.8 Subjective/Other Information Glucerna was removed between visits during NPO status. Pt stated that she eats most of her meals and drinks the Glucerna. Percent of energy/protein needs met: 100%/100% Burn Absent Trauma Absent #3 Nutrition Diagnosis Increased nutrient needs ( specify in comment below) Comments: glutamine, argnine Etiology wound healing As Evidenced by Signs and Symptoms L and R buttocks wounds #2 Nutrition Diagnosis Food and nutrition-related knowledge deficit As Evidenced by Signs and Symptoms pt received diet education Diagnosis Progress(for reassessment Resolved documentation) #1 Nutrition Diagnosis Inadequate oral intake As Evidenced by Signs and Symptoms pt meeting 100% of calorie and protein needs Diagnosis Progress(for reassessment Resolved documentation) Is patient on ventilator? No Is Patient Ambulatory and/or Out of Bed Yes REE-([facility]-ambulatory/OOB) [ 1809.444 [id number]] Kcal/Kg value to use for calculation 17 Approximate Energy Requirements Using 1348 kcal/Kg Calculation Used for Recommendations Kcal/kg Additional Notes Protein Needs: 71-83g (1.2-1. 4g/kg 59 kg adjBW) Fluid Needs: 1 ml/kcal Nutrition Intervention Change Diet Order: Continue current Add Supplement/Snack (indicate name/kcal D/C Glucerna 1 daily. Add /protein ) Vito BID Provides kCal: 190 Provides Protein (gm) 5 Goal #1 Continue to meet at least 75% of calorie and protein needs via PO and ONS intakes Goal #2 Utilize carbohydrate counting Anticipated Discharge Needs: Cardiac/Consistent CHO diet Follow-Up By: 08/29/18 Additional Comments Follow for PO and Vito intakes
[2018-08-29 00:33] LABS: Hematocrit 27.2 % (30.3-42.9); Hemoglobin 8.5 gm/dl (10.1-14.3); Mean Corpuscular HGB Conc 31 % (30-34); Mean Corpuscular Volume 93 fl (79-97); Platelet Count 636 K/mm3 (140-440); Red Blood Count 2.92 M/mm3 (3.65-5.03); Red Cell Distribution Width 15.7 % (13.2-15.2)
[2018-08-29] MEDS: HumaLOG SUB-Q SCH ×2 (01:13→07:30)
[2018-08-29] MEDS: SODIUM CHLORIDE FLUSH SYRINGE 10 ML IV SCH ×2 (01:14→10:28)
[2018-08-29 02:57] LABS: Band Neutrophils # (Manual) 0.7 K/mm3; Basophils % (Manual) 0 % (0.0-1.8); Total Cells Counted 100
[2018-08-29 02:58] LABS: Platelet Estimate Appears Increased
[2018-08-29 02:59] LABS: Anisocytosis 1+; Hypochromasia 1+; Large Platelets 1+
[2018-08-29 06:56] VITALS: BP 150/84
[2018-08-29] MEDS: NEURONTIN PO SCH (08:00)
--- NOTE | 2018-08-29 08:24 | Discharge Summary ---
Providers - Providers Date of Admission: 08/23/18 04:32 Attending physician: MARILY FERRARA MD 08/23/18 04:30 Consult to Dietitian/Nutrition [CONS] Routine Physician Instructions: Reason For Exam: DKA, moderate to severe malnutrition Reason for Consult: Nutrition Recommendations Reason for Consult: Malnutrition 08/23/18 04:40 Consult to Physician [CONS] Routine Comment: Consulting Provider: YARED MEJIA Physician Instructions: Reason For Exam: CHACORTA ??CDK, hx DM-uncontrolled 08/23/18 04:59 Consult to Physician [CONS] Routine Comment: Consulting Provider: BRANDI LI Physician Instructions: Reason For Exam: cellulitis rt buttock Consult to Wound/ET Nurse [CONS] Routine Reason For Exam: wound eval, sore to rt buttocks 08/26/18 20:52 Consult to Physician [CONS] Routine Comment: Consulting Provider: HERBERT VALENCIA Physician Instructions: Reason For Exam: Sepsis/staph wound cult/Gluteal abscess [I&D] Hospitalization Reason for admission: sepsis Condition: Stable Hospital course: 28-year-old woman with past medical history of type 2 diabetes and CkD stage II was admitted with hyperosmolar nonketotic hyperglycemia and left buttock Abscess, status post incision and drainage, wound cultures staph aureus, MRSA ,contact isolation, ID evaluated,on IV antibiotics --Abscess left buttock; status post surgical incision and drainage Surgery perfomed I/D and pateint was treated with antibiotics IV and changed to LINOZILIDE to compelet 14 days --MRSA Sepsis; due to abscess.Lt.buttocks,contact isolation on Vancomycin, ID saw the patient also --Sepsis secondary to urinary tract infection, on Rocephin --Hyperosmolar nonketotic hyperglycemia; s/p insulin drip, blood sugars moderate control -- Acute Cystitis treated with abx --Tyle1 DM :uncontrolled, moderate control Accu-Chek sliding scale coverage and ADA diet hemoglobin A1c 17.4, Novolin 70/30, Home health was arranged and patient also was given counselling on importance of DM control --Acute kidney injury; due to vasomotor nephropathy Acute on chronic kidney disease Gentle hydration, avoid nephrotoxins, Improved and on discharge patient was advised to follow with [facility] [employer] as further monitoring is required till baseline achieved. she verbalized understanding --Chronic kidney disease stage III --Hypertension; moderate control --Diabetic neuropathy; pleasant on admission Continue gabapentin, supportive cares --Severe malnutrition/hypoalbuminemia albumin 2.6 Nutrition supplements, nutrition consult --Obesity; BMI 37.5 Advised diet modification, lifestyle changes, weight reduction when medically stable Preventive counseling done, spent 10 minutes Disposition: [id number] HOME UNDER HOME [facility] Time spent for discharge: 35 MINS Core Measure Documentation - Palliative Care Palliative Care/ Comfort Measures: Not Applicable - Core Measures Any of the following diagnoses?: none Exam - Physical Exam Narrative exam: General appearance: Present: no acute distress, well-nourished, obese (morbidly) - EENT Eyes: Present: PERRL, EOM intact - Neck Neck: Present: supple, normal ROM - Respiratory Respiratory effort: normal Respiratory: bilateral: diminished, negative: rales, rhonchi, wheezing - Cardiovascular Rhythm: regular Heart Sounds: Present: S1 & S2 - Extremities Extremities: no ischemia Extremity abnormal: edema - Abdominal General gastrointestinal: soft, non-tender, non-distended, normal bowel sounds - Integumentary Integumentary: Present: clear, warm, erythema (Gluteal dressing in place) - Psychiatric Psychiatric: appropriate mood/affect, cooperative - Neurologic Neurologic: moves all extremities - Constitutional Vitals: Temp Pulse Resp BP Pulse Ox 99.0 F 91 H 20 150/84 92 08/29/18 06:14 08/29/18 06:14 08/29/18 06:14 08/29/18 06:14 08/29/18 06:14 Plan Activity: advance as tolerated, fall precautions Diet: diabetic Wound: per your surgeon's advice, per wound nurse instructions Follow up with: PRIMARY CARE, [Referring] - 3-5 Days FER BERMAN DO [Staff Physician] - 7 Days HERBERT VALENCIA MD [Staff Physician] - 7 Days PANKAJ SIMEON MD [Staff Physician] - 14 Days Prescriptions: Docusate Sodium [Colace CAP] 100 mg PO BID #60 capsule Insulin NPH/Regular [NovoLIN 70/30] 25 unit SUB-Q BIDDIAB 30 Days units Benzonatate [Tessalon Perles] 100 mg PO Q8HR PRN #14 capsule PRN Reason: Cough traMADol [Ultram 50 MG tab] 50 mg PO Q6H PRN #14 tablet PRN Reason: Pain, Moderate (4-6) Linezolid [Zyvox] 600 mg PO BID #20 tablet
[2018-08-29] MEDS: PROVENTIL IH SCH (08:45)
[2018-08-29] MEDS: ROCEPHIN/NS 1 GM/50 ML 1 GM/50 ML BAG IV SCH (10:27)
[2018-08-29] MEDS: COLACE PO SCH (10:29)
[2018-08-29] MEDS: LOVENOX SUB-Q SCH (10:29)
[2018-08-29] MEDS: NORVASC PO SCH (10:29)
[2018-08-29] MEDS: COREG PO SCH (10:30)
--- NOTE | 2018-08-29 12:50 | Progress Note ---
Assessment and Plan - Patient Problems (1) Acute kidney injury Current Visit: Yes Status: Acute Plan to address problem: CHACORTA likely due to Prerenal azotemia secondary to volume depletion in the setting of osmotic diuresis from hyperglycemia. renal function unchanged, suspect underlying CKD, recommend to hold maintenance IVF. Avoid potential nephrotoxins. stable for discharge from renal stand point with outpatient CKD f/u in 2 weeks (2) Cellulitis of buttock, left Current Visit: Yes Status: Acute Plan to address problem: Continue antibiotics. s/p incision and drainage (3) Hyperglycemia due to type 2 diabetes mellitus Current Visit: No Status: Acute Plan to address problem: Blood sugar management by primary attending. (4) Chronic kidney disease, stage 3 (moderate) Current Visit: Yes Status: Acute Plan to address problem: Chronic kidney disease presumably secondary to diabetic nephropathy/hypertensive nephrosclerosis. reinforced good blood sugar and blood pressure control as an outpatient to delay progression to End stage renal disease. (5) Hyponatremia Current Visit: Yes Status: Acute Plan to address problem: Factitous secondary to hyperglycemia superimposed on hypovolemic hyponatremia. improved with glucose control (6) Hypokalemia Current Visit: Yes Status: Acute Plan to address problem: K replete (7) Hypertensive chronic kidney disease with stage 1 through stage 4 chronic kidney disease, or unspecified chronic kidney disease Current Visit: Yes Status: Acute Plan to address problem: Follow blood pressure on current medications (8) Neuropathy due to type 2 diabetes mellitus Current Visit: Yes Status: Acute Plan to address problem: Continue gabapentin Subjective Date of service: 08/29/18 Principal diagnosis: CHACORTA Interval history: Pt awake, alert, denies fever, chills, n/v/d Objective - Vital Signs Vital signs: Vital Signs - 12hr 08/29/18 08/29/18 08/29/18 06:14 08:45 08:55 Temperature 99.0 F Pulse Rate 91 H Pulse Rate [ 92 H Bilateral Throughout] Respiratory 20 Rate Respiratory 16 Rate [Bilateral Throughout] Blood Pressure 150/84 O2 Sat by Pulse 92 93 Oximetry - General Appearance General appearance: well-developed, well-nourished, appears stated age, obese EENT: ATNC, PERRL, mucous membranes moist Neck: no JVD Respiratory: Present: Clear to Ascultation Cardiology: regular, S1S2 Gastrointestinal: normoactive bowel sounds Integumentary: no rash, other (no edema ) Neurologic: no focal deficit, alert and oriented x3, strength 5/5, CN 3-12 intact Psychiatric: mood/affect appropriate, cooperative - Lab 08/29/18 00:19 08/28/18 06:10 Most recent lab results Calcium 8.8 mg/dL (8.4-10.2) 08/28/18 06:10 Phosphorus 2.80 mg/dL (2.5-4.5) 08/24/18 05:16 Magnesium 1.90 mg/dL (1.7-2.3) 08/25/18 04:54 68.3 mg/dL (0.1-20.0) H 08/23/18 13:06 282 mg/dL (5-11.8) H 08/23/18 13:06 Medications & Allergies - Medications Allergies/Adverse Reactions: Allergies No Known Allergies Allergy (Verified 06/29/16 01:18) Home Medications: Home Medications Medication Instructions Recorded Confirmed Last Taken Type Gabapentin [Neurontin] 300 mg PO TID 06/29/16 08/23/18 01/26/17 History Carvedilol [Coreg] 12.5 mg PO BID #60 tablet 07/12/17 08/23/18 Unknown Rx amLODIPine [Norvasc] 10 mg PO DAILY #30 tab 06/18/18 08/23/18 Unknown Rx Benzonatate [Tessalon Perles] 100 mg PO Q8HR PRN #14 capsule 08/29/18 Unknown Rx Docusate Sodium [Colace CAP] 100 mg PO BID #60 capsule 08/29/18 Unknown Rx Insulin NPH/Regular [NovoLIN 70/30] 25 unit SUB-Q BIDDIAB 30 Days 08/29/18 Unknown Rx units Linezolid [Zyvox] 600 mg PO BID #20 tablet 08/29/18 Unknown Rx traMADol [Ultram 50 MG tab] 50 mg PO Q6H PRN #14 tablet 08/29/18 Unknown Rx Active Medications: Generic Name Dose Route Start Last Admin Trade Name Freq PRN Reason Stop Dose Admin Acetaminophen 650 mg 08/23/18 04:32 08/27/18 06:11 Tylenol PO 650 mg Q4H PRN Administration Pain MILD(1-3)/Fever >100.5/CORREIA Albuterol 2.5 mg 08/26/18 00:23 08/26/18 02:04 Proventil IH 2.5 mg Q4HRT PRN Administration Shortness Of Breath Amlodipine Besylate 10 mg 08/23/18 10:00 08/29/18 10:29 Norvasc PO 10 mg DAILY BURTON Administration Benzonatate 100 mg 08/26/18 16:50 08/26/18 17:01 Tessalon Perles PO 100 mg Q8HR PRN Administration Cough Carvedilol 12.5 mg 08/23/18 10:00 08/29/18 10:30 Coreg PO 12.5 mg BID BURTON Administration Dextrose 0 ml 08/23/18 04:30 D50w (25gm) Syringe IV PRN PRN Hypoglycemia Docusate Sodium 100 mg 08/23/18 10:00 08/29/18 10:29 Colace PO 100 mg BID BURTON Administration Enoxaparin Sodium 40 mg 08/28/18 10:00 08/29/18 10:29 Lovenox SUB-Q 40 mg QDAY@1000 BURTON Administration Fentanyl 50 mcg 08/25/18 11:51 Sublimaze IV Q5MIN PRN Pain , Severe (7-10) Gabapentin 300 mg 08/23/18 08:00 08/29/18 08:00 Neurontin PO 300 mg TID BURTON Administration Vancomycin HCl 1,250 mg/ 275 mls @ 166.667 mls/hr 08/26/18 18:00 08/28/18 21:43 Sodium Chloride IV Infused Q36H BURTON Infusion Ceftriaxone Sodium 1 gm in 50 mls @ 100 mls/hr 08/27/18 15:00 08/29/18 10:27 Rocephin/Ns 1 Gm/50 Ml IV 100 mls/hr Q24HR BURTON Administration Insulin Human Isoph/Insulin Regular 25 unit 08/24/18 17:00 08/29/18 08:00 Humulin 70/30 SUB-Q 25 unit BIDDIAB BURTON Administration Insulin Human Lispro 0 unit 08/23/18 11:30 08/29/18 07:30 Humalog SUB-Q 3 unit ACHS BURTON Administration Protocol Ondansetron HCl 4 mg 08/23/18 04:32 08/26/18 16:57 Zofran IV 4 mg Q8H PRN Administration Nausea And Vomiting Sodium Chloride 10 ml 08/23/18 10:00 08/29/18 10:28 Sodium Chloride Flush Syringe 10 Ml IV 10 ml BID BURTON Administration Sodium Chloride 10 ml 08/23/18 04:32 Sodium Chloride Flush Syringe 10 Ml IV PRN PRN LINE FLUSH Tramadol HCl 25 mg 08/25/18 11:41 08/28/18 16:05 Ultram PO 25 mg Q4H PRN Administration Pain, Moderate (4-6)
== END 2018-08-29 13:01 | disposition home health service (06) | DRG 853 ==
LOC: ED 00:28 → CC1 04:32 → 3A 18:38
PROVIDERS: ADMIT Internal Medicine; ATTEND Internal Medicine
PROC: 0H98XZZ Drainage of Buttock Skin, External Approach (ICD-10-PCS; principal; 2018-08-25)
PROC: 0JB90ZZ Excision of Buttock Subcutaneous Tissue and Fascia, Open Approach (ICD-10-PCS; 2018-08-25)
DX: A41.02 Sepsis due to Methicillin resistant Staphylococcus aureus (principal); E11.01 Type 2 diabetes mellitus with hyperosmolarity with coma; E43 Unspecified severe protein-calorie malnutrition; N17.0 Acute kidney failure with tubular necrosis; E11.10 Type 2 diabetes mellitus with ketoacidosis without coma; L02.31 Cutaneous abscess of buttock; L03.317 Cellulitis of buttock; E87.1 Hypo-osmolality and hyponatremia; N30.00 Acute cystitis without hematuria; Z68.41 Body mass index [BMI] 40.0-44.9, adult; N18.3 Chronic kidney disease, stage 3 (moderate); E11.22 Type 2 diabetes mellitus with diabetic chronic kidney disease; E87.6 Hypokalemia; I12.9 Hypertensive chronic kidney disease with stage 1 through stage 4 chronic kidney disease, or unspecified chronic kidney disease; E11.40 Type 2 diabetes mellitus with diabetic neuropathy, unspecified; E66.9 Obesity, unspecified; E86.0 Dehydration; Z79.899 Other long term (current) drug therapy; Z71.3 Dietary counseling and surveillance
CPT/HCPCS: 36415; 70450; 71045; 74176; 80048; 80053; 80202; 81001; 82140; 82570; 82805; 82962; 83036; 83690; 83735; 84100; 84156; 84703; 85007; 85025; 86706; 86803; 87040; 87075; 87076; 87086; 87116; 87186; 93005; 93010; 94640; 94760; G0378; J0295; J0692; J0696; J1650; J1815; J1940; J2250; J2405; J2704; J3010; J3370; J3480; J7030; J7040; J7042; J7050; J7120